=== PATIENT | male | born 1935 | race Caucasian/White ===

== ENCOUNTER 2018-01-12 05:45 | Day surgery (SDC) | payer MEDICARE ==
[~2018-01-12] VITALS: Ht 188 cm; Wt 93.9 kg
[~2018-01-12 05:45] MED LIST: AMBIEN5 MG PO; AMLODIPINE BESYL5 MG PO; ASPIR 8181 MG PO; ATENOLOL50 MG PO; ATORVASTATIN CA40 MG PO; CATAFLAM50 MG PO; CORDARONE200 MG PO; DICLOFENAC SODI50 MG PO; ELIQUIS5 MG PO; FIORINAL 50-321 EACH PO; FLEXERIL10 MG PO; FUROSEMIDE20 MG PO; GLUCOSAMINE CH1 EAC5 PO; ISOSORBIDE MONO30 MG PO; KETOCONAZOLE15 GM TOP; KETOCONAZOLE15 GM TP; KLOR-CON M2020 MEQ PO; LISINOPRIL10 MG PO; METOPROLOL SUCC25 MG PO; METOPROLOL TART50 MG PO; MISOPROSTOL200 MCG PO; MULTIPLE VITAM1 EAC2 PO; NITROGLYCERIN0.4 MG SL; OXYCODONE HCL5 MG PO; TRAMADOL HCL50 MG PO; TYLENOL EXTRA500 MG PO; ULTRAM50 MG PO
--- NOTE | 2018-01-12 09:30 | NUR ---
01/12/18 1730 Sussy Mora 0912 PT ARRIVED IN PACU SLEEPY. REPORT FROM ANESTHESIA.
--- NOTE | 2018-01-12 09:35 | NUR ---
PT ALERT, ORIENTED AND SUPPORTED BY HIS AND DAUGHTER PAUL. ALL SEEM TO BE INFORMED, FEW QUESTIONS. PT REQUESTED PRAYER, WILL FOLLOW NEEDED
[2018-01-12] MEDS ORDERED: OXYCODON-ACETA1 EAC2 PO (09:42)
[2018-01-12] MEDS ORDERED: IBUPROFEN600 MG PO (09:42)
[2018-01-12] MEDS ORDERED: MAPAP325 MG PO (09:42)
--- NOTE | 2018-01-12 11:11 | NUR ---
LE 1005: PT RETURNED FROM PACU. AWAKE TALKING TO RN'S. VITALS OBTAINED, STABLE. WATER AND JUICE GIVEN. PT REQUESTED PUDDING, GIVEN. FAMILY TAKEN BACK TO ROOM. DISCUSSED RECOVERY PROCESS AND GOALS. RX GIVEN TO DAUGHTER FOR DROP OF AT PHARMACY. NO FURTHER NEEDS AT THIS TIME, CALL LIGHT IN REACH.
--- NOTE | 2018-01-12 11:13 | NUR ---
IN TO CHECK ON PT, PT SLEEPING. AT BEDSIDE. PT DENIES PAIN AND NAUSEA. VITALS OBTAINED, STABLE. REQUEST FOR MORE PUDDING, GIVEN. NO FURTHER NEEDS AT THIS TIME, AT BEDSIDE. CALL LIGHT IN REACH.
--- NOTE | 2018-01-12 12:28 | NUR ---
LE 1150: IN TO CHECK ON PT, PT SLEEPING. AWAKENS TO NOISE. VITALS TAKEN, PT DENIES PAIN OR NAUSEA AT THIS TIME. SANDWICH ORDERED FOR PT AND DISABLED . NO FURTHER NEEDS AT THIS TIME. AT BEDSIDE. CALL LIGHT IN REACH.
--- NOTE | 2018-01-12 15:22 | NUR ---
LE 1410: IN TO CHECK ON PT, PT AWAKE. DENIES PAIN AND NAUSEA. STATES HE FEELS HE MAY HAVE TO URINATE SOON. AND DAUGHTER AT BEDSIDE. PT UP TO SIDE OF BED WITH ASSIST. PT NOTED SLIGHT DIZZINESS, SYMPTOMS RESOLVED QUICKLY. ASSISTED PT TO BATHROOM, AMBULATED WELL. PT BACK TO BED, STEADY ON FEET. DISCUSSED DISCHARGE WITH PT AND FAMILY. PT AGREES THAT HE IS READY TO GO HOME. IV DC'D. PT ASSISTED WITH DRESSING FROM DAUGHTER.
--- NOTE | 2018-01-12 15:25 | NUR ---
LE 1500: IN TO GIVE DC INSTRUCTIONS. PT DRESSED, TOLERATED WELL. PT DENIES PAIN, NAUSEA AND DIZZINESS. ALL PT AND FAMILIES QUESTIONS ANSWERED. PT WHEELED TO CAR, TOLERATED WELL.
--- NOTE | 2018-01-14 14:12 | OR ---
[facility] [address], [place] [address] Signed DATE OF OPERATION: 01/12/2018 SURGEON: Pinky Olson MD PREOPERATIVE DIAGNOSIS: Large left inguinal hernia. POSTOPERATIVE DIAGNOSIS: Large left indirect inguinal hernia. PROCEDURES: 1. Repair of large left direct inguinal hernia. 2. Implantation of Prolene mesh (underlay technique). ANESTHESIA: General LMA (Janny Thacker CRNA) and local 10 mL of 0.25% Marcaine with epinephrine. INDICATION: This 82-year-old white man formerly a patient of Dr. Yanez, now Dr. Huerta. He is known to have bilateral inguinal hernias, left greater than right. He has also had constipation problems. He was admitted at this time to undergo a left inguinal hernia repair, anticipating colonoscopy for evaluation of constipation and ultimately right inguinal hernia repair. Repair of the left inguinal hernia before colonoscopy was deemed appropriate, considered in the bulkiness of the left hernia in the high probability that contained sigmoid colon. The risks of bleeding, infection, and recurrence were reviewed with the patient and his . They understand and wished to proceed. FINDINGS: Indeed a bulky direct type hernia was noted, most likely it contained sigmoid colon in fact. The cord structures were normal. Two ilioinguinal nerves were identified and preserved. Implantation of Prolene mesh in an underlay technique allowed for good repair of the defect. DESCRIPTION OF PROCEDURE: The patient was brought to the operating room, given a general LMA-type anesthetic. Preoperative antibiotic Ancef was given. Sequential compression device stockings were used and heparin subcutaneously administered. After satisfactory anesthesia, the lower abdomen was clipped and prepared with a chlorhexidine solution and draped sterilely. A small incision was made cephalad to the left pubic tubercle. Dissection was carried Electronically Signed By: PINKY OLSON MD 01/14/18 1412 PATIENT NAME: MARTIR GUTIERREZ JR OPERATIVE REPORT DATE OF : 31 REPORT #: [id number] PHYSICIAN: PINKY OLSON MD PCP: SAMUEL HUERTA DO REPORT IS CONFIDENTIAL AND NOT TO BE RELEASED WITHOUT AUTHORIZATION [facility] [address], [place] [address] Signed through the subcutaneous tissue with electrocautery. The external oblique was incised along its fibers revealing the underlying bulky hernia as well as the spermatic cord. Two ilioinguinal nerve branches were identified and dissected free from the cremasteric muscle fibers and reflected around the external oblique medially and laterally. The cord was then dissected free from the floor more fully and encircled with a Ricardo drain. The bulky hernia sac was dissected free from the cord structures with all due care and found to be broad-based and quite large and probably containing sigmoid colon after all. The floor was completely attenuated, although the sac like structure was attended to the cord. In large part, the hernia represented a direct defect dominantly. Rather than dissecting the hernia sac, it was simply invaginated internally and an Allis clamp applied to the tendon of the transversus abdominis. The properitoneal fat was bluntly after incision of the attenuated fibers of the fascia of the transversalis. Beneath the medial midportion of the iliopubic tract in the region of Renzo's ligament, there was some oozing of venous blood. Exposure was not easily possible and therefore some Gel-Foam and some Peg hemostatic agent was applied to the area and gauze applied and some pressure applied allowing for good hemostasis. A segment of Prolene mesh was cut to an elliptical configuration and secured in an underlay technique with interrupted 2-0 Prolene. Special examination of the area of previous venous oozing showed no further bleeding. A defect was cut in the graft to accommodate the cord structures. The tails of the graft were secured laterally without encumbrance of the ilioinguinal nerve branches. By conclusion, the repair was quite optimal. A 10 mL of 0.25% Marcaine with epinephrine was injected locally. The cord structures were replaced into the canal as was the ilioinguinal nerve superiorly and inferiorly. The external oblique was reapproximated with running 2-0 Vicryl without encumbrance of those nerves either. Jose Manuel's layer was reapproximated with interrupted 2-0 Vicryl and skin closed with running subcuticular 3-0 Vicryl. Steri-Strips were applied. The patient was ultimately extubated, transferred to recovery room in good condition having suffered no complications. Sponge, needle, and instrument counts reported as correct x3. MD DOMINIK Hernández/BRANDON Electronically Signed By: PINKY OLSON MD 01/14/18 1412 PATIENT NAME: MARTIR GUTIERREZ JR OPERATIVE REPORT DATE OF : 31 REPORT #: [id number] PHYSICIAN: PINKY OLSON MD PCP: SAMUEL HUERTA DO REPORT IS CONFIDENTIAL AND NOT TO BE RELEASED WITHOUT AUTHORIZATION [address] [address] Signed /[id number] cc: MD Samuel Barrera DO Copies: LOW YANEZ MD, FRANK E DO ~ Electronically Signed By: PINKY OLSON MD 01/14/18 1412 PATIENT NAME: VIKIMarva MARTIR RAMIREZ OPERATIVE REPORT DATE OF : 31 REPORT #: [id number] PHYSICIAN: PINKY OLSON MD PCP: SAMUEL HUERTA DO REPORT IS CONFIDENTIAL AND NOT TO BE RELEASED WITHOUT AUTHORIZATION
[2018-03-31] MEDS ORDERED: GLUCOSAMINE &1 EAC1 PO (15:04)
[2018-03-31] MEDS ORDERED: MULTI VITAMIN1 EACH PO (15:05)
[2018-03-31] MEDS ORDERED: PERCOCET 7.5-31 EACH PO (15:08)
== END 2018-01-12 15:10 | disposition home or self-care (01) ==
LOC: DS 05:45
PROVIDERS: Surgery
PROC: 0YU60JZ Supplement Left Inguinal Region with Synthetic Substitute, Open Approach (ICD-10-PCS; principal; 2018-01-12 06:45)
DX: K40.20 Bilateral inguinal hernia, without obstruction or gangrene, not specified as recurrent (principal); M06.9 Rheumatoid arthritis, unspecified; G43.909 Migraine, unspecified, not intractable, without status migrainosus; E78.5 Hyperlipidemia, unspecified; I10 Essential (primary) hypertension; K59.00 Constipation, unspecified; Z79.82 Long term (current) use of aspirin; Z88.5 Allergy status to narcotic agent; Z88.8 Allergy status to other drugs, medicaments and biological substances; Z90.49 Acquired absence of other specified parts of digestive tract; Z95.1 Presence of aortocoronary bypass graft; Z98.890 Other specified postprocedural states; Z79.899 Other long term (current) drug therapy
CPT/HCPCS: 00830; C1781; J0690; J1100; J1644; J1885; J2250; J2405; J3010; J7120

== ENCOUNTER 2018-04-01 05:45 | Day surgery (SDC) | payer MEDICARE ==
[~2018-04-01] VITALS: Ht 188 cm; Wt 98.4 kg
[~2018-04-01 05:45] MED LIST changes: +GLUCOSAMINE &1 EAC1 PO; +IBUPROFEN600 MG PO; +MAPAP325 MG PO; +MULTI VITAMIN1 EACH PO; +OXYCODON-ACETA1 EAC2 PO; +PERCOCET 7.5-31 EACH PO
--- NOTE | 2018-04-01 09:19 | NUR ---
04/01/18 0919 Arianna Hammond 0907 PT ARRIVED REACTIVE, RESP EVEN AND UNLABORED. PT ENCOURAGED TO DEEP BREATH. 0913 PT REACHING UP FOR O2 MASK, O2 REMOVED. PT REMINED TO DEEP BREATH
[2018-04-01] MEDS ORDERED: OXYCODON-ACETA1 EAC2 PO (09:26)
[2018-04-01] MEDS ORDERED: IBUPROFEN600 MG PO (09:26)
[2018-04-01] MEDS ORDERED: MAPAP325 MG PO (09:26)
--- NOTE | 2018-04-01 09:51 | NUR ---
ICED WATER GIVEN. PT'S FAMILY IS @ THE BS. CALL LIGHT W/IN REACH.
--- NOTE | 2018-04-01 12:34 | NUR ---
PT SITTING UPRIGHT IN BED, EATING LUNCH. PT TOLERATES PO WELL. FAMILY AT BEDSIDE. PT CALL LIGHT AT LEFT SIDE. PT HAS NO C/O'S AT THIS TIME.
--- NOTE | 2018-04-01 13:33 | NUR ---
LE 1040 IN TO CHECK ON PT, PT SLEEPING. AT BEDSIDE. AWAKENS EASILY TO VOICE. DENIES PAIN AND NAUSEA. VITALS STABLE. NO FURTHER NEEDS AT THIS TIME. CALL LIGHT IN REACH.
--- NOTE | 2018-04-01 13:34 | NUR ---
LE 1120 IN TO CHECK ON PT, PT RESTING. AWAKENS TO VOICE. PT DOING WELL. SANDWICH REQUESTED AND ORDERED. AT BEDSIDE. PT DENIES PAIN AND NAUSEA. PT DENIES THE NEED TO URINATE THIS TIME. NO FURTHER NEEDS AT THIS TIME. CALL LIGHT IN REACH.
--- NOTE | 2018-04-01 13:37 | NUR ---
IN TO CHECK ON PT, PT RESTING. DENIES NAUSEA AFTER FOOD. DENIES PAIN. DENIES NEED TO URINATE AT THIS TIME. PT STATES FAMILY HAS GONE HOME TO REST. NO FURTHER NEEDS AT THIS TIME. CALL LIGHT IN REACH. PT WATCHING TV.
--- NOTE | 2018-04-01 14:08 | NUR ---
IN TO CHECK ON PT, PT RESTING IN BED WATCHING TV. DENIES PAIN AND NAUSEA. DENIES THE NEED TO URINATE, THOUGH HE FEELS HE WILL BE ABLE TO GO SOON. PT STATES HIS AND DAUGHTER WILL BE BACK SOON TO TAKE HIM HOME. REFILLED WATER. NO FURTHER NEEDS AT THIS TIME. CALL LIGHT IN REACH.
--- NOTE | 2018-04-01 14:52 | NUR ---
LE 1440 IN TO CHECK ON PT, PT AWAKE TALKING WITH DAUGHTER. PT ASSISTED UP TO RESTROOM, AMBULATED WELL. DENIES PAIN AND NAUSEA. DENIES DIZZINESS. PT ABLE TO VOID AND HAVE BM. PT ADVISED HE HAS MEET CRITERIA FOR DC, PT WOULD LIKE TO GO HOME. IV DC'D. PT GETTING DRESSED WITH ASSISTANCE FROM DAUGHTER.
--- NOTE | 2018-04-01 15:20 | NUR ---
LE 1500 PT DRESSED, TOLERATED WELL. DC INSTRUCTIONS GIVEN TO PT AND DAUGHTER PAUL. NO FURTHER QUESTION. PT WHEELED OUT TO WAITING CAR, PT TOLERATED WELL.
--- NOTE | 2018-04-03 12:42 | OR ---
[facility] [address] [place], [place] [address] Signed DATE OF OPERATION: 04/01/2018 SURGEON: Pinky Olson MD PREOPERATIVE DIAGNOSIS: Right inguinal hernia. POSTOPERATIVE DIAGNOSIS: Right direct inguinal hernia. PROCEDURES: 1. Repair of right direct inguinal hernia. 2. Implantation of Prolene mesh (underlay technique). ANESTHESIA: General, LMA, Kennedy Etelvina, SHANK CEMENTER HAND and local 20 mL of 0.25% Marcaine with epinephrine. INDICATIONS: This 82-year-old white man is a patient previously of Dr. Huy Yanez, now a patient of Dr. Samuel Huerta, who presented with bilateral inguinal hernia. He was noted to have a much larger left inguinal hernia, which was repaired with Prolene mesh and successfully so. He continues to have bulky right inguinal hernia, which is symptomatic. He is admitted at this time to undergo repair of the right hernia. He understands the risks of bleeding, infection, recurrence, and other unforeseen complications. His main risk factor for hernia is constipation and colonoscopy has been anticipated for evaluation of that. DESCRIPTION OF PROCEDURE: The patient was brought to the operating room and given a general LMA-type anesthetic. Preoperative antibiotic, Ancef was given. Sequential compression device stockings were used and heparin subcutaneously administered. The lower abdomen was clipped and prepared with a chlorhexidine solution and draped sterilely. The previous left groin incision was well healed. An incision on the right side was undertaken reasonably symmetric to the left side. Dissection was carried through the subcutaneous tissue with blunt and electrocautery dissection. The external oblique was incised along its fibers, revealing the underlying cord. An ilioinguinal nerve branch was dissected free from the cremasteric muscle fibers of the cord and reflected around the external oblique medially. The cord was mobilized from the floor with blunt and electrocautery dissection and encircled with a [place] drain. A bulky hernia was noted adherent to the cord. Further dissection showed it largely to be a direct hernia. The attenuated Electronically Signed By: PINKY OLSON MD 04/03/18 1242 PATIENT NAME: MARTIR GUTIERREZ JR OPERATIVE REPORT DATE OF : 31 REPORT #: [id number] PHYSICIAN: PINKY OLSON MD PCP: SAMUEL HUERTA DO REPORT IS CONFIDENTIAL AND NOT TO BE RELEASED WITHOUT AUTHORIZATION [facility] [address] [place], [place] [address] Signed fibers of the fascia of the transversalis were incised with electrocautery allowing for invagination of the wide-mouth hernia back to the properitoneal space. An Allis clamp was applied to the tendon of the transversus abdominis and blunt dissection of the properitoneal space was undertaken, revealing the iliopubic tract deeply as well. There was no evidence of femoral hernia. A small amount of bleeding in the medial inferior aspect was secured with electrocautery as well as some Peg and Gelfoam. A segment of Prolene mesh was cut to an elliptical configuration and secured in an underlay technique with interrupted 2-0 Prolene sutures. A defect was cut in the graft to accommodate the cord structures. The tails of the graft were secured laterally taking special care to avoid incorporating the ilioinguinal nerve. The aperture through which the cord passed was a bit larger than I had hoped and therefore was secured additionally with Prolene suture. The cord emanated through the mesh in a snug, but not tight configuration. 20 mL of 0.25% Marcaine with epinephrine was injected locally. The cord was placed into the canal as was the ilioinguinal nerve and the external oblique was reapproximated with running 2-0 Vicryl suture. Jose Manuel layer was reapproximated with interrupted 2-0 Vicryl and the skin was closed with running subcuticular 3-0 Vicryl. Steri-Strips were applied as was a Mepilex silver sponge dressing and an OpSite. The patient was ultimately extubated and transferred to recovery room in good condition having suffered no complications. Sponge, needle, and instrument counts were correct x2. MD DOMINIK Hernández/MODL /[id number] cc: MD Samuel Barrera DO Copies: HUY YANEZ MD Electronically Signed By: PINKY OLSON MD 04/03/18 1242 PATIENT NAME: MARTIR GUTIERREZ JR OPERATIVE REPORT DATE OF : 31 REPORT #: [id number] PHYSICIAN: PINKY OLSON MD PCP: SAMUEL HUERTA DO REPORT IS CONFIDENTIAL AND NOT TO BE RELEASED WITHOUT AUTHORIZATION [address] [address] Signed SAMUEL HUERTA DO ~ Electronically Signed By: PINKY OLSON MD 04/03/18 1242 PATIENT NAME: MARTIR GUTIERREZ JR OPERATIVE REPORT DATE OF : 31 REPORT #: [id number] PHYSICIAN: PINKY OLSON MD PCP: SAMUEL HUERTA DO REPORT IS CONFIDENTIAL AND NOT TO BE RELEASED WITHOUT AUTHORIZATION
== END 2018-04-01 15:00 | disposition home or self-care (01) ==
LOC: DS 05:45
PROVIDERS: Surgery
PROC: 0YU50JZ Supplement Right Inguinal Region with Synthetic Substitute, Open Approach (ICD-10-PCS; principal; 2018-04-01 06:45)
DX: K40.90 Unilateral inguinal hernia, without obstruction or gangrene, not specified as recurrent (principal); M06.9 Rheumatoid arthritis, unspecified; I25.10 Atherosclerotic heart disease of native coronary artery without angina pectoris; G43.909 Migraine, unspecified, not intractable, without status migrainosus; E78.5 Hyperlipidemia, unspecified; I10 Essential (primary) hypertension; K59.09 Other constipation; J18.9 Pneumonia, unspecified organism; M19.90 Unspecified osteoarthritis, unspecified site; I25.2 Old myocardial infarction; Z88.5 Allergy status to narcotic agent; Z88.6 Allergy status to analgesic agent; Z79.82 Long term (current) use of aspirin; Z79.899 Other long term (current) drug therapy; Z95.1 Presence of aortocoronary bypass graft
CPT/HCPCS: 00830; C1781; J0690; J1644; J1885; J2405; J2704; J3010; J7120

== ENCOUNTER 2018-12-24 21:54 | Emergency (ER) | payer MEDICARE ==
[~2018-12-24] VITALS: Ht 188 cm; Wt 98.4 kg
[2018-12-24] MEDS ORDERED: LISINOPRIL5 MG PO (22:06)
[2018-12-24] MEDS ORDERED: OFLOXACIN5 M1 OP (22:06)
[2018-12-24] MEDS ORDERED: PREDNISOLONE ACE5 ML OPTH (22:07)
--- NOTE | 2018-12-26 16:49 | EKG ---
[facility] [address] [facility] [place] [address] Signed Normal sinus rhythm Right bundle branch block Left anterior fascicular block Bifascicular block Abnormal ECG When compared with ECG of 08-JAN-2018 11:19, No significant change was found Confirmed by CHINYERE VELA DO ([id number]) on 12/26/2018 4:48:49 PM Electronically Signed By: CHINYERE VELA DO 12/26/18 1649 PATIENT NAME: MARTIR GUTIERREZ JR Electrocardiogram DATE OF : 31 PHYSICIAN: CHINYERE VELA DO REPORT #: [id number] REPORT IS CONFIDENTIAL AND NOT TO BE RELEASED WITHOUT AUTHORIZATION
== END 2018-12-25 01:33 | disposition home or self-care (01) ==
LOC: ED 21:54
DX: R07.9 Chest pain, unspecified (principal); I10 Essential (primary) hypertension; I25.10 Atherosclerotic heart disease of native coronary artery without angina pectoris; Z86.73 Personal history of transient ischemic attack (TIA), and cerebral infarction without residual deficits; Z90.49 Acquired absence of other specified parts of digestive tract; Z95.1 Presence of aortocoronary bypass graft; Z88.5 Allergy status to narcotic agent; Z88.8 Allergy status to other drugs, medicaments and biological substances; Z79.899 Other long term (current) drug therapy; Z79.82 Long term (current) use of aspirin
CPT/HCPCS: 71045; 80053; 84484; 85025; 93005; 93010; 96361; 96374; 99285-25; J7030

== ENCOUNTER 2019-01-30 12:40 | Inpatient (IN) | payer MEDICARE ==
[~2019-01-30] VITALS: Ht 188 cm; Wt 98.4 kg
--- NOTE | ~2019-01-30 | DS ---
[facility] [address] [place], [place] [address] Draft ADMISSION DATE: 01/31/2019 DISCHARGE DATE: 02/02/2019 REASON FOR ADMISSION: Acute calculous cholecystitis. HISTORY: This is a very pleasant 83-year-old white man who was seen in the emergency room about 2 weeks ago with complaints of epigastric pain and cardiac workup was undertaken, which was negative. He reappeared to the emergency room after a night that he ate fish wick with similar complaints as before. He was evaluated by Dr. Rodas, whose evaluation included a workup for biliary disease, where he underwent a gallbladder ultrasound showing at least one large 2.6 cm gallstone with thickened gallbladder wall. He was admitted for further evaluation and care for acute calculous cholecystitis. PERTINENT PHYSICAL EXAM: GENERAL: A tall white man who is not systemically toxic. HEENT: Mucous membranes reasonably moist. Trachea midline. CHEST: Clear. HEART: Regular without murmur. ABDOMEN: Large, but not particularly distended. He has minimal tenderness in the right subcostal area. HOSPITAL COURSE: He was admitted, given intravenous antibiotics, parenteral pain medication, and on January 31, 2019, underwent laparoscopic cholecystectomy. He was found to have a markedly inflamed gallbladder. Impressively so, far more than his clinical symptoms would have suggested. The operation was rather prolonged, complicated and difficult due to the extent of inflammation. Cholangiogram was normal. Upon opening the gallbladder, there were two large stones at least 2.6 cm in size each. Notably, his cholangiogram was normal. 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 A drain was placed. He never showed any sign of bile leak. By day of discharge, he is ambulating well, tolerating a regular diet and the drain has been removed. The patient is poorly tolerant of opiates and is discharged home with Tylenol only. He was instructed to lift no more than 20 pounds for the next 2 weeks. He should walk PATIENT NAME: MARTIR GUTIERREZ JR DISCHARGE SUMMARY DATE OF : 31 REPORT #: [id number] PHYSICIAN: PINKY OLSON MD PCP: LUÍS MONROY MD REPORT IS CONFIDENTIAL AND NOT TO BE RELEASED WITHOUT AUTHORIZATION [address] [address] Draft on a daily basis and has no restrictions to his diet as relates to the gallbladder. DISCHARGE MEDICATIONS: Will include: 1. Tylenol 650 mg p.o. q.6 hours p.r.n. pain. He will resume his usual medications, which include potassium chloride 20 mEq p.o. every other day. 2. Atorvastatin 20 mg p.o. at bedtime. 3. Aspirin 81 mg p.o. daily. 4. Glucosamine chondroitin 1 tablet p.o. daily. 5. Multivitamin. 6. Lisinopril 5 mg p.o. daily. 7. Prednisolone eye drops, left eye 4 times a day. 8. Lasix 40 mg p.o. every other day. 9. Metoprolol 50 mg p.o. daily. 10. Nitroglycerin sublingual 4.4 mg as needed for chest pain. DISCHARGE DIAGNOSES: 1. Acute calculous cholecystitis (severe), status post laparoscopic cholecystectomy with intraoperative cholangiogram and placement of drain on January 31, 2019. 2. History of dyslipidemia. 3. Hypertension. 4. History of ischemic heart disease including the coronary artery bypass grafting in 2016 with subsequent atrial fibrillation and cardioversion, currently normal sinus rhythm. 5. Bilateral cataract operation in the past 6 months. 6. History of appendectomy, hemorrhoidectomy, and knee arthroscopy. FOLLOWUP PLAN: He is return to see me in a month or so. He will call if there are problems. MD DOMINIK Hernández/MODL /[id number] cc: Luís Monroy MD PATIENT NAME: MARTIR GUTIERREZ Filippo DISCHARGE SUMMARY DATE OF : [birth year] REPORT #: [id number] PHYSICIAN: PINKY OLSON MD PCP: LUÍS MONROY MD REPORT IS CONFIDENTIAL AND NOT TO BE RELEASED WITHOUT AUTHORIZATION [facility] [address] [place], [place] [address] Draft Phillip Rodas MD Copies: PHILLIP RODAS MD ~ PATIENT NAME: MARTIR GUTIERREZ Filippo JR DISCHARGE SUMMARY DATE OF : [birth year] REPORT #: [id number] PHYSICIAN: PINKY OLSON MD PCP: LUÍS MONROY MD REPORT IS CONFIDENTIAL AND NOT TO BE RELEASED WITHOUT AUTHORIZATION
--- OUTSIDE RECORDS SUMMARY | ~2019-01-30 | XMS | Clinical Summary ---
Demographics + + + | Address | [address] | | | [place] [address] | + + + | Home Phone | | + + + | Preferred Language | Unknown | + + + | Marital Status | | + + + | Mormonism Affiliation | 1077 | + + + | Race | Unknown | + + + | Ethnic Group | Unknown | + + + Author + + + | Author | [facility] | | | and [place] | + + + | Organization | [facility] | | | and [place] | + + + | Address | Unknown | + + + | Phone | Unavailable | + + + Support + + +---------+ + | Name | Relationship | Address | Phone | + + +---------+ + | GE[place]GIANA RANDOLPH ECON | Unknown | | + + +---------+ + | TomasaGeorgiana | ECON | Unknown | | + + +---------+ + | Laury Simms | ECON | Unknown | | + + +---------+ + Care Team Providers + +------+ + | Care Supervisor Stave Cutting Name | Role | Phone | + +------+ + PP | Unavailable | + +------+ + Allergies Not on File Current Medications + + +--------+---------+------+------+-------+ | Prescription | Sig. | Disp. | Refills | Star | End | Statu | | | | | | t | Date | s | | | | | | Date | | | + + +--------+---------+------+------+-------+ | furosemide (LASIX) | TAKE TWO TABLETS BY | 30 | 4 | 11/2 | | Activ | | 20 mg tablet | MOUTH EVERY OTHER | tablet | | 8/20 | | e | | | DAY | | | 18 | | | + + +--------+---------+------+------+-------+ Active Problems Not on file Social History + +-------+ +--------+------+ | Tobacco [...] on file | | + + + Plan of Treatment + + + + + | Health Maintenance | Due Date | Last Done | Comments | + + + + + | Vaccine: | | | | | Dtap/Tdap/Td (1 - | 2 | | | | Tdap) | | | | + + + + + | Vaccine: Zoster (1 | | | | | of 2) | 3 | | | + + + + + | Vaccine: | | | | | Pneumococcal 65+ | 8 | | | | Low/Medium Risk (1 | | | | | of 2 - PCV13) | | | | + + + + + | Vaccine: Influenza | | | | | (#1) | 8 | | | + + + + + | Adult Annual | | | | | Wellness Visit | 8 | | | + + + + + Results Not on filefrom Last 3 Months"
--- OUTSIDE RECORDS SUMMARY | ~2019-01-30 | XMS | Clinical Summary ---
Demographics + + + | Address | [address] | | | [place] [address] | + + + | Home Phone | | + + + | Preferred Language | Unknown | + + + | Marital Status | | + + + | Anabaptist Affiliation | [id number] | + + + | Race | Unknown | + + + | Ethnic Group | Unknown | + + + Author + + + | Author | [facility] | + + + | Organization | [facility] | + + + | Address | [...] | | + + +---------+ + | Detail,Message | ECON | Unknown | | + + +---------+ + Care Team Providers + +------+ + | Care Yarn Mercerizer Operator Name | Role | Phone | + +------+ + | Almaz Thacker PA-C | PP | | + +------+ + Allergies + + + + + + | Active Allergy | Reactions | Severity | Noted | Comments | | | | | Date | | + + + + + + | Chlorthalidone | Other (See Comments) | Medium | 10/28/20 | Hypokalemia | | | | | 17 | | + + + + + + | Codeine | Hallucinations | Medium | 01/08/20 | | | | | | 16 | | + + + + + + | Naproxen | Diarrhea, Nausea and | Low | 10/28/20 | | | | Vomiting | | 17 | | + + + + + + Current Medications + + +--------+---------+------+------+-------+ | Prescription | Sig. | Disp. | Refills | Star | End | Statu | | | | | | t | Date | s | | | | | | Date | | | + + +--------+---------+------+------+-------+ | MULTIPLE VITAMIN | Take by mouth | | | | | Activ | | PO | daily. | | | | | e | + + +--------+---------+------+------+-------+ | | Take 1 capsule by | | | | | Activ | | glucosamine-chondroi | mouth daily. | | | | | e | | tin 500-400 MG CAPS | | | | | | | + + +--------+---------+------+------+-------+ | ketoconazole | Apply 2 % topically | | | | | Activ | | (NIZORAL) 2 % cream | daily. | | | | | e | + + +--------+---------+------+------+-------+ | potassium chloride | Take 20 mEq by mouth | | | | | Activ | | SA [facility]KE HESTER) | every other day. | | | | | e | | 20 MEQ tablet | | | | | | | + + +--------+---------+------+------+-------+ | furosemide (LASIX) | Take 40 mg by mouth | | | | | Activ | | 40 MG tablet | every other day. | | | | | e | + + +--------+---------+------+------+-------+ | metoprolol | Take 50 mg by mouth | | | | | Activ | | (LOPRESSOR) 50 MG | 2 (two) times daily. | | | | | e | | tablet | | | | | | | + + +--------+---------+------+------+-------+ | aspirin 81 MG EC | Take 81 mg by mouth | | | | | Activ | | tablet | daily with | | | | | e | | | breakfast. | | | | | | + + +--------+---------+------+------+-------+ | traMADol (ULTRAM) | Take 50 mg by mouth | | | | | Activ | | 50 MG tablet | as needed for Pain. | | | | | e | + + +--------+---------+------+------+-------+ | atorvastatin | Take 1 tablet by | 90 | 2 | 06/2 | | Activ | | (LIPITOR) 40 MG | mouth nightly. | tablet | | 0/20 | | e | | tablet | | | | 18 | | | + + +--------+---------+------+------+-------+ | ibuprofen (MOTRIN) | Take 600 mg by mouth | | | | | Activ | | 600 MG tablet | every 6 (six) hours | | | | | e | | | as needed for Pain. | | | | | | + + +--------+---------+------+------+-------+ | nitroGLYCERIN | Place 1 tablet under | 25 | 12 | 06/2 | 06/2 | Activ | | (NITROSTAT) 0.4 MG | the tongue every 5 | tablet | | 0/20 | 0/20 | e | | SL tablet | (five) minutes as | | | 18 | 19 | | | | needed for Chest | | | | | | | | pain (use every 5-10 | | | | | | | | min as needed PRN). 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 He remains in sinus | | rhythm after his cardioversion. Denies any new visual | | disturbances, dysarthria, dysphasia, lateralizing signs or | | symptoms. We'll allow him to lift up to 50 pounds now. | | Tolerating medications. Will follow clinically. Activity | | encouraged. Labs anticipated.Hx CAB01/15/2016, CABG*5 (WEST to | | LAD, SVG to D1, SVG to OM, SVG to RPDA, SVG to RPLA).Hx | | PCI/stent: noHx Pacemaker/ICD: noLast Cath, 01/09/2016: left main | | OK, 40% prox-LAD, 80% mid-LAD, 80% distal LAD, 95% D1, LCx | | non-dominanat with 30-40% mid-LCx, OM1 occluded, 90% OM3, large | | RCA with 30% prox-RCA, 50-60% mid-RCA, 80% RPDA. Last Echo, | | 01/10/2016: LVEF 60-65%, moderate LAE, moderate LAUREN, mild RVE, mild | | MR.Last Stress Test, 12/12/2015: Lexiscan, moderate size lateral | | ischemia, LVEF 60%.ECG, 08/15/2016: Sinus rhythm, 65bpm, LAD, | | RBBB. | + + + + + | Paroxysmal atrial fibrillation (HCC) | 01/30/2016 | + + + + + | Last Assessment & Plan: Persistent atrial | | fibrillation/flutter, successfully cardioverted to sinus rhythm, | | he continues to be in sinus rhythm. Unaware of any palpitations. | | Denies any new visual disturbances, dysarthria, dysphasia, | | lateralizing signs or symptoms. | + + + + + | Coronary artery disease involving [place] coronary artery | 01/10/2016 | + + + | Essential hypertension, benign | 01/08/2016 | + + + | Hyperlipemia | 01/08/2016 | + + + | HLD (hyperlipidemia) | 11/21/2015 | + + + + + | Last Assessment & Plan: Hyperlipidemia, continue current med | | at current dose (atorvastatin). | + + + + + | Primary osteoarthritis of right knee | 11/21/2015 | + + + + + | Last Assessment & Plan: DJD, primarily affecting the right | | knee, previous injury to right knee, arthroscopic procedure the | | right knee. | + + Resolved Problems + + + + | Problem | Noted | Resolved | | | Date | Date | + + + + | Chest pain at rest | 01/08/20 | | | | 16 | 7 | + + + + | Sinus bradycardia | 01/08/20 | | | | 16 | 8 | + + + + | Essential hypertension | 11/21/19 | | | | 16 | 7 | + + + + + + | Last Assessment & Plan: Hypertension, controlled, continue | | current meds current dose (metoprolol, furosemide). | + + Encounters +--------+ + + + + | Date | Type | Specialty | Care Team | Description | +--------+ + + + + | 11/24/ | Ancillary | | Alejandro Monroy | Congestive heart | | 2018 | Procedure | | MD Casandra | failure, unspecified | | | | | | HF chronicity, | | | | | | unspecified heart | | | | | | failure type ([facility]) | +--------+ + + + + | 11/24/ | Ancillary | | Alejandro Monroy | Congestive heart | | 2018 | Orders | | MD Casandra | failure, unspecified | | | | | | HF chronicity, | | | | | | unspecified heart | | | | | | failure type (HCC) | +--------+ + + + + from Last 3 Months Family History + + +------+ + | Medical History | Relation | Name | Comments | + + +------+ + | Cancer | Mother | | | + + +------+ + | Heart disease | Mother | | | + + +------+ + | High cholesterol | Mother | | | + + +------+ + | Hypertension | Mother | | | + + +------+ + + +------+ + + | Relation | Name | Status | Comments | + +------+ + + | Father | | | unknown status | | | | (Age | | | | | 85) | | + +------+ + + | Mother | | | HTN,cancer, heart disease,CHF | | | | (Age | | | | | 86) | | + +------+ + + Social History + + + +--------+ + | Tobacco Use | Types | Packs/Day | Years | Date | | | | | Used | | + + + +--------+ + | Former Smoker | Cigarettes | 0.25 | 2 | Quit: 11/09/1957 | + + + +--------+ + + +---+---+---+ | Smokeless Tobacco: | | | | | Never Used | | | | + +---+---+---+ + + +---------+ + | Alcohol Use | Drinks/We | oz/Week | Comments | | | ek | | | + + +---------+ + | Yes | 1 | 0.6 | liquor occ | | | Standard | | | | | drinks or | | | | | | | | | | equivalen | | | | | t | | | + + +---------+ + + + + | Sex Assigned at | Date Recorded | | | | + + + | Not on file | | + + + Last Filed Vital Signs + + + + | Vital Sign | Reading | Time Taken | + + + + | Blood Pressure | 118/62 | 04/28/2018 10:35 AM PDT | + + + + | Pulse | 62 | 04/28/2018 10:35 AM PDT | + + + + | Temperature | 36.3 C (97.3 F) | 02/06/2016 11:04 AM PDT | + + + + | Respiratory Rate | 16 | 09/15/2016 2:09 PM PST | + + + + | Oxygen Saturation | 96% | 04/28/2018 10:35 AM PDT | + + + + | Inhaled Oxygen | - | - | | Concentration | | | + + + + | Weight | 100.1 kg (220 lb | 04/28/2018 10:35 AM PDT | | | 11.2 oz) | | + + + + | Height | 185.4 cm (6' 1") | 04/28/2018 10:35 AM PDT | + + + + | Body Mass Index | 29.12 | 04/28/2018 10:35 AM PDT | + + + + Plan of Treatment + [...] | | + + + + + Procedures + +--------+ + + + | Procedure Name | Priori | Date/Time | Associated Diagnosis | Comments | | | ty | | | | + +--------+ + + + | ECHO OUTSIDE | Routin | 11/24/2018 | Congestive heart | Results for this | | INTERPRETATION | e | 4:48 PM | failure, unspecified | procedure are in the | | STANDARD | | PST | HF chronicity, | results section. | | | | | unspecified heart | | | | | | failure type (HCC) | | + +--------+ + + + from Last 3 Months Results ECHO outside interpretation standard (11/24/2018 4:48 PM) + + + | Impressions | Performed At | + + + | 1. The left ventricle is normal in size, wall thickness and systolic | [facility] | | function EF 55-60%. 2. The right ventricle is mildly enlarged with | [facility]OLOG[facility] | | normal systolic function. 3. No significant valvular pathology. 4. | | | There is no pericardial effusion. | | + + + + + + | Narrative | Performed At | + + + | Patient Name: FLACO RANDOLPH Date of : 1935 | [facility] | | Performing Physician: Devonte Nevarez | RADIOLOGY | | | | | INDICATIONS CHF CONCLUSIONS 1. The | | | left ventricle is normal in size, wall thickness and systolic function | | | EF 55-60%. 2. The right ventricle is mildly enlarged with normal | | | systolic function. 3. No significant valvular pathology. 4. There | | | is no pericardial effusion. FINDINGS -------- ECG rhythm: Sinus | | | rhythm. ECG rhythm: Resting bradycardia (HR<60bpm). Study: A | | | 2-dimensional transthoracic echocardiogram with m-mode, spectral and | | | color flow Doppler was perfomed. Study: This was a technically | | | adequate study. Left Ventricle: Overall left ventricular systolic | | | function is normal with, an EF between 60 - 65 %. Left Ventricle: | | | The left ventricle cavity size is normal. Left Ventricle: Left | | | ventricular wall thickness is normal. Left Ventricle: There is | | | paradoxical/dysynergic septal motion consistent with bundle branch | | | block. Left Ventricle: The diastolic filling pattern indicates | | | impaired relaxation consistent with mild dysfunction (Grade I). Right | | | Ventricle: The right ventricle is mildly enlarged. Right Ventricle: | | | The right ventricular systolic function is normal. Left Atrium: The | | | left atrium is normal in size. Right Atrium: The right atrium is | | | mildly enlarged. Aortic Valve: The aortic valve appears to be | | | trileaflet. Aortic Valve: There is mild aortic valve sclerosis | | | without stenosis. Aortic Valve: There is no evidence of aortic | | | regurgitation. Mitral Valve: The mitral valve is normal. Mitral | | | Valve: There is trace mitral regurgitation. Tricuspid Valve: The | | | tricuspid valve appears structurally normal. Tricuspid Valve: | | | Pulmonary artery systolic pressure could not be assessed due to the | | | absence of adequate TR jet. Pulmonic Valve: The pulmonic valve is | | | normal. Pulmonic Valve: Mild pulmonic regurgitation. Pulmonic | | | Valve: No significant valvular pathology. Pericardium: There is no | | | pericardial effusion. Pericardium: No pleural effusion seen. | | | IVC/Hepatic Veins: The IVC is normal size (1.5-2.5cm) and collapses | | | >50% with sniff, consistent with central venous pressures of 5-10mmHg. | | | Aorta: Aortic arch not well seen. MEASUREMENTS | | | Ao asc: 3.76 cm Ao Diam: 3.42 cm Ao sinus: 3.75 cm Ao | | | st junct: 3.34 cm IVC: 1.47 cm LA Major: 4.92 cm | | | EDV(Teich): 149.91 ml IVSd: 0.91 cm LVIDd: 5.54 cm | | | LVPWd: 0.97 cm LVOT Area: 3.54 cm2 LVOT Diam: 2.12 cm | | | %FS: 30.32 % EF(Teich): 57.09 % ESV(Teich): 64.31 ml | | | LVIDs: 3.86 cm SV(Teich): 85.59 ml RA Major: 5.23 cm RV | | | Major: 6.94 cm RV Minor: 4.19 cm RVIDd: 3.50 cm LVEF | | | MOD A2C: 65.78 % SV MOD A2C: 59.78 ml LVEF MOD A4C: | | | 63.97 % SV MOD A4C: 65.33 ml EF Biplane: 62.43 % LVEDV MOD | | | BP: 98.82 ml LVESV MOD BP: 37.12 ml LVEDV MOD A2C: 90.88 | | | ml LVLd A2C: 7.35 cm LVEDV MOD A4C: 102.12 ml LVLd | | | A4C: 7.82 cm LVESV MOD A2C: 31.09 ml LVLs A2C: 5.65 cm | | | LVESV MOD A4C: 36.78 ml LVLs A4C: 6.82 cm LAESV(A-L): | | | 60.13 ml LAESV Index (A-L): 26.84 ml/m2 LAAs A2C: 19.61 cm2 | | | LAESV A-L A2C: 63.10 ml LALs A2C: 5.17 cm LAAs A4C: | | | 18.69 cm2 LAESV A-L A4C: 55.18 ml LALs A4C: 5.37 cm | | | RAAs: 19.27 cm2 RAESV A-L: 61.26 ml RAESV MOD: 59.24 ml | | | RALs: 5.15 cm TAPSE: 1.78 cm AV maxP.07 mmHg AV | | | meanP.87 mmHg AV Vmax: 1.23 m/s AV Vmean: 0.78 m/s | | | AV VTI: 22.53 cm CARLTON Vmax: 2.68 cm2 CARLTON (VTI): 3.27 cm2 | | | AVAI Vmax: 0.00 cm2/m2 AVAI (VTI): 0.00 cm2/m2 LVOT | | | maxP.48 mmHg LVOT meanP.06 mmHg LVSI Dopp: 32.97 | | | ml/m2 LVSV Dopp: 73.87 ml LVOT Vmax: 0.93 m/s LVOT | | | Vmean: 0.67 m/s LVOT VTI: 20.83 cm MV A Joaquín: 0.68 m/s | | | MV Dec Preston: 1.32 m/s2 MV DecT: 373.67 ms MV E Joaquín: | | | 0.49 m/s MV E/A Ratio: 0.72 MV PHT: 108.36 ms MVA By | | | PHT: 2.03 cm2 Septal e': 0.03 m/s Septal E/e': 14.24 | | | Lateral e': 0.02 m/s Lateral E/e': 20.11 Aquatic Director: LILIAM | | | Authenticated by: Devonte [facility] Report Date/Time: 11-25-2018 | | | 17:40:15 | | + + + + + | Procedure Note | + + | Tony, Rad Results In - 11/25/2018 5:50 PM PST Patient Name: Karishma RANDOLPH of | | : 1935ccession: [id number] Physician: Devonte | | Alsamara INDICATIONS------ | | -----CHFCONCLUSIONS 1. The left ventricle is normal in size, wall thickness | | and systolic function EF 55-60%.2. The right ventricle is mildly enlarged with normal | | systolic function.3. No significant valvular pathology. 4. There is no pericardial | | effusion.FINDINGS--------ECG rhythm: Sinus rhythm. ECG rhythm: Resting bradycardia | | (HR<60bpm).Study: A 2-dimensional transthoracic echocardiogram with m-mode, spectral and | | color flow Doppler was perfomed. Study: This was a technically adequate study.Left | | Ventricle: Overall left ventricular systolic function is normal with, an EF between 60 - | | 65 %. Left Ventricle: The left ventricle cavity size is normal. Left Ventricle: Left | | ventricular wall thickness is normal. Left Ventricle: There is paradoxical/dysynergic | | septal motion consistent with bundle branch block. Left Ventricle: The diastolic filling | | pattern indicates impaired relaxation consistent with mild dysfunction (Grade I).Right | | Ventricle: The right ventricle is mildly enlarged. Right Ventricle: The right | | ventricular systolic function is normal.Left Atrium: The left atrium is normal in | | size.Right Atrium: The right atrium is mildly enlarged.Aortic Valve: The aortic valve | | appears to be trileaflet. Aortic Valve: There is mild aortic valve sclerosis without | | stenosis. Aortic Valve: There is no evidence of aortic regurgitation.Mitral Valve: The | | mitral valve is normal. Mitral Valve: There is trace mitral regurgitation.Tricuspid | | Valve: The tricuspid valve appears structurally normal. Tricuspid Valve: Pulmonary | | artery systolic pressure could not be assessed due to the absence of adequate TR | | jet.Pulmonic Valve: The pulmonic valve is normal. Pulmonic Valve: Mild pulmonic | | regurgitation. Pulmonic Valve: No significant valvular pathology. Pericardium: There is | | no pericardial effusion. Pericardium: No pleural effusion seen.IVC/Hepatic Veins: The | | IVC is normal size (1.5-2.5cm) and collapses >50% with sniff, consistent with central | | venous pressures of 5-10mmHg.Aorta: Aortic arch not well | | seen.MEASUREMENTS Ao asc: 3.76 cmAo Diam: 3.42 cmAo sinus: 3.75 cmAo | | st junct: 3.34 cmIVC: 1.47 cmLA Major: 4.92 cmEDV(Teich): 149.91 mlIVSd: 0.91 | | cmLVIDd: 5.54 cmLVPWd: 0.97 cmLVOT Area: 3.54 bd2QOAQ Diam: 2.12 cm%FS: 30.32 | | %EF(Teich): 57.09 %ESV(Teich): 64.31 mlLVIDs: 3.86 cmSV(Teich): 85.59 mlRA | | Major: 5.23 cmRV Major: 6.94 cmRV Minor: 4.19 cmRVIDd: 3.50 cmLVEF MOD A2C: | | 65.78 %SV MOD A2C: 59.78 mlLVEF MOD A4C: 63.97 %SV MOD A4C: 65.33 mlEF Biplane: | | 62.43 %LVEDV MOD BP: 98.82 mlLVESV MOD BP: 37.12 mlLVEDV MOD A2C: 90.88 mlLVLd | | A2C: 7.35 cmLVEDV MOD A4C: 102.12 mlLVLd A4C: 7.82 cmLVESV MOD A2C: 31.09 mlLVLs | | A2C: 5.65 cmLVESV MOD A4C: 36.78 mlLVLs A4C: 6.82 cmLAESV(A-L): 60.13 mlLAESV | | Index (A-L): 26.84 ml/m2LAAs A2C: 19.61 [id number] A-L A2C: 63.10 mlLALs A2C: 5.17 | | cmLAAs A4C: 18.69 [id number] A-L A4C: 55.18 mlLALs A4C: 5.37 cmRAAs: 19.27 | | [id number] A-L: 61.26 mlRAESV MOD: 59.24 mlRALs: 5.15 cmTAPSE: 1.78 cmAV maxPG: | | 6.07 mmHgAV meanP.87 mmHgAV Vmax: 1.23 m/Jacquelin Vmean: 0.78 m/Jacquelin VTI: 22.53 | | cmAVA Vmax: 2.68 cm2AVA (VTI): 3.27 pm6YOGL Vmax: 0.00 cm2/m2AVAI (VTI): 0.00 | | cm2/m2LVOT maxP.48 mmHgLVOT meanP.06 mmHgLVSI Dopp: 32.97 ml/m2LVSV Dopp: | | 73.87 mlLVOT Vmax: 0.93 m/sLVOT Vmean: 0.67 m/sLVOT VTI: 20.83 cmMV A Joaquín: | | 0.68 m/sMV Dec Preston: 1.32 m/s2MV DecT: 373.67 msMV E Joaquín: 0.49 m/sMV E/A Ratio: | | 0.72 MV PHT: 108.36 msMVA By PHT: 2.03 pj5Vpaxif e': 0.03 m/sSeptal E/e': 14.24 | | Lateral e': 0.02 m/sLateral E/e': 20.11 Aquatic Director: DHAuthenticated by: Devonte | | [facility] Date/Time: 11-25-2018 17:40:15IMPRESSION:1. The left ventricle is normal | | in size, wall thickness and systolic function EF 55-60%.2. The right ventricle is mildly | | enlarged with normal systolic function.3. No significant valvular pathology. 4. There | | is no pericardial effusion. | | | |Ao asc: 3.76 cm | |Ao Diam: 3.42 cm | |Ao sinus: 3.75 cm | |Ao st junct: 3.34 cm | |IVC: 1.47 cm | |LA Major: 4.92 cm | |EDV(Teich): 149.91 ml | |IVSd: 0.91 cm | |LVIDd: 5.54 cm | |LVPWd: 0.97 cm | |LVOT Area: 3.54 cm2 | |LVOT Diam: 2.12 cm | |%FS: 30.32 % | |EF(Teich): 57.09 % | |ESV(Teich): 64.31 ml | |LVIDs: 3.86 cm | |SV(Teich): 85.59 ml | |RA Major: 5.23 cm | |RV Major: 6.94 cm | |RV Minor: 4.19 cm | |RVIDd: 3.50 cm | |LVEF MOD A2C: 65.78 % | |SV MOD A2C: 59.78 ml | |LVEF MOD A4C: 63.97 % | |SV MOD A4C: 65.33 ml | |EF Biplane: 62.43 % | |LVEDV MOD BP: 98.82 ml | |LVESV MOD BP: 37.12 ml | |LVEDV MOD A2C: 90.88 ml | |LVLd A2C: 7.35 cm | |LVEDV MOD A4C: 102.12 ml | |LVLd A4C: 7.82 cm | |LVESV MOD A2C: 31.09 ml | |LVLs A2C: 5.65 cm | |LVESV MOD A4C: 36.78 ml | |LVLs A4C: 6.82 cm | |LAESV(A-L): 60.13 ml | |LAESV Index (A-L): 26.84 ml/m2 | |LAAs A2C: 19.61 cm2 | |LAESV A-L A2C: 63.10 ml | |LALs A2C: 5.17 cm | |LAAs A4C: 18.69 cm2 | |LAESV A-L A4C: 55.18 ml | |LALs A4C: 5.37 cm | |RAAs: 19.27 cm2 | |RAESV A-L: 61.26 ml | |RAESV MOD: 59.24 ml | |RALs: 5.15 cm | |TAPSE: 1.78 cm | |AV maxP.07 mmHg | |AV meanP.87 mmHg | |AV Vmax: 1.23 m/s | |AV Vmean: 0.78 m/s | |AV VTI: 22.53 cm | |CARLTON Vmax: 2.68 cm2 | |CARLTON (VTI): 3.27 cm2 | |AVAI Vmax: 0.00 cm2/m2 | |AVAI (VTI): 0.00 cm2/m2 | |LVOT maxP.48 mmHg | |LVOT meanP.06 mmHg | |LVSI Dopp: 32.97 ml/m2 | |LVSV Dopp: 73.87 ml | |LVOT Vmax: 0.93 m/s | |LVOT Vmean: 0.67 m/s | |LVOT VTI: 20.83 cm | |MV A Joaquín: 0.68 m/s | |MV Dec Preston: 1.32 m/s2 | |MV DecT: 373.67 ms | |MV E Joaquín: 0.49 m/s | |MV E/A Ratio: 0.72 | |MV PHT: 108.36 ms | |MVA By PHT: 2.03 cm2 | |Septal e': 0.03 m/s | |Septal E/e': 14.24 | |Lateral e': 0.02 m/s | |Lateral E/e': 20.11 | | | |Aquatic Director: LILIAM | |Authenticated by: Devonte [facility] | |Report Date/Time: 11-25-2018 17:40:15 | | | |IMPRESSION: | |1. The left ventricle is normal in size, wall thickness and systolic function EF 55-60%. | |2. The right ventricle is mildly enlarged with normal systolic function. | |3. No significant valvular pathology. | |4. There is no pericardial effusion. | + + + + + + + | Performing | Address | City/State/Zipcode | Phone Number | | Organization | | | | + + + + + | [facility] | [address] | [place] [address] | | + + + + + from Last 3 Months Insurance + +--------+ +------+-------+ + | Payer | Benefi | Subscriber | Type | Phone | Address | | | t Plan | ID | | | | | | / | | | | | | | Group | | | | | + +--------+ +------+-------+ + | MEDICARE | MEDICA | [id number] | | | [address] | | | RE | | | | [place] [phone] | | | IP-OP | | | | | + +--------+ +------+-------+ + | [facility] | [place] | [id number] | | | | | | | | | | | | | HEALTH | | | | | | | CARE - | | | | | | | [employer]ARP | | | | | + +--------+ +------+-------+ + + +--------+ +--------+ + + | Guarantor Name | Accoun | Relation to | Date | Phone | Billing Address | | | t Type | Patient | of | | | | | | | | | | + +--------+ +--------+ + + | FLACO RANDOLPH | Person | Self [birth year] Home: | [address] | | | al/Fam | | 1935 | [phone] [place] | | | gayathri | | | [phone] | [phone] | + +--------+ +--------+ + +
--- OUTSIDE RECORDS SUMMARY | ~2019-01-30 | XMS | Encounter Summary ---
Demographics + + + | Address | [address] | | | [place] [address] | + + + | Home Phone | | + + + | Preferred Language | Unknown | + + + | Marital Status | | + + + | Scientology Affiliation | 1077 | + + + | Race | Unknown | + + + | Ethnic Group | Unknown | + + + Author + + + | Author | [facility] | + + + | Organization | [facility] | + + + | Address [...] Team Providers + +------+ + | Care Windows Support Engineer Name | Role | Phone | + +------+ + | Almaz Thacker PA-C | PCP | | + +------+ + Encounter Details +--------+ + + + + | Date | Type | Department | Care Team | Description | +--------+ + + + + | 11/24/ | Ancillary | [facility] | Alejandro Monroy | Congestive heart | | 2019 | Procedure | ECHO | MD Casandra [address] | failure, unspecified | | | | | GABRIEL COHEN | HF chronicity, | | | | | [place] [address] | unspecified heart | | | | | [phone] | failure type (HCC) | | | | | | | +--------+ + + + + Social History + + + [...] on file | | + + + as of this encounter Plan of Treatment Not on fileas of this encounter Procedures + +--------+ + [...] | | + +--------+ + + + in this encounter Results ECHO outside interpretation standard (11/24/2018 4:48 [...] FLACO RANDOLPH Date of : 1935 | [facility] | | Performing Physician: Devonte Nevarez | [...] 0.68 m/s | | | MV Dec Sargent: 1.32 m/s2 MV DecT: 373.67 ms MV E Joaquín: | | | 0.49 m/s MV E/A Ratio: 0.72 MV PHT: 108.36 ms MVA By | | | PHT: 2.03 cm2 Septal e': 0.03 m/s Septal E/e': 14.24 | | | Lateral e': 0.02 m/s Lateral E/e': 20.11 Parts Specialist: LILIAM | | | Authenticated by: Devonte [facility] Report Date/Time: 11-25-2018 | | | 17:40:15 | | + + + + + | Procedure Note | + + | Tony, Rad Results In - 11/25/2018 5:50 PM PST Patient Name: Karishma RANDOLPH of | | : 1935ccession: [id number] Physician: Devonte | | [facility] IND[facility]S------ | | -----CHFCONCLUSIONS 1. The left [...] cmLVIDd: 5.54 cmLVPWd: 0.97 cmLVOT Area: 3.54 kx5QGCS Diam: 2.12 cm%FS: 30.32 | | %EF(Teich): [...] | Index (A-L): 26.84 ml/m2LAAs A2C: 19.61 mf7HJQTN A-L A2C: 63.10 mlLALs A2C: 5.17 | | cmLAAs A4C: 18.69 ld6JJGUI A-L A4C: 55.18 mlLALs A4C: 5.37 cmRAAs: 19.27 | | fe9LCWEK A-L: 61.26 mlRAESV MOD: 59.24 mlRALs: 5.15 cmTAPSE: 1.78 cmAV maxPG: | | 6.07 mmHgAV meanP.87 mmHgAV Vmax: 1.23 m/Jacquelin Vmean: 0.78 m/Jacquelin VTI: 22.53 | | cmAVA Vmax: 2.68 cm2AVA (VTI): 3.27 hr5VBPV Vmax: 0.00 cm2/m2AVAI (VTI): 0.00 | | cm2/m2LVOT maxP.48 mmHgLVOT meanP.06 mmHgLVSI Dopp: 32.97 ml/m2LVSV Dopp: | | 73.87 mlLVOT Vmax: 0.93 m/sLVOT Vmean: 0.67 m/sLVOT VTI: 20.83 cmMV A Joaquín: | | 0.68 m/sMV Dec Sargent: 1.32 m/s2MV DecT: 373.67 msMV E Joaquín: 0.49 m/sMV E/A Ratio: | | 0.72 MV PHT: 108.36 msMVA By PHT: 2.03 ov7Eamxhc e': 0.03 m/sSeptal E/e': 14.24 | | Lateral e': 0.02 m/sLateral E/e': 20.11 Parts Specialist: JONATHANuthenticated by: Devonte | | [facility] Date/Time: 11-25-2018 17:40:15IMPRESSION:1. The left [...] A Joaquín: 0.68 m/s | |MV Dec Sargent: 1.32 m/s2 | |MV DecT: 373.67 ms | |MV E Joaquín: 0.49 m/s | |MV E/A Ratio: 0.72 | |MV PHT: 108.36 ms | |MVA By PHT: 2.03 cm2 | |Septal e': 0.03 m/s | |Septal E/e': 14.24 | |Lateral e': 0.02 m/s | |Lateral E/e': 20.11 | | | |Parts Specialist: LILIAM | |Authenticated by: Devonte Nevarez | |Report Date/Time: 11-25-2018 17:40:15 | | [...] | + + + + + | [facility] | [address] | [place] [address] | | + + + + + in this encounter Visit Diagnoses + + | Diagnosis | + + | Congestive heart failure, unspecified HF chronicity, unspecified heart failure type | | (HCC) | + +"
--- OUTSIDE RECORDS SUMMARY | ~2019-01-30 | XMS | Encounter Summary ---
Demographics + + + | Address | [address] | | | [place] [address] | + + + | Home Phone | | + + + | Preferred Language | Unknown | + + + | Marital Status | | + + + | Rastafarian Affiliation | 1077 | + + + | Race | Unknown | + + + | Ethnic Group | Unknown | + + + Author + + + | Author | [facility] | + + + | Organization | [facility] | + + + | Address [...] Team Providers + +------+ + | Care Corporate Director Of Pharmacy Name | Role | Phone | + +------+ + | Almaz Thacker PA-C | PCP | | + +------+ + Encounter Details +--------+ + + + + | Date | Type | Department | Care Team | Description | +--------+ + + + + | 11/24/ | Ancillary | [facility] | Alejandro Monroy | Congestive heart | | 2019 | Orders | ROBERT | MD Cas[address] | failure, unspecified | | | | | GABRIEL COHEN | HF chronicity, | | | | | [place] [address] | unspecified heart | | | | | [phone] | failure type (HCC) | | | [...] Treatment Not on fileas of this encounter Results ECHO outside interpretation standard [...] FLACO RANDOLPH Date of : 1935 | [facility] | | Performing Physician: Devonte Nevarez | [...] 0.68 m/s | | | MV Dec Ross: 1.32 m/s2 MV DecT: 373.67 ms MV E Joaquín: | | | 0.49 m/s MV E/A Ratio: 0.72 MV PHT: 108.36 ms MVA By | | | PHT: 2.03 cm2 Septal e': 0.03 m/s Septal E/e': 14.24 | | | Lateral e': 0.02 m/s Lateral E/e': 20.11 Business Systems Technician: LILIAM | | | Authenticated by: Devonte [facility] Report Date/Time: 11-25-2018 | | | 17:40:15 | | + + + + + | Procedure Note | + + | Tony, Rad Results In - 11/25/2018 5:50 PM PST Patient Name: Janis RANDOLPH | | : 1935ccession: [id number] Physician: Devonte | | [facility] IND[facility]------ | | -----CHFCONCLUSIONS 1. The left [...] cmLVIDd: 5.54 cmLVPWd: 0.97 cmLVOT Area: 3.54 bl3DRUJ Diam: 2.12 cm%FS: 30.32 | | %EF(Teich): [...] | Index (A-L): 26.84 ml/m2LAAs A2C: 19.61 id9HYCED A-L A2C: 63.10 mlLALs A2C: 5.17 | | cmLAAs A4C: 18.69 tf2COHGI A-L A4C: 55.18 mlLALs A4C: 5.37 cmRAAs: 19.27 | | ar3PNYCP A-L: 61.26 mlRAESV MOD: 59.24 mlRALs: 5.15 cmTAPSE: 1.78 cmAV maxPG: | | 6.07 mmHgAV meanP.87 mmHgAV Vmax: 1.23 m/Jacquelin Vmean: 0.78 m/Jacquelin VTI: 22.53 | | cmAVA Vmax: 2.68 cm2AVA (VTI): 3.27 dz9KAFY Vmax: 0.00 cm2/m2AVAI (VTI): 0.00 | | cm2/m2LVOT maxP.48 mmHgLVOT meanP.06 mmHgLVSI Dopp: 32.97 ml/m2LVSV Dopp: | | 73.87 mlLVOT Vmax: 0.93 m/sLVOT Vmean: 0.67 m/sLVOT VTI: 20.83 cmMV A Joaquín: | | 0.68 m/sMV Dec Ross: 1.32 m/s2MV DecT: 373.67 msMV E Joaquín: 0.49 m/sMV E/A Ratio: | | 0.72 MV PHT: 108.36 msMVA By PHT: 2.03 qa1Ifejal e': 0.03 m/sSeptal E/e': 14.24 | | Lateral e': 0.02 m/sLateral E/e': 20.11 Business Systems Technician: JONATHANuthenticated by: Devonte | | [facility] Date/Time: 11-25-2018 17:40:15IMPRESSION:1. The left ventricle is [...] A Joaquín: 0.68 m/s | |MV Dec Ross: 1.32 m/s2 | |MV DecT: 373.67 ms | |MV E Joaquín: 0.49 m/s | |MV E/A Ratio: 0.72 | |MV PHT: 108.36 ms | |MVA By PHT: 2.03 cm2 | |Septal e': 0.03 m/s | |Septal E/e': 14.24 | |Lateral e': 0.02 m/s | |Lateral E/e': 20.11 | | | |Business Systems Technician: LILIAM | |Authenticated by: Devonte Januaryamelie | |Report Date/Time: 11-25-2018 17:40:15 | | [...] | + + + + + | [facility] | [address] | [place] [address] | | + + + + + in this encounter Visit Diagnoses + + | Diagnosis | + + | Congestive heart failure, unspecified HF chronicity, unspecified heart failure type | | (HCC) | + +"
--- OUTSIDE RECORDS SUMMARY | ~2019-01-30 | XMS | Encounter Summary ---
Demographics + + + | Address | [address] | | | [place] [address] | + + + | Home Phone | | + + + | Preferred Language | Unknown | + + + | Marital Status | | + + + | Hinduism Affiliation | 1077 | + + + | Race | Unknown | + + + | Ethnic Group | Unknown | + + + Author + + + | Author | [facility] | + + + | Organization | [facility] | + + + | Address [...] Team Providers + +------+ + | Care Log Check Scaler Name | Role | Phone | + [...] | | | | | [place] [address] | unspecified heart | | | | | [phone] | failure type (HCC) | | | [...] 0.68 m/s | | | MV Dec [place]: 1.32 m/s2 MV DecT: 373.67 ms MV E Joaquín: | | | 0.49 m/s MV E/A Ratio: 0.72 MV PHT: 108.36 ms MVA By | | | PHT: 2.03 cm2 Septal e': 0.03 m/s Septal E/e': 14.24 | | | Lateral e': 0.02 m/s Lateral E/e': 20.11 Reforestation Worker: LILIAM | | | Authenticated by: Devonte [facility] Report Date/Time: 11-25-2018 | | | 17:40:15 | | + + + + + | Procedure Note | + + | Tony, Rad Results In - 11/25/2018 5:50 PM PST Patient Name: Janis RANDOLPH | | : 1935ccession: [id number] Physician: Devonte | | [facility] | | -----CHFCONCLUSIONS 1. The left [...] cmLVIDd: 5.54 cmLVPWd: 0.97 cmLVOT Area: 3.54 sf7CQFW Diam: 2.12 cm%FS: 30.32 | | %EF(Teich): [...] | Index (A-L): 26.84 ml/m2LAAs A2C: 19.61 pg6DSQVB A-L A2C: 63.10 mlLALs A2C: 5.17 | | cmLAAs A4C: 18.69 od1ZLLKY A-L A4C: 55.18 mlLALs A4C: 5.37 cmRAAs: 19.27 | | dn5VZOSG A-L: 61.26 mlRAESV MOD: 59.24 mlRALs: 5.15 cmTAPSE: 1.78 cmAV maxPG: | | 6.07 mmHgAV meanP.87 mmHgAV Vmax: 1.23 m/Jacquelin Vmean: 0.78 m/Jacquelin VTI: 22.53 | | cmAVA Vmax: 2.68 cm2AVA (VTI): 3.27 my5FCRZ Vmax: 0.00 cm2/m2AVAI (VTI): 0.00 | | cm2/m2LVOT maxP.48 mmHgLVOT meanP.06 mmHgLVSI Dopp: 32.97 ml/m2LVSV Dopp: | | 73.87 mlLVOT Vmax: 0.93 m/sLVOT Vmean: 0.67 m/sLVOT VTI: 20.83 cmMV A Joaquín: | | 0.68 m/sMV Dec [place]: 1.32 m/s2MV DecT: 373.67 msMV E Joaquín: 0.49 m/sMV E/A Ratio: | | 0.72 MV PHT: 108.36 msMVA By PHT: 2.03 dw1Ijfajz e': 0.03 m/sSeptal E/e': 14.24 | | Lateral e': 0.02 m/sLateral E/e': 20.11 Reforestation Worker: JONATHANuthenticated by: Devonte | | [facility] Date/Time: 11-25-2018 17:40:15IMPRESSION:1. The left ventricle is [...] A Joaquín: 0.68 m/s | |MV Dec [place]: 1.32 m/s2 | |MV DecT: 373.67 ms | |MV E Joaquín: 0.49 m/s | |MV E/A Ratio: 0.72 | |MV PHT: 108.36 ms | |MVA By PHT: 2.03 cm2 | |Septal e': 0.03 m/s | |Septal E/e': 14.24 | |Lateral e': 0.02 m/s | |Lateral E/e': 20.11 | | | |Reforestation Worker: LILIAM | |Authenticated by: Devonte Januaryamelie | [...] | + + + + + | [facility] | [address] | [place] [address] | | + + + + + in this encounter Visit Diagnoses + + | Diagnosis | + + | Congestive heart failure, unspecified HF chronicity, unspecified heart failure type | | (HCC) | + +"
--- OUTSIDE RECORDS SUMMARY | ~2019-01-30 | XMS | Clinical Summary ---
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 [...] + + | Coronary artery disease involving [place] coronary artery | 01/10/2016 | + + [...] | | | | | failure type ([facility]) | +--------+ + + + + | [...] FLACO RANDOLPH Date of : 1935 | [facility] | | Performing Physician: Devonte Nevarez | [...] 0.68 m/s | | | MV Dec [place]: 1.32 m/s2 MV DecT: 373.67 ms MV E Joaquín: | | | 0.49 m/s MV E/A Ratio: 0.72 MV PHT: 108.36 ms MVA By | | | PHT: 2.03 cm2 Septal e': 0.03 m/s Septal E/e': 14.24 | | | Lateral e': 0.02 m/s Lateral E/e': 20.11 Rocket Scientist: LILIAM | | | Authenticated by: Devonte [facility] Report Date/Time: 11-25-2018 | | | 17:40:15 | | + + + + + | Procedure Note | + + | Tony, Rad Results In - 11/25/2018 5:50 PM PST Patient Name: Karishma RANDOLPH of | | : 1935ccession: [id number] Physician: Devonte | | [facility] INDICATIONS------ | [...] cmLVIDd: 5.54 cmLVPWd: 0.97 cmLVOT Area: 3.54 mm5VCXL Diam: 2.12 cm%FS: 30.32 | | %EF(Teich): [...] | Index (A-L): 26.84 ml/m2LAAs A2C: 19.61 wb4SHPRC A-L A2C: 63.10 mlLALs A2C: 5.17 | | cmLAAs A4C: 18.69 ff1EHMHD A-L A4C: 55.18 mlLALs A4C: 5.37 cmRAAs: 19.27 | | sp1AWXQU A-L: 61.26 mlRAESV MOD: 59.24 mlRALs: 5.15 cmTAPSE: 1.78 cmAV maxPG: | | 6.07 mmHgAV meanP.87 mmHgAV Vmax: 1.23 m/Jacquelin Vmean: 0.78 m/Jacquelin VTI: 22.53 | | cmAVA Vmax: 2.68 cm2AVA (VTI): 3.27 hh5QABO Vmax: 0.00 cm2/m2AVAI (VTI): 0.00 | | cm2/m2LVOT maxP.48 mmHgLVOT meanP.06 mmHgLVSI Dopp: 32.97 ml/m2LVSV Dopp: | | 73.87 mlLVOT Vmax: 0.93 m/sLVOT Vmean: 0.67 m/sLVOT VTI: 20.83 cmMV A Joaquín: | | 0.68 m/sMV Dec [place]: 1.32 m/s2MV DecT: 373.67 msMV E Joaquín: 0.49 m/sMV E/A Ratio: | | 0.72 MV PHT: 108.36 msMVA By PHT: 2.03 lt9Ipdkcu e': 0.03 m/sSeptal E/e': 14.24 | | Lateral e': 0.02 m/sLateral E/e': 20.11 Rocket Scientist: DHAuthenticated by: Devonte | | [facility] Date/Time: 11-25-2018 17:40:15IMPRESSION:1. The left ventricle is [...] A Joaquín: 0.68 m/s | |MV Dec [place]: 1.32 m/s2 | |MV DecT: 373.67 ms | |MV E Joaquín: 0.49 m/s | |MV E/A Ratio: 0.72 | |MV PHT: 108.36 ms | |MVA By PHT: 2.03 cm2 | |Septal e': 0.03 m/s | |Septal E/e': 14.24 | |Lateral e': 0.02 m/s | |Lateral E/e': 20.11 | | | |Rocket Scientist: LILIAM | |Authenticated by: Devonte [facility] | |Report Date/Time: 11-25-2018 17:40:15 | | [...] [facility] | [address] | [place] [address] | | + + + + + [...] +------+-------+ + | MEDICARE | MEDICA | [id number] | | | [address] | | | RE | | | | [place] [address] | | | IP-OP | | | | | + +--------+ +------+-------+ + | [facility] | [place] | [id number] | | | | | | | [...] Self | [birth year] | Home: | [address] | | | al/Fam | | 1935 | [phone] | [place] | | | [place] | | | [phone] | + +--------+ +--------+ + +
--- OUTSIDE RECORDS SUMMARY | ~2019-01-30 | XMS | Clinical Summary ---
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) | +--------+ + + + + | [...] FLACO RANDOLPH Date of : 1935 | [facility] | | Performing Physician: Devonte Nevarez | [...] 0.68 m/s | | | MV Dec [place]: 1.32 m/s2 MV DecT: 373.67 ms MV E Joaquín: | | | 0.49 m/s MV E/A Ratio: 0.72 MV PHT: 108.36 ms MVA By | | | PHT: 2.03 cm2 Septal e': 0.03 m/s Septal E/e': 14.24 | | | Lateral e': 0.02 m/s Lateral E/e': 20.11 Business Area Director: LILIAM | | | Authenticated by: Devonte [facility] Report Date/Time: 11-25-2018 | | | 17:40:15 | | + + + + + | Procedure Note | + + | Tony, Rad Results In - 11/25/2018 5:50 PM PST Patient Name: Karishma RANDOLPH of | | : 1935ccession: [id number] Physician: Devonte | | [facility] INDICATIONS------ | [...] cmLVIDd: 5.54 cmLVPWd: 0.97 cmLVOT Area: 3.54 fg1GSQH Diam: 2.12 cm%FS: 30.32 | | %EF(Teich): [...] | Index (A-L): 26.84 ml/m2LAAs A2C: 19.61 ao6OBXUR A-L A2C: 63.10 mlLALs A2C: 5.17 | | cmLAAs A4C: 18.69 ch5WSEKK A-L A4C: 55.18 mlLALs A4C: 5.37 cmRAAs: 19.27 | | jz3BAIEJ A-L: 61.26 mlRAESV MOD: 59.24 mlRALs: 5.15 cmTAPSE: 1.78 cmAV maxPG: | | 6.07 mmHgAV meanP.87 mmHgAV Vmax: 1.23 m/Jacquelin Vmean: 0.78 m/Jacquelin VTI: 22.53 | | cmAVA Vmax: 2.68 cm2AVA (VTI): 3.27 py0TJKD Vmax: 0.00 cm2/m2AVAI (VTI): 0.00 | | cm2/m2LVOT maxP.48 mmHgLVOT meanP.06 mmHgLVSI Dopp: 32.97 ml/m2LVSV Dopp: | | 73.87 mlLVOT Vmax: 0.93 m/sLVOT Vmean: 0.67 m/sLVOT VTI: 20.83 cmMV A Joaquín: | | 0.68 m/sMV Dec [place]: 1.32 m/s2MV DecT: 373.67 msMV E Joaquín: 0.49 m/sMV E/A Ratio: | | 0.72 MV PHT: 108.36 msMVA By PHT: 2.03 ou7Kixzry e': 0.03 m/sSeptal E/e': 14.24 | | Lateral e': 0.02 m/sLateral E/e': 20.11 Business Area Director: DHAuthenticated by: Devonte | | [facility] Date/Time: 11-25-2018 17:40:15IMPRESSION:1. The left ventricle is [...] A Joaquín: 0.68 m/s | |MV Dec [place]: 1.32 m/s2 | |MV DecT: 373.67 ms | |MV E Joaquín: 0.49 m/s | |MV E/A Ratio: 0.72 | |MV PHT: 108.36 ms | |MVA By PHT: 2.03 cm2 | |Septal e': 0.03 m/s | |Septal E/e': 14.24 | |Lateral e': 0.02 m/s | |Lateral E/e': 20.11 | | | |Business Area Director: LILIAM | |Authenticated by: Devonte [facility] | |Report Date/Time: 11-25-2018 17:40:15 | [...] [facility] | [address] | [place] [address] | | + + + + + [...] +------+-------+ + | MEDICARE | MEDICA | [id number] | | | [address] | | | RE | | | | [place] [phone] | | | IP-OP | | | | | + +--------+ +------+-------+ + | [facility] | [place] | [id number] | | | | | | | [...] Self | [birth year] | Home: | [address] | | | al/Fam | | 1935 | [phone] | [place] | | | gayathri | | | [phone] | + +--------+ +--------+ + +
--- OUTSIDE RECORDS SUMMARY | ~2019-01-30 | XMS | Encounter Summary ---
Demographics + + + | Address | [address] | | | [place] [address] | + + + | Home Phone | | + + + | Preferred Language | Unknown | + + + | Marital Status | | + + + | Gnosticism Affiliation | 1077 | + + + | Race | Unknown | + + + | Ethnic Group | Unknown | + + + Author + + + | Author | [facility] | + + + | Organization | [facility] | + + + | Address [...] Team Providers + +------+ + | Care Precise Winder Name | Role | Phone | + [...] | | | | | [place] [address] | unspecified heart | | | | | [phone] | failure type (HCC) | | | [...] FLACO RANDOLPH Date of : 1935 | [facility] | | Performing Physician: Devonte Nevarez | [...] 0.68 m/s | | | MV Dec [place]: 1.32 m/s2 MV DecT: 373.67 ms MV E Joaquín: | | | 0.49 m/s MV E/A Ratio: 0.72 MV PHT: 108.36 ms MVA By | | | PHT: 2.03 cm2 Septal e': 0.03 m/s Septal E/e': 14.24 | | | Lateral e': 0.02 m/s Lateral E/e': 20.11 Construction Laborer: LILIAM | | | Authenticated by: Devonte [facility] Report Date/Time: 11-25-2018 | | | 17:40:15 | | + + + + + | Procedure Note | + + | Tony, Rad Results In - 11/25/2018 5:50 PM PST Patient Name: Karishma RANDOLPH of | | : 1935ccession: [id number] Physician: Devonte | | [facility] | | -----CHFCONCLUSIONS 1. The left [...] cmLVIDd: 5.54 cmLVPWd: 0.97 cmLVOT Area: 3.54 jv7IYLL Diam: 2.12 cm%FS: 30.32 | | %EF(Teich): [...] | Index (A-L): 26.84 ml/m2LAAs A2C: 19.61 wy3YKQJR A-L A2C: 63.10 mlLALs A2C: 5.17 | | cmLAAs A4C: 18.69 cs2XIXTW A-L A4C: 55.18 mlLALs A4C: 5.37 cmRAAs: 19.27 | | kb6XISFQ A-L: 61.26 mlRAESV MOD: 59.24 mlRALs: 5.15 cmTAPSE: 1.78 cmAV maxPG: | | 6.07 mmHgAV meanP.87 mmHgAV Vmax: 1.23 m/Jacquelin Vmean: 0.78 m/Jacquelin VTI: 22.53 | | cmAVA Vmax: 2.68 cm2AVA (VTI): 3.27 iq2MEDA Vmax: 0.00 cm2/m2AVAI (VTI): 0.00 | | cm2/m2LVOT maxP.48 mmHgLVOT meanP.06 mmHgLVSI Dopp: 32.97 ml/m2LVSV Dopp: | | 73.87 mlLVOT Vmax: 0.93 m/sLVOT Vmean: 0.67 m/sLVOT VTI: 20.83 cmMV A Joaquín: | | 0.68 m/sMV Dec [place]: 1.32 m/s2MV DecT: 373.67 msMV E Joaquín: 0.49 m/sMV E/A Ratio: | | 0.72 MV PHT: 108.36 msMVA By PHT: 2.03 fg9Wfecug e': 0.03 m/sSeptal E/e': 14.24 | | Lateral e': 0.02 m/sLateral E/e': 20.11 Construction Laborer: JONATHANuthenticated by: Devonte | | [facility] Date/Time: 11-25-2018 17:40:15IMPRESSION:1. The left ventricle is [...] A Joaquín: 0.68 m/s | |MV Dec [place]: 1.32 m/s2 | |MV DecT: 373.67 ms | |MV E Joaquín: 0.49 m/s | |MV E/A Ratio: 0.72 | |MV PHT: 108.36 ms | |MVA By PHT: 2.03 cm2 | |Septal e': 0.03 m/s | |Septal E/e': 14.24 | |Lateral e': 0.02 m/s | |Lateral E/e': 20.11 | | | |Construction Laborer: LILIAM | |Authenticated by: Devonte Nevarez | [...] [facility] | [address] | [place] [address] | | + + + + + in this encounter Visit Diagnoses + + | Diagnosis | + + | Congestive heart failure, unspecified HF chronicity, unspecified heart failure type | | (HCC) | + +"
--- OUTSIDE RECORDS SUMMARY | ~2019-01-30 | XMS | Clinical Summary ---
Demographics + + + | Address | [address] | | | [place] [address] | + + + | Home Phone | | + + + | Preferred Language | Unknown | + + + | Marital Status | | + + + | Anabaptism Affiliation | 1077 | + + + | Race | Unknown | + + + | Ethnic Group | Unknown | + + + Author + + + | Author | [facility] | | | and [place] | + + + | Organization | [facility] | | | and [...] Team Providers + +------+ + | Care Travelift Operator Name | Role | Phone | [...]
--- OUTSIDE RECORDS SUMMARY | ~2019-01-30 | XMS | Clinical Summary ---
Demographics + + + | Address | [address] | | | [place] [address] | + + + | Home Phone | | + + + | Preferred Language | Unknown | + + + | Marital Status | | + + + | Christianity Affiliation | 1077 | + + + | Race | Unknown | + + + | Ethnic Group | Unknown | + + + Author + + + | Author | [facility] | | | and [place] | + + + | Organization | [facility] | | | and [place] | [...] Team Providers + +------+ + | Care Spray Crew Name | Role | Phone | + [...]
--- OUTSIDE RECORDS SUMMARY | ~2019-01-30 | XMS | Encounter Summary ---
Demographics + + + | Address | [address] | | | [place] [address] | + + + | Home Phone | | + + + | Preferred Language | Unknown | + + + | Marital Status | | + + + | Sabianist Affiliation | 1077 | + + + | Race | Unknown | + + + | Ethnic Group | Unknown | + + + Author + + + | Author | [facility] [employer] | + + + | Organization | [facility] [employer] | + + + | Address [...] Team Providers + +------+ + | Care Paster Supervisor Name | Role | Phone | [...] | | | | | [place] [address] | unspecified heart | | | | | [phone] | failure type (HCC) | | | [...] 0.68 m/s | | | MV Dec [place]: 1.32 m/s2 MV DecT: 373.67 ms MV E Joaquín: | | | 0.49 m/s MV E/A Ratio: 0.72 MV PHT: 108.36 ms MVA By | | | PHT: 2.03 cm2 Septal e': 0.03 m/s Septal E/e': 14.24 | | | Lateral e': 0.02 m/s Lateral E/e': 20.11 Division Service Manager: LILIAM | | | Authenticated by: Devonte [facility] Report Date/Time: 11-25-2018 | | | 17:40:15 | | + + + + + | Procedure Note | + + | Tony, Rad Results In - 11/25/2018 5:50 PM PST Patient Name: Janis RANDOLPH | | : 1935ccession: [id number] Physician: Devonte | | [facility]------ | | -----CHFCONCLUSIONS 1. The [...] cmLVIDd: 5.54 cmLVPWd: 0.97 cmLVOT Area: 3.54 iq7CRFM Diam: 2.12 cm%FS: 30.32 | | %EF(Teich): [...] | Index (A-L): 26.84 ml/m2LAAs A2C: 19.61 ko3NSFSI A-L A2C: 63.10 mlLALs A2C: 5.17 | | cmLAAs A4C: 18.69 pz1GNWUY A-L A4C: 55.18 mlLALs A4C: 5.37 cmRAAs: 19.27 | | zi0MGOXP A-L: 61.26 mlRAESV MOD: 59.24 mlRALs: 5.15 cmTAPSE: 1.78 cmAV maxPG: | | 6.07 mmHgAV meanP.87 mmHgAV Vmax: 1.23 m/Jacquelin Vmean: 0.78 m/Jacquelin VTI: 22.53 | | cmAVA Vmax: 2.68 cm2AVA (VTI): 3.27 xu8GZYX Vmax: 0.00 cm2/m2AVAI (VTI): 0.00 | | cm2/m2LVOT maxP.48 mmHgLVOT meanP.06 mmHgLVSI Dopp: 32.97 ml/m2LVSV Dopp: | | 73.87 mlLVOT Vmax: 0.93 m/sLVOT Vmean: 0.67 m/sLVOT VTI: 20.83 cmMV A Joaquín: | | 0.68 m/sMV Dec [place]: 1.32 m/s2MV DecT: 373.67 msMV E Joaquín: 0.49 m/sMV E/A Ratio: | | 0.72 MV PHT: 108.36 msMVA By PHT: 2.03 mk5Lttrte e': 0.03 m/sSeptal E/e': 14.24 | | Lateral e': 0.02 m/sLateral E/e': 20.11 Division Service Manager: JONATHANuthenticated by: Devonte | | [facility] Date/Time: 11-25-2018 17:40:15IMPRESSION:1. The left ventricle [...] A Joaquín: 0.68 m/s | |MV Dec [place]: 1.32 m/s2 | |MV DecT: 373.67 ms | |MV E Joaquín: 0.49 m/s | |MV E/A Ratio: 0.72 | |MV PHT: 108.36 ms | |MVA By PHT: 2.03 cm2 | |Septal e': 0.03 m/s | |Septal E/e': 14.24 | |Lateral e': 0.02 m/s | |Lateral E/e': 20.11 | | | |Division Service Manager: LILIAM | |Authenticated by: Devonte Januaryamelie | [...] | + + + + + | [facility] | [address] | [place] [address] | | + + + + + in this encounter Visit Diagnoses + + | Diagnosis | + + | Congestive heart failure, unspecified HF chronicity, unspecified heart failure type | | (HCC) | + +"
--- OUTSIDE RECORDS SUMMARY | ~2019-01-30 | XMS | Clinical Summary ---
Demographics + + + | Address | [address] | | | [place] [address] | + + + | Home Phone | | + + + | Preferred Language | Unknown | + + + | Marital Status | | + + + | Latter-Day Affiliation | 1077 | + + + | Race | Unknown | + + + | Ethnic Group | Unknown | + + + Author + + + | Author | [facility] | | | and [place] | + + + | Organization | [facility] | | | and [place] [...] Team Providers + +------+ + | Care Paper Bag Maker Name | Role | Phone | + [...]
--- OUTSIDE RECORDS SUMMARY | ~2019-01-30 | XMS | Encounter Summary ---
Demographics + + + | Address | [address] | | | [place] [address] | + + + | Home Phone | | + + + | Preferred Language | Unknown | + + + | Marital Status | | + + + | Samaritan Affiliation | 1077 | + + + | Race | Unknown | + + + | Ethnic Group | Unknown | + + + Author + + + | Author | [facility] [employer] [facility] [facility] | + + + | Organization | [facility] [employer] [facility] | + + + | Address [...] Team Providers + +------+ + | Care Pumping Station Engineer Name | Role | Phone | [...] | | | | | [place] [address] | unspecified heart | | | | | [phone] | failure type (HCC) | | | [...] FLACO RANDOLPH Date of : 1935 | [facility] | | Performing Physician: [...] 0.68 m/s | | | MV Dec [place]: 1.32 m/s2 MV DecT: 373.67 ms MV E Joaquín: | | | 0.49 m/s MV E/A Ratio: 0.72 MV PHT: 108.36 ms MVA By | | | PHT: 2.03 cm2 Septal e': 0.03 m/s Septal E/e': 14.24 | | | Lateral e': 0.02 m/s Lateral E/e': 20.11 Manager: LILIAM | | | Authenticated by: Devonte [facility] Report Date/Time: 11-25-2018 | | | 17:40:15 | | + + + + + | Procedure Note | + + | Tony, Rad Results In - 11/25/2018 5:50 PM PST Patient Name: Karishma RANDOLPH of | | : 1935ccession: [id number] Physician: Devonte | | [facility] INDICATIONS------ | | -----CHFCONCLUSIONS 1. The left [...] cmLVIDd: 5.54 cmLVPWd: 0.97 cmLVOT Area: 3.54 np7BLRN Diam: 2.12 cm%FS: 30.32 | | %EF(Teich): [...] | Index (A-L): 26.84 ml/m2LAAs A2C: 19.61 yc3GPKSL A-L A2C: 63.10 mlLALs A2C: 5.17 | | cmLAAs A4C: 18.69 gq1CZMYL A-L A4C: 55.18 mlLALs A4C: 5.37 cmRAAs: 19.27 | | ty1WNGYE A-L: 61.26 mlRAESV MOD: 59.24 mlRALs: 5.15 cmTAPSE: 1.78 cmAV maxPG: | | 6.07 mmHgAV meanP.87 mmHgAV Vmax: 1.23 m/Jacquelin Vmean: 0.78 m/Jacquelin VTI: 22.53 | | cmAVA Vmax: 2.68 cm2AVA (VTI): 3.27 fl1GYKP Vmax: 0.00 cm2/m2AVAI (VTI): 0.00 | | cm2/m2LVOT maxP.48 mmHgLVOT meanP.06 mmHgLVSI Dopp: 32.97 ml/m2LVSV Dopp: | | 73.87 mlLVOT Vmax: 0.93 m/sLVOT Vmean: 0.67 m/sLVOT VTI: 20.83 cmMV A Joaquín: | | 0.68 m/sMV Dec [place]: 1.32 m/s2MV DecT: 373.67 msMV E Joaquín: 0.49 m/sMV E/A Ratio: | | 0.72 MV PHT: 108.36 msMVA By PHT: 2.03 qf0Ywofyh e': 0.03 m/sSeptal E/e': 14.24 | | Lateral e': 0.02 m/sLateral E/e': 20.11 Manager: JONATHANuthenticated by: Devonte | | [facility] Date/Time: 11-25-2018 17:40:15IMPRESSION:1. The left [...] A Joaquín: 0.68 m/s | |MV Dec [place]: 1.32 m/s2 | |MV DecT: 373.67 ms | |MV E Joaquín: 0.49 m/s | |MV E/A Ratio: 0.72 | |MV PHT: 108.36 ms | |MVA By PHT: 2.03 cm2 | |Septal e': 0.03 m/s | |Septal E/e': 14.24 | |Lateral e': 0.02 m/s | |Lateral E/e': 20.11 | | | |Manager: LILIAM | |Authenticated by: Devonte Nevarez | [...] [facility] | [address] | [place] [address] | | + + + + + in this encounter Visit Diagnoses + + | Diagnosis | + + | Congestive heart failure, unspecified HF chronicity, unspecified heart failure type | | (HCC) | + +"
--- OUTSIDE RECORDS SUMMARY | ~2019-01-30 | XMS | Encounter Summary ---
Demographics + + + | Address | [address] | | | [place] [address] | + + + | Home Phone | | + + + | Preferred Language | Unknown | + + + | Marital Status | | + + + | Anglican Affiliation | 1077 | + + + | Race | Unknown | + + + | Ethnic Group | Unknown | + + + Author + + + | Author | [facility] [employer] | + + + | Organization | [facility] [employer] | + + + | Address [...] Team Providers + +------+ + | Care Validation Leader Name | Role | Phone | + [...] | | | | | [place] [address] | unspecified heart | | | | | [phone] | failure type (HCC) | | | [...] RANDOLPH Date of : 1935 | [facility] | | Performing Physician: Devonte [...] 0.68 m/s | | | MV Dec Bell: 1.32 m/s2 MV DecT: 373.67 ms MV E Joaquín: | | | 0.49 m/s MV E/A Ratio: 0.72 MV PHT: 108.36 ms MVA By | | | PHT: 2.03 cm2 Septal e': 0.03 m/s Septal E/e': 14.24 | | | Lateral e': 0.02 m/s Lateral E/e': 20.11 Edge Inker Heels: LILIAM | | | Authenticated by: Devonte [facility] Report Date/Time: 11-25-2018 | | | 17:40:15 | | + + + + + | Procedure Note | + + | Tony, Rad Results In - 11/25/2018 5:50 PM PST Patient Name: Karishma RANDOLPH of | | : 1935ccession: [id number] Physician: Devonte | | [facility] IND[facility]S------ | | -----CHFCONCLUSIONS 1. The [...] cmLVIDd: 5.54 cmLVPWd: 0.97 cmLVOT Area: 3.54 yt4KNGL Diam: 2.12 cm%FS: 30.32 | | %EF(Teich): [...] | Index (A-L): 26.84 ml/m2LAAs A2C: 19.61 do5PVCIT A-L A2C: 63.10 mlLALs A2C: 5.17 | | cmLAAs A4C: 18.69 re3BTMTH A-L A4C: 55.18 mlLALs A4C: 5.37 cmRAAs: 19.27 | | gl0GWJEB A-L: 61.26 mlRAESV MOD: 59.24 mlRALs: 5.15 cmTAPSE: 1.78 cmAV maxPG: | | 6.07 mmHgAV meanP.87 mmHgAV Vmax: 1.23 m/Jacquelin Vmean: 0.78 m/Jacquelin VTI: 22.53 | | cmAVA Vmax: 2.68 cm2AVA (VTI): 3.27 bk5FTWI Vmax: 0.00 cm2/m2AVAI (VTI): 0.00 | | cm2/m2LVOT maxP.48 mmHgLVOT meanP.06 mmHgLVSI Dopp: 32.97 ml/m2LVSV Dopp: | | 73.87 mlLVOT Vmax: 0.93 m/sLVOT Vmean: 0.67 m/sLVOT VTI: 20.83 cmMV A Joaquín: | | 0.68 m/sMV Dec Bell: 1.32 m/s2MV DecT: 373.67 msMV E Joaquín: 0.49 m/sMV E/A Ratio: | | 0.72 MV PHT: 108.36 msMVA By PHT: 2.03 iz7Dbbvfx e': 0.03 m/sSeptal E/e': 14.24 | | Lateral e': 0.02 m/sLateral E/e': 20.11 Edge Inker Heels: JONATHANuthenticated by: Devonte | | [facility] Date/Time: 11-25-2018 17:40:15IMPRESSION:1. The left ventricle [...] A Joaquín: 0.68 m/s | |MV Dec Bell: 1.32 m/s2 | |MV DecT: 373.67 ms | |MV E Joaquín: 0.49 m/s | |MV E/A Ratio: 0.72 | |MV PHT: 108.36 ms | |MVA By PHT: 2.03 cm2 | |Septal e': 0.03 m/s | |Septal E/e': 14.24 | |Lateral e': 0.02 m/s | |Lateral E/e': 20.11 | | | |Edge Inker Heels: LILIAM | |Authenticated by: Devonte Nevarez | [...] [facility] | [address] | [place] [address] | | + + + + + in this encounter Visit Diagnoses + + | Diagnosis | + + | Congestive heart failure, unspecified HF chronicity, unspecified heart failure type | | (HCC) | + +"
--- OUTSIDE RECORDS SUMMARY | ~2019-01-30 | XMS | Clinical Summary ---
Demographics + + + | Address | [address] | | | [place] [address] | + + + | Home Phone | | + + + | Preferred Language | Unknown | + + + | Marital Status | | + + + | Islam Affiliation | 1077 | + + + | Race | Unknown | + + + | Ethnic Group | Unknown | + + + Author + + + | Author | [facility] [employer] [facility] | + + + | Organization | [facility] [employer] | + + + | Address [...] Team Providers + +------+ + | Care Staff Development Nurse Name | Role | Phone | + [...] artery disease involving coronary bypass graft of atka | 01/30/2016 | | heart with angina [...] + + | Coronary artery disease involving atka coronary artery | 01/10/2016 | + + [...] | | | | | failure type ([facility]) | +--------+ + + + + | [...] FLACO RANDOLPH Date of : 1935 | [facility] | | Performing Physician: Devonte Nevarez [...] 0.68 m/s | | | MV Dec [place]: 1.32 m/s2 MV DecT: 373.67 ms MV E Joaquín: | | | 0.49 m/s MV E/A Ratio: 0.72 MV PHT: 108.36 ms MVA By | | | PHT: 2.03 cm2 Septal e': 0.03 m/s Septal E/e': 14.24 | | | Lateral e': 0.02 m/s Lateral E/e': 20.11 Stand Up Comedian: LILIAM | | | Authenticated by: Devonte [facility] Report Date/Time: 11-25-2018 | | | 17:40:15 | | + + + + + | Procedure Note | + + | Tony, Rad Results In - 11/25/2018 5:50 PM PST Patient Name: Karishma RANDOLPH of | | : 1935ccession: [id number] Physician: Devonte | | [facility] INDICATIONS------ | [...] cmLVIDd: 5.54 cmLVPWd: 0.97 cmLVOT Area: 3.54 vk3PATW Diam: 2.12 cm%FS: 30.32 | | %EF(Teich): [...] | Index (A-L): 26.84 ml/m2LAAs A2C: 19.61 fk5EPINE A-L A2C: 63.10 mlLALs A2C: 5.17 | | cmLAAs A4C: 18.69 bm8JWNIG A-L A4C: 55.18 mlLALs A4C: 5.37 cmRAAs: 19.27 | | ol5SJWVU A-L: 61.26 mlRAESV MOD: 59.24 mlRALs: 5.15 cmTAPSE: 1.78 cmAV maxPG: | | 6.07 mmHgAV meanP.87 mmHgAV Vmax: 1.23 m/Jacquelin Vmean: 0.78 m/Jacquelin VTI: 22.53 | | cmAVA Vmax: 2.68 cm2AVA (VTI): 3.27 xi4TDWP Vmax: 0.00 cm2/m2AVAI (VTI): 0.00 | | cm2/m2LVOT maxP.48 mmHgLVOT meanP.06 mmHgLVSI Dopp: 32.97 ml/m2LVSV Dopp: | | 73.87 mlLVOT Vmax: 0.93 m/sLVOT Vmean: 0.67 m/sLVOT VTI: 20.83 cmMV A Joaquín: | | 0.68 m/sMV Dec [place]: 1.32 m/s2MV DecT: 373.67 msMV E Joaquín: 0.49 m/sMV E/A Ratio: | | 0.72 MV PHT: 108.36 msMVA By PHT: 2.03 ju9Eqsxew e': 0.03 m/sSeptal E/e': 14.24 | | Lateral e': 0.02 m/sLateral E/e': 20.11 Stand Up Comedian: DHAuthenticated by: Devonte | | [facility] Date/Time: 11-25-2018 17:40:15IMPRESSION:1. The left ventricle [...] A Joaquín: 0.68 m/s | |MV Dec [place]: 1.32 m/s2 | |MV DecT: 373.67 ms | |MV E Joaquín: 0.49 m/s | |MV E/A Ratio: 0.72 | |MV PHT: 108.36 ms | |MVA By PHT: 2.03 cm2 | |Septal e': 0.03 m/s | |Septal E/e': 14.24 | |Lateral e': 0.02 m/s | |Lateral E/e': 20.11 | | | |Stand Up Comedian: LILIAM | |Authenticated by: Devonte [facility] | |Report Date/Time: 11-25-2018 17:40:15 | [...] [facility] | [address] | [place] [address] | | + + + + + [...] +------+-------+ + | MEDICARE | MEDICA | [id number] | | | [address] | | | RE | | | | [place] [address] | | | IP-OP | | | | | + +--------+ +------+-------+ + | [facility] | UNITED | [id number] | | | | | | | [...] [birth year] | Home: | [address] | | | al/Fam | | 1935 | [phone] | [place] | | | gayathri | | | [phone] | [phone] | + +--------+ +--------+ + +
--- OUTSIDE RECORDS SUMMARY | ~2019-01-30 | XMS | Encounter Summary ---
Demographics + + + | Address | [address] | | | [place] [address] | + + + | Home Phone | | + + + | Preferred Language | Unknown | + + + | Marital Status | | + + + | Mormonism Affiliation | 1077 | + + + | Race | Unknown | + + + | Ethnic Group | Unknown | + + + Author + + + | Author | [facility] [employer] | + + + | Organization | [facility] [employer] | + + + | Address [...] Team Providers + +------+ + | Care Wire Bound Box Machine Helper Name | Role | Phone | [...] | | | | | [place] [address] | unspecified heart | | | | | [phone] | failure type (HCC) | | | [...] 0.68 m/s | | | MV Dec [place]: 1.32 m/s2 MV DecT: 373.67 ms MV E Joaquín: | | | 0.49 m/s MV E/A Ratio: 0.72 MV PHT: 108.36 ms MVA By | | | PHT: 2.03 cm2 Septal e': 0.03 m/s Septal E/e': 14.24 | | | Lateral e': 0.02 m/s Lateral E/e': 20.11 Data Systems Analyst: LILIAM | | | Authenticated by: Devonte [facility] Report Date/Time: 11-25-2018 | | | 17:40:15 | | + + + + + | Procedure Note | + + | Tony, Rad Results In - 11/25/2018 5:50 PM PST Patient Name: Janis RANDOLPH | | : 1935ccession: [id number] Physician: Devonte | | [facility] | | -----CHFCONCLUSIONS 1. The [...] cmLVIDd: 5.54 cmLVPWd: 0.97 cmLVOT Area: 3.54 ux3TJDR Diam: 2.12 cm%FS: 30.32 | | %EF(Teich): [...] | Index (A-L): 26.84 ml/m2LAAs A2C: 19.61 pe1RNIQJ A-L A2C: 63.10 mlLALs A2C: 5.17 | | cmLAAs A4C: 18.69 zm7OHJQY A-L A4C: 55.18 mlLALs A4C: 5.37 cmRAAs: 19.27 | | mg2BURWY A-L: 61.26 mlRAESV MOD: 59.24 mlRALs: 5.15 cmTAPSE: 1.78 cmAV maxPG: | | 6.07 mmHgAV meanP.87 mmHgAV Vmax: 1.23 m/Jacquelin Vmean: 0.78 m/Jacquelin VTI: 22.53 | | cmAVA Vmax: 2.68 cm2AVA (VTI): 3.27 jq1JNJG Vmax: 0.00 cm2/m2AVAI (VTI): 0.00 | | cm2/m2LVOT maxP.48 mmHgLVOT meanP.06 mmHgLVSI Dopp: 32.97 ml/m2LVSV Dopp: | | 73.87 mlLVOT Vmax: 0.93 m/sLVOT Vmean: 0.67 m/sLVOT VTI: 20.83 cmMV A Joaquín: | | 0.68 m/sMV Dec [place]: 1.32 m/s2MV DecT: 373.67 msMV E Joaquín: 0.49 m/sMV E/A Ratio: | | 0.72 MV PHT: 108.36 msMVA By PHT: 2.03 vi8Fwzecw e': 0.03 m/sSeptal E/e': 14.24 | | Lateral e': 0.02 m/sLateral E/e': 20.11 Data Systems Analyst: JONATHANuthenticated by: Devonte | | [facility] Date/Time: 11-25-2018 17:40:15IMPRESSION:1. The left ventricle [...] A Joaquín: 0.68 m/s | |MV Dec [place]: 1.32 m/s2 | |MV DecT: 373.67 ms | |MV E Joaquín: 0.49 m/s | |MV E/A Ratio: 0.72 | |MV PHT: 108.36 ms | |MVA By PHT: 2.03 cm2 | |Septal e': 0.03 m/s | |Septal E/e': 14.24 | |Lateral e': 0.02 m/s | |Lateral E/e': 20.11 | | | |Data Systems Analyst: LILIAM | |Authenticated by: Devonte Januaryamelie | [...] + + + + + | [facility] | [address] | [place] [address] | | + + + + + in this encounter Visit Diagnoses + + | Diagnosis | + + | Congestive heart failure, unspecified HF chronicity, unspecified heart failure type | | (HCC) | + +"
[~2019-01-30 12:40] MED LIST changes: +LISINOPRIL5 MG PO; +OFLOXACIN5 M1 OP; +PREDNISOLONE ACE5 ML OS
--- NOTE | 2019-01-30 19:10 | NUR ---
RECIEVED REPORT FROM SUZETTE WEBER. PATIENT RESTING AWAKE IN BED WITH VISITORS AT BEDSIDE. WHITE BOARD UPDATED. CALL LIGHT WITHIN REACH. NO MORE NEEDS AT THIS TIME.
--- NOTE | 2019-01-30 21:11 | NUR ---
VITALS DONE AND CHARTED. 2 JELLO'S AND JUICE GIVEN PER REQUEST OF PT. BEDSIDE TABLE AND CALL LIGHT IN REACH. HEAT TURNED UP.
--- NOTE | 2019-01-30 21:30 | NUR ---
ASSESSMENT COMPLETE. SCHEDULED MEDICATIONS ADMINISTERED PER MAR ORDER. IV FLUIDS INFUSING PER MAR ORDER. PATIENT DENIES CHEST PAIN, SOB, OR DIFFICULTY BREATHING. IV ASSESSED, WNL. SCDS IN PLACE PER ORDER. ACTIVE BOWEL TONES. PATIENT DENIES PAIN AT THIS TIME. VISITOR AT BEDSIDE. CALL LIGHT WITHIN REACH. NO MORE NEEDS AT THIS TIME.
--- NOTE | 2019-01-30 21:39 | NUR ---
CONSENT SIGNED AND PLACED IN CHART. ROUNDED CHARGE. PATIENT AND DENY ANY COMMENTS QUESTIONS OR CONCERNS. KEYANNA WEBER IN ROOM.
--- NOTE | 2019-01-30 22:52 | NUR ---
HELPED PT TO THE BATHROOM WITH HIS CANE. HE WILL CALL WHEN HE IS READY TO GO BACK TO BED.
--- NOTE | 2019-01-31 00:51 | NUR ---
ROUNDED ON PATIENT RESTING IN BED WITH EYES CLOSED, RESPIRATORY RATE IS EVEN AND UNLABORED. CALL LIGHT WITHIN REACH.
--- NOTE | 2019-01-31 01:14 | NUR ---
rounded on patient resting awake in bed. patient reports "8/10" "sharp" pain in abdomen. prn pain medication provided per jan order. call light within reach. no more needs at this time.
--- NOTE | 2019-01-31 01:39 | NUR ---
VITALS DONE AND CHARTED. PT NEEDS NOTHING AT THIS TIME. BEDSIDE TABLE AND CALL LIGHT IN REACH.
--- NOTE | 2019-01-31 02:50 | NUR ---
ASSESSMENT COMPLETE. PATIENT DENIES PAIN, CHEST PAIN, SOB OR DIFFICULTY BREATHING. PATIENT SBA WITH CANE TO RESTROOM, PATIENT DENIES DIZZINESS WITH AMBULATION. PATIENT DENIED WANTING MOUTH SWABS. SCDS IN PLACE PER ORDER. IV FLUIDS INFUSING PER MAR ORDER. CALL LIGHT WITHIN REACH. NO MORE NEEDS AT THIS TIME.
--- NOTE | 2019-01-31 06:00 | NUR ---
PATIENTS MORNING MEDICATION GIVEN PER ORDER. PATIENT RATES PAIN AT A 8/10. PATIENT GIVEN PRN PAIN MEDICATION PER ORDER. PATIENT IS RESTING IN BED WATCHING TV. NO FURTHER NEEDS NOTED. CALL LIGHT IN REACH.
--- NOTE | 2019-01-31 06:42 | NUR ---
ROOM AIR. PRN PAIN MEDICATION X2. IV ABX X2. SBA WITH CANE. IV FLUIDS INFUSING PER MAR ORDER. SCDS PER ORDER. ALERT AND ORIENTED. USES CALL LIGHT APPROPRIATELY. ENCOURAGED COUGH AND DEEP BREATHING. PATIENT SLEPT ON AND OFF THROUGHOUT THE NIGHT.
--- NOTE | 2019-01-31 07:42 | NUR ---
ASSISTED PATIENT A SBA WITH CANE TO RESTROOM. PATIENT SITTING IN CHAIR WITH CALL LIGHT WITHIN REACH. NO MORE NEEDS AT THIS TIME.
--- NOTE | 2019-01-31 07:43 | NUR ---
Pt in bed at tis time, alert and oriented x. Pt is on ra, resp even and non labored. Pt reports tolerable intermittent abd pain. Pt voiding q/s urine output. Personal supplies and call light within reach. Pt has no needs at this time.
--- NOTE | 2019-01-31 08:12 | NUR ---
PT CALLED NURSES STATION REQUESTED PAIN MEDICATION. PT RATED PAIN 7/10, 3MG I.V. MORPHINE ADMINISTERED AT THIS TIME
--- NOTE | 2019-01-31 08:30 | NUR ---
PATIENT UP TO CHAIR FOR BREAKFAST, SBA, CANE. CALL LIGHT IN REACH. NO FURTHER NEEDS AT THIS TIME.
--- NOTE | 2019-01-31 09:25 | HP ---
[facility] [address], [place] [address] Signed ADMISSION DATE: 01/30/2019 REASON FOR ADMISSION: Acute calculous cholecystitis. HISTORY OF PRESENT ILLNESS: This very pleasant 83-year-old white man is accompanied by his . Two weeks ago, he presented to the emergency room with complaints of epigastric pain, which was interpreted as cardiac pain. A cardiac workup was undertaken, which showed no sign of ischemic change or other problem. He was discharged home. This morning at approximately 6 a.m. after a night of a "fish wick" he returned with the same symptoms, but more dominantly in the right subcostal area. He was evaluated by Dr. Palomino, whose evaluation was more suggestive of biliary disease and on that basis a gallbladder ultrasound was performed confirming a large 2.6 cm gallstone with thickening of the gallbladder wall. He was considered to have acute calculous cholecystitis and on that basis is admitted at this time. The patient has had parenteral pain medication which has improved his symptoms quite markedly. He has had no associated fever, chills, or other similar problem. PAST MEDICAL HISTORY: Does include coronary artery bypass grafting in 2016 with subsequent atrial fibrillation. His atrial fibrillation resolved after cardioversion. He is not chronically anticoagulated, specifically has had no recurrence of atrial fibrillation. Additionally, he is noted to have dyslipidemia. He also has hypertension. PAST SURGICAL HISTORY: Of note, the patient underwent staged bilateral cataract operation at [facility] in the past month or so. Includes appendectomy in the distant past, hemorrhoidectomy, tonsillectomy, bilateral cataract repair, right knee arthroscopy, and open heart bypass Andrew in January of 2016. MEDICATIONS: Include Tylenol 650 mg p.o. q.6 hours p.r.n. pain, aspirin 81 mg p.o. daily, atorvastatin 40 mg daily, Lasix 20 mg p.o. every other day, glucosamine chondroitin 1 tab daily, ibuprofen 600 mg q.6 hours p.r.n. pain, lisinopril 5 mg p.o. daily, metoprolol 50 mg p.o. b.i.d., and multivitamin daily. He also takes potassium chloride 20 mEq p.o. daily and prednisolone acetate suspension eyedrops q.i.d. ALLERGIES: Electronically Signed By: PINKY OLSON MD 01/31/19 0925 PATIENT NAME: MARTIR GUTIERREZ JR HISTORY AND PHYSICAL DATE OF : 31 REPORT #: [id number] PHYSICIAN: PINKY OLSON MD PCP: LUÍS JANG MD REPORT IS CONFIDENTIAL AND NOT TO BE RELEASED WITHOUT AUTHORIZATION [facility] [address], [place] [address] Signed He has allergies to codeine, chlorthalidone, and naproxen. SOCIAL HISTORY: He is . He is accompanied by his at this time. He is a [employer] War [employer] . REVIEW OF SYSTEMS: He denies any shortness of breath or chest pain. He has had no dysphagia, dysuria. Denies any hematemesis or blood per rectum. PHYSICAL EXAMINATION: GENERAL: Tall, white man who does not look systemically toxic at this time. HEENT: Mucous membranes are reasonably moist. NECK: Trachea is midline. He has no carotid bruit. CHEST: Clear. HEART: Regular without murmur. ABDOMEN: Somewhat large, but not particularly distended. He has minimal tenderness in right subcostal area at this time. EXTREMITIES: Show no clubbing, cyanosis, or edema. ASSESSMENT: The patient has acute calculous cholecystitis for which he is admitted. His episode two weeks ago was similar and almost certainly a biliary colic episode. Cardiac workup at that time was normal. I discussed with him in detail the pathophysiology of biliary disease and recommendation of treatment to include cholecystectomy preferred by laparoscopic approach. The risks of bleeding, infection, bile duct injury, common duct stones, need for open procedure and need for common duct exploration, either laparoscopic or open were reviewed in detail. He understands this and wished to proceed. PLAN: We will allow clear liquids in limited amounts for comfort, anticipating cholecystectomy hopefully tomorrow. Parenteral pain medication, IV antibiotics, and so forth will be administered as well. His usual medications will be maintained including his eyedrops as planned. An owners manual of the gallbladder will be obtained and provided as well. Pinky Olson MD Electronically Signed By: PINKY OLSON MD 01/31/19 0925 PATIENT NAME: MARTIR GUTIERREZ HISTORY AND PHYSICAL DATE OF : 31 REPORT #: [id number] PHYSICIAN: PINKY OLSON MD PCP: LUÍS JANG MD REPORT IS CONFIDENTIAL AND NOT TO BE RELEASED WITHOUT AUTHORIZATION [facility] [address] [place] [id number] Signed DOMINIK/BRANDON /[id number] cc: MD Dr. Luís Black Copies: NATALIA PALOMINO MD ~ Electronically Signed By: PINKY OLSON MD 01/31/19 0925 PATIENT NAME: MATTMARTIR HISTORY AND PHYSICAL DATE OF : 31 REPORT #: [id number] PHYSICIAN: PINKY OLSON MD PCP: LUÍS JANG MD REPORT IS CONFIDENTIAL AND NOT TO BE RELEASED WITHOUT AUTHORIZATION
--- NOTE | 2019-01-31 09:29 | NUR ---
PATIENT IN CHAIR WATCHING TV. RN GOT B/P. CALL LIGHT IN REACH. NO FURTHER NEEDS AT THIS TIME.
[2019-01-31] MEDS ORDERED: METOPROLOL SUCC50 MG PO (10:39)
[2019-01-31] MEDS ORDERED: FUROSEMIDE40 MG PO (10:39)
--- NOTE | 2019-01-31 11:02 | NUR ---
PT SITTIN UP IN BED AT THIS TIME. PT ALERT AND ORIENTED X3. PT REPORTS ABD PAIN HAS IMPROVED SINCE RECENT ADMIN OF PAIN MEDICATION. PT IS ON RA, RESP EVEN AND NON LABORED. PERSONA SUPPLES AMD CALL LIGHT WITHIN REACH. PT IN NPO, PT VERBALIZED HIS UNDERSTANDING OF THIS. NO NEEDS AT THIS TIME. CALL LIGHT WITHIN REACH.
[2019-01-31] MEDS ORDERED: NITROGLYCERIN0.4 MG SL (11:45)
--- NOTE | 2019-01-31 11:49 | NUR ---
Medications reconciled/updated using pharmacy records, PCP chart notes and patient interview. Patient now takes metoprolol succ 50mg daily, rather than metoprolol tart 50mg BID is the significant discrepancy
--- NOTE | 2019-01-31 13:53 | NUR ---
PT LAYING IN BED, AND DAUGHTER AT BS. PT IS TO HAVE A LAPCHOLE THIS AFTERNOON. PT SEEMS PREPARED, DAUGHTER HERE TO HELP WITH HER MOTHER WELL SUPPORT FOR PT. GOOD VISIT, THEIR SAMPLE DYE MIXER CAME WHILE I WAS THERE. HAD JUST FINISHED PRAYING FOR PT. WILL FOLLOW NEEDED
--- NOTE | 2019-01-31 14:30 | NUR ---
PT IN SURGERY
--- NOTE | 2019-01-31 17:04 | NUR ---
01/31/19 1704 Arleth Friedman 1646- PT ARRIVES TO PACU. PT IS AROUSABLE TO VOICE. DOES NOT FOLLOW COMMANDS AND INSTANTLY FALLS BACK TO SLEEP. RESP EVEN AND UNLABORED. PT DOES SNORE, THIS CLEARS WITH HEAD POSITION CHANGE. 170- PT EATING ICE CHIPS. TOLERATING WELL. 170- DR. OLSON AT THE BEDSIDE TO TALK WITH THE PT.
--- NOTE | 2019-01-31 17:53 | NUR ---
PT BACK FROM SURGERY. PT AWAKE, ALERT AND ORIENTED X3. PT REPORTING PAIN LEVEL OF 5/10 ABD PAIN. X4 LAP SITES WITH STERI STRIPS INTACT, INCISIONS ARE ALL CLOSED. DRAIN TO RLQ; SAROSANG DRAINAGE NOTED. BT HYPOACTIVE. PT DENIES N/V. DINNER ORDERED. ORIENTED PT TO ROOM AND CALL LIGHT. PERSONAL SUPPLIES AND CALL LIGHT WITHIN REACH.
--- NOTE | 2019-01-31 18:30 | NUR ---
PT AWAKE, ALERT AND ORIENTED X3. PT REMAINS ON RA, RESP EVEN AND NON LABORED. VS STABLE. ABD INCISIONS ARE WELL APPROX AND CLOSED, CDI, STERI STRIPS INTACT. RLQ JODY INTACT, PATENT AND SAROSANG OUTPUT NOTED. PT REPORTING ABD PAIN IS IMPROVED TO 4/10. PT TOLERATING DINNER WELL. PERSONAL SUPPLIES AND CALL LIGHT WITHIN REACH. NO NEEDS AT THIS TIME. AND DAUGHTER AT BEDSIDE.
--- NOTE | 2019-01-31 19:03 | NUR ---
RECIEVED BEDSIDE REPORT FROM CHEO WEBER. PATIENT RESTING AWAKE IN BED WITH VISITORS AT BEDSIDE. ROOM AIR. CPOX, WNL. PATIENT REPORTS "3/10" PAIN IN ABD, PATIENT DENIES PRN PAIN MEDICATION AT THIS TIME. CALL LIGHT WITHIN REACH. NO MORE NEEDS AT THIS TIME.
--- NOTE | 2019-01-31 19:27 | NUR ---
ROUNDED ON PATIENT FOR POST OP VITALS. VISTORS AT BEDSIDE. CALL LIGHT WITHIN REACH. NO MORE NEEDS AT THIS TIME.
--- NOTE | 2019-01-31 20:50 | NUR ---
ASSESSMENT COMPLETE. MEDICATIONS ADMINISTERED PER JAN ORDER. PATIENT DENIES PASSING FLATUS OR BURPING. NO NEW DRAINAGE NOTED ON LAP SITES. MODERATE AMOUNT OF SHADOWING PRESENT ON BANDAGE AROUND JODY DRAIN IN RLQ. JODY DRAIN EMPTIED. PATIENT DENIES NAUSEA, CHEST PAIN, SOB OR DIFFICULTY BREATHING. CPOX, WNL. SCDS IN PLACE. INCENTIVE SPIROMETER AT BEDSIDE. INCENTIVE SPIROMETER AT BEDSIDE. IV FLUIDS INFUSING PER JAN ORDER. CALL LIGHT WITHIN REACH. NO MORE NEEDS AT THIS TIME.
--- NOTE | 2019-01-31 21:28 | NUR ---
TOOK TO THE BATHROOM AND BACK TO BED. 1PA USING CANE. CALL LIGHT AND TABLE WITHIN REACH.
--- NOTE | 2019-01-31 22:34 | NUR ---
ROUNDED ON PATIENT LAYING AWAKE IN BED. MEDICATIONS ADMINSTERED PER MAR ORDER. PATIENT DENIES PAIN AT THIS TIME, HOWEVER PATIENT REPORTS PAIN WHEN COUGHING. PATIENT REPORTS USING PILLOW TO BRACE ABD, PATIENT STATES HE FEELS THIS HELPS A LITTLE BIT. POSSESSIONS AT BEDSIDE. CALL LIGHT WITHIN REACH. NO MORE NEEDS AT THIS TIME. CPOX, WNL.
--- NOTE | 2019-01-31 23:22 | EKG ---
[facility] [address] [facility] [place] [address] Signed Normal sinus rhythm Right bundle branch block Left anterior fascicular block Bifascicular block Abnormal ECG When compared with ECG of 24-DEC-2018 21:59, No significant change was found Confirmed by CRYSTAL SKINNER MD ([id number]) on 01/31/2019 11:21:51 PM Electronically Signed By: CRYSTAL SKINNER MD 01/31/19 2322 PATIENT NAME: MARTIR GUTIERREZ JR Electrocardiogram DATE OF : 31 PHYSICIAN: CRYSTAL SKINNER MD REPORT #: [id number] REPORT IS CONFIDENTIAL AND NOT TO BE RELEASED WITHOUT AUTHORIZATION
--- NOTE | 2019-01-31 23:39 | NUR ---
ROUNDED ON PATIENT RESTING IN BED WITH EYES CLOSED, RESPIRATORY RATE IS EVEN AND UNLABOED. CPOX, WNL. CALL LIGHT WITHIN REACH.
--- NOTE | 2019-02-01 01:15 | NUR ---
ROUNDED ON PATIENT TO ASSIST PATIENT A SBA TO RESTROOM WITH CANE. DRESSING AROUND JODY DRAIN 95% SATURATED WITH SANGUANOUS DRAINAGE, DRESSING AROUND JODY CHANGED, X3 DRAIN SPONGES APPLIED WITH SILK TAPE. PATIENT DENIES PAIN. JODY DRAIN EMPTIED. REPLACED BAG OF IV FLUIDS PER JAN ORDER. CALL LIGHT WITHIN REACH. NO MORE NEEDS AT THIS TIME.
--- NOTE | 2019-02-01 02:22 | NUR ---
rounded on patient resting awake in bed. patient reports "5/10" pain in abd. prn pain medication provided. no shadowing present on new dressing around sushil drain. call light wihtin reach. no more needs at this time.
--- NOTE | 2019-02-01 02:47 | NUR ---
ASSESSMENT COMPLETE. PATIENT REPORTS "5/10" PAIN IN ABD, AND DESCRIBES PAIN "SHARP", PRN PAIN MEDICATION PROVIDED. PATIENT DENIES HAVING FLATUS, HYPOACTIVE BT. NO NEW DRAINAGE NOTED ON LAP SITES AND DRESSING AROUND JODY DRAIN. PATIENT DENIES CHEST PAIN, SOB OR DIFFICULTY BREATHING. CPOX, WNL. SCDS IN PLACE. CALL LIGHT WITHIN REACH. NO MORE NEEDS AT THIS TIME. PATIENT REPORTS AN INCREASE IN PAIN WITH MOVEMENT. PATIENT REPORTS USING PILLOW TO BRACE ABD WHILE COUGHING.
--- NOTE | 2019-02-01 03:39 | NUR ---
ASSISTED TO THE BATHROOM AND BACK TO BED USING CANE. CALL MARTIN IN REACH.
--- NOTE | 2019-02-01 04:57 | NUR ---
ROUNDED ON PATIENT RESTING IN BED WITH EYES CLOSED, RESPIRATORY RATE IS EVEN AND UNLABORED. CALL LIGHT WITHIN REACH. CPOX, WNL.
--- NOTE | 2019-02-01 05:14 | NUR ---
PATIENT SLEPT ON AND OFF THROUGHOUT THE NIGHT. LAP SITE X4, NO NEW DRAINGE NOTED. JODY DRAIN SITE DRESSING CHANGED, GAUZE UNDERNEATH BECAME AROUND 95% SATURATED, NEW DRESSING PLACED WITH DRAIN SPONGE AND SILK TAPE, NO NEW DRAINAGE NOTED. JODY DRAIN DRAINING SEROSANGUANOUS TO SANGUANOUS DRAINAGE. PRN PAIN MEDICATION X1. IV ABX X2. IV FLUIDS INFUSING PER MAR ORDER. ROOM AIR. TOLERATING REGULAR DIET, NO NAUSEA. PATIENT DENIES FLATUS. INCENTIVE SPIROMETER. SCDS. USES CALL LIGHT APPROPRIATELY. PATIENT REPORTS USING PILLOW TO BRACE ABD.
--- NOTE | 2019-02-01 06:08 | NUR ---
ROUNDED ON PATIENT TO ANSWER PATIENT CALL LIGHT. PROVIDED EDUCATION TO PATIENT ABOUT JODY DRAIN. PATIENT STATED HE DID NOT LIKE THE PRN PAIN MEDICATION, "NORCO", STATING IT "MESSED ME UP" AND "I STARTED TO PRESPIRE", PROVIDED EDUCATION TO PATIENT ABOUT PAIN MEDICATION AND DISCUSSED OTHER FORMS OF PAIN MANAGMENT, PATIENT STATED WOULD LIKE TO USE ALTERNATIVE FORMS OF PAIN MEDICATION FOR PAIN MANAGMENT. CALL LIGHT WITHIN REACH. NO MORE NEEDS AT THIS TIME.
--- NOTE | 2019-02-01 06:46 | NUR ---
rounded on patient resting awake in bed. medication administered per jan order. call light within reach. no more needs at this time.
--- NOTE | 2019-02-01 07:55 | NUR ---
PT SITTING UP IN BED EATING BREAKFAST AT THIS TIME. PT DENIES SOB AND STATES ABD PAIN IS MINIMAL AT THIS TIME. PT IS ON RA, RESP EVEN AND NON LABORED. PERSONAL SUPPLIES AND CALL LIGHT WITHIN REACH OF PT. NO NEEDS.
--- NOTE | 2019-02-01 09:16 | NUR ---
PT WALKED IN HALLWAY WITH THIS RN, TOLERATED VERY WELL.
--- NOTE | 2019-02-01 09:51 | OR ---
[facility] [address], [place] [address] Signed DATE OF OPERATION: 01/31/2019 SURGEON: Pinky Olson MD PREOPERATIVE DIAGNOSIS: Acute calculous cholecystitis. POSTOPERATIVE DIAGNOSIS: Severe acute calculous cholecystitis with gallstones. PROCEDURES PERFORMED: 1. Laparoscopic cholecystectomy with intraoperative cholangiogram, prolonged, complicated, difficult. 2. Surgeon-directed fluoroscopy. ANESTHESIA: General endotracheal by Janny Thacker CRNA, and local 10 mL of 0.25% Marcaine with epinephrine. INDICATION: This 83-year-old white man was admitted through the emergency room yesterday with significant right subcostal pain. He had been seen two weeks earlier in the emergency room for similar symptoms, which were considered possibly cardiac and cardiac evaluation was negative. His evaluation yesterday by Dr. Palomino brought into the differential for his epigastric and right subcostal pain to include biliary disease and a gallbladder ultrasound was performed, which showed a thickened gallbladder wall, at least one large gallstone. He has been fluid resuscitated, given intravenous antibiotics, parenteral pain medication and so forth and is now admitted to undergo cholecystectomy. He understands the risks of bleeding, infection, bile duct injury, need for open procedure, and other unforeseen complications and wished to proceed. His past medical history does include history of coronary artery bypass and postoperative atrial fibrillation, which resolved on its own or with intervention, but he has not been anticoagulated. Additionally, he has hypertension and dyslipidemia. He has also undergone bilateral cataract operation in the past few months. FINDINGS: Unexpectedly, the gallbladder was far more inflamed than I would have thought. It was markedly inflamed indeed. It did require decompression, which showed white (clear) bile. Dissection was difficult as the liver was friable and small amount of bleeding in Electronically Signed By: PINKY OLSON MD 02/01/19 0951 PATIENT NAME: MARTIR GUTIERREZ JR OPERATIVE REPORT DATE OF : 31 REPORT #: [id number] PHYSICIAN: PINKY OLSON MD PCP: LUÍS JANG MD REPORT IS CONFIDENTIAL AND NOT TO BE RELEASED WITHOUT AUTHORIZATION [facility] [address], [place] [address] Signed the subcapsular area of the gallbladder was noted, but was ultimately well controlled. Cholangiogram was normal. The gallbladder had two large gallstones within it, similar in size about 2.5 cm each. The liver was somewhat fatty infiltrated and friable, but without other findings of concern. There was no sign of ascites or carcinomatosis. DESCRIPTION OF PROCEDURE: The patient was brought to the operating room, given a general endotracheal anesthetic. He had been on steady state Ancef antibiotic treatment since admission. After satisfactory general endotracheal anesthesia, the abdomen was clipped and prepared for chlorhexidine solution and draped sterilely. Sequential compression device stockings had been used. After sterile preparation, an infraumbilical incision was made. He was noted to have an umbilical hernia of fat, most dominantly in the superior aspect of the umbilicus. Using an open Fang cannula technique, pneumoperitoneum was achieved to a level of 14 mmHg of carbon dioxide gas. Intraabdominal inspection showed no sign of ascites or carcinomatosis. The liver and gallbladder were obscured from view by the omentum at that point. A 12 mm epigastric port was placed and with gentle removal of the omentum, the gallbladder could be identified and was markedly and severely inflamed. This was far more significant than I had expected clinically. Three additional trocars were placed in usual configuration in the subxiphoid, right midclavicular, and right anterior axillary line. The gallbladder was so tense and distended it could not be elevated. On that basis, a decompressing trocar device was used through the epigastric port to decompress the gallbladder. Clear bile was noted indicative of complete gallbladder obstruction. Puncture site was grasped and the gallbladder gently elevated, but a small rent in the junction between the gallbladder and the liver was noted with oozing of blood. This was ultimately controlled with electrocautery. With adequate elevation of the gallbladder, the infundibulum was noted to be obscured by redundant bowel loops and omentum. On that basis, an epigastric 5 mm port was placed and a fan retractor placed allowing for better visualization. The gallbladder was retracted laterally and using blunt and electrocautery dissection the triangle of Calot was dissected free ultimately identifying well the cystic duct. A clip was applied across the gallbladder cystic duct junction as high up as possible and a transverse choledochotomy made in the cystic duct. Egress of clear bile was noted, but this was yellow bile at this point. Using an Whitaker type cholangiocatheter system, intraoperative cholangiography was undertaken showing free flow of contrast in biliary tree with prompt emptying into the duodenum. There was no sign of biliary anomaly, filling defect, or other abnormality. Catheter was removed and the cystic duct was triply clipped and divided and the gallbladder dissected free in a retrograde fashion using electrocautery. Reentry into the appropriate plane between the gallbladder and liver bed allowed for good control of the capsular tear bleeding more proximally and medially on the liver Electronically Signed By: PINKY OLSON MD 02/01/19 0951 PATIENT NAME: MATTMARTIR OPERATIVE REPORT DATE OF : 31 REPORT #: [id number] PHYSICIAN: PINKY OLSON MD PCP: LUÍS JANG MD REPORT IS CONFIDENTIAL AND NOT TO BE RELEASED WITHOUT AUTHORIZATION [facility] [address], [place] [address] Signed edge. The gallbladder was placed in an Endobag and extracted through infraumbilical port site without problem, opened on the back table, found to have severe inflammation, no sign of neoplasm and two large gallstones, at least 2.5 cm each. Irrigation was undertaken in subhepatic space. Excess irrigation fluid was suctioned free. Peg hemostatic agent was applied to the raw surface areas of the gallbladder and hepatic bed. One of the right-sided trocar was used to pass a 7 mm flat Darrick drain into the subhepatic space. This was secured to skin with nylon suture. Irrigation was undertaken. There was no sign of additional bleeding or other problems. The trocars were removed under direct visualization. The drain was secured to the skin with nylon suture. Infraumbilical fascial incision was reapproximated with interrupted 0 Vicryl suture. All wounds were copiously irrigated with saline solution. Skin closed with interrupted 3-0 Vicryl. Steri-Strips were applied. The patient was ultimately extubated and transferred to recovery room in good condition having suffered no complication. Sponge, needle, and instrument counts reported as correct x3. Blood loss was about 100 mL in aggregate. The operation was very prolonged, complicated, and difficult on the basis of inflammatory change of the gallbladder. MD DOMINIK Hernández/PERLITAL /[id number] cc: MD Dr. Eliana Black Copies: NATALIA PALOMINO MD ~ Electronically Signed By: PINKY OLSON MD 02/01/19 0951 PATIENT NAME: MATTMARTIR OPERATIVE REPORT DATE OF : 31 REPORT #: [id number] PHYSICIAN: PINKY OLSON MD PCP: LUÍS JANG MD REPORT IS CONFIDENTIAL AND NOT TO BE RELEASED WITHOUT AUTHORIZATION
--- NOTE | 2019-02-01 11:15 | NUR ---
PT SITTING IN CHAIR, VISITING WITH HIS DAUGHTER. PT FEELS CONFIDENT THAT HE IS TO BE DC'D TODAY. SLEPT WELL, EXTENDED A BLESSING AND WILL FOLLOW NEEDED
--- NOTE | 2019-02-01 11:30 | NUR ---
DR. OLSON IN TO CONSULT WITH PT.
--- NOTE | 2019-02-01 19:02 | NUR ---
RECIEVED BEDSIDE REPORT FROM CHEO WEBER. PATIENT LAYING AWAKE IN BED, COMPLAINING OF "CRAMPING PAIN" IN ABD AND RATES PAIN A "7-8/10" AND STATES PAIN INCREASES TO A "12/10" WITH MOVEMENT. PATIENT STATES THEY WOULD LIKE SOMETHING FOR PAIN. IV FLUIDS INFUSING PER MAR ORDER. SCDS IN PLACE. CALL LIGHT WITHIN REACH. NO MORE NEEDS AT THIS TIME.
--- NOTE | 2019-02-01 19:21 | NUR ---
ADMIN MORPHINE 2MG IVP FOR REPORTS OF 10/10 ABD PAIN.
--- NOTE | 2019-02-01 20:40 | NUR ---
PT WALKED ONE LAP.
--- NOTE | 2019-02-01 21:35 | NUR ---
ASSESSMENT COMPLETE, REFER TO ASSESSMENT. PATIENT DENIES SOB, CHEST PAIN, OR DIFFICULTY BREATHING. X4 LAP SITES, NO NEW DRAINAGE NOTED. DRESSING AROUND JODY DRAIN SHOWS MODERATE AMOUNT OF SHADOWING. JODY DRAIN DRAINING, SEROSANGUANOUS DRAINAGE. PT REPORTS "5/10" PAIN IN ABD, PATIENT DENIES WANTING PRN PAIN MEDICATION AT THIS TIME. PATIENT REPORTS PASSING SOME FLATUS. IV FLUIDS INFUSING PER MAR ORDER. CALL LIGHT WITHIN REACH. NO MORE NEEDS AT THIS TIME.
--- NOTE | 2019-02-01 23:36 | NUR ---
ASSISTED TO THE BATHROOM. PATIENT IS BACK IN BED. BED ALARM ON.
--- NOTE | 2019-02-02 02:21 | NUR ---
ROUNDED ON PATIENT RESTING IN BED WITH EYES CLOSED, RESPIRATORY RATE IS EVEN AND UNLABORED. CALL LIGHT WITHIN REACH. BED ALARM ON FOR SAFETY.
--- NOTE | 2019-02-02 03:15 | NUR ---
ASSESSMENT COMPLETE, REFER TO ASSESSMENT. PATIENT REPORTS "5/10" PAIN IN ABD, DESCRIBES PAIN "HEAVY" AND "DULL", PRN PAIN MEDICATION ADMINISTERED PER JAN ORDER. PATIENT DENIES CHEST PAIN, SOB, AND DIFFICULTY BREATHING. PATIENT REPORTS PASSING FLATUS. DRESSING AROUND JODY DRAIN MODERATELY SATRUATED WITH SEROSANGUOUS DRAINAGE, DRESSING CHANGED, DRAIN SPONGE PLACED WITH FOAM TAPE BY DWAIN RN, PATIENT TOLERATED WELL. PATIENT DENIES NAUSEA. SBA PATIENT TO RESTROOM WITH CANE, PATIENT SAFELY BACK INTO BED, BED ALARM OF FOR SAFETY. JODY DRAIN EMPTIED. JODY DRAIN STRIPPED BY DWAIN WEBER. CALL LIGHT WITHIN REACH. NO MORE NEEDS AT THIS TIME.
--- NOTE | 2019-02-02 05:55 | NUR ---
PATIENT SLEPT ON AND OFF THROUGHOUT THE NIGHT. AMBULATED IN HALLWAY. PRN PAIN MEDICATION X2. IV FLUIDS INFUSING PER JAN ORDER. ROOM AIR. REGULAR DIET. SCDs. SBA WITH CANE. JODY DRAIN, DRAINING SEROSANGUANOUS DRAINAGE. DRESSING AROUND JODY DRAIN CHANGED DUE TO DRESSING BEING MODERATELY SATURATED. LAP SITES X4, NO NEW DRAINAGE, SMALL BLISTER NOTED ON X1 LAP SITE. BED ALARM FOR SAFETY.
--- NOTE | 2019-02-02 06:19 | NUR ---
rounded on patient resting in bed with eye closed, respiratory rate is even and unlabored. patient awoke to this rn in room. medication administered per jan order. call light within reach. no more needs at this time.
--- NOTE | 2019-02-02 07:58 | NUR ---
Report received from night court magistrate RN. Patient up in chair. Alert and oriented. Using IS now up to 1999.
--- NOTE | 2019-02-02 07:59 | NUR ---
IV infusing and no pain or leaking at site. But site does have some tightness to it on the skin and apparent swelling when compared to other arm, IV DC'ed, tip intact, pressure dressing applied and instructed to remove in 10 minutes.
--- NOTE | 2019-02-02 09:14 | NUR ---
PATIENT CALLED FOR HELP WHEN GETTING UP TO BATHROOM AND COMING BACK TO CHAIR. HAD A SMALL BM AND TOLERATED WELL.
[2019-02-02] MEDS ORDERED: MAPAP325 MG PO (09:45)
--- NOTE | 2019-02-02 10:47 | NUR ---
PATIENT DRESSED AND READY TO GO HOME. PHARMACIST JUST FINISHED TALKING TO PATIENT AND HIS DAUGHTER.
--- NOTE | 2019-02-02 14:12 | NUR ---
PT'S DAUGHTER WAS JUST STEPPING OUT TO LET PT REST. HE IS GOING HOME TODAY AND ACCORDING TO HIS DAUGHTER, DOING VERY WELL. THANKED ME FOR COMING BY. WILL FOLLOW NEEDED
== END 2019-02-02 11:00 | disposition home or self-care (01) | DRG 419 ==
LOC: ED 12:40 → MS 17:02 → DS 20:43 → MS 20:43 → DS 01-31 17:22 → MS 01-31 17:23
PROVIDERS: ADMIT Surgery
PROC: BF13YZZ Fluoroscopy of Gallbladder and Bile Ducts using Other Contrast (ICD-10-PCS; 2019-01-31)
PROC: 0F9730Z Drainage of Common Hepatic Duct with Drainage Device, Percutaneous Approach (ICD-10-PCS; 2019-01-31)
PROC: 0FT44ZZ Resection of Gallbladder, Percutaneous Endoscopic Approach (ICD-10-PCS; principal; 2019-01-31 13:00)
DX: K80.00 Calculus of gallbladder with acute cholecystitis without obstruction (principal); I48.91 Unspecified atrial fibrillation; I25.9 Chronic ischemic heart disease, unspecified; I10 Essential (primary) hypertension
CPT/HCPCS: 00790; 36415; 74300; 76705; 80053; 82247; 82465; 83615; 83690; 84100; 84478; 84484; 84550; 85025; 93005; 93010; 94760; 94762; 96374; 96375; 99285-25; J0330; J0360; J0690; J1100; J1170; J2270; J2405; J2704; J3010; J7120; Q9967

== ENCOUNTER 2019-10-16 10:13 | Emergency (ER) | payer MEDICARE ==
[~2019-10-16] VITALS: Ht 188 cm; Wt 98.4 kg
--- OUTSIDE RECORDS SUMMARY | ~2019-10-16 | XMS | Encounter Summary ---
Demographics + + + | Address | [address] | | | [place] [address] | + + + | Home Phone | | + + + | Preferred Language | Unknown | + + + | Marital Status | | + + + | Christian Affiliation | 1077 | + + + | Race | Unknown | + + + | Ethnic Group | Unknown | + + + Author + + + | Author | [facility] | | | and [place] | + + + | Organization | [facility] | | | and [place] | + + + | Address | Unknown | + + + | Phone | Unavailable | + + + Support + + +---------+ + | Name | Relationship | Address | Phone | + + +---------+ + | Georgiana Randolph | ECON | Unknown | | + + +---------+ + | Georgiana Randolph | ECON | Unknown | | + + +---------+ + | Laury Simms | ECON | Unknown | | + + +---------+ + Care Team Providers + +------+ + | Care Teasel Setter Name | Role | Phone | + +------+ + | Alejandro Monroy MD | PCP | | + +------+ + Reason for Visit + + + | Reason | Comments | + + + | Medication Refill | | + + + Encounter Details +--------+--------+ + + + | Date | Type | Department | Care Team | Description | +--------+--------+ + + + | 07/10/ | Refill | [facility] | Day[place], | Medication Refill | | 2019 | | [facility] | [facility], [facility] [address] | | | | | [facility] [address] | [facility] | | | | | [address] [facility], | [place] [address] | | | | | [place] [address] | [phone] | | | | | [phone] | | | +--------+--------+ + + + Social History + +-------+ +--------+------+ | Tobacco Use | Types | Packs/Day | Years | Date | | | | | Used | | + +-------+ +--------+------+ | Former Smoker | | 0.25 | | | + +-------+ +--------+------+ + + + | Sex Assigned at | Date Recorded | | | | + + + | Not on file | | + + + + + + + | Job Start Date | Occupation | Industry | + + + + | Not on file | Not on file | Not on file | + + + + + + + + | Travel History | Travel Start | Travel End | + + + + + + | No recent travel history available. | + + documented as of this encounter Plan of Treatment +--------+---------+ + + + | Date | Type | Specialty | Care Team | Description | +--------+---------+ + + + | 10/19/ | Office | Cardiology | Devonte Nevarez, | | | 2018 | Visit | | MD Cici LEONG | | | | | | [place], [place] | | | | | | [id number] | | | | | | | | +--------+---------+ + + + documented as of this encounter Visit Diagnoses Not on filedocumented in this encounter"
--- OUTSIDE RECORDS SUMMARY | ~2019-10-16 | XMS | Encounter Summary ---
Demographics + + + | Address | [address] | | | [place] [address] | + + + | Home Phone | | + + + | Preferred Language | Unknown | + + + | Marital Status | | + + + | Rastafarian Affiliation | [id number] | + + + | Race | Unknown | + + + | Ethnic Group | Unknown | + + + Author + + + | Author | [facility] | | | and [place] | + + + | Organization | [facility] | | | and [place] [...] | + + +---------+ + | Laury Ortizppard | ECON | Unknown | | + + +---------+ + Care Team Providers + +------+ + | Care Supervisor Inspection Room Name | Role | Phone | + +------+ + PCP | Unavailable | + +------+ + Encounter Details +--------+ + + + + | Date | Type | Department | Care Team | Description | +--------+ + + + + | 01/14/ | Hospital | [facility] | Dariela Bauer, | Chest pain at rest; | | 2016 - | Encounter | [facility] | MD [address] | Essential | | | | CARE FLOOR [address] | [place] [address] | hypertension, | | 01/21/ | | [address] | | benign; | | 2015 | | [place] | | Hyperlipemia; Sinus | | | | [id number] | | bradycardia; | | | | [phone] | | Coronary artery | | | | | | disease involving | | | | | | [place] coronary | | | | | | artery of [place] | | | | | | heart with unstable | | | | | | angina pectoris | | | | | | (HCC); Coronary | | | | | | artery disease | | | | | | involving [place] | | | | | | coronary artery of | | | | | | [place] heart with | | | | | | angina pectoris | | | | | | (HCC); Essential | | | | | | hypertension; HLD | | | | | | (hyperlipidemia); | | | | | | Primary | | | | | | osteoarthritis of | | | | | | right knee | +--------+ + + + + Social History + +-------+ +--------+------+ | Tobacco Use | Types | Packs/Day | Years | Date | | | | | Used | | + +-------+ +--------+------+ | Never Assessed | | | | | + +-------+ +--------+------+ + [...] + + documented as of this encounter Last Filed Vital Signs + + + + + | Vital Sign | Reading | Time Taken | Comments | + + + + + | Blood Pressure | 130/64 | 01/22/2016 12:21 PM | | | | | PDT | | + + + + + | Pulse | 82 | 01/22/2016 12:21 PM | | | | | PDT | | + + + + + | Temperature | 36.8 C (98.2 F) | 01/22/2016 12:21 PM | | | | | PDT | | + + + + + | Respiratory Rate | 16 | 01/22/2016 12:21 PM | | | | | PDT | | + + + + + | Oxygen Saturation | - | - | | + + + + + | Inhaled Oxygen | - | - | | | Concentration | | | | + + + + + | Weight | 103.5 kg (228 lb 2.9 | 01/22/2016 12:21 PM | | | | oz) | PDT | | + + + + + | Height | 185.4 cm (6' 1") | 01/22/2016 12:21 PM | | | | | PDT | | + + + + + | Body Mass Index | 30.1 | 01/22/2016 12:21 PM | | | | | PDT | | + + + + + documented in this encounter Discharge Summaries Arleth Youssef ARNP - 01/22/2016 9:51 AM PDTFormatting of this note might be dif ferent from the original. Discharge Summaries by KAYLEIGH Segundo at 01/22/16 0951 Author: KAYLEIGH Segundo Service: Cardiac, Thoracic, and Vascular Surgery [facility] Type: Advanced Registered Nurse Practitioner Filed: 01/24/16 1517 Date of Service: 01/22/16 0951 Status: Attested Rug Measurer: KAYLEIGH Segundo (Kiet Registered Nurse Practitioner) Cosigner: Dariela Bauer MD at 01/25/16 1036 Attestation signed by Dariela Bauer MD at 01/25/16 1036 I have examined Flaco Randolph, reviewed the notes, assessments, and/or procedures performed by KAYLEIGH Segundo, I concur with his documentation of Flaco Randolph. 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 * Procedures: 1. Coronary artery bypass graft surgery x5 (left internal mammary artery to left anterior d escending, saphenous vein to diagonal, saphenous vein to marginal, saphenous vein to posteri or descending artery, saphenous vein to posterolateral artery) 2. Endoscopic vein harvest (left greater saphenous vein) POSTOPERATIVE DIAGNOSIS 1. Coronary artery disease BRIEF HISTORY OF PRESENTATION: Flaco Randolph is a 80 y.o. male with significant past medical history of TIA, HTN, hype rlipidemia, RA, GERD, and BPH, who presented with exertional chest pain. Coronary angiogram showed severe triple vessel disease, not amenable to PCI. HOSPITAL COURSE: The patient was taken to the operating room and underwent a CABG x5 on 01/15/16. Operation wa s uneventful (please refer to operative note for details of the same). The patient tolerated the procedure well and was transferred to the ICU intubated and in stable condition, and wa s extubated per ICU protocol. He spent 2 nights in the ICU due to temporary need of vasoacti ve drips (MELINDA) for hypotension, and on 01/17/16 the patient was transferred to the cardiac un it, hemodynamically stable. He received electrolyte replacement per protocol and continued t o make good recovery, ambulating, tolerating cardiac diet, and passing bowel movements. Ches t tubes and pacing wires were removed without complication, and the patient remained stable without supplemental oxygen. He experienced several episodes of afib, that returned despite several rounds of treatment with IV and PO amiodarone, diltiazem, and BB. The patient was se nt home on a 3-week PO amio taper, as well as Eliquis for anticoagulation. He also received aggressive diuresis and was sent home with a 5-day course of lasix w/K+ supplementation for diuresis. The patient was fit for discharge to Home on 01/22/16. Past Medical History Diagnosis Date Hyperlipidemia HTN (hypertension) Rheumatoid arthritis (HCC) GERD (gastroesophageal reflux disease) Hx of migraine headaches Osteoporosis Sciatica Benign prostatic hypertrophy without urinary obstruction TIA (transient ischemic attack) Seborrheic dermatitis Hernia, inguinal bilateral Coronary artery disease Joint pain Stroke (HCC) Past Surgical History Procedure Laterality Date Hemorrhoid surgery x 2 Appendectomy Tonsillectomy Knee arthroscopy w/ acl reconstruction Abdominal surgery Eye surgery detached retina-bilateral Coronary artery bypass graft N/A 01/15/2016 Procedure: CABG - DONNY; Surgeon: Dariela Bauer MD; Location: [facility] MAIN OR; Service: C ardiac; Laterality: N/A; Sternotomy, Left endoscopic saphenous vein harvest, Left internal mammary artery harvest Allergies Allergen Reactions Codeine Hallucinations Prescriptions prior to admission Medication Sig Dispense Refill Last Dose atorvastatin (LIPITOR) 40 MG tablet Take 40 mg by mouth nightly. 01/14/2016 frbkwprgpl-vvpokyu-mxmwdfpk (FIORINAL) 50-325-40 MG capsule Take 1 capsule by mouth jurgen ry 4 (four) hours as needed for Pain. 01/14/2016 diclofenac (VOLTAREN) 50 MG EC tablet Take 50 mg by mouth 3 (three) times daily. 2015 glucosamine-chondroitin 500-400 MG CAPS Take 1 capsule by mouth daily. 01/14/2016 ketoconazole (NIZORAL) 2 % cream Apply 2 % topically daily. 01/14/2016 MULTIPLE VITAMIN PO Take by mouth daily. 01/14/2016 potassium chloride SA (K-DUR,KLOR-CON) 20 MEQ tablet Take 20 mEq by mouth daily. 2015 DISCHARGE EXAM Vital Signs: BP 101/62 mmHg | Pulse 102 | Temp(Src) 98 F (36.7 C) (Oral) | Resp 16 | Ht 1.854 m (6' 1") | Wt 103.5 kg (228 lb 2.8 oz) | BMI 30.11 kg/m2 | SpO2 97% 24h: Temp: [98 F (36.7 C)-99.4 F (37.4 C)] 98 F (36.7 C) (01/21 850) BP: (101-141)/(56-78) 101/62 mmHg (01/21 850) Heart Rate: [71-102] 102 (01/21 850) Resp: [16] 16 (01/21 850) SpO2: [93 %-98 %] 97 % (01/21 850) Weight: [103.5 kg (228 lb 2.8 oz)] 103.5 kg (228 lb 2.8 oz) (01/22 324) Intake/Output Summary (Last 24 hours) at 01/22/16 0936 Last data filed at 01/22/16 0556 Gross per 24 hour Intake 450 ml Output 2445 ml Net -1995 ml 01/20 0700 - 01/21 0659 In: 570 [P.O.:570] Out: 2445 [Urine:2445] Physical Exam: GENERAL: A&O x 3, in no acute distress. NEURO: PERRLA, EOMI; no facial asymmetry, speech normal and non pressured. Normal ROM. HEENT: Sclerae clear, nonicteric; Oral Mucosa moist and pink. NECK: No JVD noted, carotid upstrokes brisk without bruits. No thyromegaly. HEART: Irregular. No murmur, rub, heave, or gallop noted. LUNGS: Lungs are clear to auscultation without wheezing, crackles, or rhonchi. Dim bases ABDOMEN: Soft, nondistended, nontender. EXTREMITIES: Mild generalized and +1 BLE edema; Bilateral radial, dorsalis pedis, and poste rior tibialis pulses moderate. No clubbing or cyanosis noted. SKIN: Midsternal incision is clean, dry, and intact (drsg removed). No erythema, edema/infl ammation, discharge, or warmth noted around the incision site. No rash or mottling DATA LABS: Recent Labs Lab 01/22/16 0354 01/21/16 0314 01/20/16 0637 WBC 8.53 9.95 8.33 RBC 3.05* 3.26* 3.25* HGB 9.3* 10.0* 10.0* HCT 27.0* 29.1* 28.6* MCV 88.8 89.3 88.0 MCH 30.6 30.7 30.9 MCHC 34.5 34.4 35.1 RDW 43.3 42.9 43.8 PLT 227 231 192 MPV 8.0 8.4 7.9 DIFFTYPE AUTOMATED AUTOMATED AUTOMATED Recent Labs Lab 01/22/16 0354 01/21/16 1543 01/21/16 0946 01/21/16 0314 01/20/16 1405 01/20/16 0637 NA 133* -- -- 132* 136 135 K 3.8 3.9 3.6 3.5 3.5 3.7 CL 103 -- -- 101 101 103 CO2 25 -- -- 26 26 28 ANIONGAP 9 -- -- 9 12 8 GLUF 110* -- -- 101* 135* 105* BUN 21 -- -- 23 23 23 CREATININE 1.09 -- -- 1.14 1.2 1.1 BCR 19 -- -- 20 19 21 CA 8.2* -- -- 8.3* 7.8* 7.9* EGFR >60 -- -- >60 >60 >60 MG 1.8 -- -- 1.9 -- 2.0 PLAN 1. Patient is discharged to home. 2. Smoking cessation was discussed with patient. Pt says he smoked briefly when he was in h is 20s, and does not intend to ever smoke again. 3. Patient was instructed to follow up in clinic with in 2 weeks. 4. Patient was instructed to follow up in clinic with in 2-4 weeks. 5. Education: CABG: The patient is being discharged with instructions on cardiac diet, sternal precau tions x 12 weeks and surgical incision care are according to the Society of Thoracic Surgeon guidelines. The patient is given instructions to start cardiac rehabilitation in accordance with tire finisher recommendations. Pt advised not to drive for 6 weeks post discharge. Patient was discharged with aspirin, atorvastatin, and metoprolol. He was also discharge d with 14 days of amiodarone for paroxysmal afib and Eliquis for anticoagulation, and 5 days of diuresis with lasix with K+ supplement for postop fluid overload. Disposition: Home Condition: Stable Code Status: Full Code No discharge procedures on file. Follow up: Dariela Bauer MD [facility] [address] Schedule an appointment as soon as possible for a visit in 2 weeks Post-op follow-up, For wound re-check, For suture removal Ilia Aguirre DO [address] [place] [address] Dr [facility] [address] Schedule an appointment as soon as possible for a visit in 3 weeks Post-op follow-up Huy [facility] MD [address] [place] [address] [place] [id number] In 1 month Post-op follow-up Medication List START taking these medications amiodarone 200 MG tablet QTY: 42 tablet Refills: 0 Commonly known as: PACERONE Take 1 tablet by mouth 3 (three) times daily. 3 times daily for 7 days, then 2 times daily for 7 days, and then once daily for 7 days apixaban 5 MG tablet QTY: 60 tablet Refills: 0 Commonly known as: ELIQUIS Take 1 tablet by mouth 2 (two) times daily. furosemide 20 MG tablet QTY: 10 tablet Refills: 0 Commonly known as: LASIX Take 1 tablet by mouth Two times daily. oxyCODONE 5 MG immediate release tablet QTY: 30 tablet Refills: 0 Commonly known as: ROXICODONE Take 1 tablet by mouth every 4 (four) hours as needed for Pain (scale 4 to 5 ). CHANGE how you take these medications aspirin 325 MG EC tablet QTY: 30 tablet Refills: 0 Take 1 tablet by mouth nightly. What changed: - medication strength - how much to take - when to take this ozecoffqxn-tyfrykv-baqzybql 50-325-40 MG capsule Refills: 0 Commonly known as: FIORINAL What changed: Another medication with the same name was removed. Continue taking this medi cation, and follow the directions you see here. metoprolol 50 MG tablet QTY: 60 tablet Refills: 0 Commonly known as: LOPRESSOR Take 1 tablet by mouth 2 (two) times daily. What changed: - medication strength - how much to take CONTINUE taking these medications atorvastatin 40 MG tablet Refills: 0 Commonly known as: LIPITOR diclofenac 50 MG EC tablet Refills: 0 Commonly known as: VOLTAREN glucosamine-chondroitin 500-400 MG Caps Refills: 0 ketoconazole 2 % cream Refills: 0 Commonly known as: NIZORAL MULTIPLE VITAMIN PO Refills: 0 potassium chloride SA 20 MEQ tablet Refills: 0 Commonly known as: K-DUR,KLOR-CON STOP taking these medications amLODIPine 5 MG tablet Commonly known as: NORVASC isosorbide mononitrate 30 MG 24 hr tablet Commonly known as: IMDUR lisinopril 10 MG tablet Commonly known as: ZESTRIL misoprostol 200 MCG tablet Commonly known as: CYTOTEC nitroGLYCERIN 0.4 MG SL tablet Commonly known as: NITROSTAT traMADol 50 MG tablet Commonly known as: ULTRAM Where to Get Your Medications You need to bean picker these prescriptions. We sent some of them to a specific pharmacy. Go t o these places to get your medications. [phone] - [place], [place] - [address] - amiodarone 200 MG tablet - apixaban 5 MG tablet - furosemide 20 MG tablet - metoprolol 50 MG tablet [address] [place] [place] [address] You may get the following medications from any pharmacy - oxyCODONE 5 MG immediate release tablet Information on where to get these meds is not yet available. Ask your nurse or doctor. - aspirin 325 MG EC tablet Discharge took 30 minutes, to include final examination, discussion of admission, and prepa ration of prescriptions, instructions for on-going care, follow-up and documentation of disc harge summary. KAYLEIGH Segundo 01/22/2016 documente d in this encounter Progress Notes Conversion Transaction, Provider Unknown - 01/22/2016 2:48 PM PDTFormatting of this note m ight be different from the original. Case Management by TERRY Gooden at 01/22/16 1448 Author: TERRY Gooden Service: (none) Author Type: Central Sterile Supply Technician Filed: 01/22/16 1659 Date of Service: 01/22/161447 Status: Signed Rug Measurer: TERRY Goodne (Central Sterile Supply Technician) 01/22/16 1400 Discharge Planning Evaluation Admitting Diagnosis Chest pain Anticipated Disposition Facility Type Home [facility] met with Pt, Pt dghtr with Micaela VICTOR for discharge planning. Pt dghtr states P t will have caregiving provided by Pt family. HH Order has been faxed to [facility]. [facility] p/c to [facility] at [facility], will have RN/PT/HH aide next week, starting ThursdayJanuary 29. [facility] faxed latest clinicals. DCP: Home HUAN PERRY Bodybuilder [phone] cell onver sudhakar Transaction, Provider Unknown - 01/22/2016 12:49 PM PDT Nurse Progress Note by Luz Jaramillo RN at 01/22/161248 Author: Luz Jaramillo RN Service: (none) Author Type: Registered Nurse Filed: 01/22/169 Date of Service: 01/22/161248 Status: Signed Rug Measurer: Luz Jaramillo RN (Registered Nurse) Patient A&Ox4, HRR, denies CP/SOB. D/C to home with family care and home health. Patient st ates all belongings accounted for. Discharge teaching done on med rec, disease process, and postop CABG instructions. D/C via wheelchair. LUZ JARAMILLO RN Arleth Samuel ARNP - 01/22/2016 9:35 AM PDT Progress Notes by KAYLEIGH Segundo at 01/22/16 0935 Author: KAYLEIGH Segundo Service: Cardiac, Thoracic, and Vascular Surgery [facility] Type: Advanced Registered Nurse Practitioner Filed: 01/22/16 0938 Date of Service: 01/22/16934 Status: Attested Rug Measurer: KAYLEIGH Segundo (Advanced Registered Nurse Practitioner) Cosigner: Dariela Bauer MD at 01/25/16 1126 Attestation signed by Dariela Bauer MD at 01/25/16 1126 I have examined Flaco Randolph, reviewed the notes, assessments, and/or procedures performed by KAYLEIGH Segundo, I concur with his documentation of Flaco Randolph. 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 (HCC) Active Problems: Essential hypertension HLD (hyperlipidemia) Chest pain at rest Sinus bradycardia SUBJECTIVE: Patient Summary Overnight: - HD stable, in and out of afib overnight, on PO amio and metoprolol - On RA, no SOB - Up to chair and resting comfortably, no c/o pain, ambulating well - UOP 1625ml overnight/2445ml over last 24hrs, +BM OBJECTIVE: Current weight: Weight: 103.5 kg (228 lb 2.8 oz) Admission weight: Weight: 98.431 kg (217 lb) Vital Signs: BP 101/62 mmHg | Pulse 102 | Temp(Src) 98 F (36.7 C) (Oral) | Resp 16 | Ht 1.854 m (6' 1") | Wt 103.5 kg (228 lb 2.8 oz) | BMI 30.11 kg/m2 | SpO2 97% 24h: Temp: [98 F (36.7 C)-99.4 F (37.4 C)] 98 F (36.7 C) (01/21 0850) BP: (101-141)/(56-78) 101/62 mmHg (01/21 0850) Heart Rate: [71-102] 102 (01/21 0850) Resp: [16] 16 (01/21 0850) SpO2: [93 %-98 %] 97 % (01/21 0850) Weight: [103.5 kg (228 lb 2.8 oz)] 103.5 kg (228 lb 2.8 oz) (01/21 0324) Intake/Output Summary (Last 24 hours) at 01/22/16 0936 Last data filed at 01/22/16 0556 Gross per 24 hour Intake 450 ml Output 2445 ml Net -1995 ml 01/20 0700 - 01/21 0659 In: 570 [P.O.:570] Out: 2445 [Urine:2445] Physical Exam: GENERAL: A&O x 3, in no acute distress. NEURO: PERRLA, EOMI; no facial asymmetry, speech normal and non pressured. Normal ROM. HEENT: Sclerae clear, nonicteric; Oral Mucosa moist and pink. NECK: No JVD noted, carotid upstrokes brisk without bruits. No thyromegaly. HEART: Irregular. No murmur, rub, heave, or gallop noted. LUNGS: Lungs are clear to auscultation without wheezing, crackles, or rhonchi. Dim bases ABDOMEN: Soft, nondistended, nontender. EXTREMITIES: Mild generalized and +1 BLE edema; Bilateral radial, dorsalis pedis, and poste rior tibialis pulses moderate. No clubbing or cyanosis noted. SKIN: Midsternal incision is clean, dry, and intact (drsg removed). No erythema, edema/infl ammation, discharge, or warmth noted around the incision site. No rash or mottling DATA: Scheduled Medications amiodarone 200 mg Oral TID apixaban 5 mg Oral BID aspirin 325 mg Oral Nightly atorvastatin 40 mg Oral Nightly docusate sodium 100 mg Oral BID furosemide 20 mg Oral BID-Diuretics insulin lispro (human) 1-7 Units Subcutaneous Nightly insulin lispro (human) 2-14 Units Subcutaneous TID AC magnesium hydroxide 30 mL Oral Daily metoprolol 25 mg Oral TID potassium chloride 10 mEq Oral BID WC Continuous Infusions amiodarone infusion 0.5 mg/min (01/19/16 1716) PRN Medications acetaminophen OR acetaminophen, albuterol, aluminum-magnesium hydroxide-simethicone, bi sacodyl, dextrose, dextrose, magnesium sulfate OR magnesium sulfate OR magnesium sul fate, melatonin, metoprolol, ondansetron, oxyCODONE OR oxyCODONE, polyethylene glycol, p otassium OR potassium OR potassium OR potassium chloride OR potassium chlori de OR potassium chloride, saline lock IV - prn tolerating PO fluid AND sodium chlori de, sodium phosphate LABS: Recent Labs Lab 01/22/16 0354 01/21/16 0314 01/20/16 0637 WBC 8.53 9.95 8.33 RBC 3.05* 3.26* 3.25* HGB 9.3* 10.0* 10.0* HCT 27.0* 29.1* 28.6* MCV 88.8 89.3 88.0 MCH 30.6 30.7 30.9 MCHC 34.5 34.4 35.1 RDW 43.3 42.9 43.8 PLT 227 231 192 MPV 8.0 8.4 7.9 DIFFTYPE AUTOMATED AUTOMATED AUTOMATED Recent Labs Lab 01/22/16 0354 01/21/16 1543 01/21/16 0946 01/21/16 0314 01/20/16 1405 01/20/16 0637 NA 133* -- -- 132* 136 135 K 3.8 3.9 3.6 3.5 3.5 3.7 CL 103 -- -- 101 101 103 CO2 25 -- -- 26 26 28 ANIONGAP 9 -- -- 9 12 8 GLUF 110* -- -- 101* 135* 105* BUN 21 -- -- 23 23 23 CREATININE 1.09 -- -- 1.14 1.2 1.1 BCR 19 -- -- 20 19 21 CA 8.2* -- -- 8.3* 7.8* 7.9* EGFR >60 -- -- >60 >60 >60 MG 1.8 -- -- 1.9 -- 2.0 ASSESSMENT & PLAN: - Paroxysmal afib w/RVR, post-op: In/out afib/flutter. Cardioverted 01/18. Start eliquis 5mg BID. On PO metoprolol and amio TID. - Post op fluid overload. Continue diuresis with PO lasix 20mg BID w/K+ supplement (10 mEq BID) - CAD. ASA, Lipitor, BB - Post op hyperglycemia. A1C 5.4. Not a diabetic. Cont with SSI only. DC at discharge - Ambulate, PT/OT, IS - CM following for discharge needs, plan is for home with HH and family assist, and possibl y private-pay in-home care as well ( in wheelchair and pt provides care for her at home) ; ready for discharge to home today The patient has been seen and the plan discussed with the attending provider, . KAYLEIGH Segundo 01/22/2016 onversio n Transaction, Provider Unknown - 01/22/2016 8:26 AM PDTFormatting of this note might be di fferent from the original. Therapy Progress Note by LILIA Fraga/Filippo at 01/22/16 0826 Author: MOHIT Fraga Service: (none) Author Type: Occupational Therapist Filed: 01/22/1655 Date of Service: 01/22/16825 Status: Signed Rug Measurer: MOHIT Fraga (Occupational Therapist) 01/22/16825 OT Last Visit OT Received On 01/22/16 Reason for Treatment Cardiac Requires OT Follow Up Yes Assistance Required 1 person Technology Advisor Needed No Family/Caregiver Present No Precautions Cardiac Precautions Sternal Other Precautions fall risk Other Comments Comments pt seated in recliner upon OT arrival and requesting to address ADLs to reinforce precautions. At end of session, pt had no further questions/concerns; contact info left if f urther questions do arise. Pt. left seated in recliner, call light within reach. UE Bathing UE Bathing Comments Reviewed technique for bathing, and having assist for back. Pt. stated understanding. UE Dressing UE Dressing Level of Assistance Moderate assistance;Minimal verbal cues UE Dressing Where Assessed Other (Comment) (seated in recliner) UE Dressing Comments pt demo doffing/doffing shirt seated in recliner-moderate assist provi ded with VCs to reinforce precautions. Pt. stated no other questions/concerns with ADLs LE Dressing LE Dressing Yes LE Dressing Comments Reviewed donning/doffing pants, and use of AE to assist. Educ. pt. on use of mammography technician for lower body dress. Pt.'s daughter is planning to assist with socks. Toileting Toileting Comments Reviewed personal hygiene during toileting and use of toilet aid if unsu ccessful in reaching. Shower Transfers Shower Transfers Comments Reviewed benefits to having a shower chair-pt stated family is pu rchasing shower chair. Activity Tolerance Activity Tolerance Patient tolerated treatment well Safety Devices Safety Devices in Place Yes Type of Devices Call lite in place (seated in recliner) Plan Treatment Interventions (Per OT POC) Progress Improving as expected Requires OT Follow Up Yes Recommendation Recommendation Return to prior living conditions;Home with daytime assist;Home with nightti me assist Equipment Recommended Shower chair with back;Sock aid;Toilet aid;Sponge long handled OT Ready for Discharge Yes Education Completed: Education Topic: review sternal precautions, AE recommendations, ADLs Completed with: Patient Completed by: Verbal Education, Demonstration Response to Education: Stated Understanding, Returned Demonstration Occupational Therapy Plan: Continue OT treatment per POC The following recommendations are made for d/c planning at this time: Return to home w/ family support Barriers to d/c at this time include: Equipment needs shower chair, sockaid, shower brush, toilet aid Physical deficits impacting functional independence Self-care deficits impacting functional independence Shell Ho PT - 01/22/2016 8:05 AM PDTFormatting of this note might be different from th gissel original. Therapy Progress Note by Shell Zarate PT at 01/22/16 0805 Author: Shell Zarate PT Service: (none) Author Type: Physical Therapist Filed: 01/22/1649 Date of Service: 01/22/16804 Status: Signed Rug Measurer: Shell Zarate PT (Physical Therapist) 01/22/16804 PT Last Visit PT Received On 01/22/16 Reason for Treatment Cardiac Requires PT Follow Up Yes Follow up PT Only? No Assistance Required 1 person;Independent Technology Advisor Needed No Precautions Cardiac Precautions Sternal Other Precautions fall risk Other Comments Comments Patient agreed to PT- stated he was going home today- and wanted to try the step a gain, but when he stood up he became light headed; sit to/from stand -still needing instruct ions to not use hands to push up- about 25% of the time; had him sit on walker 1x- with this light headedness- instructions for pacing- drinking enough fluids- be careful at home with this; gait-50ftx4- 200ft with 4WW- mod exertions 8/10- patient was given instructions for ex ertion scale, but he still went higher then we discussed- stay btw 5-6/10 so do not go above 7/10 Cognition Overall Cognitive Status WFL Orientation Level Oriented Transfers Sit to/from Stand Minimal assist (steadying/contact guard);Verbal instruction;Standby marilee t;x 1 person;Patient appears safe Mobility Weight Bearing Status WBAT LLE;WBAT RLE Supine Supine-Exercise Type Ankle pumps;Quad sets;Glut sets Supine-Exercise Comments ever commercial Seated Seated-Exercise Type Ankle pumps;Seated marching;Long arc quads;ABduction;ADduction;Toe hernandez ses Seated-Exercise Comments move often Modalities Modalities Other therapy Other Therapy ongoing instructions for cardiac precautions- modfied elly scale for exertion , HEP, hydartion, and moving often Activity Tolerance Activity Tolerance Patient limited by fatigue;Patient limited by shortness of breath (SOB) Nurse Made Aware RN aware Restraints Initially in Place No (call chiu and phone in reach) Plan Treatment/Interventions Continue per Primary PT POC Progress Slow progress, decreased activity tolerance PT Frequency 5-7x/wk;Once per day;Twice a day Recommendation Recommendations HH PT;HH OT Equipment Recommended Other (Comment) (patient stated he has a 4WW -so does not need any DME) Barriers to Discharge Self-care Deficits Impacting Functional Gates PT Ready for Discharge Yes Recommendation Comments Patient staed he is supposed to go home today-had questions about s elf care issues- called OT to see him before leaving hosp onversion Transa ction, Provider Unknown - 01/22/2016 5:58 AM PDT Nurse Progress Note by Huan Molina RN at 01/22/16 0558 Author: Huan Molina RN Service: (none) Author Type: Registered Nurse Filed: 01/22/16 06 Date of Service: 01/22/16557 Status: Signed Rug Measurer: Huan Molina RN (Registered Nurse) Pt went back into Afib during his morning walk at 0345. HR was in the 130-150's while walki ng. Pt now in the 90-110's while resting in the chair. At 0600, pt is flipping between Afib/ Aflutter and NSR with a HR in the 70-100's. Pt noted feeling heart palpitations this morning that woke the pt up. Pt received oral amio darone, 20 mEQ of potassium and metoprolol this morning. Will continue to monitor. onver sudhakar Transaction, Provider Unknown - 01/21/2016 4:30 PM PDT Nurse Progress Note by Luz Jaramillo RN at 01/21/16 7911 Author: Luz Jaramillo RN Service: (none) Author Type: Registered Nurse Filed: 01/21/16 1633 Date of Service: 01/21/16 1630 Status: Signed Rug Measurer: Luz Jaramillo, RN (Registered Nurse) Arleth VICTOR notified of patient poor venous access, with infiltrated L AC and swelling t o L hand PIV with leaking and pain with flushing. L hand D/C'd. R arm unable to start new PI V with two attempts. Ordered R hand PIV to stay in, although due for change r/t poor venous access. Will readdress in the AM if patient does not D/C to home as planned. [place] wooten ARNP - 01/21/2016 11:25 AM PDT Progress Notes by KAYLEIGH Segundo at 01/21/16 1125 Author: KAYLEIGH Segundo Service: Cardiac, Thoracic, and Vascular Surgery [facility] Type: Advanced Registered Nurse Practitioner Filed: 01/21/16 1626 Date of Service: 01/21/16 1125 Status: Attested Rug Measurer: KAYLEIGH Segundo (Advanced Registered Nurse Practitioner) Cosigner: Dariela Bauer MD at 01/25/161126 Attestation signed by Dariela Bauer MD at 01/25/16 112 I have examined Flaco Randolph, reviewed the notes, assessments, and/or procedures performed by KAYLEIGH Segundo, I concur with his documentation of Flaco Randolph. 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9 kg (231 lb 4.2 oz) | BMI 30.52 kg/m2 | SpO2 97% 24h: Temp: [98.7 F (37.1 C)-99.7 F (37.6 C)] 98.7 F (37.1 C) (01/20 1103) BP: (116-141)/(57-87) 133/57 mmHg (01/20 1103) Heart Rate: [75-92] 75 (01/20 1103) Resp: [16-18] 16 (01/20 1103) SpO2: [96 %-98 %] 97 % (01/20 1103) Weight: [104.9 kg (231 lb 4.2 oz)] 104.9 kg (231 lb 4.2 oz) (01/20 0535) Intake/Output Summary (Last 24 hours) at 01/21/16 1126 Last data filed at 01/21/16 0855 Gross per 24 hour Intake 1770 ml Output 2550 ml Net -780 ml I/O this shift: In: 120 [P.O.:120] Out: - 01/19 0700 - 01/20 0659 In: 2210 [P.O.:2210] Out: 2550 [Urine:2550] Physical Exam: GENERAL: A&O x 3, in no acute distress. NEURO: PERRLA, EOMI; no facial asymmetry, speech normal and non pressured. Normal ROM. HEENT: Sclerae clear, nonicteric; Oral Mucosa moist and pink. NECK: No JVD noted, carotid upstrokes brisk without bruits. No thyromegaly. HEART: S1S2 RRR. No murmur, rub, heave, or gallop noted. LUNGS: Lungs are clear to auscultation without wheezing, crackles, or rhonchi. Dim bases ABDOMEN: Soft, nondistended, nontender. EXTREMITIES: Mild generalized and +1 BLE edema; Bilateral radial, dorsalis pedis, and poste rior tibialis pulses moderate. No clubbing or cyanosis noted. SKIN: Midsternal incision is clean, dry, and intact (drsg removed). No erythema, edema/infl ammation, discharge, or warmth noted around the incision site. No rash or mottling DATA: Scheduled Medications amiodarone 200 mg Oral TID aspirin 325 mg Oral Nightly atorvastatin 40 mg Oral Nightly docusate sodium 100 mg Oral BID furosemide 20 mg Oral BID-Diuretics insulin lispro (human) 1-7 Units Subcutaneous Nightly insulin lispro (human) 2-14 Units Subcutaneous TID AC magnesium hydroxide 30 mL Oral Daily metoprolol 25 mg Oral TID potassium chloride 10 mEq Oral BID WC Continuous Infusions amiodarone infusion 0.5 mg/min (01/19/16 1716) PRN Medications acetaminophen OR acetaminophen, albuterol, aluminum-magnesium hydroxide-simethicone, bi sacodyl, dextrose, dextrose, heparin (porcine) 5000 unit/0.5mL, heparin (porcine) 5000 unit/ 0.5mL, magnesium sulfate OR magnesium sulfate OR magnesium sulfate, melatonin, metop rolol, ondansetron, oxyCODONE OR oxyCODONE, polyethylene glycol, potassium OR potass ium OR potassium OR potassium chloride OR potassium chloride OR potassium ch loride, saline lock IV - prn tolerating PO fluid AND sodium chloride, sodium phosphate LABS: Recent Labs Lab 01/21/16 0314 01/20/16 0637 01/19/16 0322 WBC 9.95 8.33 9.69 RBC 3.26* 3.25* 3.25* HGB 10.0* 10.0* 10.1* HCT 29.1* 28.6* 29.4* MCV 89.3 88.0 90.5 MCH 30.7 30.9 31.0 MCHC 34.4 35.1 34.3 RDW 42.9 43.8 44.2 PLT 231 192 168 MPV 8.4 7.9 9.0 DIFFTYPE AUTOMATED AUTOMATED AUTOMATED Recent Labs Lab 01/21/16 0946 01/21/16 0314 01/20/16 1405 01/20/16 0637 01/19/16 0322 NA -- 132* 136 135 -- 131* K 3.6 3.5 3.5 3.7 < > 3.6 CL -- 101 101 103 -- 103 CO2 -- 26 26 28 -- 22* ANIONGAP -- 9 12 8 -- 10 GLUF -- 101* 135* 105* -- 117* BUN -- 23 23 23 -- 26* CREATININE -- 1.14 1.2 1.1 -- 1.03 BCR -- 20 19 21 -- 25 CA -- 8.3* 7.8* 7.9* -- 8.3* EGFR -- >60 >60 >60 -- >60 MG -- 1.9 -- 2.0 -- 1.9 < > = values in this interval not displayed. ASSESSMENT & PLAN: - Paroxysmal afib w/RVR, post-op: Cardioverted 01/18. 2 episodes today, now in NSR after am io bolus. On PO metoprolol and amio TID. - Post op fluid overload. Continue diuresis with PO lasix 20mg BID w/K+ supplement (10 mEq BID) - CAD. ASA, Lipitor, BB - Post op hyperglycemia. A1C 5.4. Not a diabetic. Cont with SSI only. DC at discharge - Ambulate, PT/OT, IS - CM following for discharge needs, plan is for home with HH and family assist, and possibl y private-pay in-home care as well ( in wheelchair and pt provides care for her at home) ; ready for discharge once HR/rhythm stable and NSR >24h, likely tomorrow The patient has been seen and the plan discussed with the attending provider, . KAYLEIGH Segundo 01/21/2016 onversio n Transaction, Provider Unknown - 01/21/2016 10:24 AM PDTFormatting of this note might be di fferent from the original. Therapy Progress Note by Kory Hameed, PT at 01/21/16 1024 Author: Kory Hameed, PT Service: (none) Author Type: Physical Therapist Filed: 01/21/16 1442 Date of Service: 01/21/16 1024 Status: Signed Rug Measurer: Kory Hameed PT (Physical Therapist) 01/21/16 1024 PT Last Visit PT Received On 01/21/16 Reason for Treatment Cardiac Requires PT Follow Up Yes Follow up PT Only? No Assistance Required 1 person Technology Advisor Needed No Precautions Cardiac Precautions Sternal Other Precautions fall risk Other Comments Comments Pt supine in bed and agreeable to PT upon observation. Pt's son-in-law present. Vi tals before activity in supine: BP 126/65, HR 78. Pt reporting L UE pain, SPT noticing eryth tristan and edema around brachial fossa likely due to infiltration. Pt transferred supine --> si t with standby assist, HOB elevated. Pt ambulated with 4WW 170 ft, min A. Performed step ups onto 6 inch step, as a pre-stair training activity, requiring min A and cueing pt to exager ate steps due to decreased toe clearance intially. Pt performed sit --> sidelying with mod A for B LEs, HOB flat. Practiced incentive spirometry x 4, pt reaching 2250 mL and instructin g pt to hold inspiration for 1 sec upon reaching maximum inhalation. Pt supine at end of ses sudhakar, warm blanket re-applied to R UE, no new report of symptoms. Cognition Overall Cognitive Status WFL Orientation Level Oriented Bed Mobility Supine to Sit Standby assist Sit to Sidelying Mod assist (BLEs into bed or trunk to lower) Transfers Sit to/from Stand Minimal assist (steadying/contact guard) Mobility Ambulation Assistance Minimal assist Maximal Ambulation Distance (feet) 170 Total Ambulation Distance (feet) 170 Distance limited by? Therapist/staff discretion Pattern Alternating;Decreased olivia;Forward flexed Assistive Device Walker 4 wheeled Standing Standing-Exercise Type Step-ups Standing-Exercise Comments 2 x 15 Modalities Modalities Other therapy Other Therapy Reviewed log roll technique with HOB flat. Discussed physical activity partic ipation following discharge regarding frequency and intensity and role of cardiac rehabilita tion. Pt demonstrated verbal understanding and in agreeance with these impressions. Activity Tolerance Activity Tolerance Patient tolerated treatment without report of fatigue Nurse Made Aware yes Safety Devices Safety Devices in Place Yes (call light within reach) Restraints Initially in Place No Plan Treatment/Interventions Continue per Primary PT POC Progress Progressing toward goals Recommendation Recommendations Home Assist;HH PT Equipment Recommended Walker 4 wheeled PT Ready for Discharge Yes Recommendation Comments Pt should do well discharging home with assist, if family is able t o provide 24/7 care and/or if home health services will be provided. Pt needing standby assi st to min assist for transfers and ambulation. Note was created by student physical therapist and co-signed by licensed physical therapist . Student therapist also educationally participated in therapy session under the supervision of the licensed therapist. The patient approved of the student's role in care. onver sudhakar Transaction, Provider Unknown - 01/21/2016 9:11 AM PDT Nurse Progress Note by Marj Martinez RN at 01/21/16910 Author: Marj Martinez RN Service: (none) Author Type: Registered Nurse Filed: 01/21/16910 Date of Service: 01/21/16910 Status: Signed Rug Measurer: Marj Martinez RN (Registered Nurse) Pt flipped into aib with RVR spoke to Micaela VICTOR and she advised to give pt 150 ml bolus of a miodarone. Marj Martinez RN onver sudhakar Transaction, Provider Unknown - 01/21/2016 6:15 AM PDT Progress Notes by Cristina Saini RN at 01/21/16614 Author: Cristina Saini RN Service: (none) Author Type: Registered Nurse Filed: 01/21/16634 Date of Service: 01/21/16614 Status: Signed Rug Measurer: Cristina Saini RN (Registered Nurse) Patient flipped into afib around 0545 this am, rate 130s. Micaela DRIVER called and made aware, lashawn koch address issue when rounding on floor this am. Liz Stormy Raygoza PT - 01/20/2016 7:45 AM PDT Therapy Progress Note by Stormy Thurston PT at 01/20/16 0745 Author: Stormy Thurston PT Service: (none) Author Type: Physical Therapist Filed: 01/20/16 0849 Date of Service: 01/20/1645 Status: Signed Rug Measurer: Stormy Thurston PT (Physical Therapist) 01/20/16 0745 PT Last Visit PT Received On 01/20/16 Reason for Treatment Cardiac Requires PT Follow Up Yes Focus for Next Treatment Stair Training Assistance Required 1 person Technology Advisor Needed No Precautions Cardiac Precautions Sternal Other Precautions fall risk Other Comments Comments Pt significantly improved from yesterday. Pt able to increase ambulation distance , participated well in ther ex and states working on exercises last night. Cognition Overall Cognitive Status WFL Orientation Level Oriented Transfers Sit to/from Stand Moderate assist (to arise OR lower) (from chiar, from toilet) Mobility Ambulation Assistance Minimal assist Maximal Ambulation Distance (feet) 300 ft Total Ambulation Distance (feet) 300 ft Distance limited by? Patient's ability Pattern Alternating;Forward flexed Assistive Device Walker 4 wheeled Seated Seated-Exercise Type Ankle pumps;Seated marching;Long arc quads;Knee flex;ABduction;ADducti on (glute sets; all 10-15 reps) Activity Tolerance Activity Tolerance Patient tolerated treatment without report of fatigue Nurse Made Aware RN Sussy Safety Devices Safety Devices in Place (call light in reach) Plan Treatment/Interventions Continue per Primary PT POC Progress Progressing toward goals Recommendation Recommendations Home Assist;HH PT;HH OT Equipment Recommended Walker 4 wheeled Recommendation Comments Pt improving significantly since cardioversion yesterday. Pre/peak/post Position BP Pulse rate O2 sats L/min pre sitting 121/76 83 96% ra post sitting 136/74 91 98% ra Lashaun Cabral ARNP - 01/20/2016 6:55 AM PDT . Progress Notes by KAYLEIGH Woodward at 01/20/16 0698 Author: KAYLEIGH Woodward Service: Cardiac, Thoracic, and Vascular Surgery Author Melissa langston: Advanced Registered Nurse Practitioner Filed: 01/20/16 1058 Date of Service: 01/20/1655 Status: Attested Rug Measurer: KAYLEIGH Woodward (Nurse Practitioner) Cosigner: Dariela Bauer MD at 1951 Attestation signed by Dariela Bauer MD at 01/22/161951 I have examined Flaco Randolph, reviewed the notes, assessments, and/or procedures performed by Lashaun VICTOR, I concur with his documentation of Flaco Randolph [facility] Cardiothoracic Surgery Progress Note Date/Time:01/20/2016 6:55 AM Provider: KAYLEIGH Woodward Hospital Day: LOS: 5 days Surgery/Procedure: Procedure(s) (LRB): CABG - DONNY (N/A) Post-Op Day: 5 Days Post-Op Room: [address] [place] [address] PROBLEM LIST Principal Problem: 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 OBJECTIVE: Current weight: Weight: 107 kg (235 lb 14.3 oz) Admission weight: Weight: 98.431 kg (217 lb) Vital Signs: BP 142/74 mmHg | Pulse 78 | Temp(Src) 98.9 F (37.2 C) (Oral) | Resp 17 | Ht 1.854 m (6' 1") | Wt 107 kg (235 lb 14.3 oz) | BMI 31.13 kg/m2 | SpO2 98% 24h: Temp: [97.8 F (36.6 C)-100.6 F (38.1 C)] 98.9 F (37.2 C) (01/19 030) BP: (110-156)/(59-80) 142/74 mmHg (01/19 030) Heart Rate: [74-120] 78 (01/19 305) Resp: [10-20] 17 (01/19 305) SpO2: [92 %-99 %] 98 % (01/19 305) Weight: [107 kg (235 lb 14.3 oz)] 107 kg (235 lb 14.3 oz) (01/19 643) Intake/Output Summary (Last 24 hours) at 01/20/16 0655 Last data filed at 01/20/16 0600 Gross per 24 hour Intake 3591 ml Output 1300 ml Net 2291 ml I/O this shift: In: 990 [P.O.:500; I.V.:490] Out: 700 [Urine:700] 01/18 0700 - 01/19 0659 In: 3591 [P.O.:1600; I.V.:1991] Out: 1300 [Urine:1300] Physical Exam: GENERAL: A&O x 3, in no acute distress. NEURO: PERRLA, EOMI; no facial asymmetry, speech normal and non pressured. Normal ROM. HEENT: Sclerae clear, nonicteric; Oral Mucosa moist and pink. NECK: No JVD noted, carotid upstrokes brisk without bruits. No thyromegaly. HEART: S1S2 RRR. No murmur, rub, heave, or gallop noted. LUNGS: Lungs are clear to auscultation without wheezing, crackles, or rhonchi. Dim bases ABDOMEN: Soft, nondistended, nontender. EXTREMITIES: Mild generalized and +1 BLE edema; Bilateral radial, dorsalis pedis, and poste rior tibialis pulses moderate. No clubbing or cyanosis noted. SKIN: Midsternal incision is clean, dry, and intact (drsg removed). No erythema, edema/infl ammation, discharge, or warmth noted around the incision site. No rash or mottling DATA: Scheduled Medications amiodarone 200 mg Oral BID aspirin 325 mg Oral Nightly atorvastatin 40 mg Oral Nightly docusate sodium 100 mg Oral BID insulin lispro (human) 1-7 Units Subcutaneous Nightly insulin lispro (human) 2-14 Units Subcutaneous TID AC magnesium hydroxide 30 mL Oral Daily metoprolol 25 mg Oral BID Continuous Infusions amiodarone infusion 0.5 mg/min (01/19/16 1716) heparin 50 units/mL 12 Units/kg/hr (01/19/16 1813) PRN Medications acetaminophen OR acetaminophen, albuterol, aluminum-magnesium hydroxide-simethicone, bi sacodyl, dextrose, dextrose, heparin (porcine) 5000 unit/0.5mL, heparin (porcine) 5000 unit/ 0.5mL, magnesium sulfate OR magnesium sulfate OR magnesium sulfate, melatonin, metop rolol, ondansetron, oxyCODONE OR oxyCODONE, polyethylene glycol, potassium OR potass ium OR potassium OR potassium chloride OR potassium chloride OR potassium ch loride, saline lock IV - prn tolerating PO fluid AND sodium chloride, sodium phosphate LABS: Recent Labs Lab 01/20/16 0637 01/19/16 0322 01/18/16 1533 01/18/16 0338 WBC 8.33 9.69 12.47* 11.40* RBC 3.25* 3.25* 3.35* 3.42* HGB 10.0* 10.1* 10.1* 10.3* HCT 28.6* 29.4* 30.1* 30.8* MCV 88.0 90.5 89.8 90.2 MCH 30.9 31.0 30.2 30.2 MCHC 35.1 34.3 33.7 33.5 RDW 43.8 44.2 43.8 43.3 PLT 192 168 171 144* MPV 7.9 9.0 9.0 9.3 DIFFTYPE AUTOMATED AUTOMATED -- AUTOMATED Recent Labs Lab 01/19/16 0939 01/19/16 0322 01/18/16 0338 01/17/16 0540 NA -- 131* 132* 139 K 3.8 3.6 3.8 4.1 CL -- 103 105 108 CO2 -- 22* 23 25 ANIONGAP -- 10 8 10 GLUF -- 117* 120* 111* BUN -- 26* 23 19 CREATININE -- 1.03 1.00 0.95 BCR -- 25 23 20 CA -- 8.3* 8.4* 7.5* EGFR -- >60 >60 >60 MG -- 1.9 2.0 2.3 Imaging: X-ray Chest 2 View Frontal And Lateral 01/18/2016 1. Left basilar mild atelectasis. Small left pleural effusion. Midline sternal wires are intact. Echo Adult Intraop Donny Monitoring 01/15/2016 1. Mild LV dysfunction with EF 50 - 60%. 2. , with no significant mitral regurgi tation. ASSESSMENT & PLAN: - Paroxysmal afib w/RVR, post-op: Now in NSR. Amio infusion to complete at 1100, increase d PO metoprolol. Cardioverted 01/18. Stop IV heparin. Monitor for additional day - Post op fluid overload. Diurese with 40mg lasix. Re check lytes this afternoon and repl ete if needed. - CAD. ASA, Lipitor, BB - Post op hyperglycemia. A1C 5.4. Not a diabetic. Cont with SSI only. DC at discharge ( last 105, 138) - Ambulate, PT/OT, IS - CM following for discharge needs, plan is for home with HH and family marilee, and possibly private-pay in-home care as well ( in wheelchair and pt provides care for her at home); ready for discharge once HR/rhythm stable and NSR >24h The patient has been seen and the plan discussed with the attending provider, . KAYLEIGH Woodward 01/20/2016 onversion Transac tion, Provider Unknown - 01/20/2016 12:54 AM PSTFormatting of this note might be different f rom the original. Progress Notes by Cristina Saini RN at 01/20/1653 Author: Cristina Saini RN Service: (none) Author Type: Registered Nurse Filed: 01/20/1654 Date of Service: 01/20/1653 Status: Signed Rug Measurer: Cristina Saini RN (Registered Nurse) No change in heparin drip rate, aptt 55 therapeuticcx1 at this time. Next check placed for 0615. Will continue to monitor, liz Stormy Raygoza, PT - 01/19/2016 4:00 PM PST Therapy Progress Note by Stormy Thurston PT at 01/19/16 1600 Author: Stormy Thurston PT Service: (none) Author Type: Physical Therapist Filed: 01/19/16 1600 Date of Service: 01/19/16 1600 Status: Signed Rug Measurer: Stormy Thurston PT (Physical Therapist) 01/19/16 1600 PT Last Visit PT Received On 01/19/16 Reason for Treatment Cardiac Requires PT Follow Up Unavailable (Pt sleeping soundly this pm after cardioversion....) Other Comments Comments ...will allow pt therapeutic rest at this time, and will follow up in am onversion Transact ion, Provider Unknown - 01/19/2016 10:25 AM PSTFormatting of this note might be different fr om the original. Nurse Progress Note by Elisha Araujo RN at 01/19/16 1025 Author: Elisha Araujo RN Service: (none) Author Type: Registered Nurse Filed: 01/19/16 1025 Date of Service: 01/19/16 1025 Status: Signed Rug Measurer: Elisha Araujo RN (Registered Nurse) Pt converted to NSR onver sudhakar Transaction, Provider Unknown - 01/19/2016 10:24 AM PST Nurse Progress Note by Elisha Araujo RN at 01/19/16 1024 Author: Elisha Araujo RN Service: (none) Author Type: Registered Nurse Filed: 01/19/16 1025 Date of Service: 01/19/16 1024 Status: Signed Rug Measurer: Elisha Araujo RN (Registered Nurse) Charged to 120 joules, shock delivered onver sudhakar Transaction, Provider Unknown - 01/19/2016 10:23 AM PST Nurse Progress Note by Elisha Araujo RN at 01/19/16 1023 Author: Elisha Araujo RN Service: (none) Author Type: Registered Nurse Filed: 01/19/16 1023 Date of Service: 01/19/16 1023 Status: Signed Rug Measurer: Elisha Araujo RN (Registered Nurse) Pt still in afib. 25mg fentanyl given. 1 mg versed given onver sudhakar Transaction, Provider Unknown - 01/19/2016 10:21 AM PST Nurse Progress Note by Elisha Araujo RN at 01/19/16 1021 Author: Elisha Araujo RN Service: (none) Author Type: Registered Nurse Filed: 01/19/16 1022 Date of Service: 01/19/16 1021 Status: Signed Rug Measurer: Elisha Araujo RN (Registered Nurse) Pt still in afib. Charged to 100 joules. Shock delivered onver sudhakar Transaction, Provider Unknown - 01/19/2016 10:18 AM PST Nurse Progress Note by Elisha Araujo RN at 01/19/16 1018 Author: Elisha Araujo RN Service: (none) Author Type: Registered Nurse Filed: 01/19/16 1021 Date of Service: 01/19/16 1018 Status: Signed Rug Measurer: Elisha Araujo RN (Registered Nurse) Pt asleep. Charging to 75 joules, Shock delivered onver sudhakar Transaction, Provider Unknown - 01/19/2016 10:17 AM PST Nurse Progress Note by Elisha Araujo RN at 01/19/16 1017 Author: Elisha Araujo RN Service: (none) Author Type: Registered Nurse Filed: 01/19/16 1017 Date of Service: 01/19/16 1017 Status: Signed Rug Measurer: Elisha Araujo RN (Registered Nurse) 25mg Fentanyl given onver sudhakar Transaction, Provider Unknown - 01/19/2016 10:16 AM PST Nurse Progress Note by Elisha Araujo RN at 01/19/16 1016 Author: Elisha Araujo RN Service: (none) Author Type: Registered Nurse Filed: 01/19/16 1017 Date of Service: 01/19/16 1016 Status: Signed Rug Measurer: Elisha Araujo RN (Registered Nurse) Versed 1mg given onver sudhakar Transaction, Provider Unknown - 01/19/2016 9:55 AM PST Therapy Progress Note by MOHIT Johnson at 01/19/16 0955 Author: MOHIT Johnson Service: (none) Author Type: Occupational Therapist Filed: 01/19/16 0955 Date of Service: 01/19/16 0955 Status: Signed Rug Measurer: MOHIT Johnson (Occupational Therapist) 01/19/16 0953 OT Last Visit OT Received On 01/19/16 Reason for Treatment Cardiac Requires OT Follow Up Unavailable Other Comments Comments RN preparing Pt for precedure. Request OT to return later this day. will follow up as case load allows. Plan Requires OT Follow Up Unavailable Electronically signed by [facility], Provider at 06/30/2019 8:02 AM Stormy Raygoza, PT - 01/19/2016 8:18 AM PST Therapy Progress Note by Stormy Thurston PT at 01/19/16 0818 Author: Stormy Thurston PT Service: (none) Author Type: Physical Therapist Filed: 01/19/16 0902 Date of Service: 01/19/16 0818 Status: Signed Rug Measurer: Stormy Thurston PT (Physical Therapist) 01/19/16 0818 PT Last Visit PT Received On 01/19/16 Reason for Treatment Cardiac Requires PT Follow Up Yes Follow up PT Only? No Assistance Required 1 person Technology Advisor Needed No Precautions Cardiac Precautions Sternal Other Precautions fall risk, pt reports that he feels like his knee will buckle on him Other Comments Comments Worked on seated ex, reviewed precautions, and performed gait training. Pt's HR e levated but not as much as yesterday, up to 130s consistently at the end. Pt does not repor t symptoms but had increased respiratory effort, so stopped gait training. Cognition Overall Cognitive Status WFL Orientation Level Oriented Transfers Sit to/from Stand Moderate assist (to arise OR lower) (Pt needed 3 attempts to stand due to posterior thrust) Mobility Ambulation Assistance Minimal assist Maximal Ambulation Distance (feet) 120 ft Total Ambulation Distance (feet) 120 ft Distance limited by? Patient's ability (HR and respiratory increases ) Pattern Alternating;Forward flexed;Antalgic Assistive Device Walker 4 wheeled Supine Supine-Exercise Type Ankle pumps;Quad sets;Glut sets;Short arc quads;ABD/ADD (glute sets; 10-15 reps each) Activity Tolerance Activity Tolerance Treatment limited secondary to medical complications Nurse Made Aware TIA Hi aware Safety Devices Safety Devices in Place (call light and phone in reach) Plan Treatment/Interventions Continue per Primary PT POC Progress Slow progress, medical status limitations Recommendation Recommendations IRF (Pt is very motivated, still needs heavy assist for transfers) Equipment Recommended Walker 4 wheeled Barriers to Discharge Physical Deficits Impacting Functional Gates;Self-care Deficit s Impacting Functional Gates;Pain Pre/peak/post Position BP Pulse rate O2 sats L/min pre sitting 126/60 afib 100-119 97% ra peak amb Afib, 140 at highest; mostly 120s to 130s during gait ra post sitting 131/63 afib 101-118 96% ra Lashaun Oliveira ARNP - 01/19/2016 5:52 AM PST . Progress Notes by KAYLEIGH Woodward at 01/19/16 0552 Author: KAYLEIGH Woodward Service: Cardiac, Thoracic, and Vascular Surgery Author Melissa langston: Advanced Registered Nurse Practitioner Filed: 01/19/16 1433 Date of Service: 01/19/16 0552 Status: Attested Rug Measurer: KAYLEIGH Woodward (Nurse Practitioner) Cosigner: Dariela Bauer MD at 1122 Attestation signed by Dariela Bauer MD at 01/25/16 1122 I have examined Flaco Randolph, reviewed the notes, assessments, and/or procedures performed by Lashaun VICTOR, I concur with his documentation of Flaco Randolph [facility] Cardiothoracic Surgery Progress Note Date/Time:01/19/2016 5:52 AM Provider: KAYLEIGH Woodward Hospital Day: LOS: 4 days Surgery/Procedure: Procedure(s) (LRB): CABG - DONNY (N/A) Post-Op Day: 4 Days Post-Op Room: [address] [place] [address] PROBLEM LIST Principal Problem: 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 OBJECTIVE: Current weight: Weight: 105.1 kg (231 lb 11.3 oz) Admission weight: Weight: 98.431 kg (217 lb) Vital Signs: BP 128/77 mmHg | Pulse 108 | Temp(Src) 100.4 F (38 C) (Oral) | Resp 18 | Ht 1.854 m (6' 1") | Wt 105.1 kg (231 lb 11.3 oz) | BMI 30.58 kg/m2 | SpO2 92% 24h: Temp: [98.4 F (36.9 C)-100.6 F (38.1 C)] 100.4 F (38 C) (01/19 324) BP: (117-141)/(61-94) 128/77 mmHg (01/19 324) Heart Rate: [88-124] 108 (01/19 324) Resp: [18-20] 18 (01/19 324) SpO2: [92 %-97 %] 92 % (01/19 324) Weight: [105.1 kg (231 lb 11.3 oz)] 105.1 kg (231 lb 11.3 oz) (01/18 612) Intake/Output Summary (Last 24 hours) at 01/19/16 7071 Last data filed at 01/18/162126 Gross per 24 hour Intake 1383.5 ml Output 900 ml Net 483.5 ml I/O this shift: In: - Out: 200 [Urine:200] 01/17 0700 - 01/18 0659 In: 1383.5 [P.O.:500; I.V.:883.5] Out: 900 [Urine:900] Physical Exam: GENERAL: A&O x 3, in no acute distress. NEURO: PERRLA, EOMI; no facial asymmetry, speech normal and non pressured. Normal ROM. HEENT: Sclerae clear, nonicteric; Oral Mucosa moist and pink. NECK: No JVD noted, carotid upstrokes brisk without bruits. No thyromegaly. HEART: Irregular. No murmur, rub, heave, or gallop noted. LUNGS: Lungs are clear to auscultation without wheezing, crackles, or rhonchi. Dim bases ABDOMEN: Soft, nondistended, nontender. EXTREMITIES: Mild generalized and +1 BLE edema; Bilateral radial, dorsalis pedis, and poste rior tibialis pulses moderate. No clubbing or cyanosis noted. SKIN: Midsternal incision is clean, dry, and intact. No erythema, edema/inflammation, disch arge, or warmth noted around the incision site. No rash or mottling DATA: Scheduled Medications amiodarone 200 mg Oral BID aspirin 325 mg Oral Nightly atorvastatin 40 mg Oral Nightly docusate sodium 100 mg Oral BID famotidine 20 mg Oral BID Or famotidine 20 mg Intravenous BID insulin detemir 15 Units Subcutaneous Nightly insulin lispro (human) 1-7 Units Subcutaneous Nightly insulin lispro (human) 2-14 Units Subcutaneous TID AC insulin lispro (human) 4 Units Subcutaneous TID AC magnesium hydroxide 30 mL Oral Daily metoprolol 25 mg Oral BID Continuous Infusions diltiazem in D5W 1 mg/mL 5 mg/hr (01/19/16 0008) heparin 50 units/mL 12 Units/kg/hr (01/18/16 1526) PRN Medications acetaminophen OR acetaminophen, albuterol, aluminum-magnesium hydroxide-simethicone, bi sacodyl, dextrose, dextrose, heparin (porcine) 5000 unit/0.5mL, heparin (porcine) 5000 unit/ 0.5mL, magnesium sulfate OR magnesium sulfate OR magnesium sulfate, melatonin, metop rolol, ondansetron, oxyCODONE OR oxyCODONE, polyethylene glycol, potassium OR potass ium OR potassium OR potassium chloride OR potassium chloride OR potassium ch loride, saline lock IV - prn tolerating PO fluid AND sodium chloride, sodium phosphate LABS: Recent Labs Lab 01/19/16 0322 01/18/16 1533 01/18/16 0338 01/17/16 0540 WBC 9.69 12.47* 11.40* 10.94 RBC 3.25* 3.35* 3.42* 3.31* HGB 10.1* 10.1* 10.3* 10.2* HCT 29.4* 30.1* 30.8* 30.0* MCV 90.5 89.8 90.2 90.5 MCH 31.0 30.2 30.2 30.9 MCHC 34.3 33.7 33.5 34.1 RDW 44.2 43.8 43.3 44.6 PLT 168 171 144* 120* MPV 9.0 9.0 9.3 9.0 DIFFTYPE AUTOMATED -- AUTOMATED AUTOMATED Recent Labs Lab 01/19/1632101/18/16 0338 01/17/16 0540 NA 131* 132* 139 K 3.6 3.8 4.1 CL 103 105 108 CO2 22* 23 25 ANIONGAP 10 8 10 GLUF 117* 120* 111* BUN 26* 23 19 CREATININE 1.03 1.00 0.95 BCR 25 23 20 CA 8.3* 8.4* 7.5* EGFR >60 >60 >60 MG 1.9 2.0 2.3 Imaging: X-ray Chest 2 View Frontal And Lateral 01/18/2016 1. Left basilar mild atelectasis. Small left pleural effusion. Midline sternal wires are intact. X-ray Chest 1 View 01/15/2016 1. Recurrent mild cardiac enlargement similar to 01/08/16, not seen on 01/10/16 . 2. Pulmonary venous congestion with subtle central interstitial edema. 3. Subtle left ef fusion. 4. ET tube could be advanced approximately 2 cm. 5. Gordon-Jeannette catheter could be ad vanced approximately 5 cm. 6. Above findings were called to the ICU at 12:15 PM date of zoraida dy, and discussed with the patient's nurse Elisha. SSMENT & PLAN: - Paroxysmal afib w/RVR, post-op: Restarted amio protocol w/bolus (round 2), increased PO m etoprolol, on cardizem gtt. Plan for cardioversion this am (has been on IV heparin since pm). Fentanyl/versed x1 for sedation - CAD. ASA, Lipitor, BB - Post op hyperglycemia. A1C 5.4. Not a diabetic. Cont with SSI only. DC at discharge - Ambulate, PT/OT, IS - CM following for discharge needs, plan is for home with HH and family marilee, and possibly private-pay in-home care as well ( in wheelchair and pt provides care for her at home); ready for discharge once HR/rhythm stable and NSR >24h The patient has been seen and the plan discussed with the attending provider, . KAYLEIGH Woodward 01/19/2016 Shell Ho PT - 01/18/2016 1:45 PM PST Therapy Progress Note by Shell Zarate PT at 01/18/16 3177 Author: Shell Zarate PT Service: (none) Author Type: Physical Therapist Filed: 01/18/16 1108 Date of Service: 01/18/16 1345 Status: Signed Rug Measurer: Shell Zarate PT (Physical Therapist) 01/18/16 1346 PT Last Visit PT Received On 01/18/16 Reason for Treatment Cardiac Requires PT Follow Up Yes Follow up PT Only? No Assistance Required 1 person Technology Advisor Needed No Precautions Cardiac Precautions Sternal Other Precautions fall risk Other Comments Comments patient agreed to PT at this time- vitals were good [id number]- but once [place]- his HR scott too much; up to mod assist- Cognition Overall Cognitive Status WFL Orientation Level Oriented Bed Mobility Supine to Sit Verbal instruction;Standby assist;x 1 person Transfers Sit to/from Stand Moderate assist (to arise OR lower);Verbal instruction;x 1 person Mobility Ambulation Assistance Minimal assist;Verbal instruction;Supervision;X1 Maximal Ambulation Distance (feet) 15ftx2 (stopped b/c HR increased to btw [phone] withRN) Total Ambulation Distance (feet) 30ft Distance limited by? Patient's ability (HR increased) Pattern Alternating;Forward flexed;Antalgic (R-pain) Assistive Device Walker 4 wheeled Supine Supine-Exercise Type Ankle pumps;Glut sets;Quad sets Supine-Exercise Comments every commercial-move Modalities Modalities Other therapy Other Therapy instructions for cardiac progression-movement- safety and HEP Activity Tolerance Activity Tolerance Treatment limited secondary to medical complications (HR too high) Nurse Made Aware spoke with RN Restraints Initially in Place No ( in room, call chiu next to him- left on BSC) Plan Treatment/Interventions Continue with skilled PT services Progress Slow progress, medical status limitations;Slow progress, decreased activity tolera nce Recommendation Recommendations IRF Equipment Recommended Walker 4 wheeled Barriers to Discharge Physical Deficits Impacting Functional Gates;Self-care Deficit s Impacting Functional Gates Supine Sit Stand Walking B/P 141/68 146/72 142/70 HR 94 95 100 144-177 onversion Transa ction, Provider Unknown - 01/18/2016 11:32 AM PST Case Management by TERRY Forrester at 01/18/16 1132 Author: TERRY Forrester Service: (none) Author Type: Bodybuilder Filed: 01/18/16 6065 Date of Service: 01/18/161131 Status: Addendum Rug Measurer: TERRY Forrester (Bodybuilder) Related Notes: Original Note by TERRY Forrester (Bodybuilder) filed at 01/18/16 9547 COMFORT spoke with [facility] who reports only private pay caregiving agency in [facility] is [employer]. COMFORT spoke with [employer] who reports they come in a do an assessment, cost per hour de pending on assessment and meeting patient's needs. CM discussed private pay caregiving through [employer], [facility], Occupational t herapy equipment list, [facility] service connection (only 20% gave Mandy Somers number along w/ [facility] contact numbers). CM gave contact information for above. Patient reports he believes h is daughter will be able to stay for 2 weeks following discharge but he is unsure. CM reiterates patient can lift no more than 5lb for 6 week, cannot drive for 6 weeks, need 24/7 supervision for 2 weeks. CM faxed f2f and facesheet to [facility] TERRY Forrester Arleth Samuel ARNP - 01/18/2016 9:21 AM PST Progress Notes by KAYLEIGH Segundo at 01/18/16920 Author: KAYLEIGH Segundo Service: Cardiac, Thoracic, and Vascular Surgery [facility] Type: Advanced Registered Nurse Practitioner Filed: 01/18/16 0956 Date of Service: 01/18/16920 Status: Attested Rug Measurer: KAYLEIGH Segundo (Advanced Registered Nurse Practitioner) Cosigner: Dariela Bauer MD at 01/18/16 1413 Attestation signed by Dariela Bauer MD at 01/18/16 141 I have examined Flaco Randolph, reviewed the notes, assessments, and/or procedures performed by KAYLEIGH Segundo, I concur with his documentation of Flaco Randolph. 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) Active Problems: Essential hypertension HLD (hyperlipidemia) Chest pain at rest Sinus bradycardia SUBJECTIVE: Patient Summary Overnight: - HD stable, Afib since yesterday, now on round 2 of amio protocol, on PO metoprolol - On RA, no SOB - Up to chair and resting comfortably, no c/o pain, ambulating well - UOP 3 unmeasured voids overnight, 750ml + 4 voids for 24h OBJECTIVE: Current weight: Weight: 105.1 kg (231 lb 11.3 oz) Admission weight: Weight: 98.431 kg (217 lb) Vital Signs: BP 123/73 mmHg | Pulse 124 | Temp(Src) 98.4 F (36.9 C) (Oral) | Resp 18 | Ht 1.854 m (6 ' 1") | Wt 105.1 kg (231 lb 11.3 oz) | BMI 30.58 kg/m2 | SpO2 97% 24h: Temp: [98.1 F (36.7 C)-99.8 F (37.7 C)] 98.4 F (36.9 C) (01/17 742) BP: (97-176)/(56-84) 123/73 mmHg (01/17 742) Heart Rate: [87-160] 124 (01/17 742) Resp: [18-24] 18 (01/17 742) SpO2: [94 %-97 %] 97 % (01/17 742) Weight: [105.1 kg (231 lb 11.3 oz)] 105.1 kg (231 lb 11.3 oz) (01/18 612) Intake/Output Summary (Last 24 hours) at 01/18/16 0921 Last data filed at 01/18/16 0809 Gross per 24 hour Intake 1049 ml Output 1050 ml Net -1 ml I/O this shift: In: 100 [P.O.:100] Out: 400 [Urine:400] 01/16 0700 - 01/17 0659 In: 1099 [P.O.:900; I.V.:199] Out: 750 [Urine:250] Physical Exam: GENERAL: A&O x 3, in no acute distress. NEURO: PERRLA, EOMI; no facial asymmetry, speech normal and non pressured. Normal ROM. HEENT: Sclerae clear, nonicteric; Oral Mucosa moist and pink. NECK: No JVD noted, carotid upstrokes brisk without bruits. No thyromegaly. HEART: Irregular. No murmur, rub, heave, or gallop noted. LUNGS: Lungs are clear to auscultation without wheezing, crackles, or rhonchi. Dim bases ABDOMEN: Soft, nondistended, nontender. EXTREMITIES: Mild generalized and +1 BLE edema; Bilateral radial, dorsalis pedis, and poste rior tibialis pulses moderate. No clubbing or cyanosis noted. SKIN: Midsternal incision is clean, dry, and intact. No erythema, edema/inflammation, disch arge, or warmth noted around the incision site. No rash or mottling DATA: Scheduled Medications amiodarone 200 mg Oral BID aspirin 325 mg Oral Nightly atorvastatin 40 mg Oral Nightly docusate sodium 100 mg Oral BID famotidine 20 mg Oral BID Or famotidine 20 mg Intravenous BID insulin detemir 15 Units Subcutaneous Nightly insulin lispro (human) 1-7 Units Subcutaneous Nightly insulin lispro (human) 2-14 Units Subcutaneous TID AC insulin lispro (human) 4 Units Subcutaneous TID AC magnesium hydroxide 30 mL Oral Daily metoprolol 5 mg Intravenous Once metoprolol 12.5 mg Oral BID Continuous Infusions amiodarone infusion 1 mg/min (01/18/16 0753) PRN Medications acetaminophen OR acetaminophen, albuterol, aluminum-magnesium hydroxide-simethicone, am iodarone IV bolus, amiodarone infusion, bisacodyl, dextrose, dextrose, magnesium sulfate O R magnesium sulfate OR magnesium sulfate, metoprolol, ondansetron, oxyCODONE OR ox yCODONE, polyethylene glycol, potassium OR potassium OR potassium OR potassium c hloride OR potassium chloride OR potassium chloride, saline lock IV - prn tolerating PO fluid AND sodium chloride, sodium phosphate LABS: Recent Labs Lab 01/18/16 0338 01/17/16 0540 01/16/16 0430 WBC 11.40* 10.94 11.73* RBC 3.42* 3.31* 3.34* HGB 10.3* 10.2* 10.2* HCT 30.8* 30.0* 30.1* MCV 90.2 90.5 90.3 MCH 30.2 30.9 30.6 MCHC 33.5 34.1 33.9 RDW 43.3 44.6 44.6 PLT 144* 120* 128* MPV 9.3 9.0 8.6 DIFFTYPE AUTOMATED AUTOMATED AUTOMATED Recent Labs Lab 01/18/16 0338 01/17/16 0540 01/16/16 2257 01/16/16 0430 NA 132* 139 -- 141 K 3.8 4.1 3.9 4.7 CL 105 108 -- 112* CO2 23 25 -- 21* ANIONGAP 8 10 -- 12 GLUF 120* 111* -- 109* BUN 23 19 -- 18 CREATININE 1.00 0.95 -- 0.93 BCR 23 20 -- 19 CA 8.4* 7.5* -- 7.7* EGFR >60 >60 -- >60 MG 2.0 2.3 1.8 2.2 Imaging: X-ray Chest 2 View Frontal And Lateral 01/18/2016 6:48 AM INDICATION: Tube and line position. COMPARISON: January 17, 2016 TECHNIQUE: Two view chest, PA and lateral views FINDINGS: Midline sternal wires are intact. Unchanged cardiomegaly. Upper mediastinal cont ours are normal. Mild left basilar atelectasis. Lungs are otherwise clear. No pneumothorax. Small left pleural effusion. No acute osseous abnormality. Degeneration of the right acrom ioclavicular joint. IMPRESSION: 1. Left basilar mild atelectasis. 2. Small left pleural effusion. 3. Midline sternal wires are intact. SSMENT & PLAN: - Paroxysmal afib w/RVR, post-op: Restarted amio protocol w/bolus (round 2), no conversion to NSR yet; on PO metoprolol, added PO amio and 5mg IV metoprolol x1 - Ambulate, PT/OT, IS - CM following for discharge needs, plan is for home with HH and family marilee, and possibly private-pay in-home care as well ( in wheelchair and pt provides care for her at home); ready for discharge once HR/rhythm stable and NSR >24h The patient has been seen and the plan discussed with the attending provider, . KAYLEIGH Segundo 01/18/2016 onversio n Transaction, Provider Unknown - 01/18/2016 8:45 AM PSTFormatting of this note might be di fferent from the original. Therapy Progress Note by LILIA Fraga/Filippo at 01/18/16 0880 Author: MOHIT Fraga Service: (none) Author Type: Occupational Therapist Filed: 01/18/16 1016 Date of Service: 01/18/16 0847 Status: Signed Rug Measurer: MOHIT Fraga (Occupational Therapist) 01/18/16 0564 Precautions Cardiac Precautions Sternal Home Environment Home Exterior Layout 1-3 steps;Ramp (2 steps) Bathroom Equipment Grab bars in shower/bath Home Equipment Walker 4 wheeled;Edge Cutter Additional Comments Refer to PT note for PLOF Prior Function Level of Gates Independent with functional mobility;Independent with ADLs;Independe nt with IADLs;Driving in community Lives With Spouse ADL Assistance Independent Home ADL's Independent Employment Retired for age Comments pt was taking care of his spouse; daughter is planning to assist now. ADL Additional Comments RN requesting for pt to remain in his chair due to his high heart rate . Pt. willing to participate in OT this AM. Provided pt. with sternal precaution handout-edu c. pt. in donning/doffing clothes, personal hygiene, bathing, grooming tasks. Pt. provided w ith AE handout and recommendations to promote independence and reinforce precautions. Pt. wo uld benefit from further skilled OT services to address ADLs as they arise. Requested pt to have family bring in clothes. Pt. left seated in recliner, call light within reach. Vision-Basic Assessment Current Vision Wears glasses Cognition Overall Cognitive Status WFL Orientation Level Oriented Sensation Light Touch (neuropathy bilat LEs) RUE Assessment RUE Assessment (sternal precautions) LUE Assessment LUE Assessment (sternal precautions) Hand Function Gross Grasp Functional Functional Gross Grasp Able to grasp objects without difficulty Coordination Functional (R hand dominant) Assessment Assessment Decreased ADL status;Decreased endurance;Decreased self-care trans;Decreased fin e motor control;Decreased high-level ADLs Prognosis Good Goal Formulation Patient;Family ADL Goals Pt Will Perform UE Dressing At edge of bed;In chair;With mod assist;Maintaining sternal pre cautions Pt Will Perform LE Dressing At edge of bed;In chair;With mod assist;With adaptive equipment ;Maintaining sternal precautions LE Dressing Adaptive Equipment Edge Cutter;Shoehorn long-handled;Sock aid Arm Goals Pt Will Perform AROM B UE;1 set;10 reps;With good activity tolerance;Attending to sternal p recautions Plan Treatment Interventions ADL retraining;IADL retraining;Functional dynamic activities;Functi onal transfer training;AROM;Therapeutic exercises;Endurance training;Patient/Family training ;Equipment eval/education;Compensatory technique education OT Frequency QD;BID;5x/wk Requires OT Follow Up Yes Recommendation Recommendation Return to prior living conditions;Home with daytime assist;Home with nightti me assist (with help from family) Equipment Recommended Shower chair with back;Sock aid;Toilet aid;Sponge long handled Education Completed: Education Topic: OT role, education in sternal precautions and AE recommendations Completed with: Patient Completed by: Verbal Education, Written Material, Demonstration Response to Education: Stated Understanding, Reinforcement Necessary for Education Unde rstanding Occupational Therapy Plan: Initiate OT POC Continue OT treatment per POC-Q/BID/5x/wk The following recommendations are made for d/c planning at this time: Return to home w/ family support Barriers to d/c at this time include: Equipment needs shower chair, sockaid, toilet aid, shower brush Pt is caregiver to his spouse-daughter to assist Physical deficits impacting functional independence Self-care deficits impacting functional independence Chetan Zaragoza Unknown - 01/17/2016 8:13 PM PST Nurse Progress Note by Brandon Guaman RN at 01/17/162012 Author: Brandon Guaman RN Service: (none) Author Type: Registered Nurse Filed: 01/17/162012 Date of Service: 01/17/162012 Status: Signed Rug Measurer: Brandon Guaman RN (Registered Nurse) Chart reviewed, all vitals appear stable. No further intervention required at this time. Brandon Guaman RN onver sudhakar Transaction, Provider Unknown - 01/17/2016 3:15 PM PST Case Management by TERRY Forrester at 01/17/16 3090 Author: TERRY Forrester Service: (none) Author Type: Bodybuilder Filed: 01/17/16 0934 Date of Service: 01/17/161514 Status: Addendum Rug Measurer: TERRY Forrester (Bodybuilder) Related Notes: Original Note by TERRY Forrester (Bodybuilder) filed at 01/17/16 8568 CM received consult from RN that family requesting case finisher to discuss discharge planni ng. Previous CM discussed Home Health. CM discussed private pay caregiving, as patient's i ncome is above the poverty line and will not qualify for medicaid benefits. CM met with patient and his family who are concerned regarding patient's return home. Greer ana's daughter Laury plans on staying for a short length of time to help out with patient 's , however, she does plan on leaving. Laury cannot state exactly when she plans on leaving. CM reiterates that PT and OT will continue to assess patient for DME needs. CM explains th at patient will be able perform most activities at home, as long as he follows sternal preca utions. Patient is Georgiana's primary caregiver, Georgiana can transfer on her own but he hel ps patient w/ dressing and IADLs. CM explains that lift-chair is usually not covered and if it is, only lift portion is covered. CM explained [id number] and other less expensive w ays to get lift-chair. Patient already owns a walker. CM also discussed potential OT equi pment and will follow for PT/OT recommendations. Patient's income appears to be too high for state benefits. Patient is a [place]. CM spok e w/ Lexii OGDEN [place] who reports patient is only 20% service connected and could use Home Healt h benefit. Patient can receive HH benefit through Medicare. Lexii also reports that in te ja of DME, patient would need to get established w/ a [facility] PCP who can write script fo r [facility]. Family indicates their main concern are for patient's spouse and how long it might be befor e he can resume total caregiving. CM is unsure of this and will speak w/ Micaela LOADING INSPECTOR regarding discharge planning. TERRY Forrester onver sudhakar Transaction, Provider Unknown - 01/17/2016 2:23 PM PST Progress Notes by Allie Mcdonough RPH at 01/17/16 1423 Author: Allie Mcdonough RPH Service: (none) Author Type: Pharmacist Filed: 01/17/161422 Date of Service: 01/17/161422 Status: Signed Rug Measurer: Allie Mcdonough RPH (Pharmacist) Clinical Pharmacy Note: Renal Monitoring Flaco Randolph 80 y.o. male Ht Readings from Last 1 Encounters: 01/15/16 1.854 m (6' 1") Wt Readings from Last 1 Encounters: 01/17/16 100.4 kg (221 lb 5.5 oz) CREATININE Date Value Ref Range Status 01/17/2016 0.95 0.70 - 1.30 mg/dL Final Comment: [place] [facility] [place] [place] [address];[place] [address] CREATININE: 0.95 (01/17/16 0540) Estimated creatinine clearance - 74.7 mL/min Pharmacy dosing for renal function per KAYLEIGH Diaz. Currently, there are no medications needing to be adjusted. Pharmacy will continue to monit or for changes in medication orders and in renal function and adjust accordingly. Allie CaceresPh 01/17/2016 2:19 PM onver sudhakar Transaction, Provider Unknown - 01/17/2016 1:30 PM PST Therapy Progress Note by Gama Urbano PT at 01/17/16 9670 Author: Gama Urbano PT Service: (none) Author Type: Physical Therapist Filed: 01/17/16 1908 Date of Service: 01/17/160 Status: Signed Rug Measurer: Gama Urbano PT (Physical Therapist) 01/17/16 1330 PT Last Visit PT Received On 01/17/16 (Pt. just ambulated approx. 150 ft. w/ NSG is being) Requires PT Follow Up Unavailable (transported to [facility] now via w/c) onver sudhakar Transaction, Provider Unknown - 01/17/2016 1:19 PM PST Progress Notes by Sagrario Quach RN at 01/17/16 1319 Author: Sagrario Quach RN Service: (none) Author Type: Registered Nurse Filed: 01/17/16 1321 Date of Service: 01/17/16 1319 Status: Signed Rug Measurer: Sagrario Quach RN (Registered Nurse) Report called to TIA Nolen, patient stable at time of transfer, taken via wheelchair by tanesha ZULETA notified onver sudhakar Transaction, Provider Unknown - 01/17/2016 12:40 PM PST Case Management by TERRY Julian at 01/17/16 1240 Author: TERRY Julian Service: (none) Author Type: Central Sterile Supply Technician Filed: 01/17/16 1242 Date of Service: 01/17/16 1240 Status: Signed Rug Measurer: TERRY Julian (Central Sterile Supply Technician) CM spoke with patient about referral/request for Home Health services. Patient reports he lives in [place], [place]. Services for HH will most likely come from: [place], [place] Phone: [phone] Fax: [phone] onver sudhakar Transaction, Provider Unknown - 01/17/2016 10:40 AM PST Therapy Progress Note by Gama Urbano PT at 01/17/16 1040 Author: Gama Urbano PT Service: (none) Author Type: Physical Therapist Filed: 01/17/16 2841 Date of Service: 01/17/16 1040 Status: Signed Rug Measurer: Gama Lehrschall, PT (Physical Therapist) 01/17/16 1040 PT Last Visit PT Received On 01/17/16 Reason for Treatment Cardiac Requires PT Follow Up Yes Follow up PT Only? No Assistance Required 1 person;2 person Precautions Cardiac Precautions Sternal Other Precautions (fall risk) Other Comments Comments Pt. is doing well. He denies pain at this time. He ambulated earlier this a.m. w / NSG. He was able to transfer OOB w/ modAx1. min/modAx1 required for sit to stand. Pt. a mbulated approx. 180 ft. w/ CGA using light ACOUSTICAL TILE PATTERNMAKER on w/c. Gait posture is slightly forward fl exed. He was left in chair. Call light in reach. VS stable stable. SpO2 93% on ra Cognition Overall Cognitive Status WFL Orientation Level Oriented Bed Mobility Supine to Sit Mod assist (BLEs OOB or trunk to upright) Scooting Minimal assist Transfers Sit to/from Stand Minimal assist (steadying/contact guard);Moderate assist (to arise OR low er);x 1 person Mobility Ambulation Assistance Minimal assist;Standby assist Maximal Ambulation Distance (feet) 180 Total Ambulation Distance (feet) 180 Distance limited by? Patient's ability Pattern Alternating;Forward flexed;Decreased olivia Assistive Device (w/c ACOUSTICAL TILE PATTERNMAKER) Modalities Other Therapy ongoing ed on transfer technique, sternal precautions Activity Tolerance Activity Tolerance Patient tolerated treatment without report of fatigue Nurse Made Aware yes Plan Treatment/Interventions Continue per Primary PT POC Progress Progressing toward goals Recommendation Recommendations Other (comment) Recommendation Comments No family present...still anticipate that pt. will be able to d/c h ome w/ spouse/family assist. Lashaun Pagan ARNP - 01/17/2016 6:35 AM PST Progress Notes by KAYLEIGH Woodward at 01/17/16 0604 Author: KAYLEIGH Woodward Service: Field Map Technician Author Type: Advanced Registered Nu rse Practitioner Filed: 01/17/16 0850 Date of Service: 01/17/1667 Status: Attested Rug Measurer: KAYLEIGH Woodward (Nurse Practitioner) Cosigner: Dariela Bauer MD at 09/24 1412 Attestation signed by Dariela Bauer MD at 01/18/16 1412 I have examined Flaco Randolph, reviewed the notes, assessments, and/or procedures performed by Lashaun VICTOR, I concur with his documentation of Flaco Randolph [facility] Service: Field Map Technician Cardiothoracic Surgery Consult and Follow Up Date/Time:01/17/2016 6:35 AM Provider: KAYLEIGH Woodward Hospital Day: LOS: 2 days Surgery/Procedure: Procedure(s) (LRB): CABG - DONNY (N/A) Post-Op Day: 2 Days Post-Op PROBLEM LIST Principal Problem: 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 * SUBJECTIVE: Patient Summary: Mr Randolph is an 80 y rold man with HTN, HPL, RA, history of TIA, who was transferred from [facility] due to epigastric pain due to an NSTEMI (ST depression on lateral leads). He wa s started on heparin gtt, and was scheduled to undergo CABG today, 01/15/16. ICU Timeline: 01/15/16: CABG x 5 WEST to LAD, SVG to diagonal, SVG to marginal, SVG to PAD, SVG to poste rolateral 01/16/16: Extubated per protocol. Remains on melinda despite fluid challenge 01/17/16: Off pressors. OOB to chair. Eating/drinking well. Events Overnight: - HD stable, NSR, off gtts - 2LNC - CT 60ml overnight/170ml over last 24hrs - UO adequate, and clear. 765ml overnight/1285 over last 24hrs. OBJECTIVE: Vital Signs: BP 112/55 mmHg | Pulse 83 | Temp(Src) 99.9 F (37.7 C) (Oral) | Resp 18 | Ht 1.854 m (6' 1") | Wt 100.4 kg (221 lb 5.5 oz) | BMI 29.21 kg/m2 | SpO2 95% EXAM GEN: awake, alert, NAD NEURO: PERRLA, EOMI, no facial asymmetry, moves all extremities well HEENT: sclerae clear, nonicteric, oral mmm, pink, no exudates NECK: supple, trachea midline CV: sternotomy surgical wound dressed, pacer wires in place, pleural and mediastinal chest tube in place, RRR, S1/S2, no murmur, rub or gallop, peripheral pulses palpable, cap refill brisk LUNGS: equal in expansion, decreased breath sounds on bases, no wheezing, no crackles ABD: soft, nondistended, nontender to palpation, no masses, no hepatosplenomegaly EXTR: no edema, clubbing or cyanosis SKIN: warm, dry, no rash or mottling; no e/o skin breakdown over the occiput, scapulae, elb ows, sacrum or heels LINES/TUBES: PIVs, gutierrez catheter (01/14), CTs (01/14) DATA Recent Labs Lab 01/17/16 0540 01/16/16 0430 01/15/16 1142 WBC 10.94 11.73* 19.63* RBC 3.31* 3.34* 3.43* HGB 10.2* 10.2* 10.8* HCT 30.0* 30.1* 30.5* MCV 90.5 90.3 88.8 MCH 30.9 30.6 31.5 MCHC 34.1 33.9 35.4 RDW 44.6 44.6 42.9 PLT 120* 128* 135* MPV 9.0 8.6 8.2 NEUTROABS 8.88* 9.81* 16.54* LYMPHSABS 1.06 0.95* 1.70 MONOSABS 0.93* 0.91* 1.01* BASOSABS 0.02 0.04 0.04 EOSABS 0.05 0.02 0.34 Recent Labs Lab 01/17/16 0540 01/16/16 2257 01/16/16 0430 01/15/16 1142 NA 139 -- 141 -- 141 K 4.1 3.9 4.7 < > 4.3 CL 108 -- 112* -- 109 CO2 25 -- 21* -- 23 ANIONGAP 10 -- 12 -- 13 GLUF 111* -- 109* -- 156* BUN 19 -- 18 -- 19 CREATININE 0.95 -- 0.93 -- 1.1 BCR 20 -- 19 -- 17 CA 7.5* -- 7.7* -- 7.4* EGFR >60 -- >60 -- >60 MG 2.3 1.8 2.2 < > 2.5* < > = values in this interval not displayed. IMAGING X-ray Chest 1 View 01/15/2016 1. Recurrent mild cardiac enlargement similar to 01/08/16, not seen on 01/10/16 . 2. Pulmonary venous congestion with subtle central interstitial edema. 3. Subtle left ef fusion. 4. ET tube could be advanced approximately 2 cm. 5. Gordon-Jeannette catheter could be ad vanced approximately 5 cm. 6. Above findings were called to the ICU at 12:15 PM date of zoraida dy, and discussed with the patient's nurse Elisha. Ultrasound Carotid Bilateral 01/10/2016 Mild atherosclerotic disease bilaterally without hemodynamically significant isaias noses seen in either carotid arterial system. Validated velocity measurements with angiogra phic measurements and velocity criteria are extrapolated from diameter data as defined by th e Society of Radiologists in Ultrasound Consensus Conference Radiology 2003; 229;340-346. R KAVITA Electronically signed by Gama Enamorado MD on Jan 10 2016 8:30PM Referring Provide r Line: [id number] ID: [id number] Echo Cardiac Adult Complete 01/10/2016 1. Overall left ventricular systolic function is normal with, an EF between 60 - 65 %. 2. The right ventricle is mildly enlarged measuring between 3.4 - 3.7 cm. 3. The left atrium is moderately dilated. 4. The right atrium is moderately enlarged. 5. Mild mitral re gurgitation is present. 6. There is no evidence of pulmonary hypertension. Echo Adult Intraop Donny Monitoring 01/15/2016 1. Mild LV dysfunction with EF 50 - 60%. 2. , with no significant mitral regurgi tation. ASSESSMENT & PLAN: - Post op hypotension. RESOLVED. Off gtts - Post op fever, 101.8 this am. Normal WBC. BC x2 sent. HD stable. - CAD: Medically optimized on ASA, lipitor, metoprolol - Hx of arthritis, NOT chronically immunocompromised. Hold NSAIDs for now. No acute joint pain this am. - Post operative management per CTS (chest tubes, pacer wires, gtt management, anticoagulat ion, transfusion) - Ambulate, PT/OT, IS Disposition: Transfer to cardiac floor today. Code Status: Full Code *Please bill 20 minutes of critical care time spent evaluating the patient, reviewing the d giuliana and formulating a plan exclusive of all other procedures. KAYLEIGH Woodward 01/17/2016 6:35 AM onversion Transac tion, Provider Unknown - 01/16/2016 1:40 PM PSTFormatting of this note might be different f rom the original. Therapy Progress Note by Kory Hameed PT at 01/16/16 1340 Author: Kory Hameed PT Service: (none) Author Type: Physical Therapist Filed: 01/16/16 3608 Date of Service: 01/16/16 1340 Status: Signed Rug Measurer: Kory Hameed PT (Physical Therapist) 01/16/16 1340 PT Last Visit PT Received On 01/16/16 Reason for Treatment Cardiac Requires PT Follow Up Yes Follow up PT Only? No Assistance Required 1 person Technology Advisor Needed No Precautions Cardiac Precautions Sternal Other Precautions Fall risk Other Comments Comments Pt seated in recliner and agreeable to PT upon observation. Pt's and daughter present. Obtained further history information and discussed discharge planning with family and pt. Pt transferring sidelying --> sit max A and sit --> stand with mod A and slight retr opulsion. Pt ambulated 35 ft with ACOUSTICAL TILE PATTERNMAKER on w/c min A, pt reporting when fatigued and returning to room. Pt seated in recliner at end of session, needs met. Cognition Overall Cognitive Status WFL Orientation Level Oriented Bed Mobility Sidelying to Sit Max assist (BLEs OOB & trunk to upright) Transfers Sit to/from Stand Moderate assist (to arise OR lower) Mobility Ambulation Assistance Minimal assist Maximal Ambulation Distance (feet) 35 Total Ambulation Distance (feet) 35 Distance limited by? Patient's ability Pattern Alternating;Swing through;Right swing foot doesn't pass stance foot;Left swing foot doesn't pass stance foot;Wide base;Forward flexed Assistive Device Other (Comment) (ACOUSTICAL TILE PATTERNMAKER on w/c) Modalities Modalities Other therapy Other Therapy Ongoing education on sternal precautions. Family present and engaged in pt's care; asking questions pertaining to caring for pt after discharge. Family training on fraser al precautions as they pertain to transfers and bed mobility. Reviewed exercise participatio n and frequency after discharge. Pt and family demonstrated verbal understanding with these impressions. Activity Tolerance Activity Tolerance Patient limited by fatigue;Patient limited by pain Nurse Made Aware yes Safety Devices Safety Devices in Place Yes (call light within reach) Restraints Initially in Place No Plan Treatment/Interventions Continue per Primary PT POC Recommendation Recommendations Other (comment) (Possible discharge home with assist, ongoing assessment) Recommendation Comments Pt's and daughter present, daughter reporting that she will be able to assume caregiving duties for pt and pt's . 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 Family stating preference for home discharge and expressing interest in home health services. Disc ussed with pt and pt's family that we will continue to assess appropriateness of this plan. Note was created by student physical therapist and co-signed by licensed physical therapist . Student therapist also educationally participated in therapy session under the supervision of the licensed therapist. The patient approved of the student's role in care. onver sudhakar Beaulieu, Provider Unknown - 01/16/2016 11:38 AM PST Progress Notes by Josselin Brown RD, CD at 01/16/16 1138 Author: Josselin Brown RD, CD Service: (none) Author Type: Registered Dietitian Filed: 01/16/16 1138 Date of Service: 01/16/161137 Status: Signed Rug Measurer: Josselin Brown RD, CD (Registered Dietitian) 01/16/16 1108 Subjective Timepoint Admit (geriatric surgery) Pt c/o POD #1 s/p CABG x 5. Pt was sleeping when seen but awoke to voice. Currently on room air. Reports that he has a good appetite. Diet Experience Self-selected diet(s) followed Pt reports that he had been eating well up until admit. Eats 3 meals/day on a regular basis. Pt states that dinner tends to be his largest meal. Lives a t home with his and reports that they belong to a club which prepares meals for each ot her. Neighbors generally provide them with home-cooked meals for lunch and dinner. Daughter, who pt describes as a "health nut," also prepares healthy meals for pt and his on a co nsistent basis. Breakfast usually consists of high fiber cereal such as oatmeal or shredded wheat. Pt has been eating more hamburgers recently out of convenience as he has been busy ta linda his to doctor's appointments. However, pt states that he plans to eat less fast fo od in the future. Fluid / Beverage Intake Oral Fluids Amount Drinking liquids ad alice. Liquid Meal Replacement or Supplement Receiving Boost supplements TID. Drank a carton this AM. Food Intake Amount of Food Pt ate 100% of breakfast -eggs, toast, fruit, etc. Type of Food / Meals Cardiac diet. Parenteral Nutrition Intake Rate/Solution Has an order for D5 1/2NS at 62 mL/hr per the [employer] procotol. NS is runnin g at 30 mL/hr. Food and Nutrition Knowledge Area(s) and Level of Knowledge Emphasized the importance of adequate kcal/protein intake fo r postop healing and recovery. Also briefly reviewed cardiac diet principles including limit ing fat and sodium intake and optimizing fiber intake. Encouraged limiting intake of fast fo od and fried foods. Pt expressed understanding. Nutrition-Focused Physical Findings Overall Appearance Appears well-nourished. Skin Intact. Anthropometrics Weight change BMI 28.62 is appropriate based on age. Pt reports that his wt has been stable prior to admit. Biochemical data, medical tests, and procedures reviewed Biochemical data, medical tests, and procedures reviewed BG has been controlled in the 90s- 100s, on insulin drip. BUN, Cr, and electrolytes are WNL. Estimated Energy Needs Total Energy Estimated Needs 7933-9635 kcal/day Method for Estimating Needs 30-35 kcal/kg admit wt (98.4 kg) Estimated Protein Needs Total Protein Estimated Needs 148-197 g protein/day Method for Estimating Needs 1.5-2 g protein/kg admit wt (98.4 kg) Recommendations Recommended energy needs Continue cardiac diet. Encourage PO intake and consistent meals. C ontinue Boost supplements TID (various flavors per pt request). Will continue to monitor cli nical course and f/u with further nutrition recs as indicated. Nutritional Risk Nutritional risk Low / moderate Follow up date 01/22/16 Josselin Brown, RD, CD, CNS 01/16/2016 onver sudhakar Beaulieu, Provider Unknown - 01/16/2016 9:02 AM PST Therapy Progress Note by Kory Hameed PT at 01/16/16901 Author: Kory Hameed PT Service: (none) Author Type: Physical Therapist Filed: 01/16/16 1217 Date of Service: 01/16/16901 Status: Signed Rug Measurer: Kory Hameed PT (Physical Therapist) 01/16/16901 PT Last Visit PT Received On 01/16/16 Reason for Treatment Cardiac Requires PT Follow Up Awaiting tx order Follow up PT Only? 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) ADL Assistance Independent Home ADL's Independent Employment Retired for age RLE Assessment RLE Assessment X (Strength grossly 4-/5) LLE Assessment LLE Assessment X (Strength grossly 4-/5) Cognition Overall Cognitive Status WFL Orientation Level Oriented Assessment of Patient Status Assessment of Patient Status Decreased LE strength;Decreased LE ROM;Decreased functional m obility;Decreased ADL status;Decreased endurance;Precautions;Pain Safety Devices Safety Devices in Place Yes (call light within reach) Restraints Initially in Place No Precautions Cardiac Precautions Sternal Other Precautions Fall risk Plan Treatment/Interventions Cardiac protocol PT Frequency 5-7x/wk;Once per day;Twice a day Care Duration (# of days) 7 # of days Recommendation Recommendations Defer (ongoing assessment of mobility status and social factors) 01/16/16901 PT Last Visit PT Received On 01/16/16 Reason for Treatment Cardiac Requires PT Follow Up Awaiting tx order Follow up PT Only? Yes (ongoing assessment) PT Eval/Reassessment Date 01/16/16 Assistance Required 1 person;2 person (line management) Technology Advisor Needed No Precautions Cardiac Precautions Sternal Other Precautions Fall risk Other Comments Comments Pt is an 80 yo male s/p CABG -DONNY. Pt's medical history is significant for HTN, HL D, and sinus bradycardia. Pt sitting in recliner and agreeable to PT upon observation. Pt re porting dizziness to nursing and requesting to return to bed. Pt reporting 6/10 pain at rest . Pt transferred sit --> stand mod A, followed by weight shifting and marching in place. Pt reporting some pre-syncopal symptoms. Pt transferred sit --> supine max A x 2. Pt reporti ng 4/10 pain after activity. Pt with productive cough, and instructed to brace with pillow. Vitals before activity in sitting: BP 107/75, HR 79. Vitals after activity in supine: BP 108 /59, HR 80, SpO2 91% RA. Pt supine at end of session, no new report of symptoms. Cognition Overall Cognitive Status WFL Orientation Level Oriented Bed Mobility Sit to Supine Max assist (BLEs into bed & trunk to lower);x 2 person Scooting Standby assist (at edge of bed and in supine) Transfers Sit to/from Stand Moderate assist (to arise OR lower) Bed to/from Chair Moderate assist (to arise OR lower) Mobility Ambulation Assistance Minimal assist Maximal Ambulation Distance (feet) 3 Total Ambulation Distance (feet) 3 Distance limited by? Patient's ability Pattern Alternating;Decreased olivia;Forward flexed;Wide base;Right swing foot doesn't pas s stance foot;Left swing foot doesn't pass stance foot Assistive Device Other (Comment) (ACOUSTICAL TILE PATTERNMAKER on w/c) Modalities Modalities Other therapy Other Therapy Pt educated on sternal precautions as they pertain to transfers, reaching for objects, and bed mobility. Pt demonstrated verbal understanding and in agreeance with these impressions. Activity Tolerance Activity Tolerance Patient limited by fatigue Nurse Made Aware yes Safety Devices Safety Devices in Place Yes (call light within reach) Restraints Initially in Place No Plan Treatment/Interventions Cardiac protocol PT Frequency 5-7x/wk;Once per day;Twice a day Care Duration (# of days) 7 # of days Recommendation Recommendations Defer (ongoing assessment of mobility status and social factors) Note was created by student physical therapist and co-signed by licensed physical therapist . Student therapist also educationally participated in therapy session under the supervision of the licensed therapist. The patient approved of the student's role in care. Lashaun Pagan ARNP - 01/16/2016 6:44 AM PST Progress Notes by KALYEIGH Woodward at 01/16/16 0644 Author: KAYLEIGH Woodward Service: Field Map Technician Author Type: Advanced Registered Nu rse Practitioner Filed: 01/16/16 1101 Date of Service: 01/16/16 0644 Status: Attested Rug Measurer: KAYLEIGH Woodward (Nurse Practitioner) Cosigner: Dariela Bauer MD at 09/24 1413 Attestation signed by Dariela Bauer MD at 01/18/16 1413 I have examined Flaco Randolph, reviewed the notes, assessments, and/or procedures performed by Lashaun VICTOR, I concur with his documentation of Flaco Randolph [facility] Service: Field Map Technician Cardiothoracic Surgery Consult and Follow Up Date/Time:01/16/2016 6:44 AM Provider: KAYLEIGH Woodward Hospital Day: LOS: 1 day Surgery/Procedure: Procedure(s) (LRB): CABG - DONNY (N/A) Post-Op Day: 1 Day Post-Op PROBLEM LIST Principal Problem: 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 * SUBJECTIVE: Patient Summary: Mr Randolph is an 80 y rold man with HTN, HPL, RA, history of TIA, who was transferred from [facility] due to epigastric pain due to an NSTEMI (ST depression on lateral leads). He wa s started on heparin gtt, and was scheduled to undergo CABG today, 01/15/16. ICU Timeline: 01/15/16: CABG x 5 WEST to LAD, SVG to diagonal, SVG to marginal, SVG to PAD, SVG to poste rolateral 01/16/16: Extubated per protocol. Remains on melinda despite fluid challenge Events Overnight: - HD stable, NSR, on Neosynephrine at 40mcg - 2LNC - CT 250ml overnight/500ml over last 24hrs - UO adequate, and clear. 762ml overnight/2469 over last 24hrs. OBJECTIVE: Vital Signs: BP 102/51 mmHg | Pulse 73 | Temp(Src) 100.6 F (38.1 C) (Blood) | Resp 0 | Ht 1.854 m (6 ' 1") | Wt 99 kg (218 lb 4.1 oz) | BMI 28.80 kg/m2 | SpO2 93% EXAM GEN: awake, alert, NAD NEURO: PERRLA, EOMI, no facial asymmetry, moves all extremities well HEENT: sclerae clear, nonicteric, oral mmm, pink, no exudates NECK: supple, trachea midline CV: sternotomy surgical wound dressed, pacer wires in place, pleural and mediastinal chest tube in place, RRR, S1/S2, no murmur, rub or gallop, peripheral pulses palpable, cap refill brisk LUNGS: equal in expansion, decreased breath sounds on bases, no wheezing, no crackles ABD: soft, nondistended, nontender to palpation, no masses, no hepatosplenomegaly EXTR: no edema, clubbing or cyanosis SKIN: warm, dry, no rash or mottling; no e/o skin breakdown over the occiput, scapulae, elb ows, sacrum or heels LINES/TUBES: Cordis R IJ (38), gutierrez catheter (3/8), CTs (3) DATA Recent Labs Lab 01/16/16 0430 01/15/16 1142 01/15/16 1102 WBC 11.73* 19.63* -- RBC 3.34* 3.43* -- HGB 10.2* 10.8* 7.8* HCT 30.1* 30.5* 23* MCV 90.3 88.8 -- MCH 30.6 31.5 -- MCHC 33.9 35.4 -- RDW 44.6 42.9 -- PLT 128* 135* -- MPV 8.6 8.2 -- NEUTROABS 9.81* 16.54* -- LYMPHSABS 0.95* 1.70 -- MONOSABS 0.91* 1.01* -- BASOSABS 0.04 0.04 -- EOSABS 0.02 0.34 -- Recent Labs Lab 01/16/16 0430 01/16/16 0048 01/15/161 01/15/16 1142 NA 141 -- -- -- 141 K 4.7 4.4 4.7 < > 4.3 CL 112* -- -- -- 109 CO2 21* -- -- -- 23 ANIONGAP 12 -- -- -- 13 GLUF 109* -- -- -- 156* BUN 18 -- -- -- 19 CREATININE 0.93 -- -- -- 1.1 BCR 19 -- -- -- 17 CA 7.7* -- -- -- 7.4* EGFR >60 -- -- -- >60 MG 2.2 -- 2.2 -- 2.5* < > = values in this interval not displayed. IMAGING X-ray Chest 1 View 01/15/2016 1. Recurrent mild cardiac enlargement similar to 01/08/16, not seen on 01/10/16 . 2. Pulmonary venous congestion with subtle central interstitial edema. 3. Subtle left ef fusion. 4. ET tube could be advanced approximately 2 cm. 5. Gordon-Jeannette catheter could be ad vanced approximately 5 cm. 6. Above findings were called to the ICU at 12:15 PM date of zoraida dy, and discussed with the patient's nurse Elisha. Ultrasound Carotid Bilateral 01/10/2016 Mild atherosclerotic disease bilaterally without hemodynamically significant isaias noses seen in either carotid arterial system. Validated velocity measurements with angiogra phic measurements and velocity criteria are extrapolated from diameter data as defined by th e Society of Radiologists in Ultrasound Consensus Conference Radiology 2003; 229;340-346. R KAVITA Electronically signed by Gama Enamorado MD on Jan 10 2016 8:30PM Referring Provide r Line: [phone] ID: [id number] Echo Cardiac Adult Complete 01/10/2016 1. Overall left ventricular systolic function is normal with, an EF between 60 - 65 %. 2. The right ventricle is mildly enlarged measuring between 3.4 - 3.7 cm. 3. The left atrium is moderately dilated. 4. The right atrium is moderately enlarged. 5. Mild mitral re gurgitation is present. 6. There is no evidence of pulmonary hypertension. Echo Adult Intraop Donny Monitoring 01/15/2016 1. Mild LV dysfunction with EF 50 - 60%. 2. , with no significant mitral regurgi tation. ASSESSMENT & PLAN: - Post op hypotension. Remains on Melinda despite fluid challenge this am. Re try later to we an off gtt - CAD: Medically optimized on ASA, lipitor, metoprolol (on hold for hypotension) - Post operative management per CTS (chest tubes, pacer wires, gtt management, anticoagulat ion, transfusion) - Ambulate, PT/OT, IS Disposition: Per cardiothoracic surgery Code Status: Full Code *Please bill 20 minutes of critical care time spent evaluating the patient, reviewing the d giuliana and formulating a plan exclusive of all other procedures. KAYLEIGH Woodward 01/16/2016 6:44 AM Luis Armando Barron AR CORPORATE STAFF ACCOUNTANT - 01/15/2016 11:00 PM PST Progress Notes by Luis Armando Mar RN at 01/15/16 5305 Author: Luis Armando Mar RN Service: (none) Author Type: Registered Nurse Filed: 01/16/16 3924 Date of Service: 01/15/16 230 Status: Addendum Rug Measurer: Luis Armando Mar RN (Registered Nurse) Related Notes: Original Note by Luis Armando Mar RN (Registered Nurse) filed at 01/16/16 8893 Patient complains of excruciating pain to left lower leg, removed RAMESH wrap noted swelling t o mid glaser pain improved however some burning sensation remained, Field Map Technician at bedside yamila luating leg. Will continue to evaluate. Luis Armando Mar RN Luis Armando Fuller ARN P - 01/15/2016 9:01 PM PST Nurse Progress Note by Luis Armando Mar RN at 01/15/16 0129 Author: Luis Armando Mar RN Service: (none) Author Type: Registered Nurse Filed: 01/15/162102 Date of Service: 01/15/162100 Status: Signed Rug Measurer: Luis Armando Mar RN (Registered Nurse) Run of Vtach (22 beats) patient awake denies and discomfort or fluttery sensations. Luis Armando Mar RN 9:03 PM onversion Transact ion, Provider Unknown - 01/15/2016 4:05 PM PSTFormatting of this note might be different fr om the original. Progress Notes by Bandar Cali RRT at 01/15/16 160 Author: Bandar Cali RRT Service: (none) Author Type: Registered Respiratory Therapis t Filed: 01/15/16 170 Date of Service: 01/15/16 160 Status: Signed Rug Measurer: Bandar Cali RRT (Registered Respiratory Therapist) Pt's blood gas improved, able to follow commands, and lift head. Pt ready to extubate. I de flated the cuff until the commercial airplane pilot balloon was flat but was unable to budge the tube. I returne d cuff pressure and called Dr. Carl. She came to bedside to evaluate the patient orally suctioned, viewed the mouth. She then called the Dr that intubated to confirm that it was no t a difficult airway. He confirmed it was not. Dr. Carl then extubated the patient I aga in emptied the commercial airplane pilot balloon until it was flat. Dariusz Escoto Chaplain - 01/15/2016 11:21 AM PST Progress Notes by Dariusz Petersen at 01/15/16 112 Author: Dariusz Petersen Service: (none) Author Type: Filed: 01/15/16 112 Date of Service: 01/15/161120 Status: Signed Rug Measurer: Dariusz Petersen () Gave family the off pump report they were relieved and looking forward to seeing Pt after s urgery. ariusz Petersen Chaplain - 01/15/2016 10:22 AM PSTFormatting of this note might be different from the origi nal. Progress Notes by Dariusz Petersen at 01/15/16 1022 Author: Dariusz Petersen Service: (none) Author Type: Filed: 01/15/16 1022 Date of Service: 01/15/16 1022 Status: Signed Rug Measurer: Dariusz Petersen () Gave the family the on pump report at 9:10am onversion Smith saction, Provider Unknown - 01/15/2016 6:18 AM PSTFormatting of this note might be differen t from the original. Progress Notes by Colton Banegas RPH at 01/15/16617 Author: Colton Bnaegas RPH Service: (none) Author Type: Pharmacist Filed: 01/15/16617 Date of Service: 01/15/16617 Status: Signed Rug Measurer: Colton Banegas RPH (Pharmacist) Clinical Pharmacy Note: Renal Monitoring Flaco Randolph 80 y.o. male Ht Readings from Last 1 Encounters: 01/08/16 1.854 m (6' 1") Wt Readings from Last 1 Encounters: 01/15/16 98.431 kg (217 lb) CREATININE Date Value Ref Range Status 01/09/2016 0.96 0.70 - 1.30 mg/dL Final Comment: Testing performed at [facility], [address] [place] [address] Creatinine clearance cannot be calculated (Patient's most recent sCr result is older than t he maximum 3 days allowed.) Pharmacy dosing for renal function per Dr. Osorio. Currently, there are no medications needing to be adjusted. Pharmacy will continue to monit or for changes in medication orders and in renal function and adjust accordingly. Colton Banegas RPh 01/15/2016 6:18 AM docume nted in this encounter Plan of Treatment +--------+---------+ + + + | Date | Type | Specialty | Care Team | Description | +--------+---------+ + + + | 10/19/ | Office | Cardiology | Devonte Nevarez, | | | 2019 | Visit | | MD Cici LEONG | | | | | | [place] | | | | | | [id number] | | | | | | | | +--------+---------+ + + + documented as of this encounter Procedures + +--------+ + + + | Procedure Name | Priori | Date/Time | Associated Diagnosis | Comments | | | ty | | | | + +--------+ + + + | POC GLUCOSE | Routin | 01/22/2016 | | Results for this | | | e | 5:34 AM | | procedure are in the | | | | PDT | | results section. | + +--------+ + + + | EXTERNAL LAB: CBC | Routin | 01/22/2016 | | Results for this | | | e | 3:54 AM | | procedure are in the | | | | PDT | | results section. | + +--------+ + + + | MAGNESIUM | Routin | 01/22/2016 | | Results for this | | | e | 3:54 AM | | procedure are in the | | | | PDT | | results section. | + +--------+ + + + | BASIC METABOLIC | Routin | 01/22/2016 | | Results for this | | PANEL | e | 3:54 AM | | procedure are in the | | | | PDT | | results section. | + +--------+ + + + | POC GLUCOSE | Routin | 01/21/2016 | | Results for this | | | e | 9:30 PM | | procedure are in the | | | | PDT | | results section. | + +--------+ + + + | POC GLUCOSE | Routin | 01/21/2016 | | Results for this | | | e | 4:09 PM | | procedure are in the | | | | PDT | | results section. | + +--------+ + + + | POTASSIUM | Routin | 01/21/2016 | | Results for this | | | e | 3:43 PM | | procedure are in the | | | | PDT | | results section. | + +--------+ + + + | POC GLUCOSE | Routin | 01/21/2016 | | Results for this | | | e | 11:08 AM | | procedure are in the | | | | PDT | | results section. | + +--------+ + + + | POTASSIUM | Routin | 01/21/2016 | | Results for this | | | e | 9:46 AM | | procedure are in the | | | | PDT | | results section. | + +--------+ + + + | POC GLUCOSE | Routin | 01/21/2016 | | Results for this | | | e | 5:34 AM | | procedure are in the | | | | PDT | | results section. | + +--------+ + + + | EXTERNAL LAB: CBC | Routin | 01/21/2016 | | Results for this | | | e | 3:14 AM | | procedure are in the | | | | PDT | | results section. | + +--------+ + + + | MAGNESIUM | Routin | 01/21/2016 | | Results for this | | | e | 3:14 AM | | procedure are in the | | | | PDT | | results section. | + +--------+ + + + | BASIC METABOLIC | Routin | 01/21/2016 | | Results for this | | PANEL | e | 3:14 AM | | procedure are in the | | | | PDT | | results section. | + +--------+ + + + | POC GLUCOSE | Routin | 01/20/2016 | | Results for this | | | e | 9:38 PM | | procedure are in the | | | | PDT | | results section. | + +--------+ + + + | POC GLUCOSE | Routin | 01/20/2016 | | Results for this | | | e | 9:37 PM | | procedure are in the | | | | PDT | | results section. | + +--------+ + + + | POC GLUCOSE | Routin | 01/20/2016 | | Results for this | | | e | 4:34 PM | | procedure are in the | | | | PDT | | results section. | + +--------+ + + + | PTT | Routin | 01/20/2016 | | Results for this | | | e | 3:45 PM | | procedure are in the | | | | PDT | | results section. | + +--------+ + + + | BASIC METABOLIC | Routin | 01/20/2016 | | Results for this | | PANEL | e | 2:05 PM | | procedure are in the | | | | PDT | | results section. | + +--------+ + + + | HISTORICAL | Timed | 01/20/2016 | | Results for this | | MICROBIOLOGY RESULT | | 12:27 PM | | procedure are in the | | | | PDT | | results section. | + +--------+ + + + | POC GLUCOSE | Routin | 01/20/2016 | | Results for this | | | e | 11:22 AM | | procedure are in the | | | | PDT | | results section. | + +--------+ + + + | PTT | Routin | 01/20/2016 | | Results for this | | | e | 8:35 AM | | procedure are in the | | | | PDT | | results section. | + +--------+ + + + | EXTERNAL LAB: CBC | Routin | 01/20/2016 | | Results for this | | | e | 6:37 AM | | procedure are in the | | | | PDT | | results section. | + +--------+ + + + | MAGNESIUM | Routin | 01/20/2016 | | Results for this | | | e | 6:37 AM | | procedure are in the | | | | PDT | | results section. | + +--------+ + + + | BASIC METABOLIC | Routin | 01/20/2016 | | Results for this | | PANEL | e | 6:37 AM | | procedure are in the | | | | PDT | | results section. | + +--------+ + + + | POC GLUCOSE | Routin | 01/20/2016 | | Results for this | | | e | 4:49 AM | | procedure are in the | | | | PDT | | results section. | + +--------+ + + + | PTT | Routin | 01/20/2016 | | Results for this | | | e | 12:23 AM | | procedure are in the | | | | PST | | results section. | + +--------+ + + + | POC GLUCOSE | Routin | 01/19/2016 | | Results for this | | | e | 9:23 PM | | procedure are in the | | | | PST | | results section. | + +--------+ + + + | PTT | Routin | 01/19/2016 | | Results for this | | | e | 5:30 PM | | procedure are in the | | | | PST | | results section. | + +--------+ + + + | POC GLUCOSE | Routin | 01/19/2016 | | Results for this | | | e | 4:29 PM | | procedure are in the | | | | PST | | results section. | + +--------+ + + + | POC GLUCOSE | Routin | 01/19/2016 | | Results for this | | | e | 11:26 AM | | procedure are in the | | | | PST | | results section. | + +--------+ + + + | POTASSIUM | Routin | 01/19/2016 | | Results for this | | | e | 9:39 AM | | procedure are in the | | | | PST | | results section. | + +--------+ + + + | PTT | Routin | 01/19/2016 | | Results for this | | | e | 9:37 AM | | procedure are in the | | | | PST | | results section. | + +--------+ + + + | POC GLUCOSE | Routin | 01/19/2016 | | Results for this | | | e | 5:56 AM | | procedure are in the | | | | PST | | results section. | + +--------+ + + + | EXTERNAL LAB: CBC | Routin | 01/19/2016 | | Results for this | | | e | 3:22 AM | | procedure are in the | | | | PST | | results section. | + +--------+ + + + | PTT | Routin | 01/19/2016 | | Results for this | | | e | 3:22 AM | | procedure are in the | | | | PST | | results section. | + +--------+ + + + | MAGNESIUM | Routin | 01/19/2016 | | Results for this | | | e | 3:22 AM | | procedure are in the | | | | PST | | results section. | + +--------+ + + + | BASIC METABOLIC | Routin | 01/19/2016 | | Results for this | | PANEL | e | 3:22 AM | | procedure are in the | | | | PST | | results section. | + +--------+ + + + | POC GLUCOSE | Routin | 01/18/2016 | | Results for this | | | e | 9:24 PM | | procedure are in the | | | | PST | | results section. | + +--------+ + + + | PTT | Routin | 01/18/2016 | | Results for this | | | e | 8:49 PM | | procedure are in the | | | | PST | | results section. | + +--------+ + + + | POC GLUCOSE | Routin | 01/18/2016 | | Results for this | | | e | 5:49 PM | | procedure are in the | | | | PST | | results section. | + +--------+ + + + | PTT | Routin | 01/18/2016 | | Results for this | | | e | 3:33 PM | | procedure are in the | | | | PST | | results section. | + +--------+ + + + | PROTIME INR | Routin | 01/18/2016 | | Results for this | | | e | 3:33 PM | | procedure are in the | | | | PST | | results section. | + +--------+ + + + | CBC NO DIFFERENTIAL | Routin | 01/18/2016 | | Results for this | | | e | 3:33 PM | | procedure are in the | | | | PST | | results section. | + +--------+ + + + | POC GLUCOSE | Routin | 01/18/2016 | | Results for this | | | e | 11:00 AM | | procedure are in the | | | | PST | | results section. | + +--------+ + + + | XR CHEST 2 VIEWS | Routin | 01/18/2016 | | Results for this | | | e | 6:48 AM | | procedure are in the | | | | PST | | results section. | + +--------+ + + + | POC GLUCOSE | Routin | 01/18/2016 | | Results for this | | | e | 6:10 AM | | procedure are in the | | | | PST | | results section. | + +--------+ + + + | EXTERNAL LAB: CBC | Routin | 01/18/2016 | | Results for this | | | e | 3:38 AM | | procedure are in the | | | | PST | | results section. | + +--------+ + + + | MAGNESIUM | Routin | 01/18/2016 | | Results for this | | | e | 3:38 AM | | procedure are in the | | | | PST | | results section. | + +--------+ + + + | BASIC METABOLIC | Routin | 01/18/2016 | | Results for this | | PANEL | e | 3:38 AM | | procedure are in the | | | | PST | | results section. | + +--------+ + + + | POC GLUCOSE | Routin | 01/18/2016 | | Results for this | | | e | 12:29 AM | | procedure are in the | | | | PST | | results section. | + +--------+ + + + | POC GLUCOSE | Routin | 01/17/2016 | | Results for this | | | e | 9:23 PM | | procedure are in the | | | | PST | | results section. | + +--------+ + + + | POC GLUCOSE | Routin | 01/17/2016 | | Results for this | | | e | 4:37 PM | | procedure are in the | | | | PST | | results section. | + +--------+ + + + | POC GLUCOSE | Routin | 01/17/2016 | | Results for this | | | e | 11:24 AM | | procedure are in the | | | | PST | | results section. | + +--------+ + + + | POC GLUCOSE | Routin | 01/17/2016 | | Results for this | | | e | 6:49 AM | | procedure are in the | | | | PST | | results section. | + +--------+ + + + | CULTURE, BLOOD, 2ND | Timed | 01/17/2016 | | Results for this | | SPECIMEN (NON-ORD) | | 6:29 AM | | procedure are in the | | | | PST | | results section. | + +--------+ + + + | XR CHEST 1 VIEW | Routin | 01/17/2016 | | Results for this | | | e | 6:10 AM | | procedure are in the | | | | PST | | results section. | + +--------+ + + + | EXTERNAL LAB: CBC | Routin | 01/17/2016 | | Results for this | | | e | 5:40 AM | | procedure are in the | | | | PST | | results section. | + +--------+ + + + | MAGNESIUM | Routin | 01/17/2016 | | Results for this | | | e | 5:40 AM | | procedure are in the | | | | PST | | results section. | + +--------+ + + + | BASIC METABOLIC | Routin | 01/17/2016 | | Results for this | | PANEL | e | 5:40 AM | | procedure are in the | | | | PST | | results section. | + +--------+ + + + | CULTURE, BLOOD | Timed | 01/17/2016 | | Results for this | | | | 4:45 AM | | procedure are in the | | | | PST | | results section. | + +--------+ + + + | POTASSIUM | Routin | 01/16/2016 | | Results for this | | | e | 10:57 PM | | procedure are in the | | | | PST | | results section. | + +--------+ + + + | MAGNESIUM | Routin | 01/16/2016 | | Results for this | | | e | 10:57 PM | | procedure are in the | | | | PST | | results section. | + +--------+ + + + | POC GLUCOSE | Routin | 01/16/2016 | | Results for this | | | e | 9:35 PM | | procedure are in the | | | | PST | | results section. | + +--------+ + + + | POC GLUCOSE | Routin | 01/16/2016 | | Results for this | | | e | 7:23 PM | | procedure are in the | | | | PST | | results section. | + +--------+ + + + | POC GLUCOSE | Routin | 01/16/2016 | | Results for this | | | e | 6:10 PM | | procedure are in the | | | | PST | | results section. | + +--------+ + + + | POC GLUCOSE | Routin | 01/16/2016 | | Results for this | | | e | 4:59 PM | | procedure are in the | | | | PST | | results section. | + +--------+ + + + | POC GLUCOSE | Routin | 01/16/2016 | | Results for this | | | e | 3:57 PM | | procedure are in the | | | | PST | | results section. | + +--------+ + + + | POC GLUCOSE | Routin | 01/16/2016 | | Results for this | | | e | 2:53 PM | | procedure are in the | | | | PST | | results section. | + +--------+ + + + | POC GLUCOSE | Routin | 01/16/2016 | | Results for this | | | e | 1:49 PM | | procedure are in the | | | | PST | | results section. | + +--------+ + + + | POC GLUCOSE | Routin | 01/16/2016 | | Results for this | | | e | 12:45 PM | | procedure are in the | | | | PST | | results section. | + +--------+ + + + | POC GLUCOSE | Routin | 01/16/2016 | | Results for this | | | e | 11:41 AM | | procedure are in the | | | | PST | | results section. | + +--------+ + + + | POC GLUCOSE | Routin | 01/16/2016 | | Results for this | | | e | 10:35 AM | | procedure are in the | | | | PST | | results section. | + +--------+ + + + | POC GLUCOSE | Routin | 01/16/2016 | | Results for this | | | e | 9:29 AM | | procedure are in the | | | | PST | | results section. | + +--------+ + + + | POC GLUCOSE | Routin | 01/16/2016 | | Results for this | | | e | 7:54 AM | | procedure are in the | | | | PST | | results section. | + +--------+ + + + | POC GLUCOSE | Routin | 01/16/2016 | | Results for this | | | e | 6:59 AM | | procedure are in the | | | | PST | | results section. | + +--------+ + + + | XR CHEST 1 VIEW | Routin | 01/16/2016 | | Results for this | | | e | 5:35 AM | | procedure are in the | | | | PST | | results section. | + +--------+ + + + | POC GLUCOSE | Routin | 01/16/2016 | | Results for this | | | e | 4:31 AM | | procedure are in the | | | | PST | | results section. | + +--------+ + + + | EXTERNAL LAB: CBC | Routin | 01/16/2016 | | Results for this | | | e | 4:30 AM | | procedure are in the | | | | PST | | results section. | + +--------+ + + + | MAGNESIUM | Routin | 01/16/2016 | | Results for this | | | e | 4:30 AM | | procedure are in the | | | | PST | | results section. | + +--------+ + + + | BASIC METABOLIC | Routin | 01/16/2016 | | Results for this | | PANEL | e | 4:30 AM | | procedure are in the | | | | PST | | results section. | + +--------+ + + + | POC GLUCOSE | Routin | 01/16/2016 | | Results for this | | | e | 2:56 AM | | procedure are in the | | | | PST | | results section. | + +--------+ + + + | POTASSIUM | Routin | 01/16/2016 | | Results for this | | | e | 12:48 AM | | procedure are in the | | | | PST | | results section. | + +--------+ + + + | POC GLUCOSE | Routin | 01/16/2016 | | Results for this | | | e | 12:46 AM | | procedure are in the | | | | PST | | results section. | + +--------+ + + + | POC GLUCOSE | Routin | 01/15/2016 | | Results for this | | | e | 11:41 PM | | procedure are in the | | | | PST | | results section. | + +--------+ + + + | POC GLUCOSE | Routin | 01/15/2016 | | Results for this | | | e | 9:41 PM | | procedure are in the | | | | PST | | results section. | + +--------+ + + + | POC GLUCOSE | Routin | 01/15/2016 | | Results for this | | | e | 8:32 PM | | procedure are in the | | | | PST | | results section. | + +--------+ + + + | POTASSIUM | Routin | 01/15/2016 | | Results for this | | | e | 8:31 PM | | procedure are in the | | | | PST | | results section. | + +--------+ + + + | MAGNESIUM | Routin | 01/15/2016 | | Results for this | | | e | 8:31 PM | | procedure are in the | | | | PST | | results section. | + +--------+ + + + | POC GLUCOSE | Routin | 01/15/2016 | | Results for this | | | e | 6:54 PM | | procedure are in the | | | | PST | | results section. | + +--------+ + + + | POC GLUCOSE | Routin | 01/15/2016 | | Results for this | | | e | 5:52 PM | | procedure are in the | | | | PST | | results section. | + +--------+ + + + | POC GLUCOSE | Routin | 01/15/2016 | | Results for this | | | e | 4:49 PM | | procedure are in the | | | | PST | | results section. | + +--------+ + + + | POTASSIUM | Routin | 01/15/2016 | | Results for this | | | e | 4:38 PM | | procedure are in the | | | | PST | | results section. | + +--------+ + + + | POC GLUCOSE | Routin | 01/15/2016 | | Results for this | | | e | 3:44 PM | | procedure are in the | | | | PST | | results section. | + +--------+ + + + | POC GLUCOSE | Routin | 01/15/2016 | | Results for this | | | e | 2:46 PM | | procedure are in the | | | | PST | | results section. | + +--------+ + + + | POC GLUCOSE | Routin | 01/15/2016 | | Results for this | | | e | 1:42 PM | | procedure are in the | | | | PST | | results section. | + +--------+ + + + | POC GLUCOSE | Routin | 01/15/2016 | | Results for this | | | e | 12:46 PM | | procedure are in the | | | | PST | | results section. | + +--------+ + + + | XR CHEST 1 VIEW | Routin | 01/15/2016 | | Results for this | | | e | 11:52 AM | | procedure are in the | | | | PST | | results section. | + +--------+ + + + | EXTERNAL LAB: CBC | Routin | 01/15/2016 | | Results for this | | | e | 11:42 AM | | procedure are in the | | | | PST | | results section. | + +--------+ + + + | PTT | Routin | 01/15/2016 | | Results for this | | | e | 11:42 AM | | procedure are in the | | | | PST | | results section. | + +--------+ + + + | PROTIME INR | Routin | 01/15/2016 | | Results for this | | | e | 11:42 AM | | procedure are in the | | | | PST | | results section. | + +--------+ + + + | FIBRINOGEN | Routin | 01/15/2016 | | Results for this | | | e | 11:42 AM | | procedure are in the | | | | PST | | results section. | + +--------+ + + + | MAGNESIUM | Routin | 01/15/2016 | | Results for this | | | e | 11:42 AM | | procedure are in the | | | | PST | | results section. | + +--------+ + + + | CALCIUM, IONIZED | Routin | 01/15/2016 | | Results for this | | | e | 11:42 AM | | procedure are in the | | | | PST | | results section. | + +--------+ + + + | BASIC METABOLIC | Routin | 01/15/2016 | | Results for this | | PANEL | e | 11:42 AM | | procedure are in the | | | | PST | | results section. | + +--------+ + + + | POC GLUCOSE | Routin | 01/15/2016 | | Results for this | | | e | 11:39 AM | | procedure are in the | | | | PST | | results section. | + +--------+ + + + | POC CG 4, ISTAT | Routin | 01/15/2016 | | Results for this | | ARTERIAL | e | 11:06 AM | | procedure are in the | | | | PST | | results section. | + +--------+ + + + | POC ISTAT, CG8, | Routin | 01/15/2016 | | Results for this | | ARTERIAL | e | 11:02 AM | | procedure are in the | | | | PST | | results section. | + +--------+ + + + | ECHO | Routin | 01/15/2016 | | Results for this | | TRANSESOPHAGEAL(DONNY) | e | 11:00 AM | | procedure are in the | | - PERIOPERATIVE | | PST | | results section. | + +--------+ + + + | SKIP FLORES, | Routin | 01/15/2016 | | Results for this | | ARTERIAL | e | 10:32 AM | | procedure are in the | | | | PST | | results section. | + +--------+ + + + | SKIP FLORES, | Routin | 01/15/2016 | | Results for this | | ARTERIAL | e | 10:00 AM | | procedure are in the | | | | PST | | results section. | + +--------+ + + + | SKIP FLORES, | Routin | 01/15/2016 | | Results for this | | ARTERIAL | e | 9:30 AM | | procedure are in the | | | | PST | | results section. | + +--------+ + + + | GINETTE BILLIESKIP TORREZ, | Routin | 01/15/2016 | | Results for this | | ARTERIAL | e | 9:07 AM | | procedure are in the | | | | PST | | results section. | + +--------+ + + + | SKIP FLORES, | Routin | 01/15/2016 | | Results for this | | ARTERIAL | e | 9:02 AM | | procedure are in the | | | | PST | | results section. | + +--------+ + + + | SKIP FLORES, | Routin | 01/15/2016 | | Results for this | | ARTERIAL | e | 8:30 AM | | procedure are in the | | | | PST | | results section. | + +--------+ + + + | POC KIMBERLEY LAU | Routin | 01/15/2016 | | Results for this | | ARTERIAL | e | 7:44 AM | | procedure are in the | | | | PST | | results section. | + +--------+ + + + | POC BILLIELORE, CG8, | Routin | 01/15/2016 | | Results for this | | ARTERIAL | e | 7:39 AM | | procedure are in the | | | | PST | | results section. | + +--------+ + + + documented in this encounter Results POC Glucose (01/22/2016 5:34 AM PDT) + + + + + + | Component | Value | Ref Range | Performed | Pathologist | | | | | At | Signature | + + + + + + | Glucose, | 112 (H)Comment: Testing | 65 - 99 mg/dL | EXTERNAL | | | Fingerstick | performed at [facility] [place] | [place] | | | | [address];[place] | | | | | | [address] | | | | + + + + + + + + | Specimen | + + | | + + + +---------+ + + | Performing | Address | City/State/Zipcode | Phone Number | | Organization | | | | + +---------+ + + | EXTERNAL LAB | | | | + +---------+ + + External Lab: CBC (01/22/2016 3:54 AM PDT) + + + + + + | Component | Value | Ref Range | Performed | Pathologist | | | | | At | Signature | + + + + + + | WBC | 8.53Comment: Testing | 3.80 - 11.00 | EXTERNAL | | | | performed at [facility], [address] | K/[address] | LAB | | | | [address], | | | | | | [place] [address] | | | | + + + + + + | RED CELL | 3.05 (L)Comment: Testing | 4.20 - 5.70 | EXTERNAL | | | COUNT | performed at [facility], [address] | [address] | LAB | | | | [address], | | | | | | [place] [address] | | | | + + + + + + | Hgb | 9.3 (L)Comment: Testing | 13.2 - 17.0 | EXTERNAL | | | | performed at [facility], [address] | g/dL | LAB | | | | [address], | | | | | | [place] [address] | | | | + + + + + + | Hematocrit, | 27.0 (L)Comment: Testing | 39.0 - 50.0 % | EXTERNAL | | | POC | performed at [facility], [address] | | LAB | | | | [address], | | | | | | [place] [address] | | | | + + + + + + | MCV | 88.8Comment: Testing | 80.0 - 100.0 fl | EXTERNAL | | | | performed at [facility], [address] | | LAB | | | | [address], | | | | | | [place] [address] | | | | + + + + + + | MCH | 30.6Comment: Testing | 27.0 - 34.0 pg | EXTERNAL | | | | performed at [facility], [address] | | LAB | | | | [address], | | | | | | [place] [address] | | | | + + + + + + | MCHC | 34.5Comment: Testing | 32.0 - 35.5 | EXTERNAL | | | | performed at [facility], [address] | g/dL | LAB | | | | [address], | | | | | | [place] [address] | | | | + + + + + + | RDW-CV | 43.3Comment: Testing | 37 - 53 fl | EXTERNAL | | | | performed at [facility], [address] | | LAB | | | | [address], | | | | | | [place] [address] | | | | + + + + + + | Platelet | 227Comment: Testing | 150 - 400 K/uL | EXTERNAL | | | Count | performed at [facility], [address] | | LAB | | | Plasma | [address], | | | | | | [place] [address] | | | | + + + + + + | MPV | 8.0Comment: Testing | fl | EXTERNAL | | | | performed at [facility], [address] | | LAB | | | | [address], | | | | | | [place] [address] | | | | + + + + + + | Differentia | AUTOMATEDComment: | | EXTERNAL | | | l Type | Testing performed at | | LAB | | | | [facility], [address] | | | | | | [place] | | | | | | [address] | | | | + + + + + + | % Segmented | 75.65Comment: Testing | % | EXTERNAL | | | | performed at [facility], [address] | | LAB | | | Neutrophils | [address], | | | | | | [place] [address] | | | | + + + + + + | % | 10.30Comment: Testing | % | EXTERNAL | | | Lymphocytes | performed at [facility], [address] | | LAB | | | | [address], | | | | | | [place] [address] | | | | + + + + + + | % Monocytes | 9.87Comment: Testing | % | EXTERNAL | | | | performed at [facility], [address] | | LAB | | | | [address], | | | | | | [place] [address] | | | | + + + + + + | % | 3.83Comment: Testing | % | EXTERNAL | | | Eosinophils | performed at [facility], [address] | | LAB | | | | [address], | | | | | | [place] [address] | | | | + + + + + + | % Basophils | 0.35Comment: Testing | % | EXTERNAL | | | | performed at [facility], [address] | | LAB | | | | [address], | | | | | | [place] [address] | | | | + + + + + + | Absolute | 6.46Comment: Testing | 1.90 - 7.40 | EXTERNAL | | | Segmented | performed at [facility], [address] | K/uL | LAB | | | Neutrophils | [address], | | | | | | [place] [address] | | | | + + + + + + | Absolute | 0.88 (L)Comment: Testing | 1.00 - 3.90 | EXTERNAL | | | Lymphocytes | performed at [facility], [address] | [address] | LAB | | | | [address], | | | | | | [place] [address] | | | | + + + + + + | Absolute | 0.84 (H)Comment: Testing | 0.00 - 0.80 | EXTERNAL | | | Monocytes | performed at [facility], [address] | [address] | LAB | | | | [address], | | | | | | [place] [address] | | | | + + + + + + | Absolute | 0.33Comment: Testing | 0.00 - 0.50 | EXTERNAL | | | Eosinophils | performed at [facility], [address] | K/uL | LAB | | | | [address], | | | | | | [place] [address] | | | | + + + + + + | Absolute | 0.03Comment: Testing | 0.00 - 0.10 | EXTERNAL | | | Basophils | performed at [facility], [address] | K/u[address] | LAB | | | | [address], | | | | | | [place] [address] | | | | + + + + + + + + | Specimen | + + | Blood specimen | | (specimen) | + + + +---------+ + + | Performing | Address | City/State/Zipcode | Phone Number | | Organization | | | | + +---------+ + + | EXTERNAL LAB | | | | + +---------+ + + Magnesium (01/22/2016 3:54 AM PDT) + + + + + + | Component | Value | Ref Range | Performed | Pathologist | | | | | At | Signature | + + + + + + | Magnesium | 1.8Comment: Testing | 1.7 - 2.4 mg/dL | EXTERNAL | | | | performed at [facility], [address] | | LAB | | | | [address], | | | | | | [place] [address] | | | | + + + + + + + + | Specimen | + + | Blood specimen | | (specimen) | + + + +---------+ + + | Performing | Address | City/State/Zipcode | Phone Number | | Organization | | | | + +---------+ + + | EXTERNAL LAB | | | | + +---------+ + + Basic Metabolic Panel (01/22/2016 3:54 AM PDT) + + + + + + | Component | Value | Ref Range | Performed | Pathologist | | | | | At | Signature | + + + + + + | Na | 133 (L)Comment: Testing | 135 - 143 | EXTERNAL | | | | performed at [facility], [address] | mmol/L | LAB | | | | [address], | | | | | | [place] [address] | | | | + + + + + + | K | 3.8Comment: Testing | 3.5 - 4.9 | EXTERNAL | | | | performed at [facility], [address] | mmol/L | LAB | | | | [address], | | | | | | [place] [address] | | | | + + + + + + | Cl | 103Comment: Testing | 99 - 109 mmol/L | EXTERNAL | | | | performed at [facility], [address] | | LAB | | | | [address], | | | | | | [place] [address] | | | | + + + + + + | CO2 | 25Comment: Testing | 23 - 32 mmol/L | EXTERNAL | | | | performed at [facility], [address] | | LAB | | | | [address], | | | | | | [place] [address] | | | | + + + + + + | Anion Gap | 9Comment: Testing | 5 - 20 mmol/L | EXTERNAL | | | | performed at [facility], [address] | | LAB | | | | [address], | | | | | | [place] [address] | | | | + + + + + + | Glucose, | 110 (H)Comment: Testing | 65 - 99 mg/dL | EXTERNAL | | | Fasting | performed at [facility], [address] | | LAB | | | | [address], | | | | | | [place] [address] | | | | + + + + + + | BUN | 21Comment: Testing | 8 - 25 mg/dL | EXTERNAL | | | | performed at [facility], [address] | | LAB | | | | [address], | | | | | | [place] [address] | | | | + + + + + + | Creatinine | 1.09Comment: Testing | 0.70 - 1.30 | EXTERNAL | | | | performed at [facility], [address] | mg/dL | LAB | | | | [address], | | | | | | [place] [address] | | | | + + + + + + | BUN/Creatin | 19Comment: Testing | | EXTERNAL | | | ine Ratio | performed at [facility], [address] | | LAB | | | | [address], | | | | | | [place] [address] | | | | + + + + + + | Calcium | 8.2 (L)Comment: Testing | 8.5 - 10.5 | EXTERNAL | | | | performed at [facility], [address] | mg/dL | LAB | | | | [address], | | | | | | [place] [address] | | | | + + + + + + | Estimated | >60Comment: GFR <60: | mL/min/1.73m2 | EXTERNAL | | | GFR | CHRONIC KIDNEY DISEASE, | | LAB | | | | IF FOUND OVER A 3 MONTH | | | | | | PERIOD.GFR <15: KIDNEY | | | | | | FAILURE.FOR | | | | | | AMERICANS, MULTIPLY THE | | | | | | CALCULATED GFR BY | | | | | | 1.210.Testing performed | | | | | | at [facility], [address] | | | | | | [address], | | | | | | [place] [address] | | | | + + + + + + + + | Specimen | + + | Blood specimen | | (specimen) | + + + +---------+ + + | Performing | Address | City/State/Zipcode | Phone Number | | Organization | | | | + +---------+ + + | EXTERNAL LAB | | | | + +---------+ + + POC Glucose (01/21/2016 9:30 PM PDT) + + + + + + | Component | Value | Ref Range | Performed | Pathologist | | | | | At | Signature | + + + + + + | Glucose, | 149 (H)Comment: Testing | 65 - 99 mg/dL | EXTERNAL | | | Fingerstick | performed at [facility] [place] | | LAB | | | | [address];[place], [place] | | | | | | [address] | | | | + + + + + + + + | Specimen | + + | | + + + +---------+ + + | Performing | Address | City/State/Zipcode | Phone Number | | Organization | | | | + +---------+ + + | EXTERNAL LAB | | | | + +---------+ + + POC Glucose (01/21/2016 4:09 PM PDT) + + + + + + | Component | Value | Ref Range | Performed | Pathologist | | | | | At | Signature | + + + + + + | Glucose, | 155 (H)Comment: Testing | 65 - 99 mg/dL | EXTERNAL | | | Fingerstick | performed at [facility] | | LAB | | | | [address];[place] | | | | | | [address] | | | | + + + + + + + + | Specimen | + + | | + + + +---------+ + + | Performing | Address | City/State/Zipcode | Phone Number | | Organization | | | | + +---------+ + + | EXTERNAL LAB | | | | + +---------+ + + Potassium (01/21/2016 3:43 PM PDT) + + + + + + | Component | Value | Ref Range | Performed | Pathologist | | | | | At | Signature | + + + + + + | K | 3.9Comment: Testing | 3.5 - 4.9 | EXTERNAL | | | | performed at [facility];[address] | mmol/L | LAB | | | | [address];[place], [place] | | | | | | [address] | | | | + + + + + + + + | Specimen | + + | Blood specimen | | (specimen) | + + + +---------+ + + | Performing | Address | City/State/Zipcode | Phone Number | | Organization | | | | + +---------+ + + | EXTERNAL LAB | | | | + +---------+ + + POC Glucose (01/21/2016 11:08 AM PDT) + + + + + + | Component | Value | Ref Range | Performed | Pathologist | | | | | At | Signature | + + + + + + | Glucose, | 134 (H)Comment: Testing | 65 - 99 mg/dL | EXTERNAL | | | Fingerstick | performed at [facility] | | LAB | | | | [address];[place], [place] | | | | | | [address] | | | | + + + + + + + + | Specimen | + + | | + + + +---------+ + + | Performing | Address | City/State/Zipcode | Phone Number | | Organization | | | | + +---------+ + + | EXTERNAL LAB | | | | + +---------+ + + Potassium (01/21/2016 9:46 AM PDT) + + + + + + | Component | Value | Ref Range | Performed | Pathologist | | | | | At | Signature | + + + + + + | K | 3.6Comment: Testing | 3.5 - 4.9 | EXTERNAL | | | | performed at [facility] | mmol/L | LAB | | | | [address];[place], [place] | | | | | | [address] | | | | + + + + + + + + | Specimen | + + | Blood specimen | | (specimen) | + + + +---------+ + + | Performing | Address | City/State/Zipcode | Phone Number | | Organization | | | | + +---------+ + + | EXTERNAL LAB | | | | + +---------+ + + POC Glucose (01/21/2016 5:34 AM PDT) + + + + + + | Component | Value | Ref Range | Performed | Pathologist | | | | | At | Signature | + + + + + + | Glucose, | 129 (H)Comment: Testing | 65 - 99 mg/dL | EXTERNAL | | | Fingerstick | performed at [facility] | | LAB | | | | [address];[place], [place] | | | | | | [address] | | | | + + + + + + + + | Specimen | + + | | + + + +---------+ + + | Performing | Address | City/State/Zipcode | Phone Number | | Organization | | | | + +---------+ + + | EXTERNAL LAB | | | | + +---------+ + + External Lab: CBC (01/21/2016 3:14 AM PDT) + + + + + + | Component | Value | Ref Range | Performed | Pathologist | | | | | At | Signature | + + + + + + | WBC | 9.95Comment: Testing | 3.80 - 11.00 | EXTERNAL | | | | performed at [facility], [address] | K/uL | LAB | | | | [address], | | | | | | [place] [address] | | | | + + + + + + | RED CELL | 3.26 (L)Comment: Testing | 4.20 - 5.70 | EXTERNAL | | | COUNT | performed at [facility], [address] | [address] | LAB | | | | [address], | | | | | | [place] [address] | | | | + + + + + + | Hgb | 10.0 (L)Comment: Testing | 13.2 - 17.0 | EXTERNAL | | | | performed at [facility], [address] | g/dL | LAB | | | | [address], | | | | | | [place] [address] | | | | + + + + + + | Hematocrit, | 29.1 (L)Comment: Testing | 39.0 - 50.0 % | EXTERNAL | | | POC | performed at [facility], [address] | | LAB | | | | [address], | | | | | | [place] [address] | | | | + + + + + + | MCV | 89.3Comment: Testing | 80.0 - 100.0 fl | EXTERNAL | | | | performed at [facility], [address] | | LAB | | | | [address], | | | | | | [place] [address] | | | | + + + + + + | MCH | 30.7Comment: Testing | 27.0 - 34.0 pg | EXTERNAL | | | | performed at [facility], [address] | | LAB | | | | [address], | | | | | | [place] [address] | | | | + + + + + + | MCHC | 34.4Comment: Testing | 32.0 - 35.5 | EXTERNAL | | | | performed at [facility], [address] | g/dL | LAB | | | | [address], | | | | | | [place] [address] | | | | + + + + + + | RDW-CV | 42.9Comment: Testing | 37 - 53 fl | EXTERNAL | | | | performed at [facility], [address] | | LAB | | | | [address], | | | | | | [place] [address] | | | | + + + + + + | Platelet | 231Comment: Testing | 150 - 400 K/uL | EXTERNAL | | | Count | performed at [facility], [address] | | LAB | | | Plasma | [address], | | | | | | [place] [address] | | | | + + + + + + | MPV | 8.4Comment: Testing | fl | EXTERNAL | | | | performed at [facility], [address] | | LAB | | | | [address], | | | | | | [place] [address] | | | | + + + + + + | Differentia | AUTOMATEDComment: | | EXTERNAL | | | l Type | Testing performed at | | LAB | | | | [facility], [address] | | | | | | [place] | | | | | | [address] | | | | + + + + + + | % Segmented | 76.97Comment: Testing | % | EXTERNAL | | | | performed at [facility], [address] | | LAB | | | Neutrophils | [address], | | | | | | [place] [address] | | | | + + + + + + | % | 8.91Comment: Testing | % | EXTERNAL | | | Lymphocytes | performed at [facility], [address] | | LAB | | | | [address], | | | | | | [place] [address] | | | | + + + + + + | % Monocytes | 10.61Comment: Testing | % | EXTERNAL | | | | performed at [facility], [address] | | LAB | | | | [address], | | | | | | [place] [address] | | | | + + + + + + | % | 3.28Comment: Testing | % | EXTERNAL | | | Eosinophils | performed at [facility], [address] | | LAB | | | | [address], | | | | | | [place] [address] | | | | + + + + + + | % Basophils | 0.23Comment: Testing | % | EXTERNAL | | | | performed at [facility], [address] | | LAB | | | [address], | | | | | | [place] [address] | | | | + + + + + + | Absolute | 7.66 (H)Comment: Testing | 1.90 - 7.40 | EXTERNAL | | | Segmented | performed at [facility], [address] | [address] | LAB | | | Neutrophils | [address], | | | | | | [place] [address] | | | | + + + + + + | Absolute | 0.89 (L)Comment: Testing | 1.00 - 3.90 | EXTERNAL | | | Lymphocytes | performed at [facility], [address] | K[address] | LAB | | | | [address], | | | | | | [place] [address] | | | | + + + + + + | Absolute | 1.06 (H)Comment: Testing | 0.00 - 0.80 | EXTERNAL | | | Monocytes | performed at [facility], [address] | [address] | LAB | | | | [address], | | | | | | [place] [address] | | | | + + + + + + | Absolute | 0.33Comment: Testing | 0.00 - 0.50 | EXTERNAL | | | Eosinophils | performed at [facility], [address] | K/[address]L | LAB | | | | [address], | | | | | | [place] [address] | | | | + + + + + + | Absolute | 0.02Comment: Testing | 0.00 - 0.10 | EXTERNAL | | | Basophils | performed at [facility], [address] | K/uL | LAB | | | | [address], | | | | | | [place] [address] | | | | + + + + + + + + | Specimen | + + | Blood specimen | | (specimen) | + + + +---------+ + + | Performing | Address | City/State/Zipcode | Phone Number | | Organization | | | | + +---------+ + + | EXTERNAL LAB | | | | + +---------+ + + Magnesium (01/21/2016 3:14 AM PDT) + + + + + + | Component | Value | Ref Range | Performed | Pathologist | | | | | At | Signature | + + + + + + | Magnesium | 1.9Comment: Testing | 1.7 - 2.4 mg/dL | EXTERNAL | | | | performed at [facility], [address] | | LAB | | | | [address], | | | | | | [place] [address] | | | | + + + + + + + + | Specimen | + + | Blood specimen | | (specimen) | + + + +---------+ + + | Performing | Address | City/State/Zipcode | Phone Number | | Organization | | | | + +---------+ + + | EXTERNAL LAB | | | | + +---------+ + + Basic Metabolic Panel (01/21/2016 3:14 AM PDT) + + + + + + | Component | Value | Ref Range | Performed | Pathologist | | | | | At | Signature | + + + + + + | Na | 132 (L)Comment: Testing | 135 - 143 | EXTERNAL | | | | performed at [facility], [address] | mmol/L | LAB | | | | [address], | | | | | | [place] [address] | | | | + + + + + + | K | 3.5Comment: Testing | 3.5 - 4.9 | EXTERNAL | | | | performed at [facility], [address] | mmol/L | LAB | | | | [address], | | | | | | [place] [address] | | | | + + + + + + | Cl | 101Comment: Testing | 99 - 109 mmol/L | EXTERNAL | | | | performed at [facility], [address] | | LAB | | | | [address], | | | | | | [place] [address] | | | | + + + + + + | CO2 | 26Comment: Testing | 23 - 32 mmol/L | EXTERNAL | | | | performed at [facility], [address] | | LAB | | | | [address], | | | | | | [place] [address] | | | | + + + + + + | Anion Gap | 9Comment: Testing | 5 - 20 mmol/L | EXTERNAL | | | | performed at [facility], [address] | | LAB | | | | [address], | | | | | | [place] [address] | | | | + + + + + + | Glucose, | 101 (H)Comment: Testing | 65 - 99 mg/dL | EXTERNAL | | | Fasting | performed at [facility], [address] | | LAB | | | | [address], | | | | | | [place] [address] | | | | + + + + + + | BUN | 23Comment: Testing | 8 - 25 mg/dL | EXTERNAL | | | | performed at [facility], [address] | | LAB | | | | [address], | | | | | | [place] [address] | | | | + + + + + + | Creatinine | 1.14Comment: Testing | 0.70 - 1.30 | EXTERNAL | | | | performed at [facility], [address] | mg/dL | LAB | | | | [address], | | | | | | [place], [place] [address] | | | | + + + + + + | BUN/Creatin | 20Comment: Testing | | EXTERNAL | | | ine Ratio | performed at [facility], [address] | | LAB | | | | [address], | | | | | | [place] [address] | | | | + + + + + + | Calcium | 8.3 (L)Comment: Testing | 8.5 - 10.5 | EXTERNAL | | | | performed at [facility], [address] | mg/dL | LAB | | | | [address], | | | | | | [place] [address] | | | | + + + + + + | Estimated | >60Comment: GFR <60: | mL/min/1.73m2 | EXTERNAL | | | GFR | CHRONIC KIDNEY DISEASE, | | LAB | | | | IF FOUND OVER A 3 MONTH | | | | | | PERIOD.GFR <15: KIDNEY | | | | | | FAILURE.FOR | | | | | | AMERICANS, MULTIPLY THE | | | | | | CALCULATED GFR BY | | | | | | 1.210.Testing performed | | | | | | at [facility], [address] | | | | | | [address], | | | | | | [place] [address] | | | | + + + + + + + + | Specimen | + + | Blood specimen | | (specimen) | + + + +---------+ + + | Performing | Address | City/State/Zipcode | Phone Number | | Organization | | | | + +---------+ + + | EXTERNAL LAB | | | | + +---------+ + + POC Glucose (01/20/2016 9:38 PM PDT) + + + + + + | Component | Value | Ref Range | Performed | Pathologist | | | | | At | Signature | + + + + + + | Glucose, | 296 (H)Comment: Testing | 65 - 99 mg/dL | EXTERNAL | | | Fingerstick | performed at [facility] | | LAB | | | | [address];[place], [place] | | | | | | [address] | | | | + + + + + + + + | Specimen | + + | | + + + +---------+ + + | Performing | Address | City/State/Zipcode | Phone Number | | Organization | | | | + +---------+ + + | EXTERNAL LAB | | | | + +---------+ + + POC Glucose (01/20/2016 9:37 PM PDT) + + + + + + | Component | Value | Ref Range | Performed | Pathologist | | | | | At | Signature | + + + + + + | Glucose, | 319 (H)Comment: Testing | 65 - 99 mg/dL | EXTERNAL | | | Fingerstick | performed at [facility] [place] | | LAB | | | | [address];[place] | | | | | | [address] | | | | + + + + + + + + | Specimen | + + | | + + + +---------+ + + | Performing | Address | City/State/Zipcode | Phone Number | | Organization | | | | + +---------+ + + | EXTERNAL LAB | | | | + +---------+ + + POC Glucose (01/20/2016 4:34 PM PDT) + + + + + + | Component | Value | Ref Range | Performed | Pathologist | | | | | At | Signature | + + + + + + | Glucose, | 188 (H)Comment: Testing | 65 - 99 mg/dL | EXTERNAL | | | Fingerstick | performed at [facility] [place] | | LAB | | | | [address];[place] | | | | | | [address] | | | | + + + + + + + + | Specimen | + + | | + + + +---------+ + + | Performing | Address | City/State/Zipcode | Phone Number | | Organization | | | | + +---------+ + + | EXTERNAL LAB | | | | + +---------+ + + PTT (01/20/2016 3:45 PM PDT) + + + + + + | Component | Value | Ref Range | Performed | Pathologist | | | | | At | Signature | + + + + + + | aPTT, | 32Comment: Testing | 23 - 32 seconds | EXTERNAL | | | Patient | performed at [facility] [place] | | LAB | | | | [address];[place] | | | | | | [address] | | | | + + + + + + + + | Specimen | + + | Blood specimen | | (specimen) | + + + +---------+ + + | Performing | Address | City/State/Zipcode | Phone Number | | Organization | | | | + +---------+ + + | EXTERNAL LAB | | | | + +---------+ + + Basic Metabolic Panel (01/20/2016 2:05 PM PDT) + + + + + + | Component | Value | Ref Range | Performed | Pathologist | | | | | At | Signature | + + + + + + | Na | 136Comment: Testing | 135 - 143 | EXTERNAL | | | | performed at [facility] [place] | mmol/L | LAB | | | | [address];[place] | | | | | | [id number] | | | | + + + + + + | K | 3.5Comment: Testing | 3.5 - 4.9 | EXTERNAL | | | | performed at [facility] [place] | mmol/L | LAB | | | | [address];[place] | | | | | | [address] | | | | + + + + + + | Cl | 101Comment: Testing | 99 - 109 mmol/L | EXTERNAL | | | | performed at [facility] | | LAB | | | | [address];[place] | | | | | | [address] | | | | + + + + + + | CO2 | 26Comment: Testing | 23 - 32 mmol/L | EXTERNAL | | | | performed at [facility] | | LAB | | | | [address];[place] | | | | | | [address] | | | | + + + + + + | Anion Gap | 12Comment: Testing | 5 - 20 mmol/L | EXTERNAL | | | | performed at [facility];[address] | | LAB | | | | [address];[place] | | | | | | [address] | | | | + + + + + + | Glucose, | 135 (H)Comment: Testing | 65 - 99 mg/dL | EXTERNAL | | | Fasting | performed at [facility];[address] | | LAB | | | | [address];[place] | | | | | | [address] | | | | + + + + + + | BUN | 23Comment: Testing | 8 - 25 mg/dL | EXTERNAL | | | | performed at [facility];[address] | | LAB | | | | [address];[place] | | | | | | [address] | | | | + + + + + + | Creatinine | 1.2Comment: Testing | 0.70 - 1.30 | EXTERNAL | | | | performed at [facility];[address] | mg/dL | LAB | | | | [address];[place] | | | | | | [address] | | | | + + + + + + | BUN/Creatin | 19Comment: Testing | | EXTERNAL | | | ine Ratio | performed at [facility];[address] | | LAB | | | | [address];[place] | | | | | | [address] | | | | + + + + + + | Calcium | 7.8 (L)Comment: Testing | 8.5 - 10.5 | EXTERNAL | | | | performed at [facility];[address] | mg/dL | LAB | | | | [address];[place] | | | | | | [address] | | | | + + + + + + | Estimated | >60Comment: GFR <60: | mL/min/1.73m2 | EXTERNAL | | | GFR | CHRONIC KIDNEY DISEASE, | | LAB | | | | IF FOUND OVER A 3 MONTH | | | | | | PERIOD.GFR <15: KIDNEY | | | | | | FAILURE.FOR | | | | | | AMERICANS, MULTIPLY THE | | | | | | CALCULATED GFR BY | | | | | | 1.210.Testing performed | | | | | | at [facility];[address] [place] [address] | | | | | | [facility];[place] [address] | | | | + + + + + + + + | Specimen | + + | Blood specimen | | (specimen) | + + + +---------+ + + | Performing | Address | City/State/Zipcode | Phone Number | | Organization | | | | + +---------+ + + | EXTERNAL LAB | | | | + +---------+ + + HISTORICAL MICROBIOLOGY RESULT (01/20/2016 12:27 PM PDT) + + | Specimen | + + | Stool specimen | | (specimen) | + + + + + | Narrative | Performed At | + + + | Toxigenic C Difficile NEGATIVE Testing | EXTERNAL LAB | | performed at [facility];[address] [place] [id number] NAP1 BI | | | 027 NAP1 BI PRESUMPTIVE NEGATIVE | | | Detection of 027 NAP1 BI strains of C. difficile is presumptive and | | | for epidemiological purposes and not intended to guide or monitor | | | treatment for C. difficile infections. Testing performed at [facility] | | | [facility];[place] [address] | | + + + + +---------+ + + | Performing | Address | City/State/Zipcode | Phone Number | | Organization | | | | + +---------+ + + | EXTERNAL LAB | | | | + +---------+ + + POC Glucose (01/20/2016 11:22 AM PDT) + + + + + + | Component | Value | Ref Range | Performed | Pathologist | | | | | At | Signature | + + + + + + | Glucose, | 161 (H)Comment: Testing | 65 - 99 mg/dL | EXTERNAL | | | Fingerstick | performed at [facility];[address] | | LAB | | | | [address];[place] | | | | | | [address] | | | | + + + + + + + + | Specimen | + + | | + + + +---------+ + + | Performing | Address | City/State/Zipcode | Phone Number | | Organization | | | | + +---------+ + + | EXTERNAL LAB | | | | + +---------+ + + PTT (01/20/2016 8:35 AM PDT) + + + + + + | Component | Value | Ref Range | Performed | Pathologist | | | | | At | Signature | + + + + + + | aPTT, | 33 (H)Comment: Testing | 23 - 32 seconds | EXTERNAL | | | Patient | performed at [facility];[address] | | LAB | | | | [address];[place], [place] | | | | | | [address] | | | | + + + + + + + + | Specimen | + + | Blood specimen | | (specimen) | + + + +---------+ + + | Performing | Address | City/State/Zipcode | Phone Number | | Organization | | | | + +---------+ + + | EXTERNAL LAB | | | | + +---------+ + + External Lab: CBC (01/20/2016 6:37 AM PDT) + + + + + + | Component | Value | Ref Range | Performed | Pathologist | | | | | At | Signature | + + + + + + | WBC | 8.33Comment: Testing | 3.80 - 11.00 | EXTERNAL | | | | performed at [facility];[address] | K/uL | LAB | | | | [address];[place] | | | | | | [address] | | | | + + + + + + | RED CELL | 3.25 (L)Comment: Testing | 4.20 - 5.70 | EXTERNAL | | | COUNT | performed at [facility];[address] | M/uL | LAB | | | | [address];[place] | | | | | | [address] | | | | + + + + + + | Hgb | 10.0 (L)Comment: Testing | 13.2 - 17.0 | EXTERNAL | | | | performed at [facility];[address] | g/dL | LAB | | | | [address];[place] | | | | | | [address] | | | | + + + + + + | Hematocrit, | 28.6 (L)Comment: Testing | 39.0 - 50.0 % | EXTERNAL | | | POC | performed at [facility];[address] | | LAB | | | | [address];[place] | | | | | | [address] | | | | + + + + + + | MCV | 88.0Comment: Testing | 80.0 - 100.0 fl | EXTERNAL | | | | performed at [facility];[address] | | LAB | | | | [address];[place] | | | | | | [address] | | | | + + + + + + | MCH | 30.9Comment: Testing | 27.0 - 34.0 pg | EXTERNAL | | | | performed at [facility];[address] | | LAB | | | | [address];[place] | | | | | | [address] | | | | + + + + + + | MCHC | 35.1Comment: Testing | 32.0 - 35.5 | EXTERNAL | | | | performed at [facility];[address] | g/dL | LAB | | | | [address];[place] | | | | | | [address] | | | | + + + + + + | RDW-CV | 43.8Comment: Testing | 37 - 53 fl | EXTERNAL | | | | performed at [facility];[address] | | LAB | | | | [address];[place] | | | | | | [address] | | | | + + + + + + | Platelet | 192Comment: Testing | 150 - 400 K/uL | EXTERNAL | | | Count | performed at [facility];[address] | | LAB | | | Plasma | [address];[place] | | | | | | [address] | | | | + + + + + + | MPV | 7.9Comment: Testing | fl | EXTERNAL | | | | performed at [facility];[address] | | LAB | | | | [address];[place] | | | | | | [address] | | | | + + + + + + | Differentia | AUTOMATEDComment: | | EXTERNAL | | | l Type | Testing performed at | | LAB | | | | [facility];[address];[place] [address] | | | | + + + + + + | % Segmented | 67.85Comment: Testing | % | EXTERNAL | | | | performed at [facility];[address] | | LAB | | | Neutrophils | [address];[place] | | | | | | [address] | | | | + + + + + + | % | 13.89Comment: Testing | % | EXTERNAL | | | Lymphocytes | performed at [facility];[address] | | LAB | | | | [address];[place] | | | | | | [address] | | | | + + + + + + | % Monocytes | 12.22Comment: Testing | % | EXTERNAL | | | | performed at [facility];[address] | | LAB | | | | [address];[place] | | | | | | [address] | | | | + + + + + + | % | 5.63Comment: Testing | % | EXTERNAL | | | Eosinophils | performed at [facility];[address] | | LAB | | | | [address];[place] | | | | | | [address] | | | | + + + + + + | % Basophils | 0.41Comment: Testing | % | EXTERNAL | | | | performed at [facility];[address] | | LAB | | | | [address];[place] | | | | | | [address] | | | | + + + + + + | Absolute | 5.65Comment: Testing | 1.90 - 7.40 | EXTERNAL | | | Segmented | performed at [facility];[address] | K/uL | LAB | | | Neutrophils | [address];[place] | | | | | | [address] | | | | + + + + + + | Absolute | 1.16Comment: Testing | 1.00 - 3.90 | EXTERNAL | | | Lymphocytes | performed at [facility];[address] | K/uL | LAB | | | | [address];[place] | | | | | | [address] | | | | + + + + + + | Absolute | 1.02 (H)Comment: Testing | 0.00 - 0.80 | EXTERNAL | | | Monocytes | performed at [facility];[address] | K/uL | LAB | | | | [address];[place] | | | | | | [address] | | | | + + + + + + | Absolute | 0.47Comment: Testing | 0.00 - 0.50 | EXTERNAL | | | Eosinophils | performed at [facility];[address] | K/uL | LAB | | | | [address];[place] | | | | | | [address] | | | | + + + + + + | Absolute | 0.03Comment: Testing | 0.00 - 0.10 | EXTERNAL | | | Basophils | performed at [facility];[address] | K/uL | LAB | | | | [address];[place] | | | | | | [address] | | | | + + + + + + + + | Specimen | + + | Blood specimen | | (specimen) | + + + +---------+ + + | Performing | Address | City/State/Zipcode | Phone Number | | Organization | | | | + +---------+ + + | EXTERNAL LAB | | | | + +---------+ + + Magnesium (01/20/2016 6:37 AM PDT) + + + + + + | Component | Value | Ref Range | Performed | Pathologist | | | | | At | Signature | + + + + + + | Magnesium | 2.0Comment: Testing | 1.7 - 2.4 mg/dL | EXTERNAL | | | | performed at [facility];8 | | LAB | | | | [address] [facility];[place], [place] | | | | | | [address] | | | | + + + + + + + + | Specimen | + + | Blood specimen | | (specimen) | + + + +---------+ + + | Performing | Address | City/State/Zipcode | Phone Number | | Organization | | | | + +---------+ + + | EXTERNAL LAB | | | | + +---------+ + + Basic Metabolic Panel (01/20/2016 6:37 AM PDT) + + + + + + | Component | Value | Ref Range | Performed | Pathologist | | | | | At | Signature | + + + + + + | Na | 135Comment: Testing | 135 - 143 | EXTERNAL | | | | performed at [facility];[address] | mmol/L | LAB | | | | [address];[place] | | | | | | [address] | | | | + + + + + + | K | 3.7Comment: Testing | 3.5 - 4.9 | EXTERNAL | | | | performed at [facility];[address] | mmol/L | LAB | | | | [address];[place] | | | | | | [address] | | | | + + + + + + | Cl | 103Comment: Testing | 99 - 109 mmol/L | EXTERNAL | | | | performed at [facility];[address] | | LAB | | | | [address];[place] | | | | | | [address] | | | | + + + + + + | CO2 | 28Comment: Testing | 23 - 32 mmol/L | EXTERNAL | | | | performed at [facility];[address] | | LAB | | | | [address];[place] | | | | | | [address] | | | | + + + + + + | Anion Gap | 8Comment: Testing | 5 - 20 mmol/L | EXTERNAL | | | | performed at [facility];[address] | | LAB | | | | [address];[place] | | | | | | [address] | | | | + + + + + + | Glucose, | 105 (H)Comment: Testing | 65 - 99 mg/dL | EXTERNAL | | | Fasting | performed at [facility];[address] | | LAB | | | | [address];[place] | | | | | | [address] | | | | + + + + + + | BUN | 23Comment: Testing | 8 - 25 mg/dL | EXTERNAL | | | | performed at [facility];[address] | | LAB | | | | [address];[place] | | | | | | [address] | | | | + + + + + + | Creatinine | 1.1Comment: Testing | 0.70 - 1.30 | EXTERNAL | | | | performed at [facility];[address] | mg/dL | LAB | | | | [address];[place] | | | | | | [address] | | | | + + + + + + | BUN/Creatin | 21Comment: Testing | | EXTERNAL | | | ine Ratio | performed at [facility];[address] | | LAB | | | | [address];[place] | | | | | | [address] | | | | + + + + + + | Calcium | 7.9 (L)Comment: Testing | 8.5 - 10.5 | EXTERNAL | | | | performed at [facility];[address] | mg/dL | LAB | | | | [address];[place] | | | | | | [address] | | | | + + + + + + | Estimated | >60Comment: GFR <60: | mL/min/1.73m2 | EXTERNAL | | | GFR | CHRONIC KIDNEY DISEASE, | | LAB | | | | IF FOUND OVER A 3 MONTH | | | | | | PERIOD.GFR <15: KIDNEY | | | | | | FAILURE.FOR | | | | | | AMERICANS, MULTIPLY THE | | | | | | CALCULATED GFR BY | | | | | | 1.210.Testing performed | | | | | | at [facility];[address];[place] [address] | | | | + + + + + + + + | Specimen | + + | Blood specimen | | (specimen) | + + + +---------+ + + | Performing | Address | City/State/Zipcode | Phone Number | | Organization | | | | + +---------+ + + | EXTERNAL LAB | | | | + +---------+ + + POC Glucose (01/20/2016 4:49 AM PDT) + + + + + + | Component | Value | Ref Range | Performed | Pathologist | | | | | At | Signature | + + + + + + | Glucose, | 119 (H)Comment: Testing | 65 - 99 mg/dL | EXTERNAL | | | Fingerstick | performed at [facility];[address] | | LAB | | | | [address];[place] | | | | | | [address] | | | | + + + + + + + + | Specimen | + + | | + + + +---------+ + + | Performing | Address | City/State/Zipcode | Phone Number | | Organization | | | | + +---------+ + + | EXTERNAL LAB | | | | + +---------+ + + PTT (01/20/2016 12:23 AM PST) + + + + + + | Component | Value | Ref Range | Performed | Pathologist | | | | | At | Signature | + + + + + + | aPTT, | 55 (H)Comment: Testing | 23 - 32 seconds | EXTERNAL | | | Patient | performed at [facility];[address] | | LAB | | | | [address];[place] | | | | | | [address] | | | | + + + + + + + + | Specimen | + + | Blood specimen | | (specimen) | + + + +---------+ + + | Performing | Address | City/State/Zipcode | Phone Number | | Organization | | | | + +---------+ + + | EXTERNAL LAB | | | | + +---------+ + + POC Glucose (01/19/2016 9:23 PM PST) + + + + + + | Component | Value | Ref Range | Performed | Pathologist | | | | | At | Signature | + + + + + + | Glucose, | 138 (H)Comment: Testing | 65 - 99 mg/dL | EXTERNAL | | | Fingerstick | performed at [facility];[address] | | LAB | | | | [address];[place] | | | | | | [address] | | | | + + + + + + + + | Specimen | + + | | + + + +---------+ + + | Performing | Address | City/State/Zipcode | Phone Number | | Organization | | | | + +---------+ + + | EXTERNAL LAB | | | | + +---------+ + + PTT (01/19/2016 5:30 PM PST) + + + + + + | Component | Value | Ref Range | Performed | Pathologist | | | | | At | Signature | + + + + + + | aPTT, | 63 (H)Comment: Testing | 23 - 32 seconds | EXTERNAL | | | Patient | performed at [facility];[address] | | LAB | | | | [address];[place], [place] | | | | | | [address] | | | | + + + + + + + + | Specimen | + + | Blood specimen | | (specimen) | + + + +---------+ + + | Performing | Address | City/State/Zipcode | Phone Number | | Organization | | | | + +---------+ + + | EXTERNAL LAB | | | | + +---------+ + + POC Glucose (01/19/2016 4:29 PM PST) + + + + + + | Component | Value | Ref Range | Performed | Pathologist | | | | | At | Signature | + + + + + + | Glucose, | 165 (H)Comment: Testing | 65 - 99 mg/dL | EXTERNAL | | | Fingerstick | performed at [facility];[address] | | LAB | | | | [address];[place] | | | | | | [address] | | | | + + + + + + + + | Specimen | + + | | + + + +---------+ + + | Performing | Address | City/State/Zipcode | Phone Number | | Organization | | | | + +---------+ + + | EXTERNAL LAB | | | | + +---------+ + + POC Glucose (01/19/2016 11:26 AM PST) + + + + + + | Component | Value | Ref Range | Performed | Pathologist | | | | | At | Signature | + + + + + + | Glucose, | 161 (H)Comment: Testing | 65 - 99 mg/dL | EXTERNAL | | | Fingerstick | performed at [facility];[address] | | LAB | | | | [address];[place] | | | | | | [address] | | | | + + + + + + + + | Specimen | + + | | + + + +---------+ + + | Performing | Address | City/State/Zipcode | Phone Number | | Organization | | | | + +---------+ + + | EXTERNAL LAB | | | | + +---------+ + + Potassium (01/19/2016 9:39 AM PST) + + + + + + | Component | Value | Ref Range | Performed | Pathologist | | | | | At | Signature | + + + + + + | K | 3.8Comment: Testing | 3.5 - 4.9 | EXTERNAL | | | | performed at [facility], [address] | mmol/L | LAB | | | | [address], | | | | | | [place] [address] | | | | + + + + + + + + | Specimen | + + | Blood specimen | | (specimen) | + + + +---------+ + + | Performing | Address | City/State/Zipcode | Phone Number | | Organization | | | | + +---------+ + + | EXTERNAL LAB | | | | + +---------+ + + PTT (01/19/2016 9:37 AM PST) + + + + + + | Component | Value | Ref Range | Performed | Pathologist | | | | | At | Signature | + + + + + + | aPTT, | 37 (H)Comment: Testing | 23 - 32 seconds | EXTERNAL | | | Patient | performed at [facility];[address] | | LAB | | | | [address];[place], [place] | | | | | | [address] | | | | + + + + + + + + | Specimen | + + | Blood specimen | | (specimen) | + + + +---------+ + + | Performing | Address | City/State/Zipcode | Phone Number | | Organization | | | | + +---------+ + + | EXTERNAL LAB | | | | + +---------+ + + POC Glucose (01/19/2016 5:56 AM PST) + + + + + + | Component | Value | Ref Range | Performed | Pathologist | | | | | At | Signature | + + + + + + | Glucose, | 132 (H)Comment: Testing | 65 - 99 mg/dL | EXTERNAL | | | Fingerstick | performed at [facility];[address] | | LAB | | | | [address];[place] | | | | | | [address] | | | | + + + + + + + + | Specimen | + + | | + + + +---------+ + + | Performing | Address | City/State/Zipcode | Phone Number | | Organization | | | | + +---------+ + + | EXTERNAL LAB | | | | + +---------+ + + PTT (01/19/2016 3:22 AM PST) + + + + + + | Component | Value | Ref Range | Performed | Pathologist | | | | | At | Signature | + + + + + + | aPTT, | 49 (H)Comment: Testing | 23 - 32 seconds | EXTERNAL | | | Patient | performed at [facility];[address] | | LAB | | | | [address];[place] | | | | | | [address] | | | | + + + + + + + + | Specimen | + + | Blood specimen | | (specimen) | + + + +---------+ + + | Performing | Address | City/State/Zipcode | Phone Number | | Organization | | | | + +---------+ + + | EXTERNAL LAB | | | | + +---------+ + + External Lab: CBC (01/19/2016 3:22 AM PST) + + + + + + | Component | Value | Ref Range | Performed | Pathologist | | | | | At | Signature | + + + + + + | WBC | 9.69Comment: Testing | 3.80 - 11.00 | EXTERNAL | | | | performed at [facility], [address] | K/uL | LAB | | | | [address], | | | | | | [place] [address] | | | | + + + + + + | RED CELL | 3.25 (L)Comment: Testing | 4.20 - 5.70 | EXTERNAL | | | COUNT | performed at [facility], [address] | M/uL | LAB | | | | [address], | | | | | | [place] [address] | | | | + + + + + + | Hgb | 10.1 (L)Comment: Testing | 13.2 - 17.0 | EXTERNAL | | | | performed at [facility], [address] | g/dL | LAB | | | | [address], | | | | | | [place] [address] | | | | + + + + + + | Hematocrit, | 29.4 (L)Comment: Testing | 39.0 - 50.0 % | EXTERNAL | | | POC | performed at [facility], [address] | | LAB | | | | [address], | | | | | | [place] [address] | | | | + + + + + + | MCV | 90.5Comment: Testing | 80.0 - 100.0 fl | EXTERNAL | | | | performed at [facility], [address] | | LAB | | | | [address], | | | | | | [place] [address] | | | | + + + + + + | MCH | 31.0Comment: Testing | 27.0 - 34.0 pg | EXTERNAL | | | | performed at [facility], [address] | | LAB | | | | [address], | | | | | | [place] [address] | | | | + + + + + + | MCHC | 34.3Comment: Testing | 32.0 - 35.5 | EXTERNAL | | | | performed at [facility], [address] | g/dL | LAB | | | | [address], | | | | | | [place] [address] | | | | + + + + + + | RDW-CV | 44.2Comment: Testing | 37 - 53 fl | EXTERNAL | | | | performed at [facility], [address] | | LAB | | | | [address], | | | | | | [place] [address] | | | | + + + + + + | Platelet | 168Comment: Testing | 150 - 400 K/uL | EXTERNAL | | | Count | performed at [facility], [address] | | LAB | | | Plasma | [address], | | | | | | [place] [address] | | | | + + + + + + | MPV | 9.0Comment: Testing | fl | EXTERNAL | | | | performed at [facility], [address] | | LAB | | | | [address], | | | | | | [place] [address] | | | | + + + + + + | Differentia | AUTOMATEDComment: | | EXTERNAL | | | l Type | Testing performed at | | LAB | | | | [facility], [address] | | | | | | [place] | | | | | | [address] | | | | + + + + + + | % Segmented | 76.92Comment: Testing | % | EXTERNAL | | | | performed at [facility], [address] | | LAB | | | Neutrophils | [address], | | | | | | [place] [address] | | | | + + + + + + | % | 7.48Comment: Testing | % | EXTERNAL | | | Lymphocytes | performed at [facility], [address] | | LAB | | | | [address], | | | | | | [place] [address] | | | | + + + + + + | % Monocytes | 14.01Comment: Testing | % | EXTERNAL | | | | performed at [facility], [address] | | LAB | | | | [address], | | | | | | [place] [address] | | | | + + + + + + | % | 1.31Comment: Testing | % | EXTERNAL | | | Eosinophils | performed at [facility], [address] | | LAB | | | [address], | | | | | | [place] [address] | | | | + + + + + + | % Basophils | 0.28Comment: Testing | % | EXTERNAL | | | | performed at [facility], [address] | | LAB | | | | [address], | | | | | | [place] [address] | | | | + + + + + + | Absolute | 7.45 (H)Comment: Testing | 1.90 - 7.40 | EXTERNAL | | | Segmented | performed at [facility], [address] | K/uL | LAB | | | Neutrophils | [address], | | | | | | [place] [address] | | | | + + + + + + | Absolute | 0.73 (L)Comment: Testing | 1.00 - 3.90 | EXTERNAL | | | Lymphocytes | performed at [facility], [address] | [address] | LAB | | | | [address], | | | | | | [place] [address] | | | | + + + + + + | Absolute | 1.36 (H)Comment: Testing | 0.00 - 0.80 | EXTERNAL | | | Monocytes | performed at [facility], [address] | [address] | LAB | | | | [address], | | | | | | [place] [address] | | | | + + + + + + | Absolute | 0.13Comment: Testing | 0.00 - 0.50 | EXTERNAL | | | Eosinophils | performed at [facility], [address] | [address] | LAB | | | [address], | | | | | | [place] [address] | | | | + + + + + + | Absolute | 0.03Comment: Testing | 0.00 - 0.10 | EXTERNAL | | | Basophils | performed at [facility], [address] | [address] | LAB | | | | [address], | | | | | | [place] [address] | | | | + + + + + + + + | Specimen | + + | Blood specimen | | (specimen) | + + + +---------+ + + | Performing | Address | City/State/Zipcode | Phone Number | | Organization | | | | + +---------+ + + | EXTERNAL LAB | | | | + +---------+ + + Magnesium (01/19/2016 3:22 AM PST) + + + + + + | Component | Value | Ref Range | Performed | Pathologist | | | | | At | Signature | + + + + + + | Magnesium | 1.9Comment: Testing | 1.7 - 2.4 mg/dL | EXTERNAL | | | | performed at [facility], [address] | | LAB | | | | [address], | | | | | | [place] [address] | | | | + + + + + + + + | Specimen | + + | Blood specimen | | (specimen) | + + + +---------+ + + | Performing | Address | City/State/Zipcode | Phone Number | | Organization | | | | + +---------+ + + | EXTERNAL LAB | | | | + +---------+ + + Basic Metabolic Panel (01/19/2016 3:22 AM PST) + + + + + + | Component | Value | Ref Range | Performed | Pathologist | | | | | At | Signature | + + + + + + | Na | 131 (L)Comment: Testing | 135 - 143 | EXTERNAL | | | | performed at [facility], [address] | mmol/L | LAB | | | | [address], | | | | | | [place] [address] | | | | + + + + + + | K | 3.6Comment: Testing | 3.5 - 4.9 | EXTERNAL | | | | performed at [facility], [address] | mmol/L | LAB | | | | [address], | | | | | | [place] [address] | | | | + + + + + + | Cl | 103Comment: Testing | 99 - 109 mmol/L | EXTERNAL | | | | performed at [facility], [address] | | LAB | | | | [address], | | | | | | [place] [address] | | | | + + + + + + | CO2 | 22 (L)Comment: Testing | 23 - 32 mmol/L | EXTERNAL | | | | performed at [facility], [address] | LAB | | | | [address], | | | | | | [place] [address] | | | | + + + + + + | Anion Gap | 10Comment: Testing | 5 - 20 mmol/L | EXTERNAL | | | | performed at [facility], [address] | | LAB | | | | [address], | | | | | | [place] [address] | | | | + + + + + + | Glucose, | 117 (H)Comment: Testing | 65 - 99 mg/dL | EXTERNAL | | | Fasting | performed at [facility], [address] | | LAB | | | | [address], | | | | | | [place] [address] | | | | + + + + + + | BUN | 26 (H)Comment: Testing | 8 - 25 mg/dL | EXTERNAL | | | | performed at [facility], [address] | | LAB | | | | [address], | | | | | | [place] [address] | | | | + + + + + + | Creatinine | 1.03Comment: Testing | 0.70 - 1.30 | EXTERNAL | | | | performed at [facility], [address] | mg/dL | LAB | | | | [address], | | | | | | [place] [address] | | | | + + + + + + | BUN/Creatin | 25Comment: Testing | | EXTERNAL | | | ine Ratio | performed at [facility], [address] | | LAB | | | | [address], | | | | | | [place] [address] | | | | + + + + + + | Calcium | 8.3 (L)Comment: Testing | 8.5 - 10.5 | EXTERNAL | | | | performed at [facility], [address] | mg/dL | LAB | | | | [address], | | | | | | [place] [address] | | | | + + + + + + | Estimated | >60Comment: GFR <60: | mL/min/1.73m2 | EXTERNAL | | | GFR | CHRONIC KIDNEY DISEASE, | | LAB | | | | IF FOUND OVER A 3 MONTH | | | | | | PERIOD.GFR <15: KIDNEY | | | | | | FAILURE.FOR | | | | | | AMERICANS, MULTIPLY THE | | | | | | CALCULATED GFR BY | | | | | | 1.210.Testing performed | | | | | | at [facility], [address] | | | | | | [facility] [address] | | | | | | [place] [address] | | | | + + + + + + + + | Specimen | + + | Blood specimen | | (specimen) | + + + +---------+ + + | Performing | Address | City/State/Zipcode | Phone Number | | Organization | | | | + +---------+ + + | EXTERNAL LAB | | | | + +---------+ + + POC Glucose (01/18/2016 9:24 PM PST) + + + + + + | Component | Value | Ref Range | Performed | Pathologist | | | | | At | Signature | + + + + + + | Glucose, | 166 (H)Comment: Testing | 65 - 99 mg/dL | EXTERNAL | | | Fingerstick | performed at [facility] | | LAB | | | | [address];[place] | | | | | | [address] | | | | + + + + + + + + | Specimen | + + | | + + + +---------+ + + | Performing | Address | City/State/Zipcode | Phone Number | | Organization | | | | + +---------+ + + | EXTERNAL LAB | | | | + +---------+ + + PTT (01/18/2016 8:49 PM PST) + + + + + + | Component | Value | Ref Range | Performed | Pathologist | | | | | At | Signature | + + + + + + | aPTT, | 36 (H)Comment: Testing | 23 - 32 seconds | EXTERNAL | | | Patient | performed at [facility];[address] | | LAB | | | | [address];[place] | | | | | | [address] | | | | + + + + + + + + | Specimen | + + | Blood specimen | | (specimen) | + + + +---------+ + + | Performing | Address | City/State/Zipcode | Phone Number | | Organization | | | | + +---------+ + + | EXTERNAL LAB | | | | + +---------+ + + POC Glucose (01/18/2016 5:49 PM PST) + + + + + + | Component | Value | Ref Range | Performed | Pathologist | | | | | At | Signature | + + + + + + | Glucose, | 137 (H)Comment: Testing | 65 - 99 mg/dL | EXTERNAL | | | Fingerstick | performed at [facility];[address] | | LAB | | | | [address];[place], [place] | | | | | | [address] | | | | + + + + + + + + | Specimen | + + | | + + + +---------+ + + | Performing | Address | City/State/Zipcode | Phone Number | | Organization | | | | + +---------+ + + | EXTERNAL LAB | | | | + +---------+ + + CBC no Differential (01/18/2016 3:33 PM PST) + + + + + + | Component | Value | Ref Range | Performed | Pathologist | | | | | At | Signature | + + + + + + | WBC | 12.47 (H)Comment: | 3.80 - 11.00 | EXTERNAL | | | | Testing performed at | K/uL | LAB | | | | [facility];[address] | | | | | | [address];[place] [address] | | | | + + + + + + | RED CELL | 3.35 (L)Comment: Testing | 4.20 - 5.70 | EXTERNAL | | | COUNT | performed at [facility];[address] | M/uL | LAB | | | | [address];[place] | | | | | | [address] | | | | + + + + + + | Hgb | 10.1 (L)Comment: Testing | 13.2 - 17.0 | EXTERNAL | | | | performed at [facility];[address] | g/dL | LAB | | | | [address];[place] | | | | | | [address] | | | | + + + + + + | Hematocrit, | 30.1 (L)Comment: Testing | 39.0 - 50.0 % | EXTERNAL | | | POC | performed at [facility];[address] | | LAB | | | | [address];[place] | | | | | | [address] | | | | + + + + + + | MCV | 89.8Comment: Testing | 80.0 - 100.0 fl | EXTERNAL | | | | performed at [facility];[address] | | LAB | | | | [address];[place] | | | | | | [address] | | | | + + + + + + | MCH | 30.2Comment: Testing | 27.0 - 34.0 pg | EXTERNAL | | | | performed at [facility];[address] | | LAB | | | | [address];[place] | | | | | | [address] | | | | + + + + + + | MCHC | 33.7Comment: Testing | 32.0 - 35.5 | EXTERNAL | | | | performed at [facility];[address] | g/dL | LAB | | | | [address];[place] | | | | | | [address] | | | | + + + + + + | RDW-CV | 43.8Comment: Testing | 37 - 53 fl | EXTERNAL | | | | performed at [facility];[address] | | LAB | | | | [address];[place] | | | | | | [address] | | | | + + + + + + | Platelet | 171Comment: Testing | 150 - 400 K/uL | EXTERNAL | | | Count | performed at [facility];[address] | | LAB | | | Plasma | [address];[place] | | | | | | [address] | | | | + + + + + + | MPV | 9.0Comment: Testing | fl | EXTERNAL | | | | performed at [facility];[address] | | LAB | | | | [address];[place] | | | | | | [address] | | | | + + + + + + + + | Specimen | + + | | + + + +---------+ + + | Performing | Address | City/State/Zipcode | Phone Number | | Organization | | | | + +---------+ + + | EXTERNAL LAB | | | | + +---------+ + + PTT (01/18/2016 3:33 PM PST) + + + + + + | Component | Value | Ref Range | Performed | Pathologist | | | | | At | Signature | + + + + + + | aPTT, | 31Comment: Testing | 23 - 32 seconds | EXTERNAL | | | Patient | performed at [facility];[address] | | LAB | | | | [address];[place], [place] | | | | | | [address] | | | | + + + + + + + + | Specimen | + + | Blood specimen | | (specimen) | + + + +---------+ + + | Performing | Address | City/State/Zipcode | Phone Number | | Organization | | | | + +---------+ + + | EXTERNAL LAB | | | | + +---------+ + + Protime INR (01/18/2016 3:33 PM PST) + + + + + + | Component | Value | Ref Range | Performed | Pathologist | | | | | At | Signature | + + + + + + | INR | 1.2Comment: REFERENCE | | EXTERNAL | | | | RANGE:0.9 - 1.2 | | LAB | | | | NON-ANTICOAGULATED2.0 | | | | | | - 3.0 ALL OTHER | | | | | | THERAPEUTIC | | | | | | INDICATIONS2.5 - 3.5 | | | | | | MECHANICAL HEART VALVES, | | | | | | RECURRENT OR SYSTEMIC | | | | | | EMBOLISMTesting | | | | | | performed at [facility];[address] | | | | | | [address] [facility];[place], [place] | | | | | | [address] | | | | + + + + + + + + | Specimen | + + | Blood specimen | | (specimen) | + + + +---------+ + + | Performing | Address | City/State/Zipcode | Phone Number | | Organization | | | | + +---------+ + + | EXTERNAL LAB | | | | + +---------+ + + POC Glucose (01/18/2016 11:00 AM PST) + + + + + + | Component | Value | Ref Range | Performed | Pathologist | | | | | At | Signature | + + + + + + | Glucose, | 150 (H)Comment: Testing | 65 - 99 mg/dL | EXTERNAL | | | Fingerstick | performed at [facility] | | LAB | | | | [address];[place], [place] | | | | | | [address] | | | | + + + + + + + + | Specimen | + + | | + + + +---------+ + + | Performing | Address | City/State/Zipcode | Phone Number | | Organization | | | | + +---------+ + + | EXTERNAL LAB | | | | + +---------+ + + XR Chest 2 Vws (01/18/2016 6:48 AM PST) + + | Specimen | + + | | + + + + + | Impressions | Performed At | + + + | 1. Left basilar mild atelectasis. Small left pleural effusion. | | | Midline sternal wires are intact. | | + + + + + + | Narrative | Performed At | + + + | FLACO RANDOLPH 1935 80 years Male XR CHEST 2 VIEW FRONTAL AND | | | LATERAL 01/18/2016 6:48 AM INDICATION: Tube and line position. | | | COMPARISON: January 17, 2016 TECHNIQUE: Two view chest, PA and | | | lateral views FINDINGS: Midline sternal wires are intact. | | | Unchanged cardiomegaly. Upper mediastinal contours are normal. | | | Mild left basilar atelectasis. Lungs are otherwise clear. No | | | pneumothorax. Small left pleural effusion. No acute osseous | | | abnormality. Degeneration of the right acromioclavicular joint. | | + + + + + | Procedure Note | + + | Tony, Rad Conversion - 06/23/2019 4:26 PM PDT FLACO [id number] years MaleXR | | CHEST 2 VIEW FRONTAL AND LATERAL01/18/2016 6:48 AM INDICATION: Tube and line position. | | COMPARISON: January 17, 2016 TECHNIQUE: Two view chest, PA and lateral views FINDINGS: | | Midline sternal wires are intact. Unchanged cardiomegaly. Upper mediastinal contours are | | normal. Mild left basilar atelectasis. Lungs are otherwise clear. No pneumothorax. | | Small left pleural effusion. No acute osseous abnormality. Degeneration of the right | | acromioclavicular joint. IMPRESSION: 1. Left basilar mild atelectasis. Small left | | pleural effusion. Midline sternal wires are intact. | | | |TECHNIQUE: Two view chest, PA and lateral views | | | |FINDINGS: | | | |Midline sternal wires are intact. Unchanged cardiomegaly. Upper mediastinal contours are no rmal. | | | |Mild left basilar atelectasis. Lungs are otherwise clear. No pneumothorax. Small left pleur al effusion. | | | |No acute osseous abnormality. Degeneration of the right acromioclavicular joint. | | | |IMPRESSION: | | | |1. Left basilar mild atelectasis. Small left pleural effusion. Midline sternal wires are in tact. | | | | | + + POC Glucose (01/18/2016 6:10 AM PST) + + + + + + | Component | Value | Ref Range | Performed | Pathologist | | | | | At | Signature | + + + + + + | Glucose, | 132 (H)Comment: Testing | 65 - 99 mg/dL | EXTERNAL | | | Fingerstick | performed at [facility];[address] | | LAB | | | | [address];[place] | | | | | | [address] | | | | + + + + + + + + | Specimen | + + | | + + + +---------+ + + | Performing | Address | City/State/Zipcode | Phone Number | | Organization | | | | + +---------+ + + | EXTERNAL LAB | | | | + +---------+ + + External Lab: CBC (01/18/2016 3:38 AM PST) + + + + + + | Component | Value | Ref Range | Performed | Pathologist | | | | | At | Signature | + + + + + + | WBC | 11.40 (H)Comment: | 3.80 - 11.00 | EXTERNAL | | | | Testing performed at | K/uL | LAB | | | | [facility], [address] | | | | | | [place] | | | | | | [address] | | | | + + + + + + | RED CELL | 3.42 (L)Comment: Testing | 4.20 - 5.70 | EXTERNAL | | | COUNT | performed at [facility], [address] | [address] | LAB | | | | [address], | | | | | | [place] [address] | | | | + + + + + + | Hgb | 10.3 (L)Comment: Testing | 13.2 - 17.0 | EXTERNAL | | | | performed at [facility], [address] | g/dL | LAB | | | | [address], | | | | | | [place] [address] | | | | + + + + + + | Hematocrit, | 30.8 (L)Comment: Testing | 39.0 - 50.0 % | EXTERNAL | | | POC | performed at [facility], [address] | | LAB | | | | [address], | | | | | | [place] [address] | | | | + + + + + + | MCV | 90.2Comment: Testing | 80.0 - 100.0 fl | EXTERNAL | | | | performed at [facility], [address] | | LAB | | | | [address], | | | | | | [place] [address] | | | | + + + + + + | MCH | 30.2Comment: Testing | 27.0 - 34.0 pg | EXTERNAL | | | | performed at [facility], [address] | | LAB | | | | [address], | | | | | | [place] [address] | | | | + + + + + + | MCHC | 33.5Comment: Testing | 32.0 - 35.5 | EXTERNAL | | | | performed at [facility], [address] | g/dL | LAB | | | | [address], | | | | | | [place] [address] | | | | + + + + + + | RDW-CV | 43.3Comment: Testing | 37 - 53 fl | EXTERNAL | | | | performed at [facility], [address] | | LAB | | | | [address], | | | | | | [place] [address] | | | | + + + + + + | Platelet | 144 (L)Comment: Testing | 150 - 400 K/uL | EXTERNAL | | | Count | performed at [facility], [address] | | LAB | | | Plasma | [address], | | | | | | [place] [address] | | | | + + + + + + | MPV | 9.3Comment: Testing | fl | EXTERNAL | | | | performed at [facility], [address] | | LAB | | | | [address], | | | | | | [place] [address] | | | | + + + + + + | Differentia | AUTOMATEDComment: | | EXTERNAL | | | l Type | Testing performed at | | LAB | | | | [facility], [address] | | | | | | [place] | | | | | | [address] | | | | + + + + + + | % Segmented | 83.84Comment: Testing | % | EXTERNAL | | | | performed at [facility], [address] | | LAB | | | Neutrophils | [address], | | | | | | [place] [address] | | | | + + + + + + | % | 7.34Comment: Testing | % | EXTERNAL | | | Lymphocytes | performed at [facility], [address] | | LAB | | | | [address], | | | | | | [place] [address] | | | | + + + + + + | % Monocytes | 7.72Comment: Testing | % | EXTERNAL | | | | performed at [facility], [address] | | LAB | | | | [address], | | | | | | [place] [address] | | | | + + + + + + | % | 0.79Comment: Testing | % | EXTERNAL | | | Eosinophils | performed at [facility], [address] | | LAB | | | | [address], | | | | | | [place] [address] | | | | + + + + + + | % Basophils | 0.31Comment: Testing | % | EXTERNAL | | | | performed at [facility], [address] | | LAB | | | | [address], | | | | | | [place] [address] | | | | + + + + + + | Absolute | 9.56 (H)Comment: Testing | 1.90 - 7.40 | EXTERNAL | | | Segmented | performed at [facility], [address] | K/uL | LAB | | | Neutrophils | [address], | | | | | | [place] [address] | | | | + + + + + + | Absolute | 0.84 (L)Comment: Testing | 1.00 - 3.90 | EXTERNAL | | | Lymphocytes | performed at [facility], [address] | K[address]L | LAB | | | | [address], | | | | | | [place] [address] | | | | + + + + + + | Absolute | 0.88 (H)Comment: Testing | 0.00 - 0.80 | EXTERNAL | | | Monocytes | performed at [facility], [address] | K[address]L | LAB | | | | [address], | | | | | | [place] [address] | | | | + + + + + + | Absolute | 0.09Comment: Testing | 0.00 - 0.50 | EXTERNAL | | | Eosinophils | performed at [facility], [address] | K[address]L | LAB | | | [address], | | | | | | [place] [address] | | | | + + + + + + | Absolute | 0.04Comment: Testing | 0.00 - 0.10 | EXTERNAL | | | Basophils | performed at [facility], [address] | K/[address]L | LAB | | | | [address], | | | | | | [place] [address] | | | | + + + + + + + + | Specimen | + + | Blood specimen | | (specimen) | + + + +---------+ + + | Performing | Address | City/State/Zipcode | Phone Number | | Organization | | | | + +---------+ + + | EXTERNAL LAB | | | | + +---------+ + + Magnesium (01/18/2016 3:38 AM PST) + + + + + + | Component | Value | Ref Range | Performed | Pathologist | | | | | At | Signature | + + + + + + | Magnesium | 2.0Comment: Testing | 1.7 - 2.4 mg/dL | EXTERNAL | | | | performed at [facility], [address] | | LAB | | | | [address], | | | | | | [place] [address] | | | | + + + + + + + + | Specimen | + + | Blood specimen | | (specimen) | + + + +---------+ + + | Performing | Address | City/State/Zipcode | Phone Number | | Organization | | | | + +---------+ + + | EXTERNAL LAB | | | | + +---------+ + + Basic Metabolic Panel (01/18/2016 3:38 AM PST) + + + + + + | Component | Value | Ref Range | Performed | Pathologist | | | | | At | Signature | + + + + + + | Na | 132 (L)Comment: Testing | 135 - 143 | EXTERNAL | | | | performed at [facility], [address] | mmol/L | LAB | | | | [address], | | | | | | [place] [address] | | | | + + + + + + | K | 3.8Comment: Testing | 3.5 - 4.9 | EXTERNAL | | | | performed at [facility], [address] | mmol/L | LAB | | | | [address], | | | | | | [place] [address] | | | | + + + + + + | Cl | 105Comment: Testing | 99 - 109 mmol/L | EXTERNAL | | | | performed at [facility], [address] | | LAB | | | | [address], | | | | | | [place] [address] | | | | + + + + + + | CO2 | 23Comment: Testing | 23 - 32 mmol/L | EXTERNAL | | | | performed at [facility], [address] | | LAB | | | | [address], | | | | | | [place] [address] | | | | + + + + + + | Anion Gap | 8Comment: Testing | 5 - 20 mmol/L | EXTERNAL | | | | performed at [facility], [address] | | LAB | | | | [address], | | | | | | [place] [address] | | | | + + + + + + | Glucose, | 120 (H)Comment: Testing | 65 - 99 mg/dL | EXTERNAL | | | Fasting | performed at [facility], [address] | | LAB | | | | [address], | | | | | | [place] [address] | | | | + + + + + + | BUN | 23Comment: Testing | 8 - 25 mg/dL | EXTERNAL | | | | performed at [facility], [address] | | LAB | | | | [address], | | | | | | [place] [address] | | | | + + + + + + | Creatinine | 1.00Comment: Testing | 0.70 - 1.30 | EXTERNAL | | | | performed at [facility], [address] | mg/dL | LAB | | | | [address], | | | | | | [place] [address] | | | | + + + + + + | BUN/Creatin | 23Comment: Testing | | EXTERNAL | | | ine Ratio | performed at [facility], [address] | | LAB | | | | [address], | | | | | | [place] [address] | | | | + + + + + + | Calcium | 8.4 (L)Comment: Testing | 8.5 - 10.5 | EXTERNAL | | | | performed at [facility], [address] | mg/dL | LAB | | | | [address], | | | | | | [place] [address] | | | | + + + + + + | Estimated | >60Comment: GFR <60: | mL/min/1.73m2 | EXTERNAL | | | GFR | CHRONIC KIDNEY DISEASE, | | LAB | | | | IF FOUND OVER A 3 MONTH | | | | | | PERIOD.GFR <15: KIDNEY | | | | | | FAILURE.FOR | | | | | | AMERICANS, MULTIPLY THE | | | | | | CALCULATED GFR BY | | | | | | 1.210.Testing performed | | | | | | at [facility], [address] | | | | | | [address], | | | | | | [place] [address] | | | | + + + + + + + + | Specimen | + + | Blood specimen | | (specimen) | + + + +---------+ + + | Performing | Address | City/State/Zipcode | Phone Number | | Organization | | | | + +---------+ + + | EXTERNAL LAB | | | | + +---------+ + + POC Glucose (01/18/2016 12:29 AM PST) + + + + + + | Component | Value | Ref Range | Performed | Pathologist | | | | | At | Signature | + + + + + + | Glucose, | 128 (H)Comment: Testing | 65 - 99 mg/dL | EXTERNAL | | | Fingerstick | performed at [facility];[address] | | LAB | | | | [address];[place] | | | | | | [address] | | | | + + + + + + + + | Specimen | + + | | + + + +---------+ + + | Performing | Address | City/State/Zipcode | Phone Number | | Organization | | | | + +---------+ + + | EXTERNAL LAB | | | | + +---------+ + + POC Glucose (01/17/2016 9:23 PM PST) + + + + + + | Component | Value | Ref Range | Performed | Pathologist | | | | | At | Signature | + + + + + + | Glucose, | 168 (H)Comment: Testing | 65 - 99 mg/dL | EXTERNAL | | | Fingerstick | performed at [facility];[address] | | LAB | | | | [address];[place] | | | | | | [address] | | | | + + + + + + + + | Specimen | + + | | + + + +---------+ + + | Performing | Address | City/State/Zipcode | Phone Number | | Organization | | | | + +---------+ + + | EXTERNAL LAB | | | | + +---------+ + + POC Glucose (01/17/2016 4:37 PM PST) + + + + + + | Component | Value | Ref Range | Performed | Pathologist | | | | | At | Signature | + + + + + + | Glucose, | 138 (H)Comment: Testing | 65 - 99 mg/dL | EXTERNAL | | | Fingerstick | performed at [facility];[address] | | LAB | | | | [address];[place], [place] | | | | | | [address] | | | | + + + + + + + + | Specimen | + + | | + + + +---------+ + + | Performing | Address | City/State/Zipcode | Phone Number | | Organization | | | | + +---------+ + + | EXTERNAL LAB | | | | + +---------+ + + POC Glucose (01/17/2016 11:24 AM PST) + + + + + + | Component | Value | Ref Range | Performed | Pathologist | | | | | At | Signature | + + + + + + | Glucose, | 165 (H)Comment: Testing | 65 - 99 mg/dL | EXTERNAL | | | Fingerstick | performed at [facility];[address] | | LAB | | | | [address];[place] | | | | | | [address] | | | | + + + + + + + + | Specimen | + + | | + + + +---------+ + + | Performing | Address | City/State/Zipcode | Phone Number | | Organization | | | | + +---------+ + + | EXTERNAL LAB | | | | + +---------+ + + POC Glucose (01/17/2016 6:49 AM PST) + + + + + + | Component | Value | Ref Range | Performed | Pathologist | | | | | At | Signature | + + + + + + | Glucose, | 118 (H)Comment: Testing | 65 - 99 mg/dL | EXTERNAL | | | Fingerstick | performed at [facility];[address] | | LAB | | | | [address];[place], [place] | | | | | | [address] | | | | + + + + + + + + | Specimen | + + | | + + + +---------+ + + | Performing | Address | City/State/Zipcode | Phone Number | | Organization | | | | + +---------+ + + | EXTERNAL LAB | | | | + +---------+ + + Culture, Blood, 2nd Specimen (01/17/2016 6:29 AM PST) + + | Specimen | + + | Blood specimen | | (specimen) | + + + + + | Narrative | Performed At | + + + | Specimen Description BLOOD, PERIPHERAL DRAW | EXTERNAL LAB | | SPECIAL REQUESTS RAC | | | Testing performed at [facility];[address] | | | [facility];[place] [address] CULTURE | | | NO GROWTH 6 DAYS | | | Testing performed at [facility], [address] [facility], | | | [place] [address] | | + + + + +---------+ + + | Performing | Address | City/State/Zipcode | Phone Number | | Organization | | | | + +---------+ + + | EXTERNAL LAB | | | | + +---------+ + + XR Chest 1 Vw (01/17/2016 6:10 AM PST) + + | Specimen | + + | | + + + + + | Impressions | Performed At | + + + | 1. Tubes and lines in expected position. 2. Bibasilar | | | atelectasis. Low lung volumes. Bilateral pulmonary vascular | | | congestion. | | | 6:35 AM | | + + + + + + | Narrative | Performed At | + + + | FLACO RANDOLPH 1935 80 years XR CHEST 1 VIEW 01/17/2016 6:10 | | | AM INDICATION: Tube and line position. COMPARISON: January 15, | | | 2015 TECHNIQUE: Chest 1 view, AP view of the chest FINDINGS: | | | Interval removal of right internal jugular introducer sheath. Left | | | chest tube in unchanged position. Midline sternal wires are intact. | | | Midline mediastinal drain in expected position. Left lower lobe | | | atelectasis/collapse. Right mild basilar atelectasis. Small left | | | pleural effusion. Low lung volumes. No acute osseous abnormality. | | | Unchanged cardiomegaly. Upper mediastinal contours are unchanged. | | | Persistent pulmonary vascular congestion. | | + + + + + | Procedure Note | + + | Tony, Rad Conversion - 06/23/2019 4:26 PM PDT [id number] yearsXR CHEST | | 1 VIEW01/17/2016 6:10 AM INDICATION: Tube and line position. COMPARISON: January 16, 2016 | | TECHNIQUE: Chest 1 view, AP view of the chest FINDINGS:Interval removal of right | | internal jugular introducer sheath. Left chest tube in unchanged position. Midline | | sternal wires are intact. Midline mediastinal drain in expected position. Left lower | | lobe atelectasis/collapse. Right mild basilar atelectasis. Small left pleural effusion. | | Low lung volumes. No acute osseous abnormality. Unchanged cardiomegaly. Upper | | mediastinal contours are unchanged. Persistent pulmonary vascular congestion. | | IMPRESSION: 1. Tubes and lines in expected position.2. Bibasilar atelectasis. Low lung | | volumes. Bilateral pulmonary vascular congestion. | | | |FINDINGS: | |Interval removal of right internal jugular introducer sheath. Left chest tube in unchanged position. Midline sternal wires are intact. Midline mediastinal drain in expected position. | | | |Left lower lobe atelectasis/collapse. Right mild basilar atelectasis. Small left pleural ef fusion. Low lung volumes. | | | |No acute osseous abnormality. Unchanged cardiomegaly. Upper mediastinal contours are unchan ged. | | | |Persistent pulmonary vascular congestion. | | | |IMPRESSION: | | | |1. Tubes and lines in expected position. | |2. Bibasilar atelectasis. Low lung volumes. Bilateral pulmonary vascular congestion. | | | | | + + External Lab: [facility] (01/17/2016 5:40 AM PST) + + + + + + | Component | Value | Ref Range | Performed | Pathologist | | | | | At | Signature | + + + + + + | WBC | 10.94Comment: Testing | 3.80 - 11.00 | EXTERNAL | | | | performed at [facility] | K/uL | LAB | | | | [address];[place] | | | | | | [address] | | | | + + + + + + | RED CELL | 3.31 (L)Comment: Testing | 4.20 - 5.70 | EXTERNAL | | | COUNT | performed at [facility] | M/uL | LAB | | | | [address];[place] | | | | | | [address] | | | | + + + + + + | Hgb | 10.2 (L)Comment: Testing | 13.2 - 17.0 | EXTERNAL | | | | performed at [facility];[address] | g/dL | LAB | | | | [address];[place] | | | | | | [address] | | | | + + + + + + | Hematocrit, | 30.0 (L)Comment: Testing | 39.0 - 50.0 % | EXTERNAL | | | POC | performed at [facility];[address] | | LAB | | | | [address];[place] | | | | | | [address] | | | | + + + + + + | MCV | 90.5Comment: Testing | 80.0 - 100.0 fl | EXTERNAL | | | | performed at [facility];[address] | | LAB | | | | [address];[place] | | | | | | [address] | | | | + + + + + + | MCH | 30.9Comment: Testing | 27.0 - 34.0 pg | EXTERNAL | | | | performed at [facility];[address] | | LAB | | | | [address];[place] | | | | | | [address] | | | | + + + + + + | MCHC | 34.1Comment: Testing | 32.0 - 35.5 | EXTERNAL | | | | performed at [facility];[address] | g/dL | LAB | | | | [address];[place] | | | | | | [address] | | | | + + + + + + | RDW-CV | 44.6Comment: Testing | 37 - 53 fl | EXTERNAL | | | | performed at [facility] | | LAB | | | | [address];[place] | | | | | | [address] | | | | + + + + + + | Platelet | 120 (L)Comment: Testing | 150 - 400 K/uL | EXTERNAL | | | Count | performed at [facility];[address] | | LAB | | | Plasma | [address];[place] | | | | | | [address] | | | | + + + + + + | MPV | 9.0Comment: Testing | fl | EXTERNAL | | | | performed at [facility];[address] | | LAB | | | | [address];[place] | | | | | | [address] | | | | + + + + + + | Differentia | AUTOMATEDComment: | | EXTERNAL | | | l Type | Testing performed at | | LAB | | | | [facility];[address];[place] [address] | | | | + + + + + + | % Segmented | 81.18Comment: Testing | % | EXTERNAL | | | | performed at [facility];[address] | | LAB | | | Neutrophils | [address];[place] | | | | | | [address] | | | | + + + + + + | % | 9.66Comment: Testing | % | EXTERNAL | | | Lymphocytes | performed at [facility];[address] | | LAB | | | | [address];[place] | | | | | | [address] | | | | + + + + + + | % Monocytes | 8.53Comment: Testing | % | EXTERNAL | | | | performed at [facility];[address] | | LAB | | | | [address];[place] | | | | | | [address] | | | | + + + + + + | % | 0.44Comment: Testing | % | EXTERNAL | | | Eosinophils | performed at [facility];[address] | | LAB | | | | [address];[place] | | | | | | [address] | | | | + + + + + + | % Basophils | 0.19Comment: Testing | % | EXTERNAL | | | | performed at [facility];[address] | | LAB | | | | [address];[place] | | | | | | [address] | | | | + + + + + + | Absolute | 8.88 (H)Comment: Testing | 1.90 - 7.40 | EXTERNAL | | | Segmented | performed at [facility];[address] | K/uL | LAB | | | Neutrophils | [address];[place] | | | | | | [address] | | | | + + + + + + | Absolute | 1.06Comment: Testing | 1.00 - 3.90 | EXTERNAL | | | Lymphocytes | performed at [facility];[address] | K/uL | LAB | | | | [address];[place] | | | | | | [address] | | | | + + + + + + | Absolute | 0.93 (H)Comment: Testing | 0.00 - 0.80 | EXTERNAL | | | Monocytes | performed at [facility];[address] | K/uL | LAB | | | | [address];[place] | | | | | | [address] | | | | + + + + + + | Absolute | 0.05Comment: Testing | 0.00 - 0.50 | EXTERNAL | | | Eosinophils | performed at [facility];[address] | K/uL | LAB | | | | [address];[place] | | | | | | [address] | | | | + + + + + + | Absolute | 0.02Comment: Testing | 0.00 - 0.10 | EXTERNAL | | | Basophils | performed at [facility];[address] | K/uL | LAB | | | | [address];[place], [place] | | | | | | [address] | | | | + + + + + + + + | Specimen | + + | Blood specimen | | (specimen) | + + + +---------+ + + | Performing | Address | City/State/Zipcode | Phone Number | | Organization | | | | + +---------+ + + | EXTERNAL LAB | | | | + +---------+ + + Magnesium (01/17/2016 5:40 AM PST) + + + + + + | Component | Value | Ref Range | Performed | Pathologist | | | | | At | Signature | + + + + + + | Magnesium | 2.3Comment: Testing | 1.7 - 2.4 mg/dL | EXTERNAL | | | | performed at [facility] | | LAB | | | | [address];[place], [place] | | | | | | [address] | | | | + + + + + + + + | Specimen | + + | Blood specimen | | (specimen) | + + + +---------+ + + | Performing | Address | City/State/Zipcode | Phone Number | | Organization | | | | + +---------+ + + | EXTERNAL LAB | | | | + +---------+ + + Basic Metabolic Panel (01/17/2016 5:40 AM PST) + + + + + + | Component | Value | Ref Range | Performed | Pathologist | | | | | At | Signature | + + + + + + | Na | 139Comment: Testing | 135 - 143 | EXTERNAL | | | | performed at [facility];[address] | mmol/L | LAB | | | | [address];[place] | | | | | | [address] | | | | + + + + + + | K | 4.1Comment: Testing | 3.5 - 4.9 | EXTERNAL | | | | performed at [facility];[address] | mmol/L | LAB | | | | [address];[place] | | | | | | [address] | | | | + + + + + + | Cl | 108Comment: Testing | 99 - 109 mmol/L | EXTERNAL | | | | performed at [facility];[address] | | LAB | | | | [address];[place] | | | | | | [address] | | | | + + + + + + | CO2 | 25Comment: Testing | 23 - 32 mmol/L | EXTERNAL | | | | performed at [facility];[address] | | LAB | | | | [address];[place] | | | | | | [address] | | | | + + + + + + | Anion Gap | 10Comment: Testing | 5 - 20 mmol/L | EXTERNAL | | | | performed at [facility];[address] | | LAB | | | | [address];[place] | | | | | | [address] | | | | + + + + + + | Glucose, | 111 (H)Comment: Testing | 65 - 99 mg/dL | EXTERNAL | | | Fasting | performed at [facility];[address] | | LAB | | | | [address];[place] | | | | | | [address] | | | | + + + + + + | BUN | 19Comment: Testing | 8 - 25 mg/dL | EXTERNAL | | | | performed at [facility];[address] | | LAB | | | | [address];[place] | | | | | | [address] | | | | + + + + + + | Creatinine | 0.95Comment: Testing | 0.70 - 1.30 | EXTERNAL | | | | performed at [facility];[address] | mg/dL | LAB | | | | [address];[place] | | | | | | [address] | | | | + + + + + + | BUN/Creatin | 20Comment: Testing | | EXTERNAL | | | ine Ratio | performed at [facility];[address] | | LAB | | | | [address];[place] | | | | | | [address] | | | | + + + + + + | Calcium | 7.5 (L)Comment: Testing | 8.5 - 10.5 | EXTERNAL | | | | performed at [facility];[address] | mg/dL | LAB | | | | [address];[place] | | | | | | [address] | | | | + + + + + + | Estimated | >60Comment: GFR <60: | mL/min/1.73m2 | EXTERNAL | | | GFR | CHRONIC KIDNEY DISEASE, | | LAB | | | | IF FOUND OVER A 3 MONTH | | | | | | PERIOD.GFR <15: KIDNEY | | | | | | FAILURE.FOR | | | | | | AMERICANS, MULTIPLY THE | | | | | | CALCULATED GFR BY | | | | | | 1.210.Testing performed | | | | | | at [facility];[address] | | | | [address];[place] [address] | | | | + + + + + + + + | Specimen | + + | Blood specimen | | (specimen) | + + + +---------+ + + | Performing | Address | City/State/Zipcode | Phone Number | | Organization | | | | + +---------+ + + | EXTERNAL LAB | | | | + +---------+ + + Culture, Blood (01/17/2016 4:45 AM PST) + + | Specimen | + + | Blood specimen | | (specimen) | + + + + + | Narrative | Performed At | + + + | Specimen Description BLOOD, LINE DRAW SPECIAL | EXTERNAL LAB | | REQUESTS R IJ | | | Testing performed at [facility];[address];[place] [address] CULTURE | | | NO GROWTH 6 DAYS | | | Testing performed at [facility], [address], [place], [place] | | | [address] | | + + + + +---------+ + + | Performing | Address | City/State/Zipcode | Phone Number | | Organization | | | | + +---------+ + + | EXTERNAL LAB | | | | + +---------+ + + Potassium (01/16/2016 10:57 PM PST) + + + + + + | Component | Value | Ref Range | Performed | Pathologist | | | | | At | Signature | + + + + + + | K | 3.9Comment: Testing | 3.5 - 4.9 | EXTERNAL | | | | performed at [facility];[address] | mmol/L | LAB | | | | [address];[place] | | | | | | [address] | | | | + + + + + + + + | Specimen | + + | Blood specimen | | (specimen) | + + + +---------+ + + | Performing | Address | City/State/Zipcode | Phone Number | | Organization | | | | + +---------+ + + | EXTERNAL LAB | | | | + +---------+ + + Magnesium (01/16/2016 10:57 PM PST) + + + + + + | Component | Value | Ref Range | Performed | Pathologist | | | | | At | Signature | + + + + + + | Magnesium | 1.8Comment: Testing | 1.7 - 2.4 mg/dL | EXTERNAL | | | | performed at [facility];[address] | | LAB | | | | [facility], [place] | | | | | | [address] | | | | + + + + + + + + | Specimen | + + | Blood specimen | | (specimen) | + + + +---------+ + + | Performing | Address | City/State/Zipcode | Phone Number | | Organization | | | | + +---------+ + + | EXTERNAL LAB | | | | + +---------+ + + POC Glucose (01/16/2016 9:35 PM PST) + + + + + + | Component | Value | Ref Range | Performed | Pathologist | | | | | At | Signature | + + + + + + | Glucose, | 230 (H)Comment: Testing | 65 - 99 mg/dL | EXTERNAL | | | Fingerstick | performed at [facility];[address] | | LAB | | | | [address];[place] | | | | | | [address] | | | | + + + + + + + + | Specimen | + + | | + + + +---------+ + + | Performing | Address | City/State/Zipcode | Phone Number | | Organization | | | | + +---------+ + + | EXTERNAL LAB | | | | + +---------+ + + POC Glucose (01/16/2016 7:23 PM PST) + + + + + + | Component | Value | Ref Range | Performed | Pathologist | | | | | At | Signature | + + + + + + | Glucose, | 157 (H)Comment: Testing | 65 - 99 mg/dL | EXTERNAL | | | Fingerstick | performed at [facility];[address] | | LAB | | | | [address];[place], [place] | | | | | | [address] | | | | + + + + + + + + | Specimen | + + | | + + + +---------+ + + | Performing | Address | City/State/Zipcode | Phone Number | | Organization | | | | + +---------+ + + | EXTERNAL LAB | | | | + +---------+ + + POC Glucose (01/16/2016 6:10 PM PST) + + + + + + | Component | Value | Ref Range | Performed | Pathologist | | | | | At | Signature | + + + + + + | Glucose, | 205 (H)Comment: Testing | 65 - 99 mg/dL | EXTERNAL | | | Fingerstick | performed at [facility];[address] | | LAB | | | | [address];[place], [place] | | | | | | [address] | | | | + + + + + + + + | Specimen | + + | | + + + +---------+ + + | Performing | Address | City/State/Zipcode | Phone Number | | Organization | | | | + +---------+ + + | EXTERNAL LAB | | | | + +---------+ + + POC Glucose (01/16/2016 4:59 PM PST) + + + + + + | Component | Value | Ref Range | Performed | Pathologist | | | | | At | Signature | + + + + + + | Glucose, | 157 (H)Comment: Testing | 65 - 99 mg/dL | EXTERNAL | | | Fingerstick | performed at [facility];[address] | | LAB | | | | [address];[place], [place] | | | | | | [address] | | | | + + + + + + + + | Specimen | + + | | + + + +---------+ + + | Performing | Address | City/State/Zipcode | Phone Number | | Organization | | | | + +---------+ + + | EXTERNAL LAB | | | | + +---------+ + + POC Glucose (01/16/2016 3:57 PM PST) + + + + + + | Component | Value | Ref Range | Performed | Pathologist | | | | | At | Signature | + + + + + + | Glucose, | 193 (H)Comment: Testing | 65 - 99 mg/dL | EXTERNAL | | | Fingerstick | performed at [facility];[address] | | LAB | | | | [address];[place] | | | | | | [address] | | | | + + + + + + + + | Specimen | + + | | + + + +---------+ + + | Performing | Address | City/State/Zipcode | Phone Number | | Organization | | | | + +---------+ + + | EXTERNAL LAB | | | | + +---------+ + + POC Glucose (01/16/2016 2:53 PM PST) + + + + + + | Component | Value | Ref Range | Performed | Pathologist | | | | | At | Signature | + + + + + + | Glucose, | 173 (H)Comment: Testing | 65 - 99 mg/dL | EXTERNAL | | | Fingerstick | performed at [facility];[address] | | LAB | | | | [address];[place], [place] | | | | | | [address] | | | | + + + + + + + + | Specimen | + + | | + + + +---------+ + + | Performing | Address | City/State/Zipcode | Phone Number | | Organization | | | | + +---------+ + + | EXTERNAL LAB | | | | + +---------+ + + POC Glucose (01/16/2016 1:49 PM PST) + + + + + + | Component | Value | Ref Range | Performed | Pathologist | | | | | At | Signature | + + + + + + | Glucose, | 136 (H)Comment: Testing | 65 - 99 mg/dL | EXTERNAL | | | Fingerstick | performed at [facility];[address] | | LAB | | | | [address];[place] | | | | | | [address] | | | | + + + + + + + + | Specimen | + + | | + + + +---------+ + + | Performing | Address | City/State/Zipcode | Phone Number | | Organization | | | | + +---------+ + + | EXTERNAL LAB | | | | + +---------+ + + POC Glucose (01/16/2016 12:45 PM PST) + + + + + + | Component | Value | Ref Range | Performed | Pathologist | | | | | At | Signature | + + + + + + | Glucose, | 158 (H)Comment: Testing | 65 - 99 mg/dL | EXTERNAL | | | Fingerstick | performed at [facility];[address] | | LAB | | | | [address];[place] | | | | | | [address] | | | | + + + + + + + + | Specimen | + + | | + + + +---------+ + + | Performing | Address | City/State/Zipcode | Phone Number | | Organization | | | | + +---------+ + + | EXTERNAL LAB | | | | + +---------+ + + POC Glucose (01/16/2016 11:41 AM PST) + + + + + + | Component | Value | Ref Range | Performed | Pathologist | | | | | At | Signature | + + + + + + | Glucose, | 144 (H)Comment: Testing | 65 - 99 mg/dL | EXTERNAL | | | Fingerstick | performed at [facility];[address] | | LAB | | | | [address];[place] | | | | | | [address] | | | | + + + + + + + + | Specimen | + + | | + + + +---------+ + + | Performing | Address | City/State/Zipcode | Phone Number | | Organization | | | | + +---------+ + + | EXTERNAL LAB | | | | + +---------+ + + POC Glucose (01/16/2016 10:35 AM PST) + + + + + + | Component | Value | Ref Range | Performed | Pathologist | | | | | At | Signature | + + + + + + | Glucose, | 199 (H)Comment: Testing | 65 - 99 mg/dL | EXTERNAL | | | Fingerstick | performed at [facility];[address] | | LAB | | | | [address];[place], [place] | | | | | | [address] | | | | + + + + + + + + | Specimen | + + | | + + + +---------+ + + | Performing | Address | City/State/Zipcode | Phone Number | | Organization | | | | + +---------+ + + | EXTERNAL LAB | | | | + +---------+ + + POC Glucose (01/16/2016 9:29 AM PST) + + + + + + | Component | Value | Ref Range | Performed | Pathologist | | | | | At | Signature | + + + + + + | Glucose, | 195 (H)Comment: Testing | 65 - 99 mg/dL | EXTERNAL | | | Fingerstick | performed at [facility];[address] | | LAB | | | | [address];[place], [place] | | | | | | [address] | | | | + + + + + + + + | Specimen | + + | | + + + +---------+ + + | Performing | Address | City/State/Zipcode | Phone Number | | Organization | | | | + +---------+ + + | EXTERNAL LAB | | | | + +---------+ + + POC Glucose (01/16/2016 7:54 AM PST) + + + + + + | Component | Value | Ref Range | Performed | Pathologist | | | | | At | Signature | + + + + + + | Glucose, | 134 (H)Comment: Testing | 65 - 99 mg/dL | EXTERNAL | | | Fingerstick | performed at [facility] | | LAB | | | | [address];[place], [place] | | | | | | [address] | | | | + + + + + + + + | Specimen | + + | | + + + +---------+ + + | Performing | Address | City/State/Zipcode | Phone Number | | Organization | | | | + +---------+ + + | EXTERNAL LAB | | | | + +---------+ + + POC Glucose (01/16/2016 6:59 AM PST) + + + + + + | Component | Value | Ref Range | Performed | Pathologist | | | | | At | Signature | + + + + + + | Glucose, | 97Comment: Testing | 65 - 99 mg/dL | EXTERNAL | | | Fingerstick | performed at [facility];[address] | | LAB | | | | [address];[place] | | | | | | [address] | | | | + + + + + + + + | Specimen | + + | | + + + +---------+ + + | Performing | Address | City/State/Zipcode | Phone Number | | Organization | | | | + +---------+ + + | EXTERNAL LAB | | | | + +---------+ + + XR Chest 1 Vw (01/16/2016 5:35 AM PST) + + | Specimen | + + | | + + + + + | Impressions | Performed At | + + + | 1. Tubes and lines in expected position. 2. Bibasilar | | | atelectasis. Persistent pulmonary vascular congestion. | | | | | + + + + + + | Narrative | Performed At | + + + | [facility] 1935 80 years XR CHEST 1 VIEW 01/16/2016 5:35 | | | AM INDICATION: Tube and line position. COMPARISON: January 14 | | | 2015 TECHNIQUE: Chest 1 view, AP view of the chest FINDINGS: | | | Right internal jugular introducer sheath in expected position. Left | | | chest tube in expected position. Midline sternal wires are intact. | | | No pneumothorax. Low lung volumes. Bibasilar atelectasis. | | | Pulmonary vascular congestion and subtle basilar interstitial edema. | | | No acute osseous abnormality. | | + + + + + | Procedure Note | + + | Tony, Rad Conversion - 06/23/2019 4:26 PM PDT [id number] yearsXR CHEST | | 1 VIEW01/16/2016 5:35 AM INDICATION: Tube and line position. COMPARISON: January 15, 2016 | | TECHNIQUE: Chest 1 view, AP view of the chest FINDINGS:Right internal jugular introducer | | sheath in expected position. Left chest tube in expected position. Midline sternal | | wires are intact. No pneumothorax. Low lung volumes. Bibasilar atelectasis. Pulmonary | | vascular congestion and subtle basilar interstitial edema. No acute osseous abnormality. | | IMPRESSION: 1. Tubes and lines in expected position.2. Bibasilar atelectasis. | | Persistent pulmonary vascular congestion. Electronically signed by Omar Dodd MD on | | 01/16/2016 7:05 AM | | | |TECHNIQUE: Chest 1 view, AP view of the chest | | | |FINDINGS: | |Right internal jugular introducer sheath in expected position. Left chest tube in expected position. Midline sternal wires are intact. | | | |No pneumothorax. Low lung volumes. Bibasilar atelectasis. | | | |Pulmonary vascular congestion and subtle basilar interstitial edema. | | | |No acute osseous abnormality. | | | |IMPRESSION: | | | |1. Tubes and lines in expected position. | |2. Bibasilar atelectasis. Persistent pulmonary vascular congestion. | | | | | + + POC Glucose (01/16/2016 4:31 AM PST) + + + + + + | Component | Value | Ref Range | Performed | Pathologist | | | | | At | Signature | + + + + + + | Glucose, | 101 (H)Comment: Testing | 65 - 99 mg/dL | EXTERNAL | | | Fingerstick | performed at [facility];[address] | | LAB | | | | [address] [facility];[place], [place] | | | | | | [address] | | | | + + + + + + + + | Specimen | + + | | + + + +---------+ + + | Performing | Address | City/State/Zipcode | Phone Number | | Organization | | | | + +---------+ + + | EXTERNAL LAB | | | | + +---------+ + + External Lab: CBC (01/16/2016 4:30 AM PST) + + + + + + | Component | Value | Ref Range | Performed | Pathologist | | | | | At | Signature | + + + + + + | WBC | 11.73 (H)Comment: | 3.80 - 11.00 | EXTERNAL | | | | Testing performed at | K/uL | LAB | | | | [facility];[address];[place] [address] | | | | + + + + + + | RED CELL | 3.34 (L)Comment: Testing | 4.20 - 5.70 | EXTERNAL | | | COUNT | performed at [facility];[address] | M/uL | LAB | | | | [address];[place] | | | | | | [address] | | | | + + + + + + | Hgb | 10.2 (L)Comment: Testing | 13.2 - 17.0 | EXTERNAL | | | | performed at [facility];[address] | g/dL | LAB | | | | [address];[place] | | | | | | [address] | | | | + + + + + + | Hematocrit, | 30.1 (L)Comment: Testing | 39.0 - 50.0 % | EXTERNAL | | | POC | performed at [facility];[address] | | LAB | | | | [address];[place] | | | | | | [address] | | | | + + + + + + | MCV | 90.3Comment: Testing | 80.0 - 100.0 fl | EXTERNAL | | | | performed at [facility];[address] | | LAB | | | | [address];[place] | | | | | | [address] | | | | + + + + + + | MCH | 30.6Comment: Testing | 27.0 - 34.0 pg | EXTERNAL | | | | performed at [facility];[address] | | LAB | | | | [address];[place] | | | | | | [address] | | | | + + + + + + | MCHC | 33.9Comment: Testing | 32.0 - 35.5 | EXTERNAL | | | | performed at [facility];[address] | g/dL | LAB | | | | [address];[place] | | | | | | [address] | | | | + + + + + + | RDW-CV | 44.6Comment: Testing | 37 - 53 fl | EXTERNAL | | | | performed at [facility];[address] | | LAB | | | | [address];[place] | | | | | | [address] | | | | + + + + + + | Platelet | 128 (L)Comment: Testing | 150 - 400 K/uL | EXTERNAL | | | Count | performed at [facility];[address] | | LAB | | | Plasma | [address];[place] | | | | | | [address] | | | | + + + + + + | MPV | 8.6Comment: Testing | fl | EXTERNAL | | | | performed at [facility];[address] | | LAB | | | | [address];[place] | | | | | | [address] | | | | + + + + + + | Differentia | AUTOMATEDComment: | | EXTERNAL | | | l Type | Testing performed at | | LAB | | | | [facility];[address];[place] [address] | | | | + + + + + + | % Segmented | 83.66Comment: Testing | % | EXTERNAL | | | | performed at [facility];[address] | | LAB | | | Neutrophils | [address];[place] | | | | | | [id number] | | | | + + + + + + | % | 8.09Comment: Testing | % | EXTERNAL | | | Lymphocytes | performed at [facility] | | LAB | | | | [address];[place] | | | | | | [address] | | | | + + + + + + | % Monocytes | 7.78Comment: Testing | % | EXTERNAL | | | | performed at [facility] | | LAB | | | | [address];[place] | | | | | | [address] | | | | + + + + + + | % | 0.13Comment: Testing | % | EXTERNAL | | | Eosinophils | performed at [facility];[address] | | LAB | | | | [address];[place] | | | | | | [address] | | | | + + + + + + | % Basophils | 0.34Comment: Testing | % | EXTERNAL | | | | performed at [facility] | | LAB | | | | [address];[place] | | | | | | [address] | | | | + + + + + + | Absolute | 9.81 (H)Comment: Testing | 1.90 - 7.40 | EXTERNAL | | | Segmented | performed at [facility];[address] | K/uL | LAB | | | Neutrophils | [address];[place] | | | | | | [address] | | | | + + + + + + | Absolute | 0.95 (L)Comment: Testing | 1.00 - 3.90 | EXTERNAL | | | Lymphocytes | performed at [facility];[address] | K[address] | LAB | | | | [address];[place] | | | | | | [address] | | | | + + + + + + | Absolute | 0.91 (H)Comment: Testing | 0.00 - 0.80 | EXTERNAL | | | Monocytes | performed at [facility];[address] | K/uL | LAB | | | | [address];[place] | | | | | | [address] | | | | + + + + + + | Absolute | 0.02Comment: Testing | 0.00 - 0.50 | EXTERNAL | | | Eosinophils | performed at [facility] | K/uL | LAB | | | | [address];[place] | | | | | | [address] | | | | + + + + + + | Absolute | 0.04Comment: Testing | 0.00 - 0.10 | EXTERNAL | | | Basophils | performed at [facility];[address] | K[address]uL | LAB | | | | [address];[place], [place] | | | | | | [address] | | | | + + + + + + + + | Specimen | + + | Blood specimen | | (specimen) | + + + +---------+ + + | Performing | Address | City/State/Zipcode | Phone Number | | Organization | | | | + +---------+ + + | EXTERNAL LAB | | | | + +---------+ + + Magnesium (01/16/2016 4:30 AM PST) + + + + + + | Component | Value | Ref Range | Performed | Pathologist | | | | | At | Signature | + + + + + + | Magnesium | 2.2Comment: Testing | 1.7 - 2.4 mg/dL | EXTERNAL | | | | performed at [facility] | | LAB | | | | [address];[place] | | | | | | [address] | | | | + + + + + + + + | Specimen | + + | Blood specimen | | (specimen) | + + + +---------+ + + | Performing | Address | City/State/Zipcode | Phone Number | | Organization | | | | + +---------+ + + | EXTERNAL LAB | | | | + +---------+ + + Basic Metabolic Panel (01/16/2016 4:30 AM PST) + + + + + + | Component | Value | Ref Range | Performed | Pathologist | | | | | At | Signature | + + + + + + | Na | 141Comment: Testing | 135 - 143 | EXTERNAL | | | | performed at [facility];[address] | mmol/L | LAB | | | | [address];[place] | | | | | | [address] | | | | + + + + + + | K | 4.7Comment: Testing | 3.5 - 4.9 | EXTERNAL | | | | performed at [facility];[address] | mmol/L | LAB | | | | [address];[place] | | | | | | [address] | | | | + + + + + + | Cl | 112 (H)Comment: Testing | 99 - 109 mmol/L | EXTERNAL | | | | performed at [facility];[address] | | LAB | | | | [address];[place] | | | | | | [address] | | | | + + + + + + | CO2 | 21 (L)Comment: Testing | 23 - 32 mmol/L | EXTERNAL | | | | performed at [facility];[address] | | LAB | | | | [address];[place] | | | | | | [address] | | | | + + + + + + | Anion Gap | 12Comment: Testing | 5 - 20 mmol/L | EXTERNAL | | | | performed at [facility];[address] | | LAB | | | | [address];[place] | | | | | | [address] | | | | + + + + + + | Glucose, | 109 (H)Comment: Testing | 65 - 99 mg/dL | EXTERNAL | | | Fasting | performed at [facility];[address] | | LAB | | | | [address];[place] | | | | | | [address] | | | | + + + + + + | BUN | 18Comment: Testing | 8 - 25 mg/dL | EXTERNAL | | | | performed at [facility];[address] | | LAB | | | | [address];[place] | | | | | | [address] | | | | + + + + + + | Creatinine | 0.93Comment: Testing | 0.70 - 1.30 | EXTERNAL | | | | performed at [facility];[address] | mg/dL | LAB | | | | [address];[place] | | | | | | [address] | | | | + + + + + + | BUN/Creatin | 19Comment: Testing | | EXTERNAL | | | ine Ratio | performed at [facility];[address] | | LAB | | | | [address];[place] | | | | | | [address] | | | | + + + + + + | Calcium | 7.7 (L)Comment: Testing | 8.5 - 10.5 | EXTERNAL | | | | performed at [facility];[address] | mg/dL | LAB | | | | [address];[place] | | | | | | [address] | | | | + + + + + + | Estimated | >60Comment: GFR <60: | mL/min/1.73m2 | EXTERNAL | | | GFR | CHRONIC KIDNEY DISEASE, | | LAB | | | | IF FOUND OVER A 3 MONTH | | | | | | PERIOD.GFR <15: KIDNEY | | | | | | FAILURE.FOR | | | | | | AMERICANS, MULTIPLY THE | | | | | | CALCULATED GFR BY | | | | | | 1.210.Testing performed | | | | | | at [facility];[address] | | | | | [address];[place] [address] | | | | + + + + + + + + | Specimen | + + | Blood specimen | | (specimen) | + + + +---------+ + + | Performing | Address | City/State/Zipcode | Phone Number | | Organization | | | | + +---------+ + + | EXTERNAL LAB | | | | + +---------+ + + POC Glucose (01/16/2016 2:56 AM PST) + + + + + + | Component | Value | Ref Range | Performed | Pathologist | | | | | At | Signature | + + + + + + | Glucose, | 120 (H)Comment: Testing | 65 - 99 mg/dL | EXTERNAL | | | Fingerstick | performed at [facility];[address] | | LAB | | | | [address];[place], [place] | | | | | | [address] | | | | + + + + + + + + | Specimen | + + | | + + + +---------+ + + | Performing | Address | City/State/Zipcode | Phone Number | | Organization | | | | + +---------+ + + | EXTERNAL LAB | | | | + +---------+ + + Potassium (01/16/2016 12:48 AM PST) + + + + + + | Component | Value | Ref Range | Performed | Pathologist | | | | | At | Signature | + + + + + + | K | 4.4Comment: Testing | 3.5 - 4.9 | EXTERNAL | | | | performed at [facility];[address] | mmol/L | LAB | | | | [address];[place] | | | | | | [address] | | | | + + + + + + + + | Specimen | + + | Blood specimen | | (specimen) | + + + +---------+ + + | Performing | Address | City/State/Zipcode | Phone Number | | Organization | | | | + +---------+ + + | EXTERNAL LAB | | | | + +---------+ + + POC Glucose (01/16/2016 12:46 AM PST) + + + + + + | Component | Value | Ref Range | Performed | Pathologist | | | | | At | Signature | + + + + + + | Glucose, | 120 (H)Comment: Testing | 65 - 99 mg/dL | EXTERNAL | | | Fingerstick | performed at [facility];[address] | | LAB | | | | [address];[place], [place] | | | | | | [address] | | | | + + + + + + + + | Specimen | + + | | + + + +---------+ + + | Performing | Address | City/State/Zipcode | Phone Number | | Organization | | | | + +---------+ + + | EXTERNAL LAB | | | | + +---------+ + + POC Glucose (01/15/2016 11:41 PM PST) + + + + + + | Component | Value | Ref Range | Performed | Pathologist | | | | | At | Signature | + + + + + + | Glucose, | 112 (H)Comment: Testing | 65 - 99 mg/dL | EXTERNAL | | | Fingerstick | performed at [facility];[address] | | LAB | | | | [address];[place] | | | | | | [address] | | | | + + + + + + + + | Specimen | + + | | + + + +---------+ + + | Performing | Address | City/State/Zipcode | Phone Number | | Organization | | | | + +---------+ + + | EXTERNAL LAB | | | | + +---------+ + + POC Glucose (01/15/2016 9:41 PM PST) + + + + + + | Component | Value | Ref Range | Performed | Pathologist | | | | | At | Signature | + + + + + + | Glucose, | 129 (H)Comment: Testing | 65 - 99 mg/dL | EXTERNAL | | | Fingerstick | performed at [facility];[address] | | LAB | | | | [address];[place], [place] | | | | | | [address] | | | | + + + + + + + + | Specimen | + + | | + + + +---------+ + + | Performing | Address | City/State/Zipcode | Phone Number | | Organization | | | | + +---------+ + + | EXTERNAL LAB | | | | + +---------+ + + POC Glucose (01/15/2016 8:32 PM PST) + + + + + + | Component | Value | Ref Range | Performed | Pathologist | | | | | At | Signature | + + + + + + | Glucose, | 144 (H)Comment: Testing | 65 - 99 mg/dL | EXTERNAL | | | Fingerstick | performed at [facility];[address] | | LAB | | | | [address];[place] | | | | | | [address] | | | | + + + + + + + + | Specimen | + + | | + + + +---------+ + + | Performing | Address | City/State/Zipcode | Phone Number | | Organization | | | | + +---------+ + + | EXTERNAL LAB | | | | + +---------+ + + Potassium (01/15/2016 8:31 PM PST) + + + + + + | Component | Value | Ref Range | Performed | Pathologist | | | | | At | Signature | + + + + + + | K | 4.7Comment: Testing | 3.5 - 4.9 | EXTERNAL | | | | performed at [facility];[address] | mmol/L | LAB | | | | [address] [facility];[place], [place] | | | | | | [address] | | | | + + + + + + + + | Specimen | + + | Blood specimen | | (specimen) | + + + +---------+ + + | Performing | Address | City/State/Zipcode | Phone Number | | Organization | | | | + +---------+ + + | EXTERNAL LAB | | | | + +---------+ + + Magnesium (01/15/2016 8:31 PM PST) + + + + + + | Component | Value | Ref Range | Performed | Pathologist | | | | | At | Signature | + + + + + + | Magnesium | 2.2Comment: Testing | 1.7 - 2.4 mg/dL | EXTERNAL | | | | performed at [facility];[address] | | LAB | | | | [address];[place] | | | | | | [address] | | | | + + + + + + + + | Specimen | + + | Blood specimen | | (specimen) | + + + +---------+ + + | Performing | Address | City/State/Zipcode | Phone Number | | Organization | | | | + +---------+ + + | EXTERNAL LAB | | | | + +---------+ + + POC Glucose (01/15/2016 6:54 PM PST) + + + + + + | Component | Value | Ref Range | Performed | Pathologist | | | | | At | Signature | + + + + + + | Glucose, | 144 (H)Comment: Testing | 65 - 99 mg/dL | EXTERNAL | | | Fingerstick | performed at [facility];[address] | | LAB | | | | [address];[place], [place] | | | | | | [address] | | | | + + + + + + + + | Specimen | + + | | + + + +---------+ + + | Performing | Address | City/State/Zipcode | Phone Number | | Organization | | | | + +---------+ + + | EXTERNAL LAB | | | | + +---------+ + + POC Glucose (01/15/2016 5:52 PM PST) + + + + + + | Component | Value | Ref Range | Performed | Pathologist | | | | | At | Signature | + + + + + + | Glucose, | 144 (H)Comment: Testing | 65 - 99 mg/dL | EXTERNAL | | | Fingerstick | performed at [facility];[address] | | LAB | | | | [address];[place] | | | | | | [address] | | | | + + + + + + + + | Specimen | + + | | + + + +---------+ + + | Performing | Address | City/State/Zipcode | Phone Number | | Organization | | | | + +---------+ + + | EXTERNAL LAB | | | | + +---------+ + + POC Glucose (01/15/2016 4:49 PM PST) + + + + + + | Component | Value | Ref Range | Performed | Pathologist | | | | | At | Signature | + + + + + + | Glucose, | 123 (H)Comment: Testing | 65 - 99 mg/dL | EXTERNAL | | | Fingerstick | performed at [facility];[address] | | LAB | | | | [address];[place] | | | | | | [address] | | | | + + + + + + + + | Specimen | + + | | + + + +---------+ + + | Performing | Address | City/State/Zipcode | Phone Number | | Organization | | | | + +---------+ + + | EXTERNAL LAB | | | | + +---------+ + + Potassium (01/15/2016 4:38 PM PST) + + + + + + | Component | Value | Ref Range | Performed | Pathologist | | | | | At | Signature | + + + + + + | K | 4.8Comment: Testing | 3.5 - 4.9 | EXTERNAL | | | | performed at [facility];[address] | mmol/L | LAB | | | | [address] [facility];[place], [place] | | | | | | [address] | | | | + + + + + + + + | Specimen | + + | Blood specimen | | (specimen) | + + + +---------+ + + | Performing | Address | City/State/Zipcode | Phone Number | | Organization | | | | + +---------+ + + | EXTERNAL LAB | | | | + +---------+ + + POC Glucose (01/15/2016 3:44 PM PST) + + + + + + | Component | Value | Ref Range | Performed | Pathologist | | | | | At | Signature | + + + + + + | Glucose, | 121 (H)Comment: Testing | 65 - 99 mg/dL | EXTERNAL | | | Fingerstick | performed at [facility];[address] | | LAB | | | | [address];[place], [place] | | | | | | [address] | | | | + + + + + + + + | Specimen | + + | | + + + +---------+ + + | Performing | Address | City/State/Zipcode | Phone Number | | Organization | | | | + +---------+ + + | EXTERNAL LAB | | | | + +---------+ + + POC Glucose (01/15/2016 2:46 PM PST) + + + + + + | Component | Value | Ref Range | Performed | Pathologist | | | | | At | Signature | + + + + + + | Glucose, | 152 (H)Comment: Testing | 65 - 99 mg/dL | EXTERNAL | | | Fingerstick | performed at [facility];[address] | | LAB | | | | [address];[place] | | | | | | [address] | | | | + + + + + + + + | Specimen | + + | | + + + +---------+ + + | Performing | Address | City/State/Zipcode | Phone Number | | Organization | | | | + +---------+ + + | EXTERNAL LAB | | | | + +---------+ + + POC Glucose (01/15/2016 1:42 PM PST) + + + + + + | Component | Value | Ref Range | Performed | Pathologist | | | | | At | Signature | + + + + + + | Glucose, | 137 (H)Comment: Testing | 65 - 99 mg/dL | EXTERNAL | | | Fingerstick | performed at [facility];[address] | | LAB | | | | [address];[place], [place] | | | | | | [address] | | | | + + + + + + + + | Specimen | + + | | + + + +---------+ + + | Performing | Address | City/State/Zipcode | Phone Number | | Organization | | | | + +---------+ + + | EXTERNAL LAB | | | | + +---------+ + + POC Glucose (01/15/2016 12:46 PM PST) + + + + + + | Component | Value | Ref Range | Performed | Pathologist | | | | | At | Signature | + + + + + + | Glucose, | 145 (H)Comment: Testing | 65 - 99 mg/dL | EXTERNAL | | | Fingerstick | performed at [facility];[address] | | LAB | | | | [address];[place] | | | | | | [address] | | | | + + + + + + + + | Specimen | + + | | + + + +---------+ + + | Performing | Address | City/State/Zipcode | Phone Number | | Organization | | | | + +---------+ + + | EXTERNAL LAB | | | | + +---------+ + + XR Chest 1 Vw (01/15/2016 11:52 AM PST) + + | Specimen | + + | | + + + + + | Impressions | Performed At | + + + | 1. Recurrent mild cardiac enlargement similar to 01/08/16, not | | | seen on 01/10/16. 2. Pulmonary venous congestion with subtle | | | central interstitial edema. 3. Subtle left effusion. 4. ET tube | | | could be advanced approximately 2 cm. 5. Gordon-Jeannette catheter could | | | be advanced approximately 5 cm. 6. Above findings were called to | | | the ICU at 12:15 PM date of study, and discussed with the patient's | | | nurse Elisha. Electronically signed by Tawanda Matson MD on | | | 01/15/2016 12:19 PM | | + + + + + + | Narrative | Performed At | + + + | HISTORY: Evaluate tubes and lines. COMPARISON: 01/10/16. | | | TECHNIQUE: AP portable film of the chest at 1135 hours FINDINGS: | | | Heart size is now mildly enlarged. Pulmonary venous congestion. | | | Median sternotomy. Low lung volumes. Midline mediastinal drain and | | | left lateral lower chest tube. ET tube tip 8.1 cm above the boy. | | | This could be advanced approximately 2 cm proximal positioning. | | | Right IJ sheath. Gordon-Jeannette catheter with tip in the main pulmonary | | | artery. No pneumothorax. | | + + + + + | Procedure Note | + + | Tony, Rad Conversion - 06/23/2019 4:26 PM PDT HISTORY:Evaluate tubes and lines. | | COMPARISON:01/10/16. TECHNIQUE:AP portable film of the chest at 1135 hours | | FINDINGS:Heart size is now mildly enlarged. Pulmonary venous congestion. Median | | sternotomy. Low lung volumes. Midline mediastinal drain and left lateral lower chest | | tube. ET tube tip 8.1 cm above the boy. This could be advanced approximately 2 cm | | proximal positioning. Right IJ sheath. Gordon-Jeannette catheter with tip in the main pulmonary | | artery. No pneumothorax. IMPRESSION: 1. Recurrent mild cardiac enlargement similar to | | 01/08/16, not seen on 03/03/16.2. Pulmonary venous congestion with subtle central | | interstitial edema.3. Subtle left effusion.4. ET tube could be advanced approximately | | 2 cm.5. Gordon-Jeannette catheter could be advanced approximately 5 cm.6. Above findings were | | called to the ICU at 12:15 PM date of study, and discussed with the patient's nurse | | Elisha. | | | |IMPRESSION: | |1. Recurrent mild cardiac enlargement similar to 01/08/16, not seen on 01/10/16. | |2. Pulmonary venous congestion with subtle central interstitial edema. | |3. Subtle left effusion. | |4. ET tube could be advanced approximately 2 cm. | |5. Gordon-Jeannette catheter could be advanced approximately 5 cm. | |6. Above findings were called to the ICU at 12:15 PM date of study, and discussed with the patient's nurse Elisha. | | | | | + + PTT (01/15/2016 11:42 AM PST) + + + + + + | Component | Value | Ref Range | Performed | Pathologist | | | | | At | Signature | + + + + + + | aPTT, | 34 (H)Comment: Testing | 23 - 32 seconds | EXTERNAL | | | Patient | performed at [facility];[address] | | LAB | | | | [address];[place], [place] | | | | | | [address] | | | | + + + + + + + + | Specimen | + + | Blood specimen | | (specimen) | + + + +---------+ + + | Performing | Address | City/State/Zipcode | Phone Number | | Organization | | | | + +---------+ + + | EXTERNAL LAB | | | | + +---------+ + + Protime INR (01/15/2016 11:42 AM PST) + + + + + + | Component | Value | Ref Range | Performed | Pathologist | | | | | At | Signature | + + + + + + | INR | 1.3Comment: REFERENCE | | EXTERNAL | | | | RANGE:0.9 - 1.2 | | LAB | | | | NON-ANTICOAGULATED2.0 | | | | | | - 3.0 ALL OTHER | | | | | | THERAPEUTIC | | | | | | INDICATIONS2.5 - 3.5 | | | | | | MECHANICAL HEART VALVES, | | | | | | RECURRENT OR SYSTEMIC | | | | | | EMBOLISMTesting | | | | | | performed at [facility] | | | | | | [address];[place], [place] | | | | | | [address] | | | | + + + + + + + + | Specimen | + + | Blood specimen | | (specimen) | + + + +---------+ + + | Performing | Address | City/State/Zipcode | Phone Number | | Organization | | | | + +---------+ + + | EXTERNAL LAB | | | | + +---------+ + + Fibrinogen (01/15/2016 11:42 AM PST) + + + + + + | Component | Value | Ref Range | Performed | Pathologist | | | | | At | Signature | + + + + + + | Fibrinogen | 169 (L)Comment: Testing | 200 - 450 mg/dL | EXTERNAL | | | | performed at [facility];[address] | | LAB | | | | [address];[place], [place] | | | | | | [address] | | | | + + + + + + + + | Specimen | + + | Blood specimen | | (specimen) | + + + +---------+ + + | Performing | Address | City/State/Zipcode | Phone Number | | Organization | | | | + +---------+ + + | EXTERNAL LAB | | | | + +---------+ + + External Lab: CBC (01/15/2016 11:42 AM PST) + + + + + + | Component | Value | Ref Range | Performed | Pathologist | | | | | At | Signature | + + + + + + | WBC | 19.63 (H)Comment: | 3.80 - 11.00 | EXTERNAL | | | | Testing performed at | K/uL | LAB | | | | [facility];[address];[place] [address] | | | | + + + + + + | RED CELL | 3.43 (L)Comment: Testing | 4.20 - 5.70 | EXTERNAL | | | COUNT | performed at [facility];[address] | M/uL | LAB | | | | [address];[place] | | | | | | [address] | | | | + + + + + + | Hgb | 10.8 (L)Comment: Testing | 13.2 - 17.0 | EXTERNAL | | | | performed at [facility];[address] | g/dL | LAB | | | | [address];[place] | | | | | | [address] | | | | + + + + + + | Hematocrit, | 30.5 (L)Comment: Testing | 39.0 - 50.0 % | EXTERNAL | | | POC | performed at [facility];[address] | | LAB | | | | [address];[place] | | | | | | [address] | | | | + + + + + + | MCV | 88.8Comment: Testing | 80.0 - 100.0 fl | EXTERNAL | | | | performed at [facility];[address] | | LAB | | | | [address];[place] | | | | | | [address] | | | | + + + + + + | MCH | 31.5Comment: Testing | 27.0 - 34.0 pg | EXTERNAL | | | | performed at [facility];[address] | | LAB | | | | [address];[place] | | | | | | [address] | | | | + + + + + + | MCHC | 35.4Comment: Testing | 32.0 - 35.5 | EXTERNAL | | | | performed at [facility];[address] | g/dL | LAB | | | | [address];[place] | | | | | | [address] | | | | + + + + + + | RDW-CV | 42.9Comment: Testing | 37 - 53 fl | EXTERNAL | | | | performed at [facility];[address] | | LAB | | | | [address];[place] | | | | | | [address] | | | | + + + + + + | Platelet | 135 (L)Comment: Testing | 150 - 400 K/uL | EXTERNAL | | | Count | performed at [facility];[address] | | LAB | | | Plasma | [address];[place] | | | | | | [address] | | | | + + + + + + | MPV | 8.2Comment: Testing | fl | EXTERNAL | | | | performed at [facility];[address] | | LAB | | | | [address];[place] | | | | | | [address] | | | | + + + + + + | Differentia | AUTOMATEDComment: | | EXTERNAL | | | l Type | Testing performed at | | LAB | | | | [facility];[address];[place] [address] | | | | + + + + + + | % Segmented | 84.25Comment: Testing | % | EXTERNAL | | | | performed at [facility];[address] | | LAB | | | Neutrophils | [address];[place] | | | | | | [address] | | | | + + + + + + | % | 8.67Comment: Testing | % | EXTERNAL | | | Lymphocytes | performed at [facility];[address] | | LAB | | | | [address];[place] | | | | | | [address] | | | | + + + + + + | % Monocytes | 5.16Comment: Testing | % | EXTERNAL | | | | performed at [facility];[address] | | LAB | | | | [address];[place] | | | | | | [address] | | | | + + + + + + | % | 1.73Comment: Testing | % | EXTERNAL | | | Eosinophils | performed at [facility];[address] | | LAB | | | | [address];[place] | | | | | | [address] | | | | + + + + + + | % Basophils | 0.19Comment: Testing | % | EXTERNAL | | | | performed at [facility];[address] | | LAB | | | | [address];[place] | | | | | | [address] | | | | + + + + + + | Absolute | 16.54 (H)Comment: | 1.90 - 7.40 | EXTERNAL | | | Segmented | Testing performed at | K/uL | LAB | | | Neutrophils | [facility];[address];[place] [address] | | | | + + + + + + | Absolute | 1.70Comment: Testing | 1.00 - 3.90 | EXTERNAL | | | Lymphocytes | performed at [facility];[address] | K/uL | LAB | | | | [address];[place] | | | | | | [address] | | | | + + + + + + | Absolute | 1.01 (H)Comment: Testing | 0.00 - 0.80 | EXTERNAL | | | Monocytes | performed at [facility];[address] | K/uL | LAB | | | | [address];[place] | | | | | | [address] | | | | + + + + + + | Absolute | 0.34Comment: Testing | 0.00 - 0.50 | EXTERNAL | | | Eosinophils | performed at [facility];[address] | K/uL | LAB | | | | [address];[place] | | | | | | [address] | | | | + + + + + + | Absolute | 0.04Comment: Testing | 0.00 - 0.10 | EXTERNAL | | | Basophils | performed at [facility];[address] | K/uL | LAB | | | | [address];[place], [place] | | | | | | [address] | | | | + + + + + + + + | Specimen | + + | Blood specimen | | (specimen) | + + + +---------+ + + | Performing | Address | City/State/Zipcode | Phone Number | | Organization | | | | + +---------+ + + | EXTERNAL LAB | | | | + +---------+ + + Magnesium (01/15/2016 11:42 AM PST) + + + + + + | Component | Value | Ref Range | Performed | Pathologist | | | | | At | Signature | + + + + + + | Magnesium | 2.5 (H)Comment: SLT | 1.7 - 2.4 mg/dL | EXTERNAL | | | | HEMOLYSISTesting | | LAB | | | | [place] [facility] [place] | | | | | | [address];[place], [place] | | | | | | [id number] | | | | + + + + + + + + | Specimen | + + | Blood specimen | | (specimen) | + + + +---------+ + + | Performing | Address | City/State/Zipcode | Phone Number | | Organization | | | | + +---------+ + + | EXTERNAL LAB | | | | + +---------+ + + Calcium, Ionized (01/15/2016 11:42 AM PST) + + + + + + | Component | Value | Ref Range | Performed | Pathologist | | | | | At | Signature | + + + + + + | Calcium | 1.15Comment: Testing | 1.08 - 1.25 | EXTERNAL | | | (Calc) | performed at [facility] [place] | mmol/L | LAB | | | | [address];[place], [place] | | | | | | [address] | | | | + + + + + + | pH, Bld | 7.343Comment: Testing | 7.300 - 7.450 | EXTERNAL | | | | performed at [facility] [place] | | LAB | | | | [address];[place], [place] | | | | | | [address] | | | | + + + + + + + + | Specimen | + + | Blood specimen | | (specimen) | + + + +---------+ + + | Performing | Address | City/State/Zipcode | Phone Number | | Organization | | | | + +---------+ + + | EXTERNAL LAB | | | | + +---------+ + + Basic Metabolic Panel (01/15/2016 11:42 AM PST) + + + + + + | Component | Value | Ref Range | Performed | Pathologist | | | | | At | Signature | + + + + + + | Na | 141Comment: Testing | 135 - 143 | EXTERNAL | | | | performed at [facility] | mmol/L | LAB | | | | [address];[place] | | | | | | [address] | | | | + + + + + + | K | 4.3Comment: SLT | 3.5 - 4.9 | EXTERNAL | | | | HEMOLYSISTesting | mmol/L | LAB | | | | performed at [facility];[address] | | | | | | [address];[place] | | | | | | [address] | | | | + + + + + + | Cl | 109Comment: Testing | 99 - 109 mmol/L | EXTERNAL | | | | performed at [facility];[address] | | LAB | | | | [address];[place] | | | | | | [address] | | | | + + + + + + | CO2 | 23Comment: Testing | 23 - 32 mmol/L | EXTERNAL | | | | performed at [facility];[address] | | LAB | | | | [address];[place] | | | | | | [address] | | | | + + + + + + | Anion Gap | 13Comment: Testing | 5 - 20 mmol/L | EXTERNAL | | | | performed at [facility];[address] | | LAB | | | | [address];[place] | | | | | | [address] | | | | + + + + + + | Glucose, | 156 (H)Comment: Testing | 65 - 99 mg/dL | EXTERNAL | | | Fasting | performed at [facility];[address] | | LAB | | | | [address];[place] | | | | | | [address] | | | | + + + + + + | BUN | 19Comment: Testing | 8 - 25 mg/dL | EXTERNAL | | | | performed at [facility];[address] | | LAB | | | | [address];[place] | | | | | | [address] | | | | + + + + + + | Creatinine | 1.1Comment: Testing | 0.70 - 1.30 | EXTERNAL | | | | performed at [facility];[address] | mg/dL | LAB | | | | [address];[place] | | | | | | [address] | | | | + + + + + + | BUN/Creatin | 17Comment: Testing | | EXTERNAL | | | ine Ratio | performed at [facility];[address] | | LAB | | | | [address];[place] | | | | | | [address] | | | | + + + + + + | Calcium | 7.4 (L)Comment: Testing | 8.5 - 10.5 | EXTERNAL | | | | performed at [facility];[address] | mg/dL | LAB | | | | [address];[place] | | | | | | [address] | | | | + + + + + + | Estimated | >60Comment: GFR <60: | mL/min/1.73m2 | EXTERNAL | | | GFR | CHRONIC KIDNEY DISEASE, | | LAB | | | | IF FOUND OVER A 3 MONTH | | | | | | PERIOD.GFR <15: KIDNEY | | | | | | FAILURE.FOR | | | | | | AMERICANS, MULTIPLY THE | | | | | | CALCULATED GFR BY | | | | | | 1.210.Testing performed | | | | | | at [facility];[address] [facility] | | | | | | [address];[place] [address] | | | | + + + + + + + + | Specimen | + + | Blood specimen | | (specimen) | + + + +---------+ + + | Performing | Address | City/State/Zipcode | Phone Number | | Organization | | | | + +---------+ + + | EXTERNAL LAB | | | | + +---------+ + + POC Glucose (01/15/2016 11:39 AM PST) + + + + + + | Component | Value | Ref Range | Performed | Pathologist | | | | | At | Signature | + + + + + + | Glucose, | 171 (H)Comment: Testing | 65 - 99 mg/dL | EXTERNAL | | | Fingerstick | performed at [facility];[address] | | LAB | | | | [address];[place] | | | | | | [address] | | | | + + + + + + + + | Specimen | + + | | + + + +---------+ + + | Performing | Address | City/State/Zipcode | Phone Number | | Organization | | | | + +---------+ + + | EXTERNAL LAB | | | | + +---------+ + + POC CG 4, ISTAT Arterial (01/15/2016 11:06 AM PST) + + + + + + | Component | Value | Ref Range | Performed | Pathologist | | | | | At | Signature | + + + + + + | PH ART | 7.342 (L)Comment: | 7.350 - 7.450 | EXTERNAL | | | | Testing performed at | | LAB | | | | [facility];[address] [place] [address] | | | | | | Blvd;[place] [address] | | | | + + + + + + | PCO2 ART | 37Comment: Testing | 35 - 45 mmHg | EXTERNAL | | | | performed at [facility];[address] | | LAB | | | | [address];[place] | | | | | | [address] | | | | + + + + + + | PO2 ART | 167 (H)Comment: Testing | 80 - 105 mmHg | EXTERNAL | | | | performed at [facility];[address] | | LAB | | | | [address];[place] | | | | | | [address] | | | | + + + + + + | Lactate, | 3.5 (H)Comment: Testing | 0.36 - 1.25 | EXTERNAL | | | Arterial | performed at [facility];[address] | mmol/L | LAB | | | | [address];[place] | | | | | | [address] | | | | + + + + + + | HCO3 ART | 20 (L)Comment: Testing | 22 - 26 mmol/L | EXTERNAL | | | | performed at [facility];[address] | | LAB | | | | [address];[place] | | | | | | [address] | | | | + + + + + + | POC | 21 (L)Comment: Testing | 23 - 27 mEq/L | EXTERNAL | | | APPEARANCE | performed at [facility];[address] | | LAB | | | UA | [address];[place] | | | | | | [address] | | | | + + + + + + | Base | 6 (H)Comment: Testing | 0.0 - 2.0 | EXTERNAL | | | deficit | performed at [facility];[address] | mmol/L | LAB | | | | [address];[place] | | | | | | [address] | | | | + + + + + + | O2 SAT ART | 99 (H)Comment: Testing | 95 - 98 % | EXTERNAL | | | | performed at [facility];[address] | | LAB | | | | [address];[place], [place] | | | | | | [address] | | | | + + + + + + + + | Specimen | + + | | + + + +---------+ + + | Performing | Address | City/State/Zipcode | Phone Number | | Organization | | | | + +---------+ + + | EXTERNAL LAB | | | | + +---------+ + + GINETTE CHU CG8, Arterial (01/15/2016 11:02 AM PST) + + + + + + | Component | Value | Ref Range | Performed | Pathologist | | | | | At | Signature | + + + + + + | PH ART | 7.333 (L)Comment: | 7.350 - 7.450 | EXTERNAL | | | | Testing performed at | | LAB | | | | [facility];[address] | | | | [address];[place] [address] | | | | + + + + + + | PCO2 ART | 41Comment: Testing | 35 - 45 mmHg | EXTERNAL | | | | performed at [facility];[address] | | LAB | | | | [address];[place] | | | | | | [address] | | | | + + + + + + | PO2 ART | 171 (H)Comment: Testing | 80 - 105 mmHg | EXTERNAL | | | | performed at [facility];[address] | | LAB | | | | [address];[place] | | | | | | [address] | | | | + + + + + + | HCO3 ART | 22Comment: Testing | 22 - 26 mmol/L | EXTERNAL | | | | performed at [facility];[address] | | LAB | | | | [address];[place] | | | | | | [address] | | | | + + + + + + | POC | 23Comment: Testing | 23 - 27 mEq/L | EXTERNAL | | | APPEARANCE | performed at [facility];[address] | | LAB | | | UA | [address];[place] | | | | | | [address] | | | | + + + + + + | Base | 4 (H)Comment: Testing | 0.0 - 2.0 | EXTERNAL | | | deficit | performed at [facility];[address] | mmol/L | LAB | | | | [address];[place] | | | | | | [address] | | | | + + + + + + | O2 SAT ART | 99 (H)Comment: Testing | 95 - 98 % | EXTERNAL | | | | performed at [facility];[address] | | LAB | | | | [address];[place] | | | | | | [address] | | | | + + + + + + | Sodium, POC | 136Comment: Testing | 135 - 145 mEq/L | EXTERNAL | | | | performed at [facility];[address] | | LAB | | | | [address];[place] | | | | | | [address] | | | | + + + + + + | Potassium, | 4.5Comment: Testing | 3.5 - 5.0 mEq/L | EXTERNAL | | | POC | performed at [facility];[address] | | LAB | | | | [address];[place] | | | | | | [address] | | | | + + + + + + | Ionized | 1.34 (H)Comment: Testing | 1.12 - 1.32 | EXTERNAL | | | Calcium, | performed at [facility];[address] | mmol/L | LAB | | | POC | [address];[place] | | | | | | [address] | | | | + + + + + + | Glucose, | 205 (H)Comment: Testing | 65 - 99 mg/dL | EXTERNAL | | | POC | performed at [facility];[address] | | LAB | | | | [address];[place] | | | | | | [address] | | | | + + + + + + | Hematocrit, | 23 (LL)Comment: Testing | 40.0 - 50.0 % | EXTERNAL | | | POC | performed at [facility];[address] | | LAB | | | | [address];[place] | | | | | | [address] | | | | + + + + + + | Hemoglobin, | 7.8 (LL)Comment: Testing | 13.7 - 16.7 | EXTERNAL | | | POC | performed at [facility];[address] | g/dL | LAB | | | | [address];[place] | | | | | | [address] | | | | + + + + + + + + | Specimen | + + | | + + + +---------+ + + | Performing | Address | City/State/Zipcode | Phone Number | | Organization | | | | + +---------+ + + | EXTERNAL LAB | | | | + +---------+ + + ECHO Transesophageal (DONNY) - Periop (01/15/2016 11:00 AM PST) + + | Specimen | + + | | + + + + + | Impressions | Performed At | + + + | 1. Mild LV dysfunction with EF 50 - 60%. 2. , with no significant | | | mitral regurgitation. | | + + + + + + | Narrative | Performed At | + + + | Patient Name: FLACO RANDOLPH Date of : 1935 | | | Performing Physician: Ziyad Osorio | | | | | | INDICATIONS cabg CONCLUSIONS 1. Mild | | | LV dysfunction with EF 50 - 60%. 2. , with no significant mitral | | | regurgitation. FINDINGS -------- [no group]: Mild LV dysfunction | | | with EF 50 - 60%. [no group]: , with no significant mitral | | | regurgitation. [no group]: Technically limited study. Unable to | | | visualize LV adequately. Left Ventricle: POst bypass LV function | | | unchanged Right Ventricle: The right ventricle is normal in size and | | | function. Left Atrium: The left atrium is normal in size. Right | | | Atrium: The right atrium is normal in size. Aortic Valve: The aortic | | | valve is trileaflet and appears structurally normal. Mitral Valve: | | | Mild mitral regurgitation is present. Tricuspid Valve: Trace | | | tricuspid regurgitation present. Pulmonic Valve: The pulmonic valve | | | is normal. Pulmonic Valve: The pulmonic valve was not well | | | visualized. Aorta: Non complex (< 4mm), atherosclerotic plaque(s) | | | located in the descending aorta. MEASUREMENTS | | | Radio Communication Coordinator: Authenticated by: Ziyad Neal Date/Time: | | | 01-15-2016 14:29:10 | | + + + + + | Procedure Note | + + | Roshan Jimenez Conversion - 06/23/2019 4:26 PM PDT | | Patient Name: FLACO RANDOLPH | | Date of : 1935 | | | | | | | | Performing Physician: Ziyad Osorio | | | | INDICATIONS | | | | cabg | | | | CONCLUSIONS | | | | 1. Mild LV dysfunction with EF 50 - 60%. | | 2. , with no significant mitral regurgitation. | | | | FINDINGS | | -------- | | [no group]: Mild LV dysfunction with EF 50 - 60%. | | [no group]: , with no significant mitral regurgitation. | | [no group]: Technically limited study. Unable to visualize LV adequately. | | Left Ventricle: POst bypass LV function unchanged | | Right Ventricle: The right ventricle is normal in size and function. | | Left Atrium: The left atrium is normal in size. | | Right Atrium: The right atrium is normal in size. | | Aortic Valve: The aortic valve is trileaflet and appears structurally normal. | | Mitral Valve: Mild mitral regurgitation is present. | | Tricuspid Valve: Trace tricuspid regurgitation present. | | Pulmonic Valve: The pulmonic valve is normal. | | Pulmonic Valve: The pulmonic valve was not well visualized. | | Aorta: Non complex (< 4mm), atherosclerotic plaque(s) located in the descending aorta. | | | | MEASUREMENTS | | | | | | Radio Communication Coordinator: | | Authenticated by: Ziyad Osorio | | Report Date/Time: 01-15-2016 14:29:10 | | | | IMPRESSION: | | 1. Mild LV dysfunction with EF 50 - 60%. | | 2. , with no significant mitral regurgitation. | + + POC KIMBERLEY, CG8, Arterial (01/15/2016 10:32 AM PST) + + + + + + | Component | Value | Ref Range | Performed | Pathologist | | | | | At | Signature | + + + + + + | PH ART | 7.428Comment: Testing | 7.350 - 7.450 | EXTERNAL | | | | performed at [facility];[address] | | LAB | | | | [facility];[place], [place] | | | | | | [address] | | | | + + + + + + | PCO2 ART | 35Comment: Testing | 35 - 45 mmHg | EXTERNAL | | | | performed at [facility];[address] | | LAB | | | | [address];[place] | | | | | | [address] | | | | + + + + + + | PO2 ART | 103Comment: Testing | 80 - 105 mmHg | EXTERNAL | | | | performed at [facility];[address] | | LAB | | | | [address];[place] | | | | | | [address] | | | | + + + + + + | HCO3 ART | 23Comment: Testing | 22 - 26 mmol/L | EXTERNAL | | | | performed at [facility];[address] | | LAB | | | | [address];[place] | | | | | | [address] | | | | + + + + + + | POC | 24Comment: Testing | 23 - 27 mEq/L | EXTERNAL | | | APPEARANCE | performed at [facility];[address] | | LAB | | | UA | [address];[place] | | | | | | [address] | | | | + + + + + + | Base | 1Comment: Testing | 0.0 - 2.0 | EXTERNAL | | | deficit | performed at [facility];[address] | mmol/L | LAB | | | | [address];[place] | | | | | | [address] | | | | + + + + + + | O2 SAT ART | 98Comment: Testing | 95 - 98 % | EXTERNAL | | | | performed at [facility];[address] | | LAB | | | | [address];[place] | | | | | | [address] | | | | + + + + + + | Sodium, POC | 135Comment: Testing | 135 - 145 mEq/L | EXTERNAL | | | | performed at [facility];[address] | | LAB | | | | [address];[place] | | | | | | [address] | | | | + + + + + + | Potassium, | 6.2 (H)Comment: Testing | 3.5 - 5.0 mEq/L | EXTERNAL | | | POC | performed at [facility];[address] | | LAB | | | | [address];[place] | | | | | | [address] | | | | + + + + + + | Ionized | 1.13Comment: Testing | 1.12 - 1.32 | EXTERNAL | | | Calcium, | performed at [facility];[address] | mmol/L | LAB | | | POC | [address];[place] | | | | | | [address] | | | | + + + + + + | Glucose, | 198 (H)Comment: Testing | 65 - 99 mg/dL | EXTERNAL | | | POC | performed at [facility];[address] | | LAB | | | | [address];[place] | | | | | | [address] | | | | + + + + + + | Hematocrit, | 26 (L)Comment: Testing | 40.0 - 50.0 % | EXTERNAL | | | POC | performed at [facility];[address] | | LAB | | | | [address];[place] | | | | | | [address] | | | | + + + + + + | Hemoglobin, | 8.8 (L)Comment: Testing | 13.7 - 16.7 | EXTERNAL | | | POC | performed at [facility];[address] | g/dL | LAB | | | | [address];[place] | | | | | | [address] | | | | + + + + + + + + | Specimen | + + | | + + + +---------+ + + | Performing | Address | City/State/Zipcode | Phone Number | | Organization | | | | + +---------+ + + | EXTERNAL LAB | | | | + +---------+ + + POC ISTAT, CG8, Arterial (01/15/2016 10:00 AM PST) + + + + + + | Component | Value | Ref Range | Performed | Pathologist | | | | | At | Signature | + + + + + + | PH ART | 7.425Comment: Testing | 7.350 - 7.450 | EXTERNAL | | | | performed at [facility];[address] | | LAB | | | | [address];[place] | | | | | | [address] | | | | + + + + + + | PCO2 ART | 38Comment: Testing | 35 - 45 mmHg | EXTERNAL | | | | performed at [facility];[address] | | LAB | | | | [address];[place] | | | | | | [address] | | | | + + + + + + | PO2 ART | 215 (H)Comment: Testing | 80 - 105 mmHg | EXTERNAL | | | | performed at [facility];[address] | | LAB | | | | [address];[place] | | | | | | [address] | | | | + + + + + + | HCO3 ART | 25Comment: Testing | 22 - 26 mmol/L | EXTERNAL | | | | performed at [facility];[address] | | LAB | | | | [address];[place] | | | | | | [address] | | | | + + + + + + | POC | 26Comment: Testing | 23 - 27 mEq/L | EXTERNAL | | | APPEARANCE | performed at [facility];[address] | | LAB | | | UA | [address];[place] | | | | | | [address] | | | | + + + + + + | Base | 0Comment: Testing | 0 - 3 mEq/L | EXTERNAL | | | Excess, | performed at [facility];[address] | | LAB | | | Arterial | [address];[place] | | | | | | [address] | | | | + + + + + + | O2 SAT ART | 100 (H)Comment: Testing | 95 - 98 % | EXTERNAL | | | | performed at [facility];[address] | | LAB | | | | [address];[place] | | | | | | [address] | | | | + + + + + + | Sodium, POC | 135Comment: Testing | 135 - 145 mEq/L | EXTERNAL | | | | performed at [facility];[address] | | LAB | | | | [address];[place] | | | | | | [address] | | | | + + + + + + | Potassium, | 6.2 (H)Comment: Testing | 3.5 - 5.0 mEq/L | EXTERNAL | | | POC | performed at [facility];[address] | | LAB | | | | [address];[place] | | | | | | [address] | | | | + + + + + + | Ionized | 1.13Comment: Testing | 1.12 - 1.32 | EXTERNAL | | | Calcium, | performed at [facility];888 | mmol/L | LAB | | | POC | [address];[place] | | | | | | [address] | | | | + + + + + + | Glucose, | 176 (H)Comment: Testing | 65 - 99 mg/dL | EXTERNAL | | | POC | performed at [facility];[address] | | LAB | | | | [address];[place] | | | | | | [address] | | | | + + + + + + | Hematocrit, | 27 (L)Comment: Testing | 40.0 - 50.0 % | EXTERNAL | | | POC | performed at [facility];[address] | | LAB | | | | [address];[place] | | | | | | [address] | | | | + + + + + + | Hemoglobin, | 9.2 (L)Comment: Testing | 13.7 - 16.7 | EXTERNAL | | | POC | performed at [facility];[address] | g/dL | LAB | | | | [address];[place], [place] | | | | | | [address] | | | | + + + + + + + + | Specimen | + + | | + + + +---------+ + + | Performing | Address | City/State/Zipcode | Phone Number | | Organization | | | | + +---------+ + + | EXTERNAL LAB | | | | + +---------+ + + POC KIMBERLEY CG8, Arterial (01/15/2016 9:30 AM PST) + + + + + + | Component | Value | Ref Range | Performed | Pathologist | | | | | At | Signature | + + + + + + | PH ART | 7.415Comment: Testing | 7.350 - 7.450 | EXTERNAL | | | | performed at [facility];[address] | | LAB | | | | [address];[place] | | | | | | [address] | | | | + + + + + + | PCO2 ART | 41Comment: Testing | 35 - 45 mmHg | EXTERNAL | | | | performed at [facility];[address] | | LAB | | | | [address];[place] | | | | | | [address] | | | | + + + + + + | PO2 ART | 278 (H)Comment: Testing | 80 - 105 mmHg | EXTERNAL | | | | performed at [facility];[address] | | LAB | | | | [address];[place] | | | | | | [address] | | | | + + + + + + | HCO3 ART | 26Comment: Testing | 22 - 26 mmol/L | EXTERNAL | | | | performed at [facility];[address] | | LAB | | | | [address];[place] | | | | | | [address] | | | | + + + + + + | POC | 27Comment: Testing | 23 - 27 mEq/L | EXTERNAL | | | APPEARANCE | performed at [facility];[address] | | LAB | | | UA | [address];[place] | | | | | | [address] | | | | + + + + + + | Base | 2Comment: Testing | 0 - 3 mEq/L | EXTERNAL | | | Excess, | performed at [facility];[address] | | LAB | | | Arterial | [address];[place] | | | | | | [address] | | | | + + + + + + | O2 SAT ART | 100 (H)Comment: Testing | 95 - 98 % | EXTERNAL | | | | performed at [facility];[address] | | LAB | | | | [address];[place] | | | | | | [address] | | | | + + + + + + | Sodium, POC | 135Comment: Testing | 135 - 145 mEq/L | EXTERNAL | | | | performed at [facility];[address] | | LAB | | | | [address];[place] | | | | | | [address] | | | | + + + + + + | Potassium, | 5.9 (H)Comment: Testing | 3.5 - 5.0 mEq/L | EXTERNAL | | | POC | performed at [facility];[address] | | LAB | | | | [address];[place] | | | | | | [address] | | | | + + + + + + | Ionized | 1.13Comment: Testing | 1.12 - 1.32 | EXTERNAL | | | Calcium, | performed at [facility];[address] | mmol/L | LAB | | | POC | [address];[place] | | | | | | [address] | | | | + + + + + + | Glucose, | 143 (H)Comment: Testing | 65 - 99 mg/dL | EXTERNAL | | | POC | performed at [facility];[address] | | LAB | | | | [address];[place] | | | | | | [address] | | | | + + + + + + | Hematocrit, | 26 (L)Comment: Testing | 40.0 - 50.0 % | EXTERNAL | | | POC | performed at [facility];[address] | | LAB | | | | [address];[place] | | | | | | [address] | | | | + + + + + + | Hemoglobin, | 8.8 (L)Comment: Testing | 13.7 - 16.7 | EXTERNAL | | | POC | performed at [facility];888 | g/dL | LAB | | | | [address];[place] | | | | | | [address] | | | | + + + + + + + + | Specimen | + + | | + + + +---------+ + + | Performing | Address | City/State/Zipcode | Phone Number | | Organization | | | | + +---------+ + + | EXTERNAL LAB | | | | + +---------+ + + GINETTE CHU [id number] (01/15/2016 9:07 AM PST) + + + + + + | Component | Value | Ref Range | Performed | Pathologist | | | | | At | Signature | + + + + + + | PH ART | 7.360Comment: Testing | 7.350 - 7.450 | EXTERNAL | | | | performed at [facility];[address] | | LAB | | | | [address];[place] | | | | | | [address] | | | | + + + + + + | PCO2 ART | 48 (H)Comment: Testing | 35 - 45 mmHg | EXTERNAL | | | | performed at [facility];[address] | | LAB | | | | [address];[place] | | | | | | [address] | | | | + + + + + + | PO2 ART | 52 (L)Comment: Testing | 80 - 105 mmHg | EXTERNAL | | | | performed at [facility];[address] | | LAB | | | | [address];[place] | | | | | | [address] | | | | + + + + + + | HCO3 ART | 27 (H)Comment: Testing | 22 - 26 mmol/L | EXTERNAL | | | | performed at [facility] [place] | | LAB | | | | [address];[place] | | | | | | [address] | | | | + + + + + + | POC | 28 (H)Comment: Testing | 23 - 27 mEq/L | EXTERNAL | | | APPEARANCE | performed at [facility] [place] | | LAB | | | UA | [address];[place] | | | | | | [address] | | | | + + + + + + | Base | 2Comment: Testing | 0 - 3 mEq/L | EXTERNAL | | | Excess, | performed at [facility] [place] | | LAB | | | Arterial | [address];[place] | | | | | | [address] | | | | + + + + + + | O2 SAT ART | 84 (L)Comment: Testing | 95 - 98 % | EXTERNAL | | | | performed at [facility] [place] | | LAB | | | | [address];[place] | | | | | | [address] | | | | + + + + + + | Sodium, POC | 135Comment: Testing | 135 - 145 mEq/L | EXTERNAL | | | | performed at [facility] [place] | | LAB | | | | [address];[place] | | | | | | [address] | | | | + + + + + + | Potassium, | 5.6 (H)Comment: Testing | 3.5 - 5.0 mEq/L | EXTERNAL | | | POC | performed at [facility] [place] | | LAB | | | | [address];[place] | | | | | | [address] | | | | + + + + + + | Ionized | 1.09 (L)Comment: Testing | 1.12 - 1.32 | EXTERNAL | | | Calcium, | performed at [facility] [place] | mmol/L | LAB | | | POC | [address];[place] | | | | | | [address] | | | | + + + + + + | Glucose, | 124 (H)Comment: Testing | 65 - 99 mg/dL | EXTERNAL | | | POC | performed at [facility] [place] | | LAB | | | | [address];[place] | | | | | | [address] | | | | + + + + + + | Hematocrit, | 26 (L)Comment: Testing | 40.0 - 50.0 % | EXTERNAL | | | POC | performed at [facility] [place] | | LAB | | | | [address];[place] | | | | | | [address] | | | | + + + + + + | Hemoglobin, | 8.8 (L)Comment: Testing | 13.7 - 16.7 | EXTERNAL | | | POC | performed at [facility] [place] | g/dL | LAB | | | | [address];[place] | | | | | | [address] | | | | + + + + + + + + | Specimen | + + | | + + + +---------+ + + | Performing | Address | City/State/Zipcode | Phone Number | | Organization | | | | + +---------+ + + | EXTERNAL LAB | | | | + +---------+ + + GINET[facility] CG8 Arterial (01/15/2016 9:02 AM PST) + + + + + + | Component | Value | Ref Range | Performed | Pathologist | | | | | At | Signature | + + + + + + | PH ART | 7.376Comment: Testing | 7.350 - 7.450 | EXTERNAL | | | | performed at [facility] | | LAB | | | | [address];[place] | | | | | | [address] | | | | + + + + + + | PCO2 ART | 49 (H)Comment: Testing | 35 - 45 mmHg | EXTERNAL | | | | performed at [facility] | | LAB | | | | [address];[place] | | | | | | [address] | | | | + + + + + + | PO2 ART | 267 (H)Comment: Testing | 80 - 105 mmHg | EXTERNAL | | | | performed at [facility] | | LAB | | | | [address];[place] | | | | | | [address] | | | | + + + + + + | HCO3 ART | 29 (H)Comment: Testing | 22 - 26 mmol/L | EXTERNAL | | | | performed at [facility] | | LAB | | | | [address];[place] | | | | | | [address] | | | | + + + + + + | POC | 30 (H)Comment: Testing | 23 - 27 mEq/L | EXTERNAL | | | APPEARANCE | performed at [facility];[address] | | LAB | | | UA | [address];[place] | | | | | | [address] | | | | + + + + + + | Base | 3Comment: Testing | 0 - 3 mEq/L | EXTERNAL | | | Excess, | performed at [facility];[address] | | LAB | | | Arterial | [address];[place] | | | | | | [address] | | | | + + + + + + | O2 SAT ART | 100 (H)Comment: Testing | 95 - 98 % | EXTERNAL | | | | performed at [facility] | | LAB | | | | [address];[place] | | | | | | [address] | | | | + + + + + + | Sodium, POC | 136Comment: Testing | 135 - 145 mEq/L | EXTERNAL | | | | performed at [facility];[address] | | LAB | | | | [address];[place] | | | | | | [address] | | | | + + + + + + | Potassium, | 4.6Comment: Testing | 3.5 - 5.0 mEq/L | EXTERNAL | | | POC | performed at [facility];[address] | | LAB | | | | [address];[place] | | | | | | [address] | | | | + + + + + + | Ionized | 1.01 (L)Comment: Testing | 1.12 - 1.32 | EXTERNAL | | | Calcium, | performed at [facility] | mmol/L | LAB | | | POC | [address];[place] | | | | | | [address] | | | | + + + + + + | Glucose, | 119 (H)Comment: Testing | 65 - 99 mg/dL | EXTERNAL | | | POC | performed at [facility];[address] | | LAB | | | | [address];[place] | | | | | | [address] | | | | + + + + + + | Hematocrit, | 25 (L)Comment: Testing | 40.0 - 50.0 % | EXTERNAL | | | POC | performed at [facility];[address] | | LAB | | | | [address];[place] | | | | | | [address] | | | | + + + + + + | Hemoglobin, | 8.5 (L)Comment: Testing | 13.7 - 16.7 | EXTERNAL | | | POC | performed at [facility];888 | g/dL | LAB | | | | [address];[place] | | | | | | [address] | | | | + + + + + + + + | Specimen | + + | | + + + +---------+ + + | Performing | Address | City/State/Zipcode | Phone Number | | Organization | | | | + +---------+ + + | EXTERNAL LAB | | | | + +---------+ + + POC KIMBERLEY, CG8, Arterial (01/15/2016 8:30 AM PST) + + + + + + | Component | Value | Ref Range | Performed | Pathologist | | | | | At | Signature | + + + + + + | PH ART | 7.294 (L)Comment: | 7.350 - 7.450 | EXTERNAL | | | | Testing performed at | | LAB | | | | [facility];[address] [place] [address] | | | | | | Blvd;[place] [address] | | | | + + + + + + | PCO2 ART | 50 (H)Comment: Testing | 35 - 45 mmHg | EXTERNAL | | | | performed at [facility];[address] | | LAB | | | | [address];[place] | | | | | | [address] | | | | + + + + + + | PO2 ART | 333 (H)Comment: Testing | 80 - 105 mmHg | EXTERNAL | | | | performed at [facility];[address] | | LAB | | | | [address];[place] | | | | | | [address] | | | | + + + + + + | HCO3 ART | 24Comment: Testing | 22 - 26 mmol/L | EXTERNAL | | | | performed at [facility];[address] | | LAB | | | | [address];[place] | | | | | | [address] | | | | + + + + + + | POC | 26Comment: Testing | 23 - 27 mEq/L | EXTERNAL | | | APPEARANCE | performed at [facility];[address] | | LAB | | | UA | [address];[place] | | | | | | [address] | | | | + + + + + + | Base | 2Comment: Testing | 0.0 - 2.0 | EXTERNAL | | | deficit | performed at [facility];[address] | mmol/L | LAB | | | | [address];[place] | | | | | | [address] | | | | + + + + + + | O2 SAT ART | 100 (H)Comment: Testing | 95 - 98 % | EXTERNAL | | | | performed at [facility];[address] | | LAB | | | | [address];[place] | | | | | | [address] | | | | + + + + + + | Sodium, POC | 135Comment: Testing | 135 - 145 mEq/L | EXTERNAL | | | | performed at [facility];[address] | | LAB | | | | [address];[place] | | | | | | [address] | | | | + + + + + + | Potassium, | 4.4Comment: Testing | 3.5 - 5.0 mEq/L | EXTERNAL | | | POC | performed at [facility];[address] | | LAB | | | | [address];[place] | | | | | | [address] | | | | + + + + + + | Ionized | 1.18Comment: Testing | 1.12 - 1.32 | EXTERNAL | | | Calcium, | performed at [facility];888 | mmol/L | LAB | | | POC | [address];[place] | | | | | | [address] | | | | + + + + + + | Glucose, | 133 (H)Comment: Testing | 65 - 99 mg/dL | EXTERNAL | | | POC | performed at [facility];[address] | | LAB | | | | [address];[place] | | | | | | [address] | | | | + + + + + + | Hematocrit, | 33 (L)Comment: Testing | 40.0 - 50.0 % | EXTERNAL | | | POC | performed at [facility];[address] | | LAB | | | | [address];[place] | | | | | | [address] | | | | + + + + + + | Hemoglobin, | 11.2 (L)Comment: Testing | 13.7 - 16.7 | EXTERNAL | | | POC | performed at [facility];888 | g/dL | LAB | | | | [address];[place] | | | | | | [address] | | | | + + + + + + + + | Specimen | + + | | + + + +---------+ + + | Performing | Address | City/State/Zipcode | Phone Number | | Organization | | | | + +---------+ + + | EXTERNAL LAB | | | | + +---------+ + + POC CG 4, ISTAT Arterial (01/15/2016 7:44 AM PST) + + + + + + | Component | Value | Ref Range | Performed | Pathologist | | | | | At | Signature | + + + + + + | PH ART | 7.347 (L)Comment: | 7.350 - 7.450 | EXTERNAL | | | | Testing performed at | | LAB | | | | [facility];[address] | | | | | | [address];[place] [address] | | | | + + + + + + | PCO2 ART | 41Comment: Testing | 35 - 45 mmHg | EXTERNAL | | | | performed at [facility];[address] | | LAB | | | | [address];[place] | | | | | | [address] | | | | + + + + + + | PO2 ART | 149 (H)Comment: Testing | 80 - 105 mmHg | EXTERNAL | | | | performed at [facility];[address] | | LAB | | | | [address];[place] | | | | | | [address] | | | | + + + + + + | Lactate, | 1.8 (H)Comment: Testing | 0.36 - 1.25 | EXTERNAL | | | Arterial | performed at [facility];[address] | mmol/L | LAB | | | | [address];[place] | | | | | | [address] | | | | + + + + + + | HCO3 ART | 23Comment: Testing | 22 - 26 mmol/L | EXTERNAL | | | | performed at [facility];[address] | | LAB | | | | [address];[place] | | | | | | [address] | | | | + + + + + + | POC | 24Comment: Testing | 23 - 27 mEq/L | EXTERNAL | | | APPEARANCE | performed at [facility];[address] | | LAB | | | UA | [address];[place] | | | | | | [address] | | | | + + + + + + | Base | 3 (H)Comment: Testing | 0.0 - 2.0 | EXTERNAL | | | deficit | performed at [facility];[address] | mmol/L | LAB | | | | [address];[place] | | | | | | [address] | | | | + + + + + + | O2 SAT ART | 99 (H)Comment: Testing | 95 - 98 % | EXTERNAL | | | | performed at [facility];[address] | | LAB | | | | [address];[place] | | | | | | [address] | | | | + + + + + + + + | Specimen | + + | | + + + +---------+ + + | Performing | Address | City/State/Zipcode | Phone Number | | Organization | | | | + +---------+ + + | EXTERNAL LAB | | | | + +---------+ + + GINETTE CHU CG8, Arterial (01/15/2016 7:39 AM PST) + + + + + + | Component | Value | Ref Range | Performed | Pathologist | | | | | At | Signature | + + + + + + | PH ART | 7.352Comment: Testing | 7.350 - 7.450 | EXTERNAL | | | | performed at [facility];[address] | | LAB | | | | [address];[place] | | | | | | [address] | | | | + + + + + + | PCO2 ART | 43Comment: Testing | 35 - 45 mmHg | EXTERNAL | | | | performed at [facility];[address] | | LAB | | | | [address];[place] | | | | | | [address] | | | | + + + + + + | PO2 ART | 153 (H)Comment: Testing | 80 - 105 mmHg | EXTERNAL | | | | performed at [facility];[address] | | LAB | | | | [address];[place] | | | | | | [address] | | | | + + + + + + | HCO3 ART | 24Comment: Testing | 22 - 26 mmol/L | EXTERNAL | | | | performed at [facility];[address] | | LAB | | | | [address];[place] | | | | | | [address] | | | | + + + + + + | POC | 25Comment: Testing | 23 - 27 mEq/L | EXTERNAL | | | APPEARANCE | performed at [facility];[address] | | LAB | | | UA | [address];[place] | | | | | | [address] | | | | + + + + + + | Base | 2Comment: Testing | 0.0 - 2.0 | EXTERNAL | | | deficit | performed at [facility];[address] | mmol/L | LAB | | | | [address];[place] | | | | | | [address] | | | | + + + + + + | O2 SAT ART | 99 (H)Comment: Testing | 95 - 98 % | EXTERNAL | | | | performed at [facility];[address] | | LAB | | | | [address];[place] | | | | | | [address] | | | | + + + + + + | Sodium, POC | 138Comment: Testing | 135 - 145 mEq/L | EXTERNAL | | | | performed at [facility];[address] | | LAB | | | | [address];[place] | | | | | | [address] | | | | + + + + + + | Potassium, | 4.2Comment: Testing | 3.5 - 5.0 mEq/L | EXTERNAL | | | POC | performed at [facility];[address] | | LAB | | | | [address];[place] | | | | | | [address] | | | | + + + + + + | Ionized | 1.23Comment: Testing | 1.12 - 1.32 | EXTERNAL | | | Calcium, | performed at [facility];[address] | mmol/L | LAB | | | POC | [address];[place] | | | | | | [address] | | | | + + + + + + | Glucose, | 132 (H)Comment: Testing | 65 - 99 mg/dL | EXTERNAL | | | POC | performed at [facility];[address] | | LAB | | | | [address];[place] | | | | | | [address] | | | | + + + + + + | Hematocrit, | 33 (L)Comment: Testing | 40.0 - 50.0 % | EXTERNAL | | | POC | performed at [facility];[address] | | LAB | | | | [address];[place] | | | | | | [address] | | | | + + + + + + | Hemoglobin, | 11.2 (L)Comment: Testing | 13.7 - 16.7 | EXTERNAL | | | POC | performed at [facility];[address] | g/dL | LAB | | | | [address];[place] | | | | | | [address] | | | | + + + + + + + + | Specimen | + + | | + + + +---------+ + + | Performing | Address | City/State/Zipcode | Phone Number | | Organization | | | | + +---------+ + + | EXTERNAL LAB | | | | + +---------+ + + documented in this encounter Visit Diagnoses + + | Diagnosis | + + | Chest pain at rest Chest pain, unspecified | + + | Essential hypertension, benign | + + | Hyperlipemia Other and unspecified hyperlipidemia | + + | Sinus bradycardia Other specified cardiac dysrhythmias | + + | 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
--- OUTSIDE RECORDS SUMMARY | ~2019-10-16 | XMS | Encounter Summary ---
Demographics + + + | Address | [address] | | | [place] [address] | + + + | Home Phone | | + + + | Preferred Language | Unknown | + + + | Marital Status | | + + + | Spiritism Affiliation | 1077 | + + + | Race | Unknown | + + + | Ethnic Group | Unknown | + + + Author + + + | Author | [facility] | | | and [place] | + + + | Organization | [facility] | | | and [place] [...] Team Providers + +------+ + | Care Truck Driver Instructor Name | Role | Phone | + +------+ + PCP | Unavailable | + +------+ + Reason for Visit + + + | Reason | Comments | + + + | Medication Refill | | + + + Encounter Details +--------+--------+ + + + | Date | Type | Department | Care Team | Description | +--------+--------+ + + + | 10/05/ | Refill | [facility] | Ruy Kebede | Medication Refill | | 2017 | | [facility] | E, DO [address] | | | | | MEDICAL CLIN[facility] [address] | [place] | | | | [address] [facility], | [address] | | | | | [place] [address] | [phone] | | | | | [phone] | | | +--------+--------+ + + + [...] [place] | | | | | | [place] | | | | | | [address] | | | | | | | | +--------+---------+ + + + documented as of this encounter Visit Diagnoses Not on filedocumented in this encounter"
--- OUTSIDE RECORDS SUMMARY | ~2019-10-16 | XMS | Encounter Summary ---
Demographics + + + | Address | [address] | | | [place] [address] | + + + | Home Phone | | + + + | Preferred Language | Unknown | + + + | Marital Status | | + + + | Spiritism Affiliation | 1077 | + + + | Race | Unknown | + + + | Ethnic Group | Unknown | + + + Author + + + | Author | [facility] | | | and [place] | + + + | Organization | [facility] | | | and [place] [...] Team Providers + +------+ + | Care Motors And Controls Tester Name | Role | Phone | + [...] Description | +--------+--------+ + + + | 07/20/ | Refill | [facility] | Day[place], | Medication Refill | | 2019 | | [facility] | [facility] [address] | | | | | MEDICAL CLIN[facility] [address] | [facility] | | | | | [address] [facility], | [place] [address] | | | | | [place] [address] | [phone] | | | | | [phone] | | | +--------+--------+ + + + [...] | | | | | [place], [place] | | | | | | [id number] | | | | | | | | +--------+---------+ + + + documented as of this encounter Visit Diagnoses Not on filedocumented in this encounter"
--- OUTSIDE RECORDS SUMMARY | ~2019-10-16 | XMS | Encounter Summary ---
Demographics + + + | Address | [address] | | | [place] [address] | + + + | Home Phone | | + + + | Preferred Language | Unknown | + + + | Marital Status | | + + + | Judaism Affiliation | 1077 | + + + | Race | Unknown | + + + | Ethnic Group | Unknown | + + + Author + + + | Author | [facility] | | | and [place] | + + + | Organization | [facility] | | | and [place] | [...] Team Providers + +------+ + | Care Scenic Designer Name | Role | Phone | + +------+ + | Alejandro Monroy MD | PCP | | + +------+ + Encounter Details +--------+ + + + + | Date | Type | Department | Care Team | Description | +--------+ + + + + | 02/03/ | Orders Only | [facility] | [facility] [place] | | | 2015 | | CARDIOLOGY [facility] | MD [address] | | | | | [address] | [address] | | | | | [place], [place] | [place] | | | | | [address] | [address] | | | | | [phone] | [phone] | | | | | | | | +--------+ + + + + Social [...] | 10/19/ | Office | Cardiology | Dar[place]era [place], | | | 2019 | Visit | | [address] | | | | | | [place] | | | | | | [address] | | | | | | | | +--------+---------+ + + + documented as of this encounter Procedures + +--------+ + + + | Procedure Name | Priori | Date/Time | Associated Diagnosis | Comments | | | ty | | | | + +--------+ + + + | B TYPE NATRIURETIC | Routin | 02/04/2016 | | Results for this | | PEPTIDE | e | 3:10 PM | | procedure are in the | | | | PDT | | results section. | + +--------+ + + + | BASIC METABOLIC | Routin | 02/04/2016 | | Results for this | | PANEL | e | 3:10 PM | | procedure are in the | | | | PDT | | results section. | + +--------+ + + + documented in this encounter Results B Type Natriuretic Peptide (02/04/2016 3:10 PM PDT) + +---------+ + + + | Component | Value | Ref Range | Performed | Pathologist | | | | | At | Signature | + +---------+ + + + | BNP | 171 (A) | 0 - 100 pg/mL | EXTERNAL | | | | | | LAB | | + +---------+ + + + + + | Specimen | + + | Blood specimen | | (specimen) | + + + +---------+ + + | Performing | Address | City/State/Zipcode | Phone Number | | Organization | | | | + +---------+ + + | EXTERNAL LAB | | | | + +---------+ + + Basic Metabolic Panel (02/04/2016 3:10 PM PDT) + + + + + + | Component | Value | Ref Range | Performed | Pathologist | | | | | At | Signature | + + + + + + | Glucose, | 100 | 70 - 100 mg/dL | EXTERNAL | | | Fasting | | | LAB | | + + + + + + | BUN | 23 | 6 - 23 mg/dL | EXTERNAL | | | | | | LAB | | + + + + + + | Creatinine | 1.28 (A) | 0.70 - 1.11 | EXTERNAL | | | | | mg/dL | LAB | | + + + + + + | BUN/Creatin | 18.0 | 6.0 - 28.6 | EXTERNAL | | | ine Ratio | | | LAB | | + + + + + + | Calcium | 10.1 | 8.4 - 10.2 | EXTERNAL | | | | | mg/dL | LAB | | + + + + + + | Na | 138 | 132 - 143 | EXTERNAL | | | | | mmol/L | LAB | | + + + + + + | K | 4.4 | 3.6 - 5.1 | EXTERNAL | | | | | mmol/L | LAB | | + + + + + + | Cl | 100 | 95 - 112 mmol/L | EXTERNAL | | | | | | LAB | | + + + + + + | CO2 | 25 | 19 - 31 mmol/L | EXTERNAL | | | | | | LAB | | + + + + + + | Anion Gap | 17.4 | 7 - 21 mmol/L | EXTERNAL | | | | | | LAB | | + + + + + + | Estimated | 54 (A) | 60 mg/dL | EXTERNAL | | | GFR | | | LAB | | + + + + + [...] + documented in this encounter Visit Diagnoses Not on filedocumented in this encounter"
--- OUTSIDE RECORDS SUMMARY | ~2019-10-16 | XMS | Encounter Summary ---
Demographics + + + | Address | [address] | | | [place] [address] | + + + | Home Phone | | + + + | Preferred Language | Unknown | + + + | Marital Status | | + + + | Worship Affiliation | 1077 | + + + | Race | Unknown | + + + | Ethnic Group | Unknown | + + + Author + + + | Author | [facility] | | | and [place] | + + + | Organization | [facility] | | | and [place] [...] Team Providers + +------+ + | Care Rigging Worker Name | Role | Phone | + [...] Medication Refill | | 2017 | | [facility] | E, DO [address] | | | | | MEDICAL CLIN[address] | [place] | | | | | [address] [facility], | [address] | | | | | [place] [address] | [phone] | | | | | [phone] | | | +--------+--------+ + + + [...] [place] | | | | | | [address] | | | | | | | | +--------+---------+ + + + documented as of this encounter Visit Diagnoses Not on filedocumented in this encounter"
--- OUTSIDE RECORDS SUMMARY | ~2019-10-16 | XMS | Encounter Summary ---
Demographics + + + | Address | [address] | | | [place] [address] | + + + | Home Phone | | + + + | Preferred Language | Unknown | + + + | Marital Status | | + + + | Holiness Affiliation | 1077 | + + + | Race | Unknown | + + + | Ethnic Group | Unknown | + + + Author + + + | Author | [facility] | | | and [place] | + + + | Organization | [facility] | | | and [place] [...] Team Providers + +------+ + | Care Public Administration Teacher Name | Role | Phone | + +------+ + PCP | Unavailable | + +------+ + Encounter Details +--------+ + + + + | Date | Type | Department | Care Team | Description | +--------+ + + + + | 01/14/ | Hospital | [facility] | Dariela Bauer, | Chest pain at rest; | | 2016 - | Encounter | [facility] | MD [address] | Essential | | | | CARE FLOOR [address] | [place] [address] | hypertension, | | 01/21/ | | [address] | | benign; | | 2015 | | [place] | | Hyperlipemia; Sinus | | | | [phone] | | bradycardia; | | | | [phone] | | Coronary artery | | | | | | disease involving | | | | | | habematolel coronary | | | | | | artery of habematolel | | | | | | heart with unstable | | | | | | angina pectoris | | | | | | (HCC); Coronary | | | | | | artery disease | | | | | | involving habematolel | | | | | | coronary artery of | | | | | | habematolel heart with | | | | | [...] Segundo Service: Cardiac, Thoracic, and Vascular Surgery [facility] Type: Advanced Registered Nurse Practitioner Filed: 01/24/16 1517 Date of Service: 01/22/16 0951 Status: Attested Service Station Helper: KAYLEIGH Segundo (Kiet Registered Nurse Practitioner) Cosigner: Dariela Bauer MD at 01/25/16 1036 Attestation signed by Dariela Bauer MD at 01/25/16 1036 I have examined Flaco Randolph, reviewed the notes, assessments, and/or procedures performed by KAYLEIGH Segundo, I concur with his documentation of Flaco Randolph. 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 01/14/2016 nnxbcwkwko-rzblzda-bnoaiyzi (FIORINAL) 50-325-40 MG capsule Take 1 capsule [...] to start cardiac rehabilitation in accordance with buckle sewer machine recommendations. Pt advised not to drive for [...] on file. Follow up: Dariela Bauer MD [facility] [address] Schedule an appointment as soon as possible for a visit in 2 weeks Post-op follow-up, For wound re-check, For suture removal Ilia Aguirre DO [address] [place] [address] Dr Tompkins [facility] [place] [address] Schedule an appointment as soon as possible for a visit in 3 weeks Post-op follow-up Huy Rodriguez MD [address] [place] [address] [place] [id number] In 1 month Post-op follow-up Medication List [...] to take - when to take this zpljsvgrks-waqdckm-bpzahwze 50-325-40 MG capsule Refills: 0 Commonly known [...] to Get Your Medications You need to molded goods spot picker these prescriptions. We sent some of them to a specific pharmacy. Go t o these places to get your medications. [id number] - [place], [place] - [address] - amiodarone 200 MG tablet - apixaban 5 MG tablet - furosemide 20 MG tablet - metoprolol 50 MG tablet [address] [place] [place] [address] You may get the following medications from [...] Author: TERRY Gooden Service: (none) Author Type: Operational Risk Consultant Filed: 01/22/16 1261 Date of Service: 01/22/161447 Status: Signed Service Station Helper: TERRY Gooden (Operational Risk Consultant) 01/22/16 1400 Discharge Planning Evaluation Admitting Diagnosis Chest pain Anticipated Disposition Facility Type Home DE ICER KIT ASSEMBLER met with Pt, Pt dghtr with Micaela VICTOR for discharge planning. Pt dghtr states P t will have caregiving provided by Pt family. HH Order has been faxed to [facility]. DE ICER KIT ASSEMBLER p/c to Anabella at [facility], will have RN/PT/HH aide next week, starting ThursdayJanuary 29. DE ICER KIT ASSEMBLER faxed latest clinicals. DCP: Home HUAN PERRY Temporary Receptionist [phone] cell onver sudhakar Transaction, Provider Unknown - 01/22/2016 12:49 PM PDT Nurse Progress Note by Luz Jaramillo RN at 01/22/161248 Author: Luz Jaramillo RN Service: (none) Author Type: Registered Nurse Filed: 01/22/169 Date of Service: 01/22/161248 Status: Signed Service Station Helper: Luz Jaramillo RN (Registered Nurse) Patient A&Ox4, [...] 0938 Date of Service: 01/22/16934 Status: Attested Service Station Helper: KAYLEIGH Segundo (Advanced Registered Nurse Practitioner) Cosigner: Dariela Bauer MD at 01/25/16 1126 Attestation signed by Dariela Bauer MD at 01/25/16 1126 I have examined Flaco Randolph, reviewed the notes, assessments, and/or procedures performed by KAYLEIGH Segundo, I concur with his documentation of Flaco Randolph. 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 Educ. pt. on use of channel rebuilder for lower body dress. Pt.'s daughter is [...] 01/22/1649 Date of Service: 01/22/16804 Status: Signed Service Station Helper: Shell Zarate PT (Physical Therapist) 01/22/16804 PT Last Visit PT Received On 01/22/16 Reason for Treatment Cardiac Requires PT Follow Up Yes Follow up PT Only? No Assistance Required 1 person;Independent Manager Managed Backup Services Needed No Precautions Cardiac Precautions Sternal Other [...] Barriers to Discharge Self-care Deficits Impacting Functional [place] PT Ready for Discharge Yes Recommendation Comments [...] 06 Date of Service: 01/22/16557 Status: Signed Service Station Helper: Huan Molina RN (Registered Nurse) Pt went [...] Note by Luz Jaramillo RN at 01/21/16 9176 Author: Luz Jaramillo RN Service: (none) Author Type: Registered Nurse Filed: 01/21/16 1633 Date of Service: 01/21/16 1630 Status: Signed Service Station Helper: Luz Jaramillo, RN (Registered Nurse) Arleth VICTOR [...] Segundo Service: Cardiac, Thoracic, and Vascular Surgery [facility] Type: Advanced Registered Nurse Practitioner Filed: 01/21/16 1626 Date of Service: 01/21/16 1125 Status: Attested Service Station Helper: KAYLEIGH Segundo (Advanced Registered Nurse Practitioner) Cosigner: Dariela Bauer MD at 01/25/161126 Attestation signed by Dariela Baeur MD at 01/25/16 112 I have examined Flaco Randolph, reviewed the notes, assessments, and/or procedures performed by KAYLEIGH Segundo, I concur with his documentation of Flaco Randolph. 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 No Assistance Required 1 person Manager Managed Backup Services Needed No Precautions Cardiac Precautions Sternal Other [...] 01/21/16910 Date of Service: 01/21/16910 Status: Signed Service Station Helper: Marj Martinez RN (Registered Nurse) Pt flipped [...] 01/21/16634 Date of Service: 01/21/16614 Status: Signed Service Station Helper: Cristina Saini RN (Registered Nurse) Patient flipped [...] 0849 Date of Service: 01/20/1645 Status: Signed Service Station Helper: Stormy Thurston PT (Physical Therapist) 01/20/16 0745 PT Last Visit PT Received On 01/20/16 Reason for Treatment Cardiac Requires PT Follow Up Yes Focus for Next Treatment Stair Training Assistance Required 1 person Manager Managed Backup Services Needed No Precautions Cardiac Precautions Sternal Other [...] Progress Notes by KAYLEIGH Woodward at 01/20/16 0684 Author: KAYLEIGH Woodward Service: Cardiac, Thoracic, and Vascular Surgery Author Melissa langston: Advanced Registered Nurse Practitioner Filed: 01/20/16 1058 Date of Service: 01/20/1655 Status: Attested Service Station Helper: KAYLEIGH Woodward (Nurse Practitioner) Cosigner: Dariela Bauer MD at 1951 Attestation signed by Dariela Bauer MD at 01/22/161951 I have examined Flaco Randolph, reviewed the notes, assessments, and/or procedures performed by Lashaun VICTOR, I concur with his documentation of Flaco Randolph [facility] Cardiothoracic Surgery Progress Note Date/Time:01/20/2016 6:55 AM Provider: KAYLEIGH Woodward Hospital Day: LOS: 5 days Surgery/Procedure: Procedure(s) (LRB): CABG - DONNY (N/A) Post-Op Day: 5 Days Post-Op Room: [address] [place] [address] PROBLEM LIST Principal Problem: 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 (HCC) Active [...] 01/20/1654 Date of Service: 01/20/1653 Status: Signed Service Station Helper: Cristina Saini RN (Registered Nurse) No change [...] Date of Service: 01/19/16 1600 Status: Signed Service Station Helper: Stormy Thurston PT (Physical Therapist) 01/19/16 1600 [...] Date of Service: 01/19/16 1025 Status: Signed Service Station Helper: Elisha Araujo RN (Registered Nurse) Pt converted to NSR onver sudhakar Transaction, Provider Unknown - 01/19/2016 10:24 AM PST Nurse Progress Note by Elisha Araujo RN at 01/19/16 1024 Author: Elisha Araujo RN Service: (none) Author Type: Registered Nurse Filed: 01/19/16 1025 Date of Service: 01/19/16 1024 Status: Signed Service Station Helper: Elisha Araujo RN (Registered Nurse) Charged to 120 joules, shock delivered onver sudhakar Transaction, Provider Unknown - 01/19/2016 10:23 AM PST Nurse Progress Note by Elisha Araujo RN at 01/19/16 1023 Author: Elisha Araujo RN Service: (none) Author Type: Registered Nurse Filed: 01/19/16 1023 Date of Service: 01/19/16 1023 Status: Signed Service Station Helper: Elisah Araujo RN (Registered Nurse) Pt still in afib. 25mg fentanyl given. 1 mg versed given onver sudhakar Transaction, Provider Unknown - 01/19/2016 10:21 AM PST Nurse Progress Note by Elisha Araujo RN at 01/19/16 1021 Author: Elisha Araujo RN Service: (none) Author Type: Registered Nurse Filed: 01/19/16 1022 Date of Service: 01/19/16 1021 Status: Signed Service Station Helper: Elisha Araujo RN (Registered Nurse) Pt still in afib. Charged to 100 joules. Shock delivered onver sudhakar Transaction, Provider Unknown - 01/19/2016 10:18 AM PST Nurse Progress Note by Elisha Araujo RN at 01/19/16 1018 Author: Elisha Araujo RN Service: (none) Author Type: Registered Nurse Filed: 01/19/16 1021 Date of Service: 01/19/16 1018 Status: Signed Service Station Helper: Elisha Araujo RN (Registered Nurse) Pt asleep. Charging to 75 joules, Shock delivered onver sudhakar Transaction, Provider Unknown - 01/19/2016 10:17 AM PST Nurse Progress Note by Elisha Araujo RN at 01/19/16 1017 Author: Elisha Araujo RN Service: (none) Author Type: Registered Nurse Filed: 01/19/16 1017 Date of Service: 01/19/16 1017 Status: Signed Service Station Helper: Elisha Araujo RN (Registered Nurse) 25mg Fentanyl given onver sudhakar Transaction, Provider Unknown - 01/19/2016 10:16 AM PST Nurse Progress Note by Elisha Araujo RN at 01/19/16 1016 Author: Elisha Araujo RN Service: (none) Author Type: Registered Nurse Filed: 01/19/16 1017 Date of Service: 01/19/16 1016 Status: Signed Service Station Helper: Elisha Araujo RN (Registered Nurse) Versed 1mg given onver sudhakar Transaction, Provider Unknown - 01/19/2016 9:55 AM PST Therapy Progress Note by MOHIT Johnson at 01/19/16 0955 Author: MOHIT Johnson Service: (none) Author Type: Occupational Therapist Filed: 01/19/16 0955 Date of Service: 01/19/16 0955 Status: Signed Service Station Helper: MOHIT Johnson (Occupational Therapist) 01/19/16 0953 OT Last Visit OT Received On 01/19/16 Reason for Treatment Cardiac Requires OT Follow Up Unavailable Other Comments Comments RN preparing Pt for precedure. Request OT to return later this day. will follow up as case load allows. Plan Requires OT Follow Up Unavailable Electronically signed by [facility], Provider at 06/30/2019 8:02 AM Stormy Raygoza, PT - 01/19/2016 8:18 AM PST Therapy Progress Note by Stormy Thurston PT at 01/19/16 0818 Author: Stormy Thurston PT Service: (none) Author Type: Physical Therapist Filed: 01/19/16 0902 Date of Service: 01/19/16 0818 Status: Signed Service Station Helper: Stormy Thurston PT (Physical Therapist) 01/19/16 0818 PT Last Visit PT Received On 01/19/16 Reason for Treatment Cardiac Requires PT Follow Up Yes Follow up PT Only? No Assistance Required 1 person Manager Managed Backup Services Needed No Precautions Cardiac Precautions Sternal Other [...] Barriers to Discharge Physical Deficits Impacting Functional [place];Self-care Deficit s Impacting Functional [place];Pain Pre/peak/post Position BP Pulse rate O2 sats [...] Date of Service: 01/19/16 0552 Status: Attested Service Station Helper: KAYLEIGH Woodward (Nurse Practitioner) Cosigner: Dariela Bauer MD at 1122 Attestation signed by Dariela Bauer MD at 01/25/16 1122 I have examined Flaco Randolph, reviewed the notes, assessments, and/or procedures performed by Lashaun VICTOR, I concur with his documentation of Flaco Randolph [facility] Cardiothoracic Surgery Progress Note Date/Time:01/19/2016 5:52 AM Provider: KAYLEIGH Woodward Hospital Day: LOS: 4 days Surgery/Procedure: Procedure(s) (LRB): CABG - DONNY (N/A) Post-Op Day: 4 Days Post-Op Room: [address] [place] [address] PROBLEM LIST Principal Problem: 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 5. Graham-Jeannette catheter could be ad vanced approximately 5 [...] Note by Shell Zarate PT at 01/18/16 9220 Author: Shell Zarate PT Service: (none) Author Type: Physical Therapist Filed: 01/18/16 4107 Date of Service: 01/18/16 1345 Status: Signed Service Station Helper: Shell Zarate PT (Physical Therapist) 01/18/16 1341 PT Last Visit PT Received On 01/18/16 Reason for Treatment Cardiac Requires PT Follow Up Yes Follow up PT Only? No Assistance Required 1 person Manager Managed Backup Services Needed No Precautions Cardiac Precautions Sternal Other Precautions fall risk Other Comments Comments patient agreed to PT at this time- vitals were good mvalsn-wpw-dwmhx- but once [employer]- his HR scott too much; up to mod assist- Cognition Overall Cognitive Status WFL Orientation Level Oriented Bed Mobility Supine to Sit Verbal instruction;Standby assist;x 1 person Transfers Sit to/from Stand Moderate assist (to arise OR lower);Verbal instruction;x 1 person Mobility Ambulation Assistance Minimal assist;Verbal instruction;Supervision;X1 Maximal Ambulation Distance (feet) 15ftx2 (stopped b/c HR increased to btw [phone] withRN) Total Ambulation Distance (feet) 30ft Distance [...] Barriers to Discharge Physical Deficits Impacting Functional [place];Self-care Deficit s Impacting Functional [place] Supine Sit Stand Walking B/P 141/68 146/72 142/70 HR 94 95 100 144-177 onversion Transa ction, Provider Unknown - 01/18/2016 11:32 AM PST Case Management by TERRY Forrester at 01/18/16 1132 Author: TERRY Forrester Service: (none) Author Type: Temporary Receptionist Filed: 01/18/16 1962 Date of Service: 01/18/161131 Status: Addendum Service Station Helper: TERRY Forrester (Temporary Receptionist) Related Notes: Original Note by TERRY Forrester (Temporary Receptionist) filed at 01/18/16 6397 COMFORT spoke with [facility] who reports only private pay caregiving agency in [facility] is [employer]. COMFORT spoke with [employer] who reports they come in a do an assessment, cost per hour de pending on assessment and meeting patient's needs. CM discussed private pay caregiving through [employer], [facility], Occupational t herapy equipment list, [facility] service [...] weeks. CM faxed f2f and facesheet to [facility] TERRY Forrester Arleth Samuel ARNP - 01/18/2016 9:21 AM PST Progress Notes by KAYLEIGH Segundo at 01/18/16920 Author: KAYLEIGH Segundo Service: Cardiac, Thoracic, and Vascular Surgery [facility] Type: Advanced Registered Nurse Practitioner Filed: 01/18/16 0956 Date of Service: 01/18/16920 Status: Attested Service Station Helper: KAYLEIGH Segundo (Advanced Registered Nurse Practitioner) Cosigner: Dariela Bauer MD at 01/18/16 1413 Attestation signed by Dariela Bauer MD at 01/18/16 141 I have examined Flaco Randolph, reviewed the notes, assessments, and/or procedures performed by KAYLEIGH Segundo, I concur with his documentation of Flaco Randolph. 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 (HCC) Active [...] Progress Note by LILIA Fraga/Filippo at 01/18/16 0828 Author: MOHIT Fraga Service: (none) Author Type: Occupational Therapist Filed: 01/18/16 1016 Date of Service: 01/18/16 0874 Status: Signed Service Station Helper: MOHIT Fraga (Occupational Therapist) 01/18/16 8251 Precautions Cardiac Precautions Sternal Home Environment Home Exterior Layout 1-3 steps;Ramp (2 steps) Bathroom Equipment Grab bars in shower/bath Home Equipment Walker 4 wheeled;Rehabilitation Specialist Additional Comments Refer to PT note for PLOF Prior Function Level of [place] Independent with functional mobility;Independent with ADLs;Independe nt [...] ;Maintaining sternal precautions LE Dressing Adaptive Equipment Rehabilitation Specialist;[place] long-handled;Sock aid Arm Goals Pt Will Perform [...] 01/17/162012 Date of Service: 01/17/162012 Status: Signed Service Station Helper: Brandon Guaman RN (Registered Nurse) Chart reviewed, all vitals appear stable. No further intervention required at this time. Brandon Guaman RN onver sudhakar Transaction, Provider Unknown - 01/17/2016 3:15 PM PST Case Management by TERRY Forrester at 01/17/16 2477 Author: TERRY Forrester Service: (none) Author Type: Temporary Receptionist Filed: 01/17/16 3106 Date of Service: 01/17/161514 Status: Addendum Service Station Helper: TERRY Forrester (Temporary Receptionist) Related Notes: Original Note by TERRY Forrester (Temporary Receptionist) filed at 01/17/16 2480 CM received consult from RN that family requesting nurse outreach case manager to discuss discharge planni ng. Previous CM [...] only lift portion is covered. CM explained hopm-p-lonwze and other less expensive w ays to get lift-chair. Patient already owns a walker. CM also discussed potential OT equi pment and will follow for PT/OT recommendations. Patient's income appears to be too high for state benefits. Patient is a [place]. CM spok e w/ Lexii OGDEN NE who reports patient is only 20% service [...] of this and will speak w/ Micaela TRUSS MAKER regarding discharge planning. TERRY Forrester onver sudhakar Transaction, Provider Unknown - 01/17/2016 2:23 PM PST Progress Notes by Allie Mcdonough RPH at 01/17/16 1423 Author: lAlie Mcdonough RPH Service: (none) Author Type: Pharmacist Filed: 01/17/161422 Date of Service: 01/17/161422 Status: Signed Service Station Helper: Allie Mcdonough RPH (Pharmacist) Clinical Pharmacy Note: Renal Monitoring Flaco Randolph 80 y.o. male Ht Readings from Last 1 Encounters: 01/15/16 1.854 m (6' 1") Wt Readings from Last 1 Encounters: 01/17/16 100.4 kg (221 lb 5.5 oz) CREATININE Date Value Ref Range Status 01/17/2016 0.95 0.70 - 1.30 mg/dL Final Comment: Testing performed at [facility];[address] [place] [address];[place] [address] CREATININE: 0.95 (01/17/16 0540) Estimated creatinine clearance [...] Note by Gama Urbano PT at 01/17/16 5310 Author: Gama Urbano PT Service: (none) Author Type: Physical Therapist Filed: 01/17/16 1908 Date of Service: 01/17/160 Status: Signed Service Station Helper: Gama Urbano PT (Physical Therapist) 01/17/16 1330 PT Last Visit PT Received On 01/17/16 (Pt. just ambulated approx. 150 ft. w/ NSG is being) Requires PT Follow Up Unavailable (transported to [facility] now via w/c) onver sudhakar Transaction, Provider Unknown - 01/17/2016 1:19 PM PST Progress Notes by Sagrario Quach RN at 01/17/16 1319 Author: Sagrario Quach RN Service: (none) Author Type: Registered Nurse Filed: 01/17/16 1321 Date of Service: 01/17/16 1319 Status: Signed Service Station Helper: Sagrario Quach RN (Registered Nurse) Report called to TIA Nolen, patient stable at time of transfer, taken via wheelchair by tanesha ZULETA notified onver sudhakar Transaction, Provider Unknown - 01/17/2016 12:40 PM PST Case Management by TERRY Julian at 01/17/16 1240 Author: TERRY Julian Service: (none) Author Type: Operational Risk Consultant Filed: 01/17/16 1242 Date of Service: 01/17/16 1240 Status: Signed Service Station Helper: TERRY Julian (Operational Risk Consultant) CM spoke with patient about referral/request for Home Health services. Patient reports he lives in [place], [place]. Services for HH will most likely come from: [place], [place] Phone: [phone] Fax: [phone] onver sudhakar Transaction, Provider Unknown - 01/17/2016 10:40 AM PST Therapy Progress Note by Gama Urbano PT at 01/17/16 1040 Author: Gama Urbano PT Service: (none) Author Type: Physical Therapist Filed: 01/17/16 6279 Date of Service: 01/17/16 1040 Status: Signed Service Station Helper: Gama Lehrschall, PT (Physical Therapist) 01/17/16 1040 [...] approx. 180 ft. w/ CGA using light TOWBOAT PILOT on w/c. Gait posture is slightly forward [...] Pattern Alternating;Forward flexed;Decreased olivia Assistive Device (w/c TOWBOAT PILOT) Modalities Other Therapy ongoing ed on transfer [...] Progress Notes by KAYLEIGH Woodward at 01/17/16 0624 Author: KAYLEIGH Woodward Service: Brick Burner Author Type: Advanced Registered Nu rse Practitioner Filed: 01/17/16 0850 Date of Service: 01/17/1677 Status: Attested Service Station Helper: KAYLEIGH Woodward (Nurse Practitioner) Cosigner: Dariela Bauer MD at 09/24 1412 Attestation signed by Dariela Bauer MD at 01/18/16 1412 I have examined Flaco Randolph, reviewed the notes, assessments, and/or procedures performed by Lashaun VICTOR, I concur with his documentation of Flaco Randolph [facility] Service: Brick Burner Cardiothoracic Surgery Consult and Follow Up Date/Time:01/17/2016 6:35 AM Provider: KAYLEIGH Woodward Hospital Day: LOS: 2 days Surgery/Procedure: Procedure(s) (LRB): CABG - DONNY (N/A) Post-Op Day: 2 Days Post-Op PROBLEM LIST Principal Problem: 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 * SUBJECTIVE: Patient Summary: Mr Randolph is an 80 y rold man with HTN, HPL, RA, history of TIA, who was transferred from [facility] due to epigastric pain due to an [...] could be advanced approximately 2 cm. 5. Graham-Jeannette catheter could be ad vanced approximately 5 [...] 10 2016 8:30PM Referring Provide r Line: [phone] ID: [id number] Echo Cardiac Adult Complete 01/10/2016 [...] (none) Author Type: Physical Therapist Filed: 01/16/16 6345 Date of Service: 01/16/16 1340 Status: Signed Service Station Helper: Kory Hameed PT (Physical Therapist) 01/16/16 1340 PT Last Visit PT Received On 01/16/16 Reason for Treatment Cardiac Requires PT Follow Up Yes Follow up PT Only? No Assistance Required 1 person Manager Managed Backup Services Needed No Precautions Cardiac Precautions Sternal Other Precautions Fall risk Other Comments Comments Pt seated in recliner and agreeable to PT upon observation. Pt's and daughter present. Obtained further history information and discussed discharge planning with family and pt. Pt transferring sidelying --> sit max A and sit --> stand with mod A and slight retr opulsion. Pt ambulated 35 ft with TOWBOAT PILOT on w/c min A, pt reporting when [...] foot;Wide base;Forward flexed Assistive Device Other (Comment) (TOWBOAT PILOT on w/c) Modalities Modalities Other therapy Other [...] 1138 Date of Service: 01/16/161137 Status: Signed Service Station Helper: Josselin Brown RD, CD (Registered Dietitian) 01/16/16 [...] Estimated Energy Needs Total Energy Estimated Needs 8264-0727 kcal/day Method for Estimating Needs 30-35 kcal/kg [...] 1217 Date of Service: 01/16/16901 Status: Signed Service Station Helper: Kory Hameed PT (Physical Therapist) 01/16/16901 PT Last Visit PT Received On 01/16/16 Reason for Treatment Cardiac Requires PT Follow Up Awaiting tx order Follow up PT Only? Yes (ongoing assessment) PT Eval/Reassessment Date 01/16/16 Assistance Required 1 person;2 person (line management) Manager Managed Backup Services Needed No Home Environment Type of Home Home one story Home Exterior Layout 1-3 steps;Ramp;Rail bilateral Home Interior Layout Lives on main level with bedroom/bathroom Bathroom Shower/Tub Shower unit with threshold Bathroom Equipment Grab bars in shower/bath Prior Function Level of [place] Independent with ADLs;Independent with IADLs Lives With [...] Assistance Required 1 person;2 person (line management) Manager Managed Backup Services Needed No Precautions Cardiac Precautions Sternal Other [...] pass stance foot Assistive Device Other (Comment) (TOWBOAT PILOT on w/c) Modalities Modalities Other therapy Other [...] 01/16/2016 6:44 AM PST Progress Notes by KAYLEIGH Woodward at 01/16/16 0644 Author: KAYLEIGH Woodward Service: Brick Burner Author Type: Advanced Registered Nu rse Practitioner Filed: 01/16/16 1101 Date of Service: 01/16/16 0644 Status: Attested Service Station Helper: KAYLEIGH Woodward (Nurse Practitioner) Cosigner: Dariela Bauer MD at 09/24 1413 Attestation signed by Dariela Bauer MD at 01/18/16 1413 I have examined Flaco Randolph, reviewed the notes, assessments, and/or procedures performed by Lashaun VICTOR, I concur with his documentation of Flaco Randolph [facility] Service: Brick Burner Cardiothoracic Surgery Consult and Follow Up Date/Time:01/16/2016 6:44 AM Provider: KAYLEIGH Woodward Hospital Day: LOS: 1 day Surgery/Procedure: Procedure(s) (LRB): CABG - DONNY (N/A) Post-Op Day: 1 Day Post-Op PROBLEM LIST Principal Problem: 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 * SUBJECTIVE: Patient Summary: Mr Randolph is an 80 y rold man with HTN, HPL, RA, history of TIA, who was transferred from [facility] due to epigastric pain due to an [...] could be advanced approximately 2 cm. 5. Graham-Jeannette catheter could be ad vanced approximately 5 [...] 10 2016 8:30PM Referring Provide r Line: [phone] ID: [id number] Echo Cardiac Adult Complete 01/10/2016 [...] 01/16/2016 6:44 AM Luis Armando Barron AR OIL INSPECTOR - 01/15/2016 11:00 PM PST Progress Notes by Luis Armando Mar RN at 01/15/16 5651 Author: Luis Armando Mar RN Service: (none) Author Type: Registered Nurse Filed: 01/16/16 0075 Date of Service: 01/15/16 230 Status: Addendum Service Station Helper: Luis Armando Mar RN (Registered Nurse) Related Notes: Original Note by Luis Armando Mar RN (Registered Nurse) filed at 01/16/16 4252 Patient complains of excruciating pain to left lower leg, removed RAMESH wrap noted swelling t o mid glaser pain improved however some burning sensation remained, Brick Burner at bedside yamila luating leg. Will continue to evaluate. Luis Armando Mar RN Luis Armando Fuller ARN P - 01/15/2016 9:01 PM PST Nurse Progress Note by Luis Armando Mar RN at 01/15/16 1475 Author: Luis Armando Mar RN Service: (none) Author Type: Registered Nurse Filed: 01/15/162102 Date of Service: 01/15/162100 Status: Signed Service Station Helper: Luis Armando Mar RN (Registered Nurse) Run [...] Date of Service: 01/15/16 160 Status: Signed Service Station Helper: Bandar Cali RRT (Registered Respiratory Therapist) Pt's blood gas improved, able to follow commands, and lift head. Pt ready to extubate. I de flated the cuff until the pest control pilot balloon was flat but was unable [...] the patient I aga in emptied the pest control pilot balloon until it was flat. Dariusz Escoto Chaplain - 01/15/2016 11:21 AM PST Progress Notes by Dariusz Petersen at 01/15/16 112 Author: Dariusz Petersen Service: (none) Author Type: Filed: 01/15/16 112 Date of Service: 01/15/161120 Status: Signed Service Station Helper: Dariusz Petersen () Gave family the off [...] Date of Service: 01/15/16 1022 Status: Signed Service Station Helper: Dariusz Petersen () Gave the family the on pump report at 9:10am onversion Smith saction, Provider Unknown - 01/15/2016 6:18 AM PSTFormatting of this note might be differen t from the original. Progress Notes by Colton Banegas RPH at 01/15/16617 Author: Colton Banegas RPH Service: (none) Author Type: Pharmacist Filed: 01/15/16617 Date of Service: 01/15/16617 Status: Signed Service Station Helper: Colton Banegas RPH (Pharmacist) Clinical Pharmacy Note: Renal Monitoring Flaco Randolph 80 y.o. male Ht Readings from Last 1 Encounters: 01/08/16 1.854 m (6' 1") Wt Readings from Last 1 Encounters: 01/15/16 98.431 kg (217 lb) CREATININE Date Value Ref Range Status 01/09/2016 0.96 0.70 - 1.30 mg/dL Final Comment: Testing performed at [facility], [address] [place] [address] Creatinine clearance cannot be calculated (Patient's most [...] | | | | | [place] | | | | | | [address] | | | | | | | [...] | | | Fingerstick | performed at [facility];[address] | | LAB | | | | [address];[place] | | | | | | [address] | | | | + + + [...] EXTERNAL | | | | performed at [facility], [address] | K/uL | LAB | | | | [address], | | | | | | [place] [address] | | | | + + + + + + | RED CELL | 3.05 (L)Comment: Testing | 4.20 - 5.70 | EXTERNAL | | | COUNT | performed at [facility], [address] | M/uL | LAB | | | | [address], | | | | | | [place] [address] | | | | + + + + + + | Hgb | 9.3 (L)Comment: Testing | 13.2 - 17.0 | EXTERNAL | | | | performed at [facility], [address] | g/dL | LAB | | | | [address], | | | | | | [place] [address] | | | | + + + + + + | Hematocrit, | 27.0 (L)Comment: Testing | 39.0 - 50.0 % | EXTERNAL | | | POC | performed at [facility], [address] | | LAB | | | | [address], | | | | | | [place] [address] | | | | + + + + + + | MCV | 88.8Comment: Testing | 80.0 - 100.0 fl | EXTERNAL | | | | performed at [facility], [address] | | LAB | | | | [address], | | | | | | [place] [address] | | | | + + + + + + | MCH | 30.6Comment: Testing | 27.0 - 34.0 pg | EXTERNAL | | | | performed at [facility], [address] | | LAB | | | | [address], | | | | | | [place] [address] | | | | + + + + + + | MCHC | 34.5Comment: Testing | 32.0 - 35.5 | EXTERNAL | | | | performed at [facility], [address] | g/dL | LAB | | | | [address], | | | | | | [place] [address] | | | | + + + + + + | RDW-CV | 43.3Comment: Testing | 37 - 53 fl | EXTERNAL | | | | performed at [facility], [address] | | LAB | | | | [address], | | | | | | [place] [address] | | | | + + + + + + | Platelet | 227Comment: Testing | 150 - 400 K/uL | EXTERNAL | | | Count | performed at [facility], [address] | | LAB | | | Plasma | [address], | | | | | | [place] [address] | | | | + + + + + + | MPV | 8.0Comment: Testing | fl | EXTERNAL | | | | performed at [facility], [address] | | LAB | | | | [address], | | | | | | [place] [address] | | | | + + + + + + | Differentia | AUTOMATEDComment: | | EXTERNAL | | | l Type | Testing performed at | | LAB | | | | [facility], [address] | | | | | | [place] | | | | | | [address] | | | | + + + + + + | % Segmented | 75.65Comment: Testing | % | EXTERNAL | | | | performed at [facility], [address] | | LAB | | | Neutrophils | [address], | | | | | | [place] [address] | | | | + + + + + + | % | 10.30Comment: Testing | % | EXTERNAL | | | Lymphocytes | performed at [facility], [address] | | LAB | | | | [address], | | | | | | [place] [address] | | | | + + + + + + | % Monocytes | 9.87Comment: Testing | % | EXTERNAL | | | | performed at [facility], [address] | | LAB | | | | [address], | | | | | | [place] [address] | | | | + + + + + + | % | 3.83Comment: Testing | % | EXTERNAL | | | Eosinophils | performed at [facility], [address] | | LAB | | | | [address], | | | | | | [place] [address] | | | | + + + + + + | % Basophils | 0.35Comment: Testing | % | EXTERNAL | | | | performed at [facility], [address] | | LAB | | | | [address], | | | | | | [place] [address] | | | | + + + + + + | Absolute | 6.46Comment: Testing | 1.90 - 7.40 | EXTERNAL | | | Segmented | performed at [facility], [address] | K/uL | LAB | | | Neutrophils | [address], | | | | | | [place] [address] | | | | + + + + + + | Absolute | 0.88 (L)Comment: Testing | 1.00 - 3.90 | EXTERNAL | | | Lymphocytes | performed at [facility], [address] | K/uL | LAB | | | | [address], | | | | | | [place] [address] | | | | + + + + + + | Absolute | 0.84 (H)Comment: Testing | 0.00 - 0.80 | EXTERNAL | | | Monocytes | performed at [facility], [address] | K/uL | LAB | | | | [address], | | | | | | [place] [address] | | | | + + + + + + | Absolute | 0.33Comment: Testing | 0.00 - 0.50 | EXTERNAL | | | Eosinophils | performed at [facility], [address] | K/uL | LAB | | | | [address], | | | | | | [place] [address] | | | | + + + + + + | Absolute | 0.03Comment: Testing | 0.00 - 0.10 | EXTERNAL | | | Basophils | performed at [facility], [address] | K/uL | LAB | | | | [address], | | | | | | [place] [address] | | | | + + + [...] EXTERNAL | | | | performed at [facility], [address] | | LAB | | | | [address], | | | | | | [place] [address] | | | | + + + [...] | | | | | [place] [address] | | | | + + + + + + | K | 3.8Comment: Testing | 3.5 - 4.9 | EXTERNAL | | | | performed at [facility], [address] | mmol/L | LAB | | | | [address], | | | | | | [place] [address] | | | | + + + + + + | Cl | 103Comment: Testing | 99 - 109 mmol/L | EXTERNAL | | | | performed at [facility], [address] | | LAB | | | | [address], | | | | | | [place] [address] | | | | + + + + + + | CO2 | 25Comment: Testing | 23 - 32 mmol/L | EXTERNAL | | | | performed at [facility], [address] | | LAB | | | | [address], | | | | | | [place] [address] | | | | + + + + + + | Anion Gap | 9Comment: Testing | 5 - 20 mmol/L | EXTERNAL | | | | performed at [facility], [address] | | LAB | | | | [address], | | | | | | [place] [address] | | | | + + + + + + | Glucose, | 110 (H)Comment: Testing | 65 - 99 mg/dL | EXTERNAL | | | Fasting | performed at [facility], [address] | | LAB | | | | [address], | | | | | | [place] [address] | | | | + + + + + + | BUN | 21Comment: Testing | 8 - 25 mg/dL | EXTERNAL | | | | performed at [facility], [address] | | LAB | | | | [address], | | | | | | [place] [address] | | | | + + + + + + | Creatinine | 1.09Comment: Testing | 0.70 - 1.30 | EXTERNAL | | | | performed at [facility], [address] | mg/dL | LAB | | | | [address], | | | | | | [place] [address] | | | | + + + + + + | BUN/Creatin | 19Comment: Testing | | EXTERNAL | | | ine Ratio | performed at [facility], [address] | | LAB | | | | [address], | | | | | | [place] [address] | | | | + + + + + + | Calcium | 8.2 (L)Comment: Testing | 8.5 - 10.5 | EXTERNAL | | | | performed at [facility], [address] | mg/dL | LAB | | | | [address], | | | | | | [place] [address] | | | | + + + [...] [place], | | | | | | [place] [address] | | | | + + + [...] | | | Fingerstick | performed at [facility] | | LAB | | | | [address];[place], [place] | | | | | | [address] | | | | + + + [...] | | | Fingerstick | performed at [facility];[address] | | LAB | | | | [address];[place] | | | | | | [address] | | | | + + + [...] EXTERNAL | | | | performed at [facility];[address] | mmol/L | LAB | | | | [address];[place], [place] | | | | | | [address] | | | | + + + [...] | | | Fingerstick | performed at [facility];[address] | | LAB | | | | [address];[place], [place] | | | | | | [address] | | | | + + + [...] EXTERNAL | | | | performed at [facility];[address] | mmol/L | LAB | | | | [address];[place], [place] | | | | | | [address] | | | | + + + [...] | | | Fingerstick | performed at [facility];[address] | | LAB | | | | [address];[place], [place] | | | | | | [address] | | | | + + + [...] EXTERNAL | | | | performed at [facility], [address] | K/uL | LAB | | | | [address], | | | | | | [place] [address] | | | | + + + + + + | RED CELL | 3.26 (L)Comment: Testing | 4.20 - 5.70 | EXTERNAL | | | COUNT | performed at [facility], [address] | M/uL | LAB | | | | [address], | | | | | | [place] [address] | | | | + + + + + + | Hgb | 10.0 (L)Comment: Testing | 13.2 - 17.0 | EXTERNAL | | | | performed at [facility], [address] | g/dL | LAB | | | | [address], | | | | | | [place] [address] | | | | + + + + + + | Hematocrit, | 29.1 (L)Comment: Testing | 39.0 - 50.0 % | EXTERNAL | | | POC | performed at [facility], [address] | | LAB | | | | [address], | | | | | | [place] [address] | | | | + + + + + + | MCV | 89.3Comment: Testing | 80.0 - 100.0 fl | EXTERNAL | | | | performed at [facility], [address] | | LAB | | | | [address], | | | | | | [place] [address] | | | | + + + + + + | MCH | 30.7Comment: Testing | 27.0 - 34.0 pg | EXTERNAL | | | | performed at [facility], [address] | | LAB | | | | [address], | | | | | | [place] [address] | | | | + + + + + + | MCHC | 34.4Comment: Testing | 32.0 - 35.5 | EXTERNAL | | | | performed at [facility], [address] | g/dL | LAB | | | | [address], | | | | | | [place] [address] | | | | + + + + + + | RDW-CV | 42.9Comment: Testing | 37 - 53 fl | EXTERNAL | | | | performed at [facility], [address] | | LAB | | | | [address], | | | | | | [place] [address] | | | | + + + + + + | Platelet | 231Comment: Testing | 150 - 400 K/uL | EXTERNAL | | | Count | performed at [facility], [address] | | LAB | | | Plasma | [address], | | | | | | [place] [address] | | | | + + + + + + | MPV | 8.4Comment: Testing | fl | EXTERNAL | | | | performed at [facility], [address] | | LAB | | | | [address], | | | | | | [place] [address] | | | | + + + + + + | Differentia | AUTOMATEDComment: | | EXTERNAL | | | l Type | Testing performed at | | LAB | | | | [facility], [address] | | | | | | [place] | | | | | | [address] | | | | + + + + + + | % Segmented | 76.97Comment: Testing | % | EXTERNAL | | | | performed at [facility], [address] | | LAB | | | Neutrophils | [address], | | | | | | [place] [address] | | | | + + + + + + | % | 8.91Comment: Testing | % | EXTERNAL | | | Lymphocytes | performed at [facility], [address] | | LAB | | | | [address], | | | | | | [place] [address] | | | | + + + + + + | % Monocytes | 10.61Comment: Testing | % | EXTERNAL | | | | performed at [facility], [address] | | LAB | | | | [address], | | | | | | [place] [address] | | | | + + + + + + | % | 3.28Comment: Testing | % | EXTERNAL | | | Eosinophils | performed at [facility], [address] | | LAB | | | | [address], | | | | | | [place] [address] | | | | + + + + + + | % Basophils | 0.23Comment: Testing | % | EXTERNAL | | | | performed at [facility], [address] | | LAB | | | | [address], | | | | | | [place] [address] | | | | + + + + + + | Absolute | 7.66 (H)Comment: Testing | 1.90 - 7.40 | EXTERNAL | | | Segmented | performed at [facility], [address] | K/uL | LAB | | | Neutrophils | [address], | | | | | | [place] [address] | | | | + + + + + + | Absolute | 0.89 (L)Comment: Testing | 1.00 - 3.90 | EXTERNAL | | | Lymphocytes | performed at [facility], [address] | K/uL | LAB | | | | [address], | | | | | | [place] [address] | | | | + + + + + + | Absolute | 1.06 (H)Comment: Testing | 0.00 - 0.80 | EXTERNAL | | | Monocytes | performed at [facility], [address] | K/uL | LAB | | | | [address], | | | | | | [place] [address] | | | | + + + + + + | Absolute | 0.33Comment: Testing | 0.00 - 0.50 | EXTERNAL | | | Eosinophils | performed at [facility], [address] | K/uL | LAB | | | | [address], | | | | | | [place] [address] | | | | + + + + + + | Absolute | 0.02Comment: Testing | 0.00 - 0.10 | EXTERNAL | | | Basophils | performed at [facility], [address] | K/uL | LAB | | | | [address], | | | | | | [place] [address] | | | | + + + [...] EXTERNAL | | | | performed at [facility], [address] | | LAB | | | | [address], | | | | | | [place] [address] | | | | + + + [...] | | | | | [place] [address] | | | | + + + + + + | K | 3.5Comment: Testing | 3.5 - 4.9 | EXTERNAL | | | | performed at [facility], [address] | mmol/L | LAB | | | | [address], | | | | | | [place] [address] | | | | + + + + + + | Cl | 101Comment: Testing | 99 - 109 mmol/L | EXTERNAL | | | | performed at [facility], [address] | | LAB | | | | [address], | | | | | | [place] [address] | | | | + + + + + + | CO2 | 26Comment: Testing | 23 - 32 mmol/L | EXTERNAL | | | | performed at [facility], [address] | | LAB | | | | [address], | | | | | | [place] [address] | | | | + + + + + + | Anion Gap | 9Comment: Testing | 5 - 20 mmol/L | EXTERNAL | | | | performed at [facility], [address] | | LAB | | | | [address], | | | | | | [place] [address] | | | | + + + + + + | Glucose, | 101 (H)Comment: Testing | 65 - 99 mg/dL | EXTERNAL | | | Fasting | performed at [facility], [address] | | LAB | | | | [address], | | | | | | [place] [address] | | | | + + + + + + | BUN | 23Comment: Testing | 8 - 25 mg/dL | EXTERNAL | | | | performed at [facility], [address] | | LAB | | | | [address], | | | | | | [place] [address] | | | | + + + + + + | Creatinine | 1.14Comment: Testing | 0.70 - 1.30 | EXTERNAL | | | | performed at [facility], [address] | mg/dL | LAB | | | | [address], | | | | | | [place], [place] [address] | | | | + + + + + + | BUN/Creatin | 20Comment: Testing | | EXTERNAL | | | ine Ratio | performed at [facility], [address] | | LAB | | | | [address], | | | | | | [place] [address] | | | | + + + + + + | Calcium | 8.3 (L)Comment: Testing | 8.5 - 10.5 | EXTERNAL | | | | performed at [facility], [address] | mg/dL | LAB | | | | [address], | | | | | | [place] [address] | | | | + + + [...] | | | | | | at [facility], [address] | | | | | | [address], | | | | | | [place] [address] | | | | + + + [...] | | | Fingerstick | performed at [facility];[address] | | LAB | | | | [address];[place], [place] | | | | | | [address] | | | | + + + [...] | | | Fingerstick | performed at [facility];[address] | | LAB | | | | [address];[place] | | | | | | [address] | | | | + + + [...] | | | Fingerstick | performed at [facility];[address] | | LAB | | | | [address];[place] | | | | | | [address] | | | | + + + [...] | | | Patient | performed at [facility];[address] | | LAB | | | | [address];[place] | | | | | | [address] | | | | + + + [...] EXTERNAL | | | | performed at [facility];[address] | mmol/L | LAB | | | | [address];[place] | | | | | | [address] | | | | + + + + + + | K | 3.5Comment: Testing | 3.5 - 4.9 | EXTERNAL | | | | performed at [facility];[address] | mmol/L | LAB | | | | [address];[place] | | | | | | [address] | | | | + + + + + + | Cl | 101Comment: Testing | 99 - 109 mmol/L | EXTERNAL | | | | performed at [facility];[address] | | LAB | | | | [address];[place] | | | | | | [address] | | | | + + + + + + | CO2 | 26Comment: Testing | 23 - 32 mmol/L | EXTERNAL | | | | performed at [facility];[address] | | LAB | | | | [address];[place] | | | | | | [address] | | | | + + + + + + | Anion Gap | 12Comment: Testing | 5 - 20 mmol/L | EXTERNAL | | | | performed at [facility];[address] | | LAB | | | | [address];[place] | | | | | | [address] | | | | + + + + + + | Glucose, | 135 (H)Comment: Testing | 65 - 99 mg/dL | EXTERNAL | | | Fasting | performed at [facility];[address] | | LAB | | | | [address];[place] | | | | | | [address] | | | | + + + + + + | BUN | 23Comment: Testing | 8 - 25 mg/dL | EXTERNAL | | | | performed at [facility];[address] | | LAB | | | | [address];[place] | | | | | | [address] | | | | + + + + + + | Creatinine | 1.2Comment: Testing | 0.70 - 1.30 | EXTERNAL | | | | performed at [facility];[address] | mg/dL | LAB | | | | [address];[place] | | | | | | [address] | | | | + + + + + + | BUN/Creatin | 19Comment: Testing | | EXTERNAL | | | ine Ratio | performed at [facility];[address] | | LAB | | | | [address];[place] | | | | | | [address] | | | | + + + + + + | Calcium | 7.8 (L)Comment: Testing | 8.5 - 10.5 | EXTERNAL | | | | performed at [facility];[address] | mg/dL | LAB | | | | [address];[place] | | | | | | [address] | | | | + + + [...] | | | | | | at [facility];[address] [place] [address] | | | | | | [facility];[place] [address] | | | | + + + [...] | EXTERNAL LAB | | performed at [facility];[address] [place] [id number] NAP1 BI | | | 027 NAP1 BI PRESUMPTIVE NEGATIVE | | | Detection of 027 NAP1 BI strains of C. difficile is presumptive and | | | for epidemiological purposes and not intended to guide or monitor | | | treatment for C. difficile infections. Testing performed at [facility] | | | [facility];[place] [address] | | + + + + +---------+ [...] | | | Fingerstick | performed at [facility];888 | | LAB | | | | [address];[place] | | | | | | [address] | | | | + + + [...] | | | Patient | performed at [facility];888 | | LAB | | | | [address];[place], [place] | | | | | | [address] | | | | + + + [...] EXTERNAL | | | | performed at [facility];[address] | K/uL | LAB | | | | [address];[place] | | | | | | [address] | | | | + + + + + + | RED CELL | 3.25 (L)Comment: Testing | 4.20 - 5.70 | EXTERNAL | | | COUNT | performed at [facility];888 | M/uL | LAB | | | | [address];[place] | | | | | | [address] | | | | + + + + + + | Hgb | 10.0 (L)Comment: Testing | 13.2 - 17.0 | EXTERNAL | | | | performed at [facility];888 | g/dL | LAB | | | | [address];[place] | | | | | | [address] | | | | + + + + + + | Hematocrit, | 28.6 (L)Comment: Testing | 39.0 - 50.0 % | EXTERNAL | | | POC | performed at [facility];888 | | LAB | | | | [address];[place] | | | | | | [address] | | | | + + + + + + | MCV | 88.0Comment: Testing | 80.0 - 100.0 fl | EXTERNAL | | | | performed at [facility];888 | | LAB | | | | [address];[place] | | | | | | [address] | | | | + + + + + + | MCH | 30.9Comment: Testing | 27.0 - 34.0 pg | EXTERNAL | | | | performed at [facility];888 | | LAB | | | | [address];[place] | | | | | | [address] | | | | + + + + + + | MCHC | 35.1Comment: Testing | 32.0 - 35.5 | EXTERNAL | | | | performed at [facility];888 | g/dL | LAB | | | | [address];[place] | | | | | | [address] | | | | + + + + + + | RDW-CV | 43.8Comment: Testing | 37 - 53 fl | EXTERNAL | | | | performed at [facility];888 | | LAB | | | | [address];[place] | | | | | | [address] | | | | + + + + + + | Platelet | 192Comment: Testing | 150 - 400 K/uL | EXTERNAL | | | Count | performed at [facility];888 | | LAB | | | Plasma | [address];[place] | | | | | | [address] | | | | + + + + + + | MPV | 7.9Comment: Testing | fl | EXTERNAL | | | | performed at [facility];888 | | LAB | | | | [address];[place] | | | | | | [address] | | | | + + + + + + | Differentia | AUTOMATEDComment: | | EXTERNAL | | | l Type | Testing performed at | | LAB | | | | [facility];[address];[place] [address] | | | | + + + + + + | % Segmented | 67.85Comment: Testing | % | EXTERNAL | | | | performed at [facility];888 | | LAB | | | Neutrophils | [address];[place] | | | | | | [address] | | | | + + + + + + | % | 13.89Comment: Testing | % | EXTERNAL | | | Lymphocytes | performed at [facility];[address] | | LAB | | | | [address];[place] | | | | | | [address] | | | | + + + + + + | % Monocytes | 12.22Comment: Testing | % | EXTERNAL | | | | performed at [facility];[address] | | LAB | | | | [address];[place] | | | | | | [address] | | | | + + + + + + | % | 5.63Comment: Testing | % | EXTERNAL | | | Eosinophils | performed at [facility];[address] | | LAB | | | | [address];[place] | | | | | | [address] | | | | + + + + + + | % Basophils | 0.41Comment: Testing | % | EXTERNAL | | | | performed at [facility];888 | | LAB | | | | [address];[place] | | | | | | [address] | | | | + + + + + + | Absolute | 5.65Comment: Testing | 1.90 - 7.40 | EXTERNAL | | | Segmented | performed at [facility];888 | K/uL | LAB | | | Neutrophils | [address];[place] | | | | | | [address] | | | | + + + + + + | Absolute | 1.16Comment: Testing | 1.00 - 3.90 | EXTERNAL | | | Lymphocytes | performed at [facility];888 | K/uL | LAB | | | | [address];[place] | | | | | | [address] | | | | + + + + + + | Absolute | 1.02 (H)Comment: Testing | 0.00 - 0.80 | EXTERNAL | | | Monocytes | performed at [facility];888 | K/uL | LAB | | | | [address];[place] | | | | | | [address] | | | | + + + + + + | Absolute | 0.47Comment: Testing | 0.00 - 0.50 | EXTERNAL | | | Eosinophils | performed at [facility];888 | K/uL | LAB | | | | [address];[place] | | | | | | [address] | | | | + + + + + + | Absolute | 0.03Comment: Testing | 0.00 - 0.10 | EXTERNAL | | | Basophils | performed at [facility];888 | K/uL | LAB | | | | [address];[place] | | | | | | [address] | | | | + + + [...] EXTERNAL | | | | performed at [facility];8 | | LAB | | | | [address] [facility];[place], [place] | | | | | | [address] | | | | + + + [...] EXTERNAL | | | | performed at [facility];888 | mmol/L | LAB | | | | [address];[place] | | | | | | [address] | | | | + + + + + + | K | 3.7Comment: Testing | 3.5 - 4.9 | EXTERNAL | | | | performed at [facility];888 | mmol/L | LAB | | | | [address];[place] | | | | | | [address] | | | | + + + + + + | Cl | 103Comment: Testing | 99 - 109 mmol/L | EXTERNAL | | | | performed at [facility];[address] | | LAB | | | | [address];[place] | | | | | | [address] | | | | + + + + + + | CO2 | 28Comment: Testing | 23 - 32 mmol/L | EXTERNAL | | | | performed at [facility];[address] | | LAB | | | | [address];[place] | | | | | | [address] | | | | + + + + + + | Anion Gap | 8Comment: Testing | 5 - 20 mmol/L | EXTERNAL | | | | performed at [facility];[address] | | LAB | | | | [address];[place] | | | | | | [address] | | | | + + + + + + | Glucose, | 105 (H)Comment: Testing | 65 - 99 mg/dL | EXTERNAL | | | Fasting | performed at [facility];[address] | | LAB | | | | [address];[place] | | | | | | [address] | | | | + + + + + + | BUN | 23Comment: Testing | 8 - 25 mg/dL | EXTERNAL | | | | performed at [facility];[address] | | LAB | | | | [address];[place] | | | | | | [address] | | | | + + + + + + | Creatinine | 1.1Comment: Testing | 0.70 - 1.30 | EXTERNAL | | | | performed at [facility];888 | mg/dL | LAB | | | | [address];[place] | | | | | | [address] | | | | + + + + + + | BUN/Creatin | 21Comment: Testing | | EXTERNAL | | | ine Ratio | performed at [facility];[address] | | LAB | | | | [address];[place] | | | | | | [address] | | | | + + + + + + | Calcium | 7.9 (L)Comment: Testing | 8.5 - 10.5 | EXTERNAL | | | | performed at [facility];888 | mg/dL | LAB | | | | [address];[place] | | | | | | [address] | | | | + + + [...] | | | | | | at [facility];[address];[place] [address] | | | | + + + [...] | | | Fingerstick | performed at [facility];888 | | LAB | | | | [address];[place] | | | | | | [address] | | | | + + + [...] | | | Patient | performed at [facility];[address] | | LAB | | | | [address];[place] | | | | | | [address] | | | | + + + [...] | | | Fingerstick | performed at [facility];888 | | LAB | | | | [address];[place] | | | | | | [address] | | | | + + + [...] | | | Patient | performed at [facility];888 | | LAB | | | | [address];[place], [place] | | | | | | [address] | | | | + + + [...] | | | Fingerstick | performed at [facility];888 | | LAB | | | | [address];[place] | | | | | | [address] | | | | + + + [...] | | | Fingerstick | performed at [facility];888 | | LAB | | | | [address];[place] | | | | | | [address] | | | | + + + [...] | | | | | [place] [address] | | | | + + + [...] | | | Patient | performed at [facility];888 | | LAB | | | | [address];[place], [place] | | | | | | [address] | | | | + + + [...] | | | Fingerstick | performed at [facility];888 | | LAB | | | | [address];[place] | | | | | | [address] | | | | + + + [...] | | | Patient | performed at [facility];888 | | LAB | | | | [address];[place] | | | | | | [address] | | | | + + + [...] EXTERNAL | | | | performed at [facility], [address] | K/uL | LAB | | | | [address], | | | | | | [place] [address] | | | | + + + + + + | RED CELL | 3.25 (L)Comment: Testing | 4.20 - 5.70 | EXTERNAL | | | COUNT | performed at [facility], [address] | M/uL | LAB | | | | [address], | | | | | | [place] [address] | | | | + + + + + + | Hgb | 10.1 (L)Comment: Testing | 13.2 - 17.0 | EXTERNAL | | | | performed at [facility], [address] | g/dL | LAB | | | | [address], | | | | | | [place] [address] | | | | + + + + + + | Hematocrit, | 29.4 (L)Comment: Testing | 39.0 - 50.0 % | EXTERNAL | | | POC | performed at [facility], [address] | | LAB | | | | [address], | | | | | | [place] [address] | | | | + + + + + + | MCV | 90.5Comment: Testing | 80.0 - 100.0 fl | EXTERNAL | | | | performed at [facility], [address] | | LAB | | | | [address], | | | | | | [place] [address] | | | | + + + + + + | MCH | 31.0Comment: Testing | 27.0 - 34.0 pg | EXTERNAL | | | | performed at [facility], [address] | | LAB | | | | [address], | | | | | | [place] [address] | | | | + + + + + + | MCHC | 34.3Comment: Testing | 32.0 - 35.5 | EXTERNAL | | | | performed at [facility], [address] | g/dL | LAB | | | | [address], | | | | | | [place] [address] | | | | + + + + + + | RDW-CV | 44.2Comment: Testing | 37 - 53 fl | EXTERNAL | | | | performed at [facility], [address] | | LAB | | | | [address], | | | | | | [place] [address] | | | | + + + + + + | Platelet | 168Comment: Testing | 150 - 400 K/uL | EXTERNAL | | | Count | performed at [facility], [address] | | LAB | | | Plasma | [address], | | | | | | [place] [address] | | | | + + + + + + | MPV | 9.0Comment: Testing | fl | EXTERNAL | | | | performed at [facility], [address] | | LAB | | | | [address], | | | | | | [place] [address] | | | | + + + + + + | Differentia | AUTOMATEDComment: | | EXTERNAL | | | l Type | Testing performed at | | LAB | | | | [facility], [address] | | | | | | [place] | | | | | | [address] | | | | + + + + + + | % Segmented | 76.92Comment: Testing | % | EXTERNAL | | | | performed at [facility], [address] | | LAB | | | Neutrophils | [address], | | | | | | [place] [address] | | | | + + + + + + | % | 7.48Comment: Testing | % | EXTERNAL | | | Lymphocytes | performed at [facility], [address] | | LAB | | | | [address], | | | | | | [place] [address] | | | | + + + + + + | % Monocytes | 14.01Comment: Testing | % | EXTERNAL | | | | performed at [facility], [address] | | LAB | | | | [address], | | | | | | [place] [address] | | | | + + + + + + | % | 1.31Comment: Testing | % | EXTERNAL | | | Eosinophils | performed at [facility], [address] | | LAB | | | | [address], | | | | | | [place] [address] | | | | + + + + + + | % Basophils | 0.28Comment: Testing | % | EXTERNAL | | | | performed at [facility], [address] | | LAB | | | | [address], | | | | | | [place] [address] | | | | + + + + + + | Absolute | 7.45 (H)Comment: Testing | 1.90 - 7.40 | EXTERNAL | | | Segmented | performed at [facility], [address] | K/uL | LAB | | | Neutrophils | [address], | | | | | | [place] [address] | | | | + + + + + + | Absolute | 0.73 (L)Comment: Testing | 1.00 - 3.90 | EXTERNAL | | | Lymphocytes | performed at [facility], [address] | K/uL | LAB | | | | [address], | | | | | | [place] [address] | | | | + + + + + + | Absolute | 1.36 (H)Comment: Testing | 0.00 - 0.80 | EXTERNAL | | | Monocytes | performed at [facility], [address] | K/uL | LAB | | | | [address], | | | | | | [place] [address] | | | | + + + + + + | Absolute | 0.13Comment: Testing | 0.00 - 0.50 | EXTERNAL | | | Eosinophils | performed at [facility], [address] | K/uL | LAB | | | | [address], | | | | | | [place] [address] | | | | + + + + + + | Absolute | 0.03Comment: Testing | 0.00 - 0.10 | EXTERNAL | | | Basophils | performed at [facility], [address] | K/uL | LAB | | | | [address], | | | | | | [place] [address] | | | | + + + [...] EXTERNAL | | | | performed at [facility], [address] | | LAB | | | | [address], | | | | | | [place] [address] | | | | + + + [...] | | | | | [place] [address] | | | | + + + + + + | K | 3.6Comment: Testing | 3.5 - 4.9 | EXTERNAL | | | | performed at [facility], [address] | mmol/L | LAB | | | | [address], | | | | | | [place] [address] | | | | + + + + + + | Cl | 103Comment: Testing | 99 - 109 mmol/L | EXTERNAL | | | | performed at [facility], [address] | | LAB | | | | [address], | | | | | | [place] [address] | | | | + + + + + + | CO2 | 22 (L)Comment: Testing | 23 - 32 mmol/L | EXTERNAL | | | | performed at [facility], [address] | | LAB | | | | [address], | | | | | | [place] [address] | | | | + + + + + + | Anion Gap | 10Comment: Testing | 5 - 20 mmol/L | EXTERNAL | | | | performed at [facility], [address] | | LAB | | | | [address], | | | | | | [place] [address] | | | | + + + + + + | Glucose, | 117 (H)Comment: Testing | 65 - 99 mg/dL | EXTERNAL | | | Fasting | performed at [facility], [address] | | LAB | | | | [address], | | | | | | [place] [address] | | | | + + + + + + | BUN | 26 (H)Comment: Testing | 8 - 25 mg/dL | EXTERNAL | | | | performed at [facility], [address] | | LAB | | | | [address], | | | | | | [place] [address] | | | | + + + + + + | Creatinine | 1.03Comment: Testing | 0.70 - 1.30 | EXTERNAL | | | | performed at [facility], [address] | mg/dL | LAB | | | | [address], | | | | | | [place] [address] | | | | + + + + + + | BUN/Creatin | 25Comment: Testing | | EXTERNAL | | | ine Ratio | performed at [facility], [address] | | LAB | | | | [address], | | | | | | [place] [address] | | | | + + + + + + | Calcium | 8.3 (L)Comment: Testing | 8.5 - 10.5 | EXTERNAL | | | | performed at [facility], [address] | mg/dL | LAB | | | | [address], | | | | | | [place] [address] | | | | + + + [...] W | | | | | | [address], | | | | | | [place] [address] | | | | + + + [...] | | | Fingerstick | performed at [facility];[address] | | LAB | | | | [address];[place] | | | | | | [address] | | | | + + + [...] | | | Patient | performed at [facility];[address] | | LAB | | | | [address];[place] | | | | | | [address] | | | | + + + [...] | | | Fingerstick | performed at [facility];[address] | | LAB | | | | [address];[place], [place] | | | | | | [address] | | | | + + + [...] K/uL | LAB | | | | [facility];[address] | | | | | | [address];[place] [address] | | | | + + + + + + | RED CELL | 3.35 (L)Comment: Testing | 4.20 - 5.70 | EXTERNAL | | | COUNT | performed at [facility];[address] | M/uL | LAB | | | | [address];[place] | | | | | | [address] | | | | + + + + + + | Hgb | 10.1 (L)Comment: Testing | 13.2 - 17.0 | EXTERNAL | | | | performed at [facility];888 | g/dL | LAB | | | | [address];[place] | | | | | | [address] | | | | + + + + + + | Hematocrit, | 30.1 (L)Comment: Testing | 39.0 - 50.0 % | EXTERNAL | | | POC | performed at [facility];[address] | | LAB | | | | [address];[place] | | | | | | [address] | | | | + + + + + + | MCV | 89.8Comment: Testing | 80.0 - 100.0 fl | EXTERNAL | | | | performed at [facility];[address] | | LAB | | | | [address];[place] | | | | | | [address] | | | | + + + + + + | MCH | 30.2Comment: Testing | 27.0 - 34.0 pg | EXTERNAL | | | | performed at [facility];[address] | | LAB | | | | [address];[place] | | | | | | [address] | | | | + + + + + + | MCHC | 33.7Comment: Testing | 32.0 - 35.5 | EXTERNAL | | | | performed at [facility];888 | g/dL | LAB | | | | [address];[place] | | | | | | [address] | | | | + + + + + + | RDW-CV | 43.8Comment: Testing | 37 - 53 fl | EXTERNAL | | | | performed at [facility];[address] | | LAB | | | | [address];[place] | | | | | | [address] | | | | + + + + + + | Platelet | 171Comment: Testing | 150 - 400 K/uL | EXTERNAL | | | Count | performed at [facility];[address] | | LAB | | | Plasma | [address];[place] | | | | | | [address] | | | | + + + + + + | MPV | 9.0Comment: Testing | fl | EXTERNAL | | | | performed at [facility];[address] | | LAB | | | | [address];[place] | | | | | | [address] | | | | + + + [...] | | | Patient | performed at [facility];[address] | | LAB | | | | [address];[place], [place] | | | | | | [address] | | | | + + + [...] | | | | | performed at [facility];[address] | | | | | | [address] [facility];[place], [place] | | | | | | [address] | | | | + + + [...] | | | Fingerstick | performed at [facility] | | LAB | | | | [address];[place], [place] | | | | | | [address] | | | | + + + [...] Conversion - 06/23/2019 4:26 PM PDT FLACO [id number] years MaleXR | | CHEST 2 VIEW [...] | | | Fingerstick | performed at [facility];[address] | | LAB | | | | [address];[place] | | | | | | [address] | | | | + + + [...] [place] | | | | | | [address] | | | | + + + + + + | RED CELL | 3.42 (L)Comment: Testing | 4.20 - 5.70 | EXTERNAL | | | COUNT | performed at [facility], [address] | M/uL | LAB | | | | [address], | | | | | | [place] [address] | | | | + + + + + + | Hgb | 10.3 (L)Comment: Testing | 13.2 - 17.0 | EXTERNAL | | | | performed at [facility], [address] | g/dL | LAB | | | | [address], | | | | | | [place] [address] | | | | + + + + + + | Hematocrit, | 30.8 (L)Comment: Testing | 39.0 - 50.0 % | EXTERNAL | | | POC | performed at [facility], [address] | | LAB | | | | [address], | | | | | | [place] [address] | | | | + + + + + + | MCV | 90.2Comment: Testing | 80.0 - 100.0 fl | EXTERNAL | | | | performed at [facility], [address] | | LAB | | | | [address], | | | | | | [place] [address] | | | | + + + + + + | MCH | 30.2Comment: Testing | 27.0 - 34.0 pg | EXTERNAL | | | | performed at [facility], [address] | | LAB | | | | [address], | | | | | | [place] [address] | | | | + + + + + + | MCHC | 33.5Comment: Testing | 32.0 - 35.5 | EXTERNAL | | | | performed at [facility], [address] | g/dL | LAB | | | | [address], | | | | | | [place] [address] | | | | + + + + + + | RDW-CV | 43.3Comment: Testing | 37 - 53 fl | EXTERNAL | | | | performed at [facility], [address] | | LAB | | | | [address], | | | | | | [place] [address] | | | | + + + + + + | Platelet | 144 (L)Comment: Testing | 150 - 400 K/uL | EXTERNAL | | | Count | performed at [facility], [address] | | LAB | | | Plasma | [address], | | | | | | [place] [address] | | | | + + + + + + | MPV | 9.3Comment: Testing | fl | EXTERNAL | | | | performed at [facility], [address] | | LAB | | | | [address], | | | | | | [place] [address] | | | | + + + + + + | Differentia | AUTOMATEDComment: | | EXTERNAL | | | l Type | Testing performed at | | LAB | | | | [facility], [address] | | | | | | [place] | | | | | | [address] | | | | + + + + + + | % Segmented | 83.84Comment: Testing | % | EXTERNAL | | | | performed at [facility], [address] | | LAB | | | Neutrophils | [address], | | | | | | [place] [address] | | | | + + + + + + | % | 7.34Comment: Testing | % | EXTERNAL | | | Lymphocytes | performed at [facility], [address] | | LAB | | | | [address], | | | | | | [place] [address] | | | | + + + + + + | % Monocytes | 7.72Comment: Testing | % | EXTERNAL | | | | performed at [facility], [address] | | LAB | | | | [address], | | | | | | [place] [address] | | | | + + + + + + | % | 0.79Comment: Testing | % | EXTERNAL | | | Eosinophils | performed at [facility], [address] | | LAB | | | | [address], | | | | | | [place] [address] | | | | + + + + + + | % Basophils | 0.31Comment: Testing | % | EXTERNAL | | | | performed at [facility], [address] | | LAB | | | | [address], | | | | | | [place] [address] | | | | + + + + + + | Absolute | 9.56 (H)Comment: Testing | 1.90 - 7.40 | EXTERNAL | | | Segmented | performed at [facility], [address] | K/uL | LAB | | | Neutrophils | [address], | | | | | | [place] [address] | | | | + + + + + + | Absolute | 0.84 (L)Comment: Testing | 1.00 - 3.90 | EXTERNAL | | | Lymphocytes | performed at [facility], [address] | K/uL | LAB | | | | [address], | | | | | | [place] [address] | | | | + + + + + + | Absolute | 0.88 (H)Comment: Testing | 0.00 - 0.80 | EXTERNAL | | | Monocytes | performed at [facility], [address] | K/uL | LAB | | | | [address], | | | | | | [place] [address] | | | | + + + + + + | Absolute | 0.09Comment: Testing | 0.00 - 0.50 | EXTERNAL | | | Eosinophils | performed at [facility], [address] | K/uL | LAB | | | [address], | | | | | | [place] [address] | | | | + + + + + + | Absolute | 0.04Comment: Testing | 0.00 - 0.10 | EXTERNAL | | | Basophils | performed at [facility], [address] | K/uL | LAB | | | | [address], | | | | | | [place] [address] | | | | + + + [...] EXTERNAL | | | | performed at [facility], [address] | | LAB | | | | [address], | | | | | | [place] [address] | | | | + + + [...] | | | | | [place] [address] | | | | + + + + + + | K | 3.8Comment: Testing | 3.5 - 4.9 | EXTERNAL | | | | performed at [facility], [address] | mmol/L | LAB | | | | [address], | | | | | | [place] [address] | | | | + + + + + + | Cl | 105Comment: Testing | 99 - 109 mmol/L | EXTERNAL | | | | performed at [facility], [address] | | LAB | | | | [address], | | | | | | [place] [address] | | | | + + + + + + | CO2 | 23Comment: Testing | 23 - 32 mmol/L | EXTERNAL | | | | performed at [facility], [address] | | LAB | | | | [address], | | | | | | [place] [address] | | | | + + + + + + | Anion Gap | 8Comment: Testing | 5 - 20 mmol/L | EXTERNAL | | | | performed at [facility], [address] | | LAB | | | | [address], | | | | | | [place] [address] | | | | + + + + + + | Glucose, | 120 (H)Comment: Testing | 65 - 99 mg/dL | EXTERNAL | | | Fasting | performed at [facility], [address] | | LAB | | | | [address], | | | | | | [place] [address] | | | | + + + + + + | BUN | 23Comment: Testing | 8 - 25 mg/dL | EXTERNAL | | | | performed at [facility], [address] | | LAB | | | | [address], | | | | | | [place] [address] | | | | + + + + + + | Creatinine | 1.00Comment: Testing | 0.70 - 1.30 | EXTERNAL | | | | performed at [facility], [address] | mg/dL | LAB | | | | [address], | | | | | | [place] [address] | | | | + + + + + + | BUN/Creatin | 23Comment: Testing | | EXTERNAL | | | ine Ratio | performed at [facility], [address] | | LAB | | | | [address], | | | | | | [place] [address] | | | | + + + + + + | Calcium | 8.4 (L)Comment: Testing | 8.5 - 10.5 | EXTERNAL | | | | performed at [facility], [address] | mg/dL | LAB | | | | [address], | | | | | | [place] [address] | | | | + + + [...] | | | | | | [place] [address] | | | | + + + [...] | | | Fingerstick | performed at [facility];[address] | | LAB | | | | [address];[place] | | | | | | [address] | | | | + + + [...] | | | Fingerstick | performed at [facility];[address] | | LAB | | | | [address];[place] | | | | | | [address] | | | | + + + [...] | | | Fingerstick | performed at [facility];[address] | | LAB | | | | [address];[place], [place] | | | | | | [address] | | | | + + + [...] | | | Fingerstick | performed at [facility];[address] | | LAB | | | | [address];[place] | | | | | | [address] | | | | + + + [...] | | | Fingerstick | performed at [facility];[address] | | LAB | | | | [address];[place], [place] | | | | | | [address] | | | | + + + [...] RAC | | | Testing performed at [facility];[address] | | | [facility];[place] [address] CULTURE | | | NO GROWTH 6 DAYS | | | Testing performed at [facility], [address] [facility], | | | [place] [address] | | + + + + +---------+ [...] Conversion - 06/23/2019 4:26 PM PDT FLACO [id number] yearsXR CHEST | | 1 VIEW01/17/2016 6:10 [...] EXTERNAL | | | | performed at [facility];[address] | [address] | LAB | | | | [address];[place] | | | | | | [address] | | | | + + + + + + | RED CELL | 3.31 (L)Comment: Testing | 4.20 - 5.70 | EXTERNAL | | | COUNT | performed at [facility];888 | M/uL | LAB | | | | [address];[place] | | | | | | [address] | | | | + + + + + + | Hgb | 10.2 (L)Comment: Testing | 13.2 - 17.0 | EXTERNAL | | | | performed at [facility];888 | g/dL | LAB | | | | [address];[place] | | | | | | [address] | | | | + + + + + + | Hematocrit, | 30.0 (L)Comment: Testing | 39.0 - 50.0 % | EXTERNAL | | | POC | performed at [facility];888 | | LAB | | | | [address];[place] | | | | | | [address] | | | | + + + + + + | MCV | 90.5Comment: Testing | 80.0 - 100.0 fl | EXTERNAL | | | | performed at [facility];888 | | LAB | | | | [address];[place] | | | | | | [address] | | | | + + + + + + | MCH | 30.9Comment: Testing | 27.0 - 34.0 pg | EXTERNAL | | | | performed at [facility];888 | | LAB | | | | [address];[place] | | | | | | [address] | | | | + + + + + + | MCHC | 34.1Comment: Testing | 32.0 - 35.5 | EXTERNAL | | | | performed at [facility];888 | g/dL | LAB | | | | [address];[place] | | | | | | [address] | | | | + + + + + + | RDW-CV | 44.6Comment: Testing | 37 - 53 fl | EXTERNAL | | | | performed at [facility];888 | | LAB | | | | [address];[place] | | | | | | [address] | | | | + + + + + + | Platelet | 120 (L)Comment: Testing | 150 - 400 K/uL | EXTERNAL | | | Count | performed at [facility];888 | | LAB | | | Plasma | [address];[place] | | | | | | [address] | | | | + + + + + + | MPV | 9.0Comment: Testing | fl | EXTERNAL | | | | performed at [facility];888 | | LAB | | | | [address];[place] | | | | | | [address] | | | | + + + + + + | Differentia | AUTOMATEDComment: | | EXTERNAL | | | l Type | Testing performed at | | LAB | | | | [facility];[address];[place] [address] | | | | + + + + + + | % Segmented | 81.18Comment: Testing | % | EXTERNAL | | | | performed at [facility];888 | | LAB | | | Neutrophils | [address];[place] | | | | | | [address] | | | | + + + + + + | % | 9.66Comment: Testing | % | EXTERNAL | | | Lymphocytes | performed at [facility];888 | | LAB | | | | [address];[place] | | | | | | [address] | | | | + + + + + + | % Monocytes | 8.53Comment: Testing | % | EXTERNAL | | | | performed at [facility];888 | | LAB | | | | [address];[place] | | | | | | [address] | | | | + + + + + + | % | 0.44Comment: Testing | % | EXTERNAL | | | Eosinophils | performed at [facility];888 | | LAB | | | | [address];[place] | | | | | | [address] | | | | + + + + + + | % Basophils | 0.19Comment: Testing | % | EXTERNAL | | | | performed at [facility];[address] | | LAB | | | | [address];[place] | | | | | | [address] | | | | + + + + + + | Absolute | 8.88 (H)Comment: Testing | 1.90 - 7.40 | EXTERNAL | | | Segmented | performed at [facility];888 | K/uL | LAB | | | Neutrophils | [address];[place] | | | | | | [address] | | | | + + + + + + | Absolute | 1.06Comment: Testing | 1.00 - 3.90 | EXTERNAL | | | Lymphocytes | performed at [facility];888 | K/uL | LAB | | | | [address];[place] | | | | | | [address] | | | | + + + + + + | Absolute | 0.93 (H)Comment: Testing | 0.00 - 0.80 | EXTERNAL | | | Monocytes | performed at [facility];888 | K/uL | LAB | | | | [address];[place] | | | | | | [address] | | | | + + + + + + | Absolute | 0.05Comment: Testing | 0.00 - 0.50 | EXTERNAL | | | Eosinophils | performed at [facility];888 | K/uL | LAB | | | | [address];[place] | | | | | | [address] | | | | + + + + + + | Absolute | 0.02Comment: Testing | 0.00 - 0.10 | EXTERNAL | | | Basophils | performed at [facility];888 | K/uL | LAB | | | | [address];[place], [place] | | | | | | [address] | | | | + + + [...] EXTERNAL | | | | performed at [facility] | | LAB | | | | [address];[place], [place] | | | | | | [address] | | | | + + + [...] EXTERNAL | | | | performed at [facility];888 | mmol/L | LAB | | | | [address];[place] | | | | | | [address] | | | | + + + + + + | K | 4.1Comment: Testing | 3.5 - 4.9 | EXTERNAL | | | | performed at [facility];888 | mmol/L | LAB | | | | [address];[place] | | | | | | [address] | | | | + + + + + + | Cl | 108Comment: Testing | 99 - 109 mmol/L | EXTERNAL | | | | performed at [facility];[address] | | LAB | | | | [address];[place] | | | | | | [address] | | | | + + + + + + | CO2 | 25Comment: Testing | 23 - 32 mmol/L | EXTERNAL | | | | performed at [facility];[address] | | LAB | | | | [address];[place] | | | | | | [address] | | | | + + + + + + | Anion Gap | 10Comment: Testing | 5 - 20 mmol/L | EXTERNAL | | | | performed at [facility];[address] | | LAB | | | | [address];[place] | | | | | | [address] | | | | + + + + + + | Glucose, | 111 (H)Comment: Testing | 65 - 99 mg/dL | EXTERNAL | | | Fasting | performed at [facility];[address] | | LAB | | | | [address];[place] | | | | | | [address] | | | | + + + + + + | BUN | 19Comment: Testing | 8 - 25 mg/dL | EXTERNAL | | | | performed at [facility];[address] | | LAB | | | | [address];[place] | | | | | | [address] | | | | + + + + + + | Creatinine | 0.95Comment: Testing | 0.70 - 1.30 | EXTERNAL | | | | performed at [facility];888 | mg/dL | LAB | | | | [address];[place] | | | | | | [address] | | | | + + + + + + | BUN/Creatin | 20Comment: Testing | | EXTERNAL | | | ine Ratio | performed at [facility];[address] | | LAB | | | | [address];[place] | | | | | | [address] | | | | + + + + + + | Calcium | 7.5 (L)Comment: Testing | 8.5 - 10.5 | EXTERNAL | | | | performed at [facility];888 | mg/dL | LAB | | | | [address];[place] | | | | | | [address] | | | | + + + [...] | | | | | | at [facility];[address];[place] [address] | | | | + + + [...] IJ | | | Testing performed at [facility];[address];[place] [address] CULTURE | | | NO GROWTH 6 DAYS | | | Testing performed at [facility], [address], [place], [place] | | | [address] | | + + + + +---------+ [...] EXTERNAL | | | | performed at [facility];888 | mmol/L | LAB | | | | [address];[place] | | | | | | [address] | | | | + + + [...] EXTERNAL | | | | performed at [facility];8 | | LAB | | | | [facility], [place] | | | | | | [address] | | | | + + + [...] | | | Fingerstick | performed at [facility];888 | | LAB | | | | [address];[place] | | | | | | [address] | | | | + + + [...] | | | Fingerstick | performed at [facility];[address] | | LAB | | | | [address];[place], [place] | | | | | | [address] | | | | + + + [...] | | | Fingerstick | performed at [facility];[address] | | LAB | | | | [address];[place], [place] | | | | | | [address] | | | | + + + [...] | | | Fingerstick | performed at [facility];888 | | LAB | | | | [address];[place], [place] | | | | | | [address] | | | | + + + [...] | | | Fingerstick | performed at [facility];888 | | LAB | | | | [address];[place] | | | | | | [address] | | | | + + + [...] | | | Fingerstick | performed at [facility];888 | | LAB | | | | [address];[place], [place] | | | | | | [address] | | | | + + + [...] | | | Fingerstick | performed at [facility];888 | | LAB | | | | [address];[place] | | | | | | [address] | | | | + + + [...] | | | Fingerstick | performed at [facility];[address] | | LAB | | | | [address];[place] | | | | | | [address] | | | | + + + [...] | | | Fingerstick | performed at [facility];888 | | LAB | | | | [address];[place] | | | | | | [address] | | | | + + + [...] | | | Fingerstick | performed at [facility];[address] | | LAB | | | | [address];[place], [place] | | | | | | [address] | | | | + + + [...] | | | Fingerstick | performed at [facility];[address] | | LAB | | | | [address];[place], [place] | | | | | | [address] | | | | + + + [...] | | | Fingerstick | performed at [facility] | | LAB | | | | [address];[place], [place] | | | | | | [address] | | | | + + + [...] | | | Fingerstick | performed at [facility];[address] | | LAB | | | | [address];[place] | | | | | | [address] | | | | + + + [...] | Procedure Note | + + | Otny, Rad Conversion - 06/23/2019 4:26 PM PDT FLACO [id number] yearsXR CHEST | | 1 VIEW01/16/2016 5:35 [...] | | | Fingerstick | performed at [facility];888 | | LAB | | | | [address] [facility];[place], [place] | | | | | | [address] | | | | + + + [...] K/uL | LAB | | | | [facility];[address];[place] [address] | | | | + + + + + + | RED CELL | 3.34 (L)Comment: Testing | 4.20 - 5.70 | EXTERNAL | | | COUNT | performed at [facility];888 | M/uL | LAB | | | | [address];[place] | | | | | | [address] | | | | + + + + + + | Hgb | 10.2 (L)Comment: Testing | 13.2 - 17.0 | EXTERNAL | | | | performed at [facility];888 | g/dL | LAB | | | | [address];[place] | | | | | | [address] | | | | + + + + + + | Hematocrit, | 30.1 (L)Comment: Testing | 39.0 - 50.0 % | EXTERNAL | | | POC | performed at [facility];[address] | | LAB | | | | [address];[place] | | | | | | [address] | | | | + + + + + + | MCV | 90.3Comment: Testing | 80.0 - 100.0 fl | EXTERNAL | | | | performed at [facility];[address] | | LAB | | | | [address];[place] | | | | | | [address] | | | | + + + + + + | MCH | 30.6Comment: Testing | 27.0 - 34.0 pg | EXTERNAL | | | | performed at [facility];[address] | | LAB | | | | [address];[place] | | | | | | [address] | | | | + + + + + + | MCHC | 33.9Comment: Testing | 32.0 - 35.5 | EXTERNAL | | | | performed at [facility];888 | g/dL | LAB | | | | [address];[place] | | | | | | [address] | | | | + + + + + + | RDW-CV | 44.6Comment: Testing | 37 - 53 fl | EXTERNAL | | | | performed at [facility];[address] | | LAB | | | | [address];[place] | | | | | | [address] | | | | + + + + + + | Platelet | 128 (L)Comment: Testing | 150 - 400 K/uL | EXTERNAL | | | Count | performed at [facility];888 | | LAB | | | Plasma | [address];[place] | | | | | | [address] | | | | + + + + + + | MPV | 8.6Comment: Testing | fl | EXTERNAL | | | | performed at [facility];[address] | | LAB | | | | [address];[place] | | | | | | [address] | | | | + + + + + + | Differentia | AUTOMATEDComment: | | EXTERNAL | | | l Type | Testing performed at | | LAB | | | | [facility];[address];[place] [address] | | | | + + + + + + | % Segmented | 83.66Comment: Testing | % | EXTERNAL | | | | performed at [facility];888 | | LAB | | | Neutrophils | [address];[place] | | | | | | [address] | | | | + + + + + + | % | 8.09Comment: Testing | % | EXTERNAL | | | Lymphocytes | performed at [facility];[address] | | LAB | | | | [address];[place] | | | | | | [address] | | | | + + + + + + | % Monocytes | 7.78Comment: Testing | % | EXTERNAL | | | | performed at [facility];[address] | | LAB | | | | [address];[place] | | | | | | [address] | | | | + + + + + + | % | 0.13Comment: Testing | % | EXTERNAL | | | Eosinophils | performed at [facility];[address] | | LAB | | | | [address];[place] | | | | | | [address] | | | | + + + + + + | % Basophils | 0.34Comment: Testing | % | EXTERNAL | | | | performed at [facility];[address] | | LAB | | | | [address];[place] | | | | | | [address] | | | | + + + + + + | Absolute | 9.81 (H)Comment: Testing | 1.90 - 7.40 | EXTERNAL | | | Segmented | performed at [facility];888 | K/uL | LAB | | | Neutrophils | [address];[place] | | | | | | [address] | | | | + + + + + + | Absolute | 0.95 (L)Comment: Testing | 1.00 - 3.90 | EXTERNAL | | | Lymphocytes | performed at [facility];888 | K/uL | LAB | | | | [address];[place] | | | | | | [address] | | | | + + + + + + | Absolute | 0.91 (H)Comment: Testing | 0.00 - 0.80 | EXTERNAL | | | Monocytes | performed at [facility];888 | K/uL | LAB | | | | [address];[place] | | | | | | [address] | | | | + + + + + + | Absolute | 0.02Comment: Testing | 0.00 - 0.50 | EXTERNAL | | | Eosinophils | performed at [facility];888 | K/uL | LAB | | | | [address];[place] | | | | | | [address] | | | | + + + + + + | Absolute | 0.04Comment: Testing | 0.00 - 0.10 | EXTERNAL | | | Basophils | performed at [facility];888 | K/uL | LAB | | | | [address];[place], [place] | | | | | | [address] | | | | + + + [...] EXTERNAL | | | | performed at [facility] | | LAB | | | | [address];[place] | | | | | | [address] | | | | + + + [...] EXTERNAL | | | | performed at [facility];888 | mmol/L | LAB | | | | [address];[place] | | | | | | [address] | | | | + + + + + + | K | 4.7Comment: Testing | 3.5 - 4.9 | EXTERNAL | | | | performed at [facility];888 | mmol/L | LAB | | | | [address];[place] | | | | | | [address] | | | | + + + + + + | Cl | 112 (H)Comment: Testing | 99 - 109 mmol/L | EXTERNAL | | | | performed at [facility];[address] | | LAB | | | | [address];[place] | | | | | | [address] | | | | + + + + + + | CO2 | 21 (L)Comment: Testing | 23 - 32 mmol/L | EXTERNAL | | | | performed at [facility];[address] | | LAB | | | | [address];[place] | | | | | | [address] | | | | + + + + + + | Anion Gap | 12Comment: Testing | 5 - 20 mmol/L | EXTERNAL | | | | performed at [facility];[address] | | LAB | | | | [address];[place] | | | | | | [address] | | | | + + + + + + | Glucose, | 109 (H)Comment: Testing | 65 - 99 mg/dL | EXTERNAL | | | Fasting | performed at [facility];[address] | | LAB | | | | [address];[place] | | | | | | [address] | | | | + + + + + + | BUN | 18Comment: Testing | 8 - 25 mg/dL | EXTERNAL | | | | performed at [facility];[address] | | LAB | | | | [address];[place] | | | | | | [address] | | | | + + + + + + | Creatinine | 0.93Comment: Testing | 0.70 - 1.30 | EXTERNAL | | | | performed at [facility];888 | mg/dL | LAB | | | | [address];[place] | | | | | | [address] | | | | + + + + + + | BUN/Creatin | 19Comment: Testing | | EXTERNAL | | | ine Ratio | performed at [facility];888 | | LAB | | | | [address];[place] | | | | | | [address] | | | | + + + + + + | Calcium | 7.7 (L)Comment: Testing | 8.5 - 10.5 | EXTERNAL | | | | performed at [facility];888 | mg/dL | LAB | | | | [address];[place] | | | | | | [address] | | | | + + + [...] | | | | | | at [facility];[address] | | | [address];[place] [address] | | | | + + + [...] | | | Fingerstick | performed at [facility];888 | | LAB | | | | [address];[place], [place] | | | | | | [address] | | | | + + + [...] EXTERNAL | | | | performed at [facility];888 | mmol/L | LAB | | | | [address];[place] | | | | | | [address] | | | | + + + [...] | | | Fingerstick | performed at [facility];[address] | | LAB | | | | [address];[place], [place] | | | | | | [address] | | | | + + + [...] | | | Fingerstick | performed at [facility];888 | | LAB | | | | [address];[place] | | | | | | [address] | | | | + + + [...] | | | Fingerstick | performed at [facility];[address] | | LAB | | | | [address];[place], [place] | | | | | | [address] | | | | + + + [...] | | | Fingerstick | performed at [facility];888 | | LAB | | | | [address];[place] | | | | | | [address] | | | | + + + [...] EXTERNAL | | | | performed at [facility];888 | mmol/L | LAB | | | | [address] [facility];[place], [place] | | | | | | [address] | | | | + + + [...] EXTERNAL | | | | performed at [facility];888 | | LAB | | | | [address];[place] | | | | | | [address] | | | | + + + [...] | | | Fingerstick | performed at [facility];[address] | | LAB | | | | [address];[place], [place] | | | | | | [address] | | | | + + + [...] | | | Fingerstick | performed at [facility];888 | | LAB | | | | [address];[place] | | | | | | [address] | | | | + + + [...] | | | Fingerstick | performed at [facility];[address] | | LAB | | | | [address];[place] | | | | | | [address] | | | | + + + [...] EXTERNAL | | | | performed at [facility];888 | mmol/L | LAB | | | | [address] [facility];[place], [place] | | | | | | [address] | | | | + + + [...] | | | Fingerstick | performed at [facility];[address] | | LAB | | | | [address];[place], [place] | | | | | | [address] | | | | + + + [...] | | | Fingerstick | performed at [facility];[address] | | LAB | | | | [address];[place] | | | | | | [address] | | | | + + + [...] | | | Fingerstick | performed at [facility];[address] | | LAB | | | | [address];[place], [place] | | | | | | [address] | | | | + + + [...] | | | Fingerstick | performed at [facility];[address] | | LAB | | | | [address];[place] | | | | | | [address] | | | | + + + [...] could be advanced approximately 2 cm. 5. Graham-Jeannette catheter could | | | be advanced [...] positioning. | | | Right IJ sheath. Graham-Jeannette catheter with tip in the main pulmonary | | | artery. No pneumothorax. | | + + + + + | Procedure Note | + + | Otny, Rad Conversion - 06/23/2019 4:26 PM PDT [...] | | proximal positioning. Right IJ sheath. Graham-Jeannette catheter with tip in the main pulmonary | | artery. No pneumothorax. IMPRESSION: 1. Recurrent mild cardiac enlargement similar to | | 01/08/16, not seen on 03/03/16.2. Pulmonary venous congestion with subtle central | | interstitial edema.3. Subtle left effusion.4. ET tube could be advanced approximately | | 2 cm.5. Graham-Jeannette catheter could be advanced approximately 5 cm.6. [...] be advanced approximately 2 cm. | |5. Graham-Jeannette catheter could be advanced approximately 5 cm. [...] | | | Patient | performed at [facility];[address] | | LAB | | | | [address];[place], [place] | | | | | | [address] | | | | + + + [...] | | | | | performed at [facility] | | | | | | [address];[place], [place] | | | | | | [address] | | | | + + + [...] EXTERNAL | | | | performed at [facility];[address] | | LAB | | | | [address];[place], [place] | | | | | | [address] | | | | + + + [...] K/uL | LAB | | | | [facility];[address];[place] [address] | | | | + + + + + + | RED CELL | 3.43 (L)Comment: Testing | 4.20 - 5.70 | EXTERNAL | | | COUNT | performed at [facility];888 | M/uL | LAB | | | | [address];[place] | | | | | | [address] | | | | + + + + + + | Hgb | 10.8 (L)Comment: Testing | 13.2 - 17.0 | EXTERNAL | | | | performed at [facility];888 | g/dL | LAB | | | | [address];[place] | | | | | | [address] | | | | + + + + + + | Hematocrit, | 30.5 (L)Comment: Testing | 39.0 - 50.0 % | EXTERNAL | | | POC | performed at [facility];[address] | | LAB | | | | [address];[place] | | | | | | [address] | | | | + + + + + + | MCV | 88.8Comment: Testing | 80.0 - 100.0 fl | EXTERNAL | | | | performed at [facility];[address] | | LAB | | | | [address];[place] | | | | | | [address] | | | | + + + + + + | MCH | 31.5Comment: Testing | 27.0 - 34.0 pg | EXTERNAL | | | | performed at [facility];[address] | | LAB | | | | [address];[place] | | | | | | [address] | | | | + + + + + + | MCHC | 35.4Comment: Testing | 32.0 - 35.5 | EXTERNAL | | | | performed at [facility];888 | g/dL | LAB | | | | [address];[place] | | | | | | [address] | | | | + + + + + + | RDW-CV | 42.9Comment: Testing | 37 - 53 fl | EXTERNAL | | | | performed at [facility];[address] | | LAB | | | | [address];[place] | | | | | | [address] | | | | + + + + + + | Platelet | 135 (L)Comment: Testing | 150 - 400 K/uL | EXTERNAL | | | Count | performed at [facility];[address] | | LAB | | | Plasma | [address];[place] | | | | | | [address] | | | | + + + + + + | MPV | 8.2Comment: Testing | fl | EXTERNAL | | | | performed at [facility];[address] | | LAB | | | | [address];[place] | | | | | | [address] | | | | + + + + + + | Differentia | AUTOMATEDComment: | | EXTERNAL | | | l Type | Testing performed at | | LAB | | | | [facility];[address];[place] [address] | | | | + + + + + + | % Segmented | 84.25Comment: Testing | % | EXTERNAL | | | | performed at [facility];[address] | | LAB | | | Neutrophils | [address];[place] | | | | | | [address] | | | | + + + + + + | % | 8.67Comment: Testing | % | EXTERNAL | | | Lymphocytes | performed at [facility];[address] | | LAB | | | | [address];[place] | | | | | | [address] | | | | + + + + + + | % Monocytes | 5.16Comment: Testing | % | EXTERNAL | | | | performed at [facility];[address] | | LAB | | | | [address];[place] | | | | | | [address] | | | | + + + + + + | % | 1.73Comment: Testing | % | EXTERNAL | | | Eosinophils | performed at [facility];[address] | | LAB | | | | [address];[place] | | | | | | [address] | | | | + + + + + + | % Basophils | 0.19Comment: Testing | % | EXTERNAL | | | | performed at [facility];[address] | | LAB | | | | [address];[place] | | | | | | [address] | | | | + + + + + + | Absolute | 16.54 (H)Comment: | 1.90 - 7.40 | EXTERNAL | | | Segmented | Testing performed at | K/uL | LAB | | | Neutrophils | [facility];[address];[place] [address] | | | | + + + + + + | Absolute | 1.70Comment: Testing | 1.00 - 3.90 | EXTERNAL | | | Lymphocytes | performed at [facility];[address] | K/uL | LAB | | | | [address];[place] | | | | | | [address] | | | | + + + + + + | Absolute | 1.01 (H)Comment: Testing | 0.00 - 0.80 | EXTERNAL | | | Monocytes | performed at [facility];[address] | K/uL | LAB | | | | [address];[place] | | | | | | [address] | | | | + + + + + + | Absolute | 0.34Comment: Testing | 0.00 - 0.50 | EXTERNAL | | | Eosinophils | performed at [facility];[address] | K/uL | LAB | | | | [address];[place] | | | | | | [address] | | | | + + + + + + | Absolute | 0.04Comment: Testing | 0.00 - 0.10 | EXTERNAL | | | Basophils | performed at [facility];[address] | [address] | LAB | | | | [address];[place], [place] | | | | | | [address] | | | | + + + [...] LAB | | | | performed at [facility] | | | | | | [address];[place], [place] | | | | | | [address] | | | | + + + [...] | | | (Calc) | performed at [facility];888 | mmol/L | LAB | | | | [address];[place], [place] | | | | | | [address] | | | | + + + + + + | pH, Bld | 7.343Comment: Testing | 7.300 - 7.450 | EXTERNAL | | | | performed at [facility];888 | | LAB | | | | [address];[place], [place] | | | | | | [address] | | | | + + + [...] EXTERNAL | | | | performed at [facility];888 | mmol/L | LAB | | | | [address];[place] | | | | | | [address] | | | | + + + + + + | K | 4.3Comment: SLT | 3.5 - 4.9 | EXTERNAL | | | | HEMOLYSISTesting | mmol/L | LAB | | | | performed at [facility];888 | | | | | | [address];[place] | | | | | | [address] | | | | + + + + + + | Cl | 109Comment: Testing | 99 - 109 mmol/L | EXTERNAL | | | | performed at [facility];[address] | | LAB | | | | [address];[place] | | | | | | [address] | | | | + + + + + + | CO2 | 23Comment: Testing | 23 - 32 mmol/L | EXTERNAL | | | | performed at [facility];888 | | LAB | | | | [address];[place] | | | | | | [address] | | | | + + + + + + | Anion Gap | 13Comment: Testing | 5 - 20 mmol/L | EXTERNAL | | | | performed at [facility];[address] | | LAB | | | | [address];[place] | | | | | | [address] | | | | + + + + + + | Glucose, | 156 (H)Comment: Testing | 65 - 99 mg/dL | EXTERNAL | | | Fasting | performed at [facility];888 | | LAB | | | | [address];[place] | | | | | | [address] | | | | + + + + + + | BUN | 19Comment: Testing | 8 - 25 mg/dL | EXTERNAL | | | | performed at [facility];[address] | | LAB | | | | [address];[place] | | | | | | [address] | | | | + + + + + + | Creatinine | 1.1Comment: Testing | 0.70 - 1.30 | EXTERNAL | | | | performed at [facility];888 | mg/dL | LAB | | | | [address];[place] | | | | | | [address] | | | | + + + + + + | BUN/Creatin | 17Comment: Testing | | EXTERNAL | | | ine Ratio | performed at [facility];[address] | | LAB | | | | [address];[place] | | | | | | [address] | | | | + + + + + + | Calcium | 7.4 (L)Comment: Testing | 8.5 - 10.5 | EXTERNAL | | | | performed at [facility];888 | mg/dL | LAB | | | | [address];[place] | | | | | | [address] | | | | + + + [...] | | | | | | at [facility];[address] [facility] | | | | | | [address];[place] [address] | | | | + + + [...] | | | Fingerstick | performed at [facility];888 | | LAB | | | | [address];[place] | | | | | | [address] | | | | + + + [...] | | LAB | | | | [facility];[address] [place] [address] | | | | | | Blvd;[place] [address] | | | | + + + + + + | PCO2 ART | 37Comment: Testing | 35 - 45 mmHg | EXTERNAL | | | | performed at [facility];[address] | | LAB | | | | [address];[place] | | | | | | [address] | | | | + + + + + + | PO2 ART | 167 (H)Comment: Testing | 80 - 105 mmHg | EXTERNAL | | | | performed at [facility];[address] | | LAB | | | | [address];[place] | | | | | | [address] | | | | + + + + + + | Lactate, | 3.5 (H)Comment: Testing | 0.36 - 1.25 | EXTERNAL | | | Arterial | performed at [facility];888 | mmol/L | LAB | | | | [address];[place] | | | | | | [address] | | | | + + + + + + | HCO3 ART | 20 (L)Comment: Testing | 22 - 26 mmol/L | EXTERNAL | | | | performed at [facility];[address] | | LAB | | | | [address];[place] | | | | | | [address] | | | | + + + + + + | POC | 21 (L)Comment: Testing | 23 - 27 mEq/L | EXTERNAL | | | APPEARANCE | performed at [facility];888 | | LAB | | | UA | [address];[place] | | | | | | [address] | | | | + + + + + + | Base | 6 (H)Comment: Testing | 0.0 - 2.0 | EXTERNAL | | | deficit | performed at [facility];888 | mmol/L | LAB | | | | [address];[place] | | | | | | [address] | | | | + + + + + + | O2 SAT ART | 99 (H)Comment: Testing | 95 - 98 % | EXTERNAL | | | | performed at [facility];[address] | | LAB | | | | [address];[place], [place] | | | | | | [address] | | | | + + + [...] | | LAB | | | | [facility];[address] | | [address];[place] [address] | | | | + + + + + + | PCO2 ART | 41Comment: Testing | 35 - 45 mmHg | EXTERNAL | | | | performed at [facility];[address] | | LAB | | | | [address];[place] | | | | | | [address] | | | | + + + + + + | PO2 ART | 171 (H)Comment: Testing | 80 - 105 mmHg | EXTERNAL | | | | performed at [facility];[address] | | LAB | | | | [address];[place] | | | | | | [address] | | | | + + + + + + | HCO3 ART | 22Comment: Testing | 22 - 26 mmol/L | EXTERNAL | | | | performed at [facility];[address] | | LAB | | | | [address];[place] | | | | | | [address] | | | | + + + + + + | POC | 23Comment: Testing | 23 - 27 mEq/L | EXTERNAL | | | APPEARANCE | performed at [facility];888 | | LAB | | | UA | [address];[place] | | | | | | [address] | | | | + + + + + + | Base | 4 (H)Comment: Testing | 0.0 - 2.0 | EXTERNAL | | | deficit | performed at [facility];888 | mmol/L | LAB | | | | [address];[place] | | | | | | [address] | | | | + + + + + + | O2 SAT ART | 99 (H)Comment: Testing | 95 - 98 % | EXTERNAL | | | | performed at [facility];[address] | | LAB | | | | [address];[place] | | | | | | [address] | | | | + + + + + + | Sodium, POC | 136Comment: Testing | 135 - 145 mEq/L | EXTERNAL | | | | performed at [facility];[address] | | LAB | | | | [address];[place] | | | | | | [address] | | | | + + + + + + | Potassium, | 4.5Comment: Testing | 3.5 - 5.0 mEq/L | EXTERNAL | | | POC | performed at [facility];[address] | | LAB | | | | [address];[place] | | | | | | [address] | | | | + + + + + + | Ionized | 1.34 (H)Comment: Testing | 1.12 - 1.32 | EXTERNAL | | | Calcium, | performed at [facility];888 | mmol/L | LAB | | | POC | [address];[place] | | | | | | [address] | | | | + + + + + + | Glucose, | 205 (H)Comment: Testing | 65 - 99 mg/dL | EXTERNAL | | | POC | performed at [facility];[address] | | LAB | | | | [address];[place] | | | | | | [address] | | | | + + + + + + | Hematocrit, | 23 (LL)Comment: Testing | 40.0 - 50.0 % | EXTERNAL | | | POC | performed at [facility];[address] | | LAB | | | | [address];[place] | | | | | | [address] | | | | + + + + + + | Hemoglobin, | 7.8 (LL)Comment: Testing | 13.7 - 16.7 | EXTERNAL | | | POC | performed at [facility];888 | g/dL | LAB | | | | [address];[place] | | | | | | [address] | | | | + + + [...] the descending aorta. MEASUREMENTS | | | Teaching Aide: Authenticated by: Ziyad Neal Date/Time: | | [...] MEASUREMENTS | | | | | | Teaching Aide: | | Authenticated by: Ziyad Osorio | [...] EXTERNAL | | | | performed at [facility];[address] | | LAB | | | | [facility];[place], [place] | | | | | | [address] | | | | + + + + + + | PCO2 ART | 35Comment: Testing | 35 - 45 mmHg | EXTERNAL | | | | performed at [facility];[address] | | LAB | | | | [address];[place] | | | | | | [address] | | | | + + + + + + | PO2 ART | 103Comment: Testing | 80 - 105 mmHg | EXTERNAL | | | | performed at [facility];[address] | | LAB | | | | [address];[place] | | | | | | [address] | | | | + + + + + + | HCO3 ART | 23Comment: Testing | 22 - 26 mmol/L | EXTERNAL | | | | performed at [facility];[address] | | LAB | | | | [address];[place] | | | | | | [address] | | | | + + + + + + | POC | 24Comment: Testing | 23 - 27 mEq/L | EXTERNAL | | | APPEARANCE | performed at [facility];888 | | LAB | | | UA | [address];[place] | | | | | | [address] | | | | + + + + + + | Base | 1Comment: Testing | 0.0 - 2.0 | EXTERNAL | | | deficit | performed at [facility];888 | mmol/L | LAB | | | | [address];[place] | | | | | | [address] | | | | + + + + + + | O2 SAT ART | 98Comment: Testing | 95 - 98 % | EXTERNAL | | | | performed at [facility];[address] | | LAB | | | | [address];[place] | | | | | | [address] | | | | + + + + + + | Sodium, POC | 135Comment: Testing | 135 - 145 mEq/L | EXTERNAL | | | | performed at [facility];[address] | | LAB | | | | [address];[place] | | | | | | [address] | | | | + + + + + + | Potassium, | 6.2 (H)Comment: Testing | 3.5 - 5.0 mEq/L | EXTERNAL | | | POC | performed at [facility];[address] | | LAB | | | | [address];[place] | | | | | | [address] | | | | + + + + + + | Ionized | 1.13Comment: Testing | 1.12 - 1.32 | EXTERNAL | | | Calcium, | performed at [facility];888 | mmol/L | LAB | | | POC | [address];[place] | | | | | | [address] | | | | + + + + + + | Glucose, | 198 (H)Comment: Testing | 65 - 99 mg/dL | EXTERNAL | | | POC | performed at [facility];[address] | | LAB | | | | [address];[place] | | | | | | [address] | | | | + + + + + + | Hematocrit, | 26 (L)Comment: Testing | 40.0 - 50.0 % | EXTERNAL | | | POC | performed at [facility];[address] | | LAB | | | | [address];[place] | | | | | | [address] | | | | + + + + + + | Hemoglobin, | 8.8 (L)Comment: Testing | 13.7 - 16.7 | EXTERNAL | | | POC | performed at [facility];888 | g/dL | LAB | | | | [address];[place] | | | | | | [address] | | | | + + + [...] EXTERNAL | | | | performed at [facility];888 | | LAB | | | | [address];[place] | | | | | | [address] | | | | + + + + + + | PCO2 ART | 38Comment: Testing | 35 - 45 mmHg | EXTERNAL | | | | performed at [facility];888 | | LAB | | | | [address];[place] | | | | | | [address] | | | | + + + + + + | PO2 ART | 215 (H)Comment: Testing | 80 - 105 mmHg | EXTERNAL | | | | performed at [facility];[address] | | LAB | | | | [address];[place] | | | | | | [address] | | | | + + + + + + | HCO3 ART | 25Comment: Testing | 22 - 26 mmol/L | EXTERNAL | | | | performed at [facility];[address] | | LAB | | | | [address];[place] | | | | | | [address] | | | | + + + + + + | POC | 26Comment: Testing | 23 - 27 mEq/L | EXTERNAL | | | APPEARANCE | performed at [facility];888 | | LAB | | | UA | [address];[place] | | | | | | [address] | | | | + + + + + + | Base | 0Comment: Testing | 0 - 3 mEq/L | EXTERNAL | | | Excess, | performed at [facility];888 | | LAB | | | Arterial | [address];[place] | | | | | | [address] | | | | + + + + + + | O2 SAT ART | 100 (H)Comment: Testing | 95 - 98 % | EXTERNAL | | | | performed at [facility];[address] | | LAB | | | | [address];[place] | | | | | | [address] | | | | + + + + + + | Sodium, POC | 135Comment: Testing | 135 - 145 mEq/L | EXTERNAL | | | | performed at [facility];[address] | | LAB | | | | [address];[place] | | | | | | [address] | | | | + + + + + + | Potassium, | 6.2 (H)Comment: Testing | 3.5 - 5.0 mEq/L | EXTERNAL | | | POC | performed at [facility];[address] | | LAB | | | | [address];[place] | | | | | | [address] | | | | + + + + + + | Ionized | 1.13Comment: Testing | 1.12 - 1.32 | EXTERNAL | | | Calcium, | performed at [facility];888 | mmol/L | LAB | | | POC | [address];[place] | | | | | | [address] | | | | + + + + + + | Glucose, | 176 (H)Comment: Testing | 65 - 99 mg/dL | EXTERNAL | | | POC | performed at [facility];[address] | | LAB | | | | [address];[place] | | | | | | [address] | | | | + + + + + + | Hematocrit, | 27 (L)Comment: Testing | 40.0 - 50.0 % | EXTERNAL | | | POC | performed at [facility];888 | | LAB | | | | [address];[place] | | | | | | [address] | | | | + + + + + + | Hemoglobin, | 9.2 (L)Comment: Testing | 13.7 - 16.7 | EXTERNAL | | | POC | performed at [facility];888 | g/dL | LAB | | | | [address];[place], [place] | | | | | | [address] | | | | + + + [...] EXTERNAL | | | | performed at [facility];888 | | LAB | | | | [address];[place] | | | | | | [address] | | | | + + + + + + | PCO2 ART | 41Comment: Testing | 35 - 45 mmHg | EXTERNAL | | | | performed at [facility];[address] | | LAB | | | | [address];[place] | | | | | | [address] | | | | + + + + + + | PO2 ART | 278 (H)Comment: Testing | 80 - 105 mmHg | EXTERNAL | | | | performed at [facility];[address] | | LAB | | | | [address];[place] | | | | | | [address] | | | | + + + + + + | HCO3 ART | 26Comment: Testing | 22 - 26 mmol/L | EXTERNAL | | | | performed at [facility];[address] | | LAB | | | | [address];[place] | | | | | | [address] | | | | + + + + + + | POC | 27Comment: Testing | 23 - 27 mEq/L | EXTERNAL | | | APPEARANCE | performed at [facility];888 | | LAB | | | UA | [address];[place] | | | | | | [address] | | | | + + + + + + | Base | 2Comment: Testing | 0 - 3 mEq/L | EXTERNAL | | | Excess, | performed at [facility];888 | | LAB | | | Arterial | [address];[place] | | | | | | [address] | | | | + + + + + + | O2 SAT ART | 100 (H)Comment: Testing | 95 - 98 % | EXTERNAL | | | | performed at [facility];[address] | | LAB | | | | [address];[place] | | | | | | [address] | | | | + + + + + + | Sodium, POC | 135Comment: Testing | 135 - 145 mEq/L | EXTERNAL | | | | performed at [facility];[address] | | LAB | | | | [address];[place] | | | | | | [address] | | | | + + + + + + | Potassium, | 5.9 (H)Comment: Testing | 3.5 - 5.0 mEq/L | EXTERNAL | | | POC | performed at [facility];888 | | LAB | | | | [address];[place] | | | | | | [address] | | | | + + + + + + | Ionized | 1.13Comment: Testing | 1.12 - 1.32 | EXTERNAL | | | Calcium, | performed at [facility];888 | mmol/L | LAB | | | POC | [address];[place] | | | | | | [address] | | | | + + + + + + | Glucose, | 143 (H)Comment: Testing | 65 - 99 mg/dL | EXTERNAL | | | POC | performed at [facility];[address] | | LAB | | | | [address];[place] | | | | | | [address] | | | | + + + + + + | Hematocrit, | 26 (L)Comment: Testing | 40.0 - 50.0 % | EXTERNAL | | | POC | performed at [facility];[address] | | LAB | | | | [address];[place] | | | | | | [address] | | | | + + + + + + | Hemoglobin, | 8.8 (L)Comment: Testing | 13.7 - 16.7 | EXTERNAL | | | POC | performed at [facility];888 | g/dL | LAB | | | | [address];[place] | | | | | | [address] | | | | + + + [...] EXTERNAL | | | | performed at [facility];888 | | LAB | | | | [address];[place] | | | | | | [address] | | | | + + + + + + | PCO2 ART | 48 (H)Comment: Testing | 35 - 45 mmHg | EXTERNAL | | | | performed at [facility];888 | | LAB | | | | [address];[place] | | | | | | [address] | | | | + + + + + + | PO2 ART | 52 (L)Comment: Testing | 80 - 105 mmHg | EXTERNAL | | | | performed at [facility];888 | | LAB | | | | [address];[place] | | | | | | [address] | | | | + + + + + + | HCO3 ART | 27 (H)Comment: Testing | 22 - 26 mmol/L | EXTERNAL | | | | performed at [facility];888 | | LAB | | | | [address];[place] | | | | | | [address] | | | | + + + + + + | POC | 28 (H)Comment: Testing | 23 - 27 mEq/L | EXTERNAL | | | APPEARANCE | performed at [facility];888 | | LAB | | | UA | [address];[place] | | | | | | [address] | | | | + + + + + + | Base | 2Comment: Testing | 0 - 3 mEq/L | EXTERNAL | | | Excess, | performed at [facility];888 | | LAB | | | Arterial | [address];[place] | | | | | | [address] | | | | + + + + + + | O2 SAT ART | 84 (L)Comment: Testing | 95 - 98 % | EXTERNAL | | | | performed at [facility];[address] | | LAB | | | | [address];[place] | | | | | | [address] | | | | + + + + + + | Sodium, POC | 135Comment: Testing | 135 - 145 mEq/L | EXTERNAL | | | | performed at [facility];[address] | | LAB | | | | [address];[place] | | | | | | [address] | | | | + + + + + + | Potassium, | 5.6 (H)Comment: Testing | 3.5 - 5.0 mEq/L | EXTERNAL | | | POC | performed at [facility];888 | | LAB | | | | [address];[place] | | | | | | [address] | | | | + + + + + + | Ionized | 1.09 (L)Comment: Testing | 1.12 - 1.32 | EXTERNAL | | | Calcium, | performed at [facility];888 | mmol/L | LAB | | | POC | [address];[place] | | | | | | [address] | | | | + + + + + + | Glucose, | 124 (H)Comment: Testing | 65 - 99 mg/dL | EXTERNAL | | | POC | performed at [facility];888 | | LAB | | | | [address];[place] | | | | | | [address] | | | | + + + + + + | Hematocrit, | 26 (L)Comment: Testing | 40.0 - 50.0 % | EXTERNAL | | | POC | performed at [facility];888 | | LAB | | | | [address];[place] | | | | | | [address] | | | | + + + + + + | Hemoglobin, | 8.8 (L)Comment: Testing | 13.7 - 16.7 | EXTERNAL | | | POC | performed at [facility];888 | g/dL | LAB | | | | [address];[place] | | | | | | [address] | | | | + + + [...] EXTERNAL | | | | performed at [facility];[address] | | LAB | | | | [address];[place] | | | | | | [address] | | | | + + + + + + | PCO2 ART | 49 (H)Comment: Testing | 35 - 45 mmHg | EXTERNAL | | | | performed at [facility];[address] | | LAB | | | | [address];[place] | | | | | | [address] | | | | + + + + + + | PO2 ART | 267 (H)Comment: Testing | 80 - 105 mmHg | EXTERNAL | | | | performed at [facility];888 | | LAB | | | | [address];[place] | | | | | | [address] | | | | + + + + + + | HCO3 ART | 29 (H)Comment: Testing | 22 - 26 mmol/L | EXTERNAL | | | | performed at [facility];[address] | | LAB | | | | [address];[place] | | | | | | [address] | | | | + + + + + + | POC | 30 (H)Comment: Testing | 23 - 27 mEq/L | EXTERNAL | | | APPEARANCE | performed at [facility];888 | | LAB | | | UA | [address];[place] | | | | | | [address] | | | | + + + + + + | Base | 3Comment: Testing | 0 - 3 mEq/L | EXTERNAL | | | Excess, | performed at [facility];888 | | LAB | | | Arterial | [address];[place] | | | | | | [address] | | | | + + + + + + | O2 SAT ART | 100 (H)Comment: Testing | 95 - 98 % | EXTERNAL | | | | performed at [facility];888 | | LAB | | | | [address];[place] | | | | | | [address] | | | | + + + + + + | Sodium, POC | 136Comment: Testing | 135 - 145 mEq/L | EXTERNAL | | | | performed at [facility];888 | | LAB | | | | [address];[place] | | | | | | [address] | | | | + + + + + + | Potassium, | 4.6Comment: Testing | 3.5 - 5.0 mEq/L | EXTERNAL | | | POC | performed at [facility];888 | | LAB | | | | [address];[place] | | | | | | [address] | | | | + + + + + + | Ionized | 1.01 (L)Comment: Testing | 1.12 - 1.32 | EXTERNAL | | | Calcium, | performed at [facility];888 | mmol/L | LAB | | | POC | [address];[place] | | | | | | [address] | | | | + + + + + + | Glucose, | 119 (H)Comment: Testing | 65 - 99 mg/dL | EXTERNAL | | | POC | performed at [facility];[address] | | LAB | | | | [address];[place] | | | | | | [address] | | | | + + + + + + | Hematocrit, | 25 (L)Comment: Testing | 40.0 - 50.0 % | EXTERNAL | | | POC | performed at [facility];[address] | | LAB | | | | [address];[place] | | | | | | [address] | | | | + + + + + + | Hemoglobin, | 8.5 (L)Comment: Testing | 13.7 - 16.7 | EXTERNAL | | | POC | performed at [facility];888 | g/dL | LAB | | | | [address];[place] | | | | | | [address] | | | | + + + [...] | | LAB | | | | [facility];[address] [place] [address] | | | | | | Blvd;[place] [address] | | | | + + + + + + | PCO2 ART | 50 (H)Comment: Testing | 35 - 45 mmHg | EXTERNAL | | | | performed at [facility];[address] | | LAB | | | | [address];[place] | | | | | | [address] | | | | + + + + + + | PO2 ART | 333 (H)Comment: Testing | 80 - 105 mmHg | EXTERNAL | | | | performed at [facility];[address] | | LAB | | | | [address];[place] | | | | | | [address] | | | | + + + + + + | HCO3 ART | 24Comment: Testing | 22 - 26 mmol/L | EXTERNAL | | | | performed at [facility];[address] | | LAB | | | | [address];[place] | | | | | | [address] | | | | + + + + + + | POC | 26Comment: Testing | 23 - 27 mEq/L | EXTERNAL | | | APPEARANCE | performed at [facility];[address] | | LAB | | | UA | [address];[place] | | | | | | [address] | | | | + + + + + + | Base | 2Comment: Testing | 0.0 - 2.0 | EXTERNAL | | | deficit | performed at [facility];888 | mmol/L | LAB | | | | [address];[place] | | | | | | [address] | | | | + + + + + + | O2 SAT ART | 100 (H)Comment: Testing | 95 - 98 % | EXTERNAL | | | | performed at [facility];[address] | | LAB | | | | [address];[place] | | | | | | [address] | | | | + + + + + + | Sodium, POC | 135Comment: Testing | 135 - 145 mEq/L | EXTERNAL | | | | performed at [facility];[address] | | LAB | | | | [address];[place] | | | | | | [address] | | | | + + + + + + | Potassium, | 4.4Comment: Testing | 3.5 - 5.0 mEq/L | EXTERNAL | | | POC | performed at [facility];[address] | | LAB | | | | [address];[place] | | | | | | [address] | | | | + + + + + + | Ionized | 1.18Comment: Testing | 1.12 - 1.32 | EXTERNAL | | | Calcium, | performed at [facility];888 | mmol/L | LAB | | | POC | [address];[place] | | | | | | [address] | | | | + + + + + + | Glucose, | 133 (H)Comment: Testing | 65 - 99 mg/dL | EXTERNAL | | | POC | performed at [facility];[address] | | LAB | | | | [address];[place] | | | | | | [address] | | | | + + + + + + | Hematocrit, | 33 (L)Comment: Testing | 40.0 - 50.0 % | EXTERNAL | | | POC | performed at [facility];[address] | | LAB | | | | [address];[place] | | | | | | [address] | | | | + + + + + + | Hemoglobin, | 11.2 (L)Comment: Testing | 13.7 - 16.7 | EXTERNAL | | | POC | performed at [facility];888 | g/dL | LAB | | | | [address];[place] | | | | | | [address] | | | | + + + [...] | | LAB | | | | [facility];[address];[place] [address] | | | | + + + + + + | PCO2 ART | 41Comment: Testing | 35 - 45 mmHg | EXTERNAL | | | | performed at [facility] [facility];[address] | | LAB | | | | [address];[place] | | | | | | [address] | | | | + + + + + + | PO2 ART | 149 (H)Comment: Testing | 80 - 105 mmHg | EXTERNAL | | | | performed at [facility] | | LAB | | | | [address];[place] | | | | | | [address] | | | | + + + + + + | Lactate, | 1.8 (H)Comment: Testing | 0.36 - 1.25 | EXTERNAL | | | Arterial | performed at [facility];888 | mmol/L | LAB | | | | [address];[place] | | | | | | [address] | | | | + + + + + + | HCO3 ART | 23Comment: Testing | 22 - 26 mmol/L | EXTERNAL | | | | performed at [facility];[address] | | LAB | | | | [address];[place] | | | | | | [address] | | | | + + + + + + | POC | 24Comment: Testing | 23 - 27 mEq/L | EXTERNAL | | | APPEARANCE | performed at [facility];[address] | | LAB | | | UA | [address];[place] | | | | | | [address] | | | | + + + + + + | Base | 3 (H)Comment: Testing | 0.0 - 2.0 | EXTERNAL | | | deficit | performed at [facility];888 | mmol/L | LAB | | | | [address];[place] | | | | | | [address] | | | | + + + + + + | O2 SAT ART | 99 (H)Comment: Testing | 95 - 98 % | EXTERNAL | | | | performed at [facility];[address] | | LAB | | | | [address];[place] | | | | | | [address] | | | | + + + [...] EXTERNAL | | | | performed at [facility];[address] | | LAB | | | | [address];[place] | | | | | | [address] | | | | + + + + + + | PCO2 ART | 43Comment: Testing | 35 - 45 mmHg | EXTERNAL | | | | performed at [facility];[address] | | LAB | | | | [address];[place] | | | | | | [address] | | | | + + + + + + | PO2 ART | 153 (H)Comment: Testing | 80 - 105 mmHg | EXTERNAL | | | | performed at [facility];[address] | | LAB | | | | [address];[place] | | | | | | [address] | | | | + + + + + + | HCO3 ART | 24Comment: Testing | 22 - 26 mmol/L | EXTERNAL | | | | performed at [facility] | | LAB | | | | [address];[place] | | | | | | [address] | | | | + + + + + + | POC | 25Comment: Testing | 23 - 27 mEq/L | EXTERNAL | | | APPEARANCE | performed at [facility];[address] | | LAB | | | UA | [address];[place] | | | | | | [address] | | | | + + + + + + | Base | 2Comment: Testing | 0.0 - 2.0 | EXTERNAL | | | deficit | performed at [facility] | mmol/L | LAB | | | | [address];[place] | | | | | | [address] | | | | + + + + + + | O2 SAT ART | 99 (H)Comment: Testing | 95 - 98 % | EXTERNAL | | | | performed at [facility] | | LAB | | | | [address];[place] | | | | | | [address] | | | | + + + + + + | Sodium, POC | 138Comment: Testing | 135 - 145 mEq/L | EXTERNAL | | | | performed at [facility];[address] | | LAB | | | | [address];[place] | | | | | | [address] | | | | + + + + + + | Potassium, | 4.2Comment: Testing | 3.5 - 5.0 mEq/L | EXTERNAL | | | POC | performed at [facility];[address] | | LAB | | | | [address];[place] | | | | | | [address] | | | | + + + + + + | Ionized | 1.23Comment: Testing | 1.12 - 1.32 | EXTERNAL | | | Calcium, | performed at [facility] | mmol/L | LAB | | | POC | [address];[place] | | | | | | [address] | | | | + + + + + + | Glucose, | 132 (H)Comment: Testing | 65 - 99 mg/dL | EXTERNAL | | | POC | performed at [facility] | | LAB | | | | [address];[place] | | | | | | [address] | | | | + + + + + + | Hematocrit, | 33 (L)Comment: Testing | 40.0 - 50.0 % | EXTERNAL | | | POC | performed at [facility];[address] | | LAB | | | | [address];[place] | | | | | | [address] | | | | + + + + + + | Hemoglobin, | 11.2 (L)Comment: Testing | 13.7 - 16.7 | EXTERNAL | | | POC | performed at [facility] | g/dL | LAB | | | | [address];[place] | | | | | | [address] | | | | + + + [...] + + | 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
--- OUTSIDE RECORDS SUMMARY | ~2019-10-16 | XMS | Encounter Summary ---
Demographics + + + | Address | [address] | | | [place] [address] | + + + | Home Phone | | + + + | Preferred Language | Unknown | + + + | Marital Status | | + + + | Yazidism Affiliation | 1077 | + + + | Race | Unknown | + + + | Ethnic Group | Unknown | + + + Author + + + | Author | Located [facility] | | | and [place] | + + + | Organization | Located Within [facility] | | | and [place] [...] | + + +---------+ + | Laury Demi | ECON | Unknown | | + + +---------+ + Care Team Providers + +------+ + | Care Senior Recruitment Consultant Name | Role | Phone | + +------+ + | Alejandro Monroy MD | PCP | | + +------+ + Encounter Details +--------+ + + + + | Date | Type | Department | Care Team | Description | +--------+ + + + + | 02/17/ | Orders Only | [facility] | Ilia Aguirre | | | 2016 | | CARDIOLOGY [place] | MD [address] | | | | | [address] | [address] | | | | | [place], [place] | [place] [address] | | | | | [address] | [phone] | | | | | [phone] | | | +--------+ + + + [...] | 10/19/ | Office | Cardiology | Mackenzie Nevarezalmita, | | | 2019 | Visit | | MD [address] | | | | | | [place] | | | | | | [address] | | | | | | | | +--------+---------+ + + + documented as of this encounter Procedures + +--------+ + + + | Procedure Name | Priori | Date/Time | Associated Diagnosis | Comments | | | ty | | | | + +--------+ + + + | SEDIMENTATION RATE, | Routin | 02/18/2016 | | Results for this | | AUTOMATED | e | 11:33 AM | | procedure are in the | | | | PDT | | results section. | + +--------+ + + + | B TYPE NATRIURETIC | Routin | 02/18/2016 | | Results for this | | PEPTIDE | e | 11:33 AM | | procedure are in the | | | | PDT | | results section. | + +--------+ + + + | BASIC METABOLIC | Routin | 02/18/2016 | | Results for this | | PANEL | e | 11:33 AM | | procedure are in the | | | | PDT | | results section. | + +--------+ + + + | C-REACTIVE PROTEIN | Routin | 02/18/2016 | | Results for this | | | e | 11:30 AM | | procedure are in the | | | | PDT | | results section. | + +--------+ + + + documented in this encounter Results Sedimentation rate, automated (02/18/2016 11:33 AM PDT) + +--------+ + + + | Component | Value | Ref Range | Performed | Pathologist | | | | | At | Signature | + +--------+ + + + | Sed Rate | 29 (A) | 0 - 15 | EXTERNAL | | | | | | LAB | | + +--------+ + + + + + | Specimen | + + | Blood specimen | | (specimen) | + + + +---------+ + + | Performing | Address | City/State/Zipcode | Phone Number | | Organization | | | | + +---------+ + + | EXTERNAL LAB | | | | + +---------+ + + B Type Natriuretic Peptide (02/18/2016 11:33 AM PDT) + +---------+ + + + | Component | Value | Ref Range | Performed | Pathologist | | | | | At | Signature | + +---------+ + + + | BNP | 174 (A) | 0 - 100 pg/mL | [...] + +---------+ + + Basic Metabolic Panel (02/18/2016 11:33 AM PDT) + + + + + + | Component | Value | Ref Range | Performed | Pathologist | | | | | At | Signature | + + + + + + | Glucose, | 89 | 70 - 100 mg/dL | EXTERNAL | | | Fasting | | | LAB | | + + + + + + | BUN | 18 | 6 - 23 mg/dL | EXTERNAL | | | | | | LAB | | + + + + + + | Creatinine | 1.34 (A) | 0.70 - 1.11 | EXTERNAL | | | | | mg/dL | LAB | | + + + + + + | BUN/Creatin | 13.4 | 6.0 - 28.6 | EXTERNAL | | | ine Ratio | | | LAB | | + + + + + + | Calcium | 9.7 | 8.4 - 10.2 | EXTERNAL | | | | | mg/dL | LAB | | + + + + + + | Na | 140 | 132 - 143 | EXTERNAL | | | | | mmol/L | LAB | | + + + + + + | K | 4.0 | 3.6 - 5.1 | EXTERNAL | | | | | mmol/L | LAB | | + + + + + + | Cl | 102 | 95 - 112 mmol/L | EXTERNAL | | | | | | LAB | | + + + + + + | CO2 | 25 | 19 - 31 mmol/L | EXTERNAL | | | | | | LAB | | + + + + + + | Anion Gap | 17.0 | 7 - 21 mmol/L | EXTERNAL | | | | | | LAB | | + + + + + + | Estimated | 51 (A) | 60 mg/dL | EXTERNAL | [...] | | | + +---------+ + + C-Reactive Protein (02/18/2016 11:30 AM PDT) + +-------+ + + + | Component | Value | Ref Range | Performed | Pathologist | | | | | At | Signature | + +-------+ + + + | CRP | 2.6 | 0 - 5 mg/dL | EXTERNAL | | | | | | LAB | | + +-------+ + + + + + | Specimen [...]
--- OUTSIDE RECORDS SUMMARY | ~2019-10-16 | XMS | Encounter Summary ---
Demographics + + + | Address | [address] | | | [place] [address] | + + + | Home Phone | | + + + | Preferred Language | Unknown | + + + | Marital Status | | + + + | Mormonism Affiliation | 1077 | + + + | Race | Unknown | + + + | Ethnic Group | Unknown | + + + Author + + + | Author | [facility] | | | and [place] | + + + | Organization | [facility] | | | [...] Team Providers + +------+ + | Care Adapted Physical Education Teacher Name | Role | Phone | + +------+ + | Alejandro Monroy MD | PCP | | + +------+ + Encounter Details +--------+ + + + + | Date | Type | Department | Care Team | Description | +--------+ + + + + | 02/03/ | Orders Only | [facility] | Huy [place] | | | 2015 | | CARDIOLOGY [place] | MD [address]hin[address] | | | | | [address] | [address] | | | | | [place], [place] | [place] | | | | | [address] | [address] | | | | | [phone] | [phone] | | | | | | | [...] [place] | | | | | | [address] | | | | | | | [...]
--- OUTSIDE RECORDS SUMMARY | ~2019-10-16 | XMS | Encounter Summary ---
Demographics + + + | Address | [address] | | | [place] [address] | + + + | Home Phone | | + + + | Preferred Language | Unknown | + + + | Marital Status | | + + + | Mosque Affiliation | 1077 | + + + | Race | Unknown | + + + | Ethnic Group | Unknown | + + + Author + + + | Author | [facility] [place] | | | and [place] | + + + | Organization | [facility] | | | and [place] [...] Team Providers + +------+ + | Care Carburetor Specialist Name | Role | Phone | + +------+ + PCP | Unavailable | + +------+ + Encounter Details +--------+ + + + + | Date | Type | Department | Care Team | Description | +--------+ + + + + | 07/05/ | Hospital | [facility] | | | | 2002 | Encounter | MED [facility] OP | | | | | | [address] | | | | | | [place] | | | | | | [address] | | | | | | [phone] | | | +--------+ + + + [...] [place] | | | | | | [address] | | | | | | | | +--------+---------+ + + + documented as of this encounter Visit Diagnoses Not on filedocumented in this encounter"
--- OUTSIDE RECORDS SUMMARY | ~2019-10-16 | XMS | Encounter Summary ---
Demographics + + + | Address | [address] | | | [place] [address] | + + + | Home Phone | | + + + | Preferred Language | Unknown | + + + | Marital Status | | + + + | Sabianist Affiliation | 1077 | + + + | Race | Unknown | + + + | Ethnic Group | Unknown | + + + Author + + + | Author | [facility] [place] | | | and [place] | + + + | Organization | [facility] | | | and [place] [...] Team Providers + +------+ + | Care Vegetable Farm Worker Name | Role | Phone | + +------+ + | Alejandro Monroy MD | PCP | | + +------+ + Encounter Details +--------+ + + + + | Date | Type | Department | Care Team | Description | +--------+ + + + + | 11/24/ | Orders Only | [facility] | Alejandro Monroy, | | | 2019 | | [address] | [address] | | | | | [place] [address] | [address] [place] | | | | | [facility] [place] | [address] | | | | | [address] | | | | | | [phone] | | | +--------+ + + + [...] | | | | | | [place], [place] | | | | | | [address] | | | | | | | | +--------+---------+ + + + documented as of this encounter Procedures + +--------+ + + + | Procedure Name | Priori | Date/Time | Associated Diagnosis | Comments | | | ty | | | | + +--------+ + + + | ECHO INTERPRETATION | Routin | 11/24/2018 | | Results for this | | OF OUTSIDE FILMS | e | 4:48 PM | | procedure are in the | | | | PST | | results section. | + +--------+ + + + documented in this encounter Results ECHO Interpretation of Outside Films (11/24/2018 4:48 PM PST) + + | Specimen | + + | | + + + + + | Impressions | Performed At | + + + | 1. The left ventricle is normal in size, wall thickness and systolic | | | function EF 55-60%. 2. The right ventricle is mildly enlarged with | | | normal systolic function. 3. No significant valvular pathology. 4. | | | There is no pericardial effusion. | | + + + + + + | Narrative | Performed At | + + + | Patient Name: FLACO RANDOLPH Date of : 1935 | | | Performing Physician: Devonte Nevarez | | | | | | INDICATIONS CHF CONCLUSIONS 1. The | | | left ventricle is normal in size, wall thickness and systolic function | | | EF 55-60%. 2. The right ventricle is mildly enlarged with normal | | | systolic function. 3. No significant valvular pathology. 4. There is | | | no pericardial effusion. FINDINGS -------- ECG rhythm: [...] between 60 - 65 %. Left Ventricle: The | | | left ventricle cavity size is normal. Left [...] normal. Pulmonic Valve: Mild pulmonic regurgitation. Pulmonic Valve: | | | No significant valvular pathology. Pericardium: There is [...] 3.42 cm Ao sinus: 3.[address] | | | junct: 3.34 cm IVC: 1.47 cm LA Major: 4.92 cm EDV(Teich): | | | 149.91 ml IVSd: 0.91 cm LVIDd: 5.54 cm LVPWd: 0.97 cm | | | LVOT Area: 3.54 cm2 LVOT Diam: 2.12 cm %FS: 30.32 % | | | EF(Teich): 57.09 % ESV(Teich): 64.31 ml LVIDs: 3.86 cm | | | SV(Teich): 85.59 ml RA Major: 5.23 cm RV Major: 6.94 cm RV | | | Minor: 4.19 cm RVIDd: 3.50 cm LVEF MOD A2C: 65.78 % SV | | | MOD A2C: 59.78 ml LVEF MOD A4C: 63.97 % SV MOD A4C: 65.33 | | | ml EF Biplane: 62.43 % LVEDV MOD BP: 98.82 ml LVESV MOD BP: | | | 37.12 ml LVEDV MOD A2C: 90.88 ml LVLd A2C: 7.35 cm LVEDV | | | MOD A4C: 102.12 ml LVLd A4C: 7.82 cm LVESV MOD A2C: 31.09 | | | ml LVLs A2C: 5.65 cm LVESV MOD A4C: 36.78 ml LVLs A4C: | | | 6.82 cm LAESV(A-L): 60.13 ml LAESV Index (A-L): 26.84 ml/m2 | | | LAAs A2C: 19.61 cm2 LAESV A-L A2C: 63.10 ml LALs A2C: 5.17 | | | cm LAAs A4C: 18.69 cm2 LAESV A-L A4C: 55.18 ml LALs A4C: | | | 5.37 cm RAAs: 19.27 cm2 RAESV A-L: 61.26 ml RAESV MOD: | | | 59.24 ml RALs: 5.15 cm TAPSE: 1.78 cm AV maxP.07 mmHg | | | AV meanP.87 mmHg AV Vmax: 1.23 m/s AV Vmean: 0.78 m/s | | | AV VTI: 22.53 cm CARLTON Vmax: 2.68 cm2 CARLTON (VTI): 3.27 cm2 | | | AVAI Vmax: 0.00 cm2/m2 AVAI (VTI): 0.00 cm2/m2 LVOT maxPG: | | | 3.48 mmHg LVOT meanP.06 mmHg LVSI Dopp: 32.97 ml/m2 LVSV | | | Dopp: 73.87 ml LVOT Vmax: 0.93 m/s LVOT Vmean: 0.67 m/s | | | LVOT VTI: 20.83 cm MV A Joaquín: 0.68 m/s MV Dec Ray: 1.32 | | | m/s2 MV DecT: 373.67 ms MV E Joaquín: 0.49 m/s MV E/A Ratio: | | | 0.72 MV PHT: 108.36 ms MVA By PHT: 2.03 cm2 Septal e': | | | 0.03 m/s Septal E/e': 14.24 Lateral e': 0.02 m/s Lateral | | | E/e': 20.11 Bioprocess Engineer: LILIAM Authenticated by: Devonte Nevarez | | | Report Date/Time: 11-25-2018 17:40:15 | | + + + + + | Procedure Note | + + | Roshan Jimenez Conversion - 06/30/2019 2:07 PM PDT Patient Name: Janis RANDOLPH | | : 1935 Performing Physician: Devonte | | Geri INDICATIONS------ | | -----CHF CONCLUSIONS 1. The left ventricle is normal in size, wall thickness | | and systolic function EF 55-60%.2. The right ventricle is mildly enlarged with normal | | systolic function.3. No significant valvular pathology.4. There is no pericardial | | effusion. FINDINGS--------ECG rhythm: Sinus rhythm.ECG rhythm: Resting bradycardia | | (HR<60bpm).Study: A 2-dimensional transthoracic echocardiogram with m-mode, spectral and | | color flow Doppler was perfomed.Study: This was a technically adequate study.Left | | Ventricle: Overall left ventricular systolic function is normal with, an EF between 60 - | | 65 %.Left Ventricle: The left ventricle cavity size is normal.Left Ventricle: Left | | ventricular wall thickness is normal.Left Ventricle: There is paradoxical/dysynergic | | septal motion consistent with bundle branch block.Left Ventricle: The diastolic filling | | pattern indicates impaired relaxation consistent with mild dysfunction (Grade I).Right | | Ventricle: The right ventricle is mildly enlarged.Right Ventricle: The right ventricular | | systolic function is normal.Left Atrium: The left atrium is normal in size.Right | | Atrium: The right atrium is mildly enlarged.Aortic Valve: The aortic valve appears to be | | trileaflet.Aortic Valve: There is mild aortic valve sclerosis without stenosis.Aortic | | Valve: There is no evidence of aortic regurgitation.Mitral Valve: The mitral valve is | | normal.Mitral Valve: There is trace mitral regurgitation.Tricuspid Valve: The tricuspid | | valve appears structurally normal.Tricuspid Valve: Pulmonary artery systolic pressure | | could not be assessed due to the absence of adequate TR jet.Pulmonic Valve: The pulmonic | | valve is normal.Pulmonic Valve: Mild pulmonic regurgitation.Pulmonic Valve: No | | significant valvular pathology.Pericardium: There is no pericardial | | effusion.Pericardium: No pleural effusion seen.IVC/Hepatic Veins: The IVC is normal size | | (1.5-2.5cm) and collapses >50% with sniff, consistent with central venous pressures of | | 5-10mmHg.Aorta: Aortic arch not well seen. MEASUREMENTS Ao asc: 3.76 cmAo | | Diam: 3.42 cmAo sinus: 3.[address] junct: 3.34 cmIVC: 1.47 cmLA Major: 4.92 | | cmEDV(Teich): 149.91 mlIVSd: 0.91 cmLVIDd: 5.54 cmLVPWd: 0.97 cmLVOT Area: | | 3.54 [id number] Diam: 2.12 cm%FS: 30.32 %EF(Teich): 57.09 %ESV(Teich): 64.31 | | mlLVIDs: 3.86 cmSV(Teich): 85.59 mlRA Major: 5.23 cmRV Major: 6.94 cmRV Minor: | | 4.19 cmRVIDd: 3.50 cmLVEF MOD A2C: 65.78 %SV MOD A2C: 59.78 mlLVEF MOD A4C: | | 63.97 %SV MOD A4C: 65.33 mlEF Biplane: 62.43 %LVEDV MOD BP: 98.82 mlLVESV MOD BP: | | 37.12 mlLVEDV MOD A2C: 90.88 mlLVLd A2C: 7.35 cmLVEDV MOD A4C: 102.12 mlLVLd | | A4C: 7.82 cmLVESV MOD A2C: 31.09 mlLVLs A2C: 5.65 cmLVESV MOD A4C: 36.78 mlLVLs | | A4C: 6.82 cmLAESV(A-L): 60.13 mlLAESV Index (A-L): 26.84 ml/m2LAAs A2C: 19.61 | | pl1MXBUM A-L A2C: 63.10 mlLALs A2C: 5.17 cmLAAs A4C: 18.69 nm5MSDYW A-L A4C: | | 55.18 mlLALs A4C: 5.37 cmRAAs: 19.27 ro2FZWMT A-L: 61.26 mlRAESV MOD: 59.24 | | mlRALs: 5.15 cmTAPSE: 1.78 cmAV maxP.07 mmHgAV meanP.87 mmHgAV Vmax: | | 1.23 m/Jacquelin Vmean: 0.78 m/Jacquelin VTI: 22.53 cmAVA Vmax: 2.68 cm2AVA (VTI): 3.27 | | [id number] Vmax: 0.00 cm2/m2AVAI (VTI): 0.00 cm2/m2LVOT maxP.48 mmHgLVOT meanPG: | | 2.06 mmHgLVSI Dopp: 32.97 ml/m2LVSV Dopp: 73.87 mlLVOT Vmax: 0.93 m/sLVOT Vmean: | | 0.67 m/sLVOT VTI: 20.83 cmMV A Joaquín: 0.68 m/sMV Dec Ray: 1.32 m/s2MV DecT: | | 373.67 msMV E Joaquín: 0.49 m/sMV E/A Ratio: 0.72MV PHT: 108.36 msMVA By PHT: 2.03 | | [id number] e': 0.03 m/sSeptal E/e': 14.24Lateral e': 0.02 m/sLateral E/e': 20.11 | | Bioprocess Engineer: JONATHANuthenticated by: Devonte Bedolla Date/Time: 11-25-2018 17:40:15 | | IMPRESSION: 1. The left ventricle is normal in size, wall thickness and systolic | | function EF 55-60%.2. The right ventricle is mildly enlarged with normal systolic | | function.3. No significant valvular pathology.4. There is no pericardial effusion. | |MEASUREMENTS | | | |Ao asc: 3.76 cm [...] A Joaquín: 0.68 m/s | |MV Dec Ray: 1.32 m/s2 | |MV DecT: 373.67 ms | |MV E Joaquín: 0.49 m/s | |MV E/A Ratio: 0.72 | |MV PHT: 108.36 ms | |MVA By PHT: 2.03 cm2 | |Septal e': 0.03 m/s | |Septal E/e': 14.24 | |Lateral e': 0.02 m/s | |Lateral E/e': 20.11 | | | |Bioprocess Engineer: LILIAM | |Authenticated by: Devonte Nevarez | |Report Date/Time: 11-25-2018 17:40:15 | | | |IMPRESSION: | |1. The left ventricle is normal in size, wall thickness and systolic function EF 55-60%. | |2. The right ventricle is mildly enlarged with normal systolic function. | |3. No significant valvular pathology. | |4. There is no pericardial effusion. | + + documented in this encounter Visit Diagnoses Not on filedocumented in this encounter"
--- OUTSIDE RECORDS SUMMARY | ~2019-10-16 | XMS | Encounter Summary ---
Demographics + + + | Address | [address] | | | [place] [address] | + + + | Home Phone | | + + + | Preferred Language | Unknown | + + + | Marital Status | | + + + | Quaker Affiliation | 1077 | + + + | Race | Unknown | + + + | Ethnic Group | Unknown | + + + Author + + + | Author | [facility] [place] | | | and [place] | + + + | Organization | [facility] | | | and [...] Team Providers + +------+ + | Care Program Officer Name | Role | Phone | + +------+ + PCP | Unavailable | + +------+ + Encounter Details +--------+ + + + + | Date | Type | Department | Care Team | Description | +--------+ + + + + | 06/02/ | Orders Only | [facility] | Provider, | | | 2019 | | SYSTEM GENERIC OP | MD [address] | | | | | CONVERSION [address] | [address] [place] | | | | | [address] [place], [place] | [place] [address] | | | | | [address] | | | | | | [phone] | | | +--------+ + + + [...] [place] | | | | | | [address] | | | | | | | | +--------+---------+ + + + documented as of this encounter Visit Diagnoses Not on filedocumented in this encounter"
--- OUTSIDE RECORDS SUMMARY | ~2019-10-16 | XMS | Encounter Summary ---
Demographics + + + | Address | [address] | | | [place] [address] | + + + | Home Phone | | + + + | Preferred Language | Unknown | + + + | Marital Status | | + + + | Moravian Affiliation | 1077 | + + + | Race | Unknown | + + + | Ethnic Group | Unknown | + + + Author + + + | Author | [facility] [place] | | | and [place] | + + + | Organization | [facility] | | | and [place] [...] Team Providers + +------+ + | Care Athletic Coach Name | Role | Phone | + +------+ + PCP | Unavailable | + +------+ + Encounter Details +--------+ + + + + | Date | Type | Department | Care Team | Description | +--------+ + + + + | 06/02/ | Orders Only | [facility] | Provider, | | | 2019 | | SYSTEM GENERIC OP | [address] | | | | | CONVERSION [address] | [address] [place] | | | | | [address] [place], [place] | [place] [address] | | | | | [address] | | | | | | [phone] | | | +--------+ + + + [...] [place] | | | | | | [address] | | | | | | | | +--------+---------+ + + + documented as of this encounter Visit Diagnoses Not on filedocumented in this encounter"
--- OUTSIDE RECORDS SUMMARY | ~2019-10-16 | XMS | Encounter Summary ---
Demographics + + + | Address | [address] | | | [place] [address] | + + + | Home Phone | | + + + | Preferred Language | Unknown | + + + | Marital Status | | + + + | Yarsani Affiliation | 1077 | + + + | Race | Unknown | + + + | Ethnic Group | Unknown | + + + Author + + + | Author | [facility] | | | and [place] | + + + | Organization | [facility] | | | and [place] [...] Team Providers + +------+ + | Care Go Go Dancer Name | Role | Phone | + +------+ + | Alejandro Monroy MD | PCP | | + +------+ + Encounter Details +--------+ + + + + | Date | Type | Department | Care Team | Description | +--------+ + + + + | 12/12/ | Orders Only | [facility] | Ilia Aguirre | | | 2016 | | CARDIOLOGY [place] | MD [address] | | | | | [address] | [address] | | | | | [address] | [place] [address] | | | | | [place], [place] | [phone] | | | | | [address] | | | | | | [phone] | | | +--------+ + + + [...] | 2019 | Visit | | [address] | | | | | | [place] | | | | | | [address] | | | | | | | | +--------+---------+ + + + documented as of this encounter Procedures + +--------+ + + + | Procedure Name | Priori | Date/Time | Associated Diagnosis | Comments | | | ty | | | | + +--------+ + + + | NM NUCLEAR STRESS | Routin | 12/12/2015 | | Results for this | | TEST (PHARMACOLOGIC | e | 1:36 PM | | procedure are in the | | - VASODILATOR) | | PST | | results section. | + +--------+ + + + documented in this encounter Results NM Nuclear Stress Test (Vasodilator) (12/12/2015 1:36 PM PST) + + | Specimen | + + | | + + + + + | Impressions | Performed At | + + + | 1. Abnormal study. Lateral ischemia corresponding to left | | | circumflex territory, TID suggest multivessel disease. LVEF 60 % 2. | | | Stress ECG: Negative for Lexiscan-induced ischemia. 3. | | | Occasional PVCs detected. 4. No Lexiscan induced chest pain. 5. | | | No previous test for comparison. | | + + + + + + | Narrative | Performed At | + + + | [facility] CARDIOLOGY Nuclear Lexiscan-Walk Stress Test | | | History: 80 Year old male being evaluated for coronary artery | | | disease. Rest Data: HR: 57 bpm BP: 119 /65 Baseline ECG: sinus | | | rhythm, RBBB. Stress Data: HR: 89 bpm BP: 154/89 The patient | | | walked on the treadmill for three minutes at 1.0 mph during the test. | | | Reaction to Lexiscan: shortness of breath Stress ECG: Negative for | | | Lexiscan-induced ischemia. Arrhythmias: Occasional PVCs | | | Myocardial Perfusion: Images are adequate for interpretation. No | | | significant RV or lung uptake A moderate size perfusion defect seen | | | on the stress images, not noticed on the resting images. SSS: 1 SRS: | | | 0 SDS: 1 TID: 1.22 Gated Images: Rest EDV: 108 mL Rest ESV: 45 mL | | | Rest EF: 58 % Stress EDV: 126 mL Stress ESV: 50 mL Stress EF: 60 % | | | No evidence of regional wall motion abnormality Procedure: 10.6 | | | mCi of 99m Tc Myoview was given intravenously for rest images. 30.3 | | | mCi of 99m Tc Myoview was given intravenously for stress images at | | | 0:35. Effective Dose Equivalent 14.1 mSv The patient received | | | 0.4mg Lexiscan intravenously. | | + + + + + | Procedure Note | + + | Tony, Rad Conversion - 06/30/2019 9:[address] [facility] CARD[facility]OLOGYN[facility] | | Lexiscan-Walk Stress Test History:80 Year old male being evaluated for coronary artery | | disease. Rest Data:HR: 57 bpm BP: 119 /65Baseline ECG: sinus rhythm, RBBB. Stress | | Data:HR: 89 bpm BP: 154/89The patient walked on the treadmill for three minutes at 1.0 | | mph during the test.Reaction to Lexiscan: shortness of breathStress ECG: Negative for | | Lexiscan-induced ischemia.Arrhythmias: Occasional PVCs Myocardial Perfusion:Images are | | adequate for interpretation.No significant RV or lung uptakeA moderate size perfusion | | defect seen on the stress images, not noticed on the resting images.SSS: 1 SRS: 0 SDS: 1 | | TID: 1.22 Gated Images:Rest EDV: 108 mL Rest ESV: 45 mL Rest EF: 58 %Stress EDV: 126 mL | | Stress ESV: 50 mL Stress EF: 60 %No evidence of regional wall motion abnormality | | Procedure:10.6 mCi of 99m Tc Myoview was given intravenously for rest images.30.3 mCi of | | 99m Tc Myoview was given intravenously for stress images at 0:35.Effective Dose | | Equivalent 14.1 mSvThe patient received 0.4mg Lexiscan intravenously. IMPRESSION: 1. | | Abnormal study. Lateral ischemia corresponding to left circumflex territory, TID | | suggest multivessel disease. LVEF 60 %2. Stress ECG: Negative for Lexiscan-induced | | ischemia.3. Occasional PVCs detected.4. No Lexiscan induced chest pain.5. No previous | | test for comparison. | |Myocardial Perfusion: | |Images are adequate for interpretation. | |No significant RV or lung uptake | |A moderate size perfusion defect seen on the stress images, not noticed on the resting imag es. | |SSS: 1 SRS: 0 SDS: 1 TID: 1.22 | | | |Gated Images: | |Rest EDV: 108 mL Rest ESV: 45 mL Rest EF: 58 % | |Stress EDV: 126 mL Stress ESV: 50 mL Stress EF: 60 % | |No evidence of regional wall motion abnormality | | | |Procedure: | |10.6 mCi of 99m Tc Myoview was given intravenously for rest images. | |30.3 mCi of 99m Tc Myoview was given intravenously for stress images at 0:35. | |Effective Dose Equivalent 14.1 mSv | |The patient received 0.4mg Lexiscan intravenously. | | | |IMPRESSION: | |1. Abnormal study. Lateral ischemia corresponding to left circumflex territory, TID sugge st multivessel disease. LVEF 60 % | |2. Stress ECG: Negative for Lexiscan-induced ischemia. | |3. Occasional PVCs detected. | |4. No Lexiscan induced chest pain. | |5. No previous test for comparison. | | | | | + + documented in this encounter Visit Diagnoses Not on filedocumented in this encounter"
--- OUTSIDE RECORDS SUMMARY | ~2019-10-16 | XMS | Clinical Summary ---
Demographics + + + | Address | [address] | | | [place] [address] | + + + | Home Phone | | + + + | Preferred Language | Unknown | + + + | Marital Status | | + + + | Confucianist Affiliation | 1077 | + + + | Race | Unknown | + + + | Ethnic Group | Unknown | + + + Author + + + | Author | [facility] | | | and [place] | + + + | Organization | [facility] | | | and [place] [...] Team Providers + +------+ + | Care Food Checkers And Cashiers Supervisor Name | Role | Phone | + +------+ + | Alejandro Monroy MD | PCP | | + +------+ + Allergies + [...] + + + + | Codeine | Hallucination | Medium | 01/08/20 | | | | | | 16 | | + + + + + + | Naproxen | Diarrhea, Nausea And | Low | 10/28/20 | | | | Vomiting | | 17 | | + + + + + + Medications + + + +---------+------+------+-------+ | Medication | Sig | Dispensed | Refills | Star | End | Statu | | | | | | t | Date | s | | | | | | Date | | | + + + +---------+------+------+-------+ | furosemide (LASIX) | TAKE TWO TABLETS BY | 30 | 4 | 11/2 | | Activ | | 20 mg tablet | MOUTH EVERY OTHER | tablet | | 8/20 | | e | | | DAY | | | 18 | | | + + + +---------+------+------+-------+ | MULTIPLE VITAMIN | Take by mouth | | 0 | | | Activ | | PO | daily. | | | | | e | + + + +---------+------+------+-------+ | aspirin 81 MG EC | Take 81 mg by mouth | | 0 | | | Activ | | tablet | daily with | | | | | e | | | breakfast. | | | | | | + + + +---------+------+------+-------+ | atorvaSTATin | Take 0.5 tablets by | | 0 | 05/0 | | Activ | | (LIPITOR) 40 mg | mouth nightly. | | | 8/20 | | e | | tablet | | | | 19 | | | + + + +---------+------+------+-------+ | | Take 1 capsule by | | 0 | | | Activ | | glucosamine-chondroi | mouth daily. | | | | | e | | tin 500-400 MG | | | | | | | | capsule | | | | | | | + + + +---------+------+------+-------+ | ibuprofen | Take 600 mg by mouth | | 0 | | | Activ | | (ADVIL,MOTRIN) 600 | every 6 (six) hours | | | | | e | | MG tablet | as needed for Pain. | | | | | | + + + +---------+------+------+-------+ | ketoconazole | Apply 2 % topically | | 0 | | | Activ | | (NIZORAL) 2% cream | daily. | | | | | e | + + + +---------+------+------+-------+ | metoprolol | Take 50 mg by mouth | | 0 | | | Activ | | tartrate (LOPRESSOR) | 2 (two) times daily. | | | | | e | | 50 mg tablet | | | | | | | + + + +---------+------+------+-------+ | nitroglycerin | Place 1 tablet under | | 0 | 06/2 | | Activ | | (NITROSTAT) 0.4 mg | the tongue every 5 | | | 0/20 | | e | | SL tablet | (five) minutes as | | | 18 | | | | | needed for Chest | | | | | | | | pain (use every 5-10 | | | | | | | | min as needed PRN). | | | | | | + + + +---------+------+------+-------+ | potassium chloride | Take 20 mEq by mouth | | 0 | | | Activ | | (KLOR-CON M20) 20 | every other day. | | | | | e | | mEq ER tablet | | | | | | | + + + +---------+------+------+-------+ | traMADol (ULTRAM) | Take 50 mg by mouth | | 0 | | | Activ | | 50 mg tablet | as needed for Pain. | | | | | e | + + + +---------+------+------+-------+ | furosemide (LASIX) | Take 20 mg by mouth | | 0 | | | Activ | | 40 mg tablet | every other day. | | | | | e | + + + +---------+------+------+-------+ | ciclopirox | | | 0 | 12/0 | | Activ | | (LOPROX) 1 % SHAM | | | | 1/20 | | e | | | | | | 18 | | | + + + +---------+------+------+-------+ | lisinopril | | | 0 | 07/0 | | Activ | | (PRINIVIL, ZESTRIL) | | | | 8/20 | | e | | 5 mg tablet | | | | 19 | | | + + + +---------+------+------+-------+ | metoprolol | | | 0 | 07/1 | | Activ | | succinate | | | | 4/20 | | e | | (TOPROL-XL) 50 mg 24 | | | | 19 | | | | hr tablet | | | | | | | + + + +---------+------+------+-------+ | ofloxacin | | | 0 | 02/2 | | Activ | | (OCUFLOX) 0.3% | | | | 0/20 | | e | | ophthalmic solution | | | | 19 | | | + + + +---------+------+------+-------+ | prednisoLONE (PRED | | | 0 | 02/2 | | Activ | | FORTE) 1% | | | | 0/20 | | e | | ophthalmic | | | | 19 | | | | suspension | | | | | | | + + + +---------+------+------+-------+ | SUDOGEST 30 MG | | | 0 | 09/2 | | Activ | | tablet | | | | 4/20 | | e | | | | | | 18 | | | + + + +---------+------+------+-------+ | terbinafine | | | 0 | 01/0 | | Activ | | (LAMISIL) 250 MG | | | | 4/20 | | e | | tablet | | | | 19 | | | + + + +---------+------+------+-------+ Active Problems + + + | Problem | Noted Date | + + + | Inguinal hernia | 01/01/2018 | + + + | 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 He | | remains in sinus rhythm after his cardioversion. Denies any new | | visual disturbances, dysarthria, dysphasia, lateralizing signs or | [...] + + + | Paroxysmal atrial fibrillation | 01/30/2016 | + + + + + | Overview: Last Assessment & Plan: Persistent atrial | | fibrillation/flutter, successfully cardioverted to sinus rhythm, | | he continues to be in sinus rhythm. Unaware of any palpitations. | | Denies any new visual disturbances, dysarthria, dysphasia, | | lateralizing signs or symptoms. | + + + + + | Coronary artery disease involving mentasta coronary artery | 01/10/2016 | + + + | Essential hypertension, benign | 01/08/2016 | + + + | Hyperlipidemia | 11/21/2015 | + + + + + | Overview: Last Assessment & Plan: Hyperlipidemia, continue | | current med at current dose (atorvastatin). | + + + + + | Primary osteoarthritis of right knee | 11/21/2015 | + + + + + | Overview: Last Assessment & Plan: DJD, primarily affecting | | the right knee, previous injury to right knee, arthroscopic | | procedure the right knee. | + + Encounters +--------+--------+ + + + | Date | Type | Specialty | Care Team | Description | +--------+--------+ + + + | 07/20/ | Refill | Primary Care | Dayana, | Medication Refill | | 2019 | | | JESUS Marti | | +--------+--------+ + + + from Last 3 Months [...] 84) | | + +------+ + + | Mother | | | | + +------+ + + Social History + +-------+ +--------+------+ [...] recent travel history available. | + + Last Filed Vital Signs + + + + + | Vital Sign | Reading | Time Taken | Comments | + + + + + | Blood Pressure | 122/62 | 03/16/2019 12:00 PM | | | | | PDT | | + + + + + | Pulse | 74 | 03/16/2019 12:00 PM | | | | | PDT | | + + + + + | Temperature | 36.3 C (97.3 F) | 02/06/2016 11:11 AM | | | | | PDT | | + + + + + | Respiratory Rate | 16 | 09/15/2016 2:10 PM | | | | | PST | | + + + + + | Oxygen Saturation | - | - | | + + + + + | Inhaled Oxygen | - | - | | | Concentration | | | | + + + + + | Weight | 96.2 kg (212 lb 1.6 | 03/16/2019 12:00 PM | | | | oz) | PDT | | + + + + + | Height | 185.4 cm (6' 1") | 03/16/2019 12:00 PM | | | | | PDT | | + + + + + | Body Mass Index | 27.98 | 03/16/2019 12:00 PM | | | | | PDT | | + + + + + Plan of Treatment +--------+---------+ + + + | Date | Type | Specialty | Care Team | Description | +--------+---------+ + + + | 10/19/ | Office | Cardiology | Devonte Nevarez, | | | 2019 | Visit | | MD Cici LEONG | | | | | | [place] | | | | | | [address] | | | | | | | | +--------+---------+ + + + + + + + + | Health [...] | | | | | Pneumococcal 65+ (1 | 8 | | | | of 2 - PCV13) | | | | + + + + + | Adult Annual | | | | | Wellness Visit | 8 | | | + + + + + | Vaccine: Influenza | | | | | (#1) | 9 | | | + + + + + Results Not on filefrom Last 3 Months Advance Directives + + + + + | Type | Date Recorded | Patient | Explanation | | | | Forepart Rounder | | + + + + + | Power of | | | | | Over [employer] Horizon Targeting Supervisor | | | | + + + + + | Advance | | | | | Directive | | | | + + + + +
--- OUTSIDE RECORDS SUMMARY | ~2019-10-16 | XMS | Encounter Summary ---
Demographics + + + | Address | [address] | | | [place] [address] | + + + | Home Phone | | + + + | Preferred Language | Unknown | + + + | Marital Status | | + + + | Sikh Affiliation | 1077 | + + + | Race | Unknown | + + + | Ethnic Group | Unknown | + + + Author + + + | Author | [facility] | | | and [place] | + + + | Organization | [facility] | | [...] Team Providers + +------+ + | Care Optical Worker Name | Role | Phone | [...] Medication Refill | | 2019 | | [facility] | [facility] [address] | | | | | [facility] [address] | [facility] | | | | | [address] [facility], | [place] [address] | | | | | [place] [address] | [phone] | | | | | [phone] | | | +--------+--------+ + + + [...] | | | | | [place], [place] | | | | | | [address] | | | | | | | | +--------+---------+ + + + documented as of this encounter Visit Diagnoses Not on filedocumented in this encounter"
--- OUTSIDE RECORDS SUMMARY | ~2019-10-16 | XMS | Clinical Summary ---
Demographics + + + | Address | [address] | | | [place] [address] | + + + | Home Phone | | + + + | Preferred Language | Unknown | + + + | Marital Status | | + + + | Alevism Affiliation | 1077 | + + + | Race | Unknown | + + + | Ethnic Group | Unknown | + + + Author + + + | Author | [facility] [place] | | | and [place] | + + + | Organization | [facility] | | | and [place] [...] Team Providers + +------+ + | Care Librarian Helper Name | Role | Phone | + [...] artery disease involving coronary bypass graft of chinik | 01/30/2016 | | heart with angina [...] + + | Coronary artery disease involving chinik coronary artery | 01/10/2016 | + + [...] | | | | | [place] | | | | | | [address] | | | | | | | [...] Patient | Explanation | | | | Electric Deicer Assembler | | + + + + + | Power of | | | | | Butadiene Converter Helper | | | | + + + + + | Advance | | | | | Directive | | | | + + + + +
--- OUTSIDE RECORDS SUMMARY | ~2019-10-16 | XMS | Clinical Summary ---
Demographics + + + | Address | [address] | | | [place] [address] | + + + | Home Phone | | + + + | Preferred Language | Unknown | + + + | Marital Status | | + + + | Mandaeism Affiliation | 1077 | + + + | Race | Unknown | + + + | Ethnic Group | Unknown | + + + Author + + + | Author | [facility] (Historical as of | | | 06-25-19) | + + + | Organization | [facility] (Historical as of | | | 06-25-19) | + + + | Address | [...] | | + + +---------+ + | Beba,Mina | ECON | Unknown | | + + +---------+ + Care Team Providers + +------+ + | Care Cluster Bore Operator Name | Role | Phone | + +------+ + | Alejandro Monroy MD | PP | | + +------+ + [...] | | | Activ | | SA (K-DUR,KLOR-CON) | every other day. | | | | | e | | 20 MEQ tablet | | | | | | | + + +--------+---------+------+------+-------+ | furosemide (LASIX) | Take 20 mg by mouth | | | | [...] | e | + + +--------+---------+------+------+-------+ | ibuprofen (MOTRIN) [...] | 25 | 12 | 06/2 | | Activ | | (NITROSTAT) 0.4 MG | the tongue every 5 | tablet | | 0/20 | | e | | SL tablet | (five) minutes as | | | 18 | | | | | needed for Chest | | | | | | | | pain (use every 5-10 | | | | | | | | min as needed PRN). | | | | | | + + +--------+---------+------+------+-------+ | atorvastatin | Take 0.5 tablets by | | | 05/0 | | Activ | | (LIPITOR) 40 MG | mouth nightly. 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 | + + Family History + + +------+ + | [...] | Blood Pressure | 122/62 | 03/16/2019 11:57 AM PDT | + + + + | Pulse | 74 | 03/16/2019 11:57 AM PDT | + + + + | Temperature | 36.3 C (97.3 F) | 02/06/2016 11:04 AM PDT | + + + + | Respiratory Rate | 16 | 09/15/2016 2:09 PM PST | + + + + | Oxygen Saturation | 95% | 03/16/2019 11:57 AM PDT | + + + + | Inhaled Oxygen | - | - | | Concentration | | | + + + + | Weight | 96.2 kg (212 lb 1.6 | 03/16/2019 11:57 AM PDT | | | oz) | | + + + + | Height | 185.4 cm (6' 1") | 03/16/2019 11:57 AM PDT | + + + + | Body Mass Index | 27.98 | 03/16/2019 11:57 AM PDT | + + + + Plan of Treatment +--------+---------+ + + + | Date | Type | Specialty | Care Team | Description | +--------+---------+ + + + | 10/19/ | Office | | Devonte Nevarez, | | | 2019 | Visit | | MD Cici Barnes | | | | | | [address], | | | | | | [place] [address] | | | | | | [phone] | | | | | | | [...] Results Not on filefrom Last 3 Months Insurance + +--------+ +------+-------+ + | Payer | Benefi | Subscriber | Type | Phone | Address | | | t Plan | ID | | | | | | / | | | | | | | Group | | | | | + +--------+ +------+-------+ + | MEDICARE | MEDICA | [id number] | | | [address] | | | RE | | | | [place] [address] | | | IP-OP | | | | | + +--------+ +------+-------+ + | [employer] | UNITED | [id number] | | | | | | | [...] Self | [birth year] | Home: | [address] | | | [place] | | 1935 | [phone] | [place] [address] | | | gayathri | | | [phone] | | + +--------+ +--------+ + +
--- OUTSIDE RECORDS SUMMARY | ~2019-10-16 | XMS | Clinical Summary ---
Demographics + + + | Address | [address] | | | [place] [address] | + + + | Home Phone | | + + + | Preferred Language | Unknown | + + + | Marital Status | | + + + | Judaism Affiliation | 1077 | + + + | Race | Unknown | + + + | Ethnic Group | Unknown | + + + Author + + + | Author | [facility] (Historical as of | | | 06-25-19) | + + + | Organization | [facility] (Historical as of | | | 06-25-19) [...] Team Providers + +------+ + | Care Plywood Factory Worker Name | Role | Phone | [...] artery disease involving coronary bypass graft of tribal | 01/30/2016 | | heart with angina [...] + + | Coronary artery disease involving tribal coronary artery | 01/10/2016 | + + [...] | | | | | | [place] [address] | | | | | | [phone] | | | | | | | [...] +------+-------+ + | MEDICARE | MEDICA | [id number] | | | [address] | | | RE | | | | [place] [address] | | | IP-OP | | | | | + +--------+ +------+-------+ + | [employer] | UNITED | [id number] | | | | | | | [...] Self | [birth year] | Home: | [address] | | | [place] | | 1935 | [phone] | [place] [address] | | | gay[place]ri | | | [phone] | | + +--------+ +--------+ + +
--- OUTSIDE RECORDS SUMMARY | ~2019-10-16 | XMS | Encounter Summary ---
Demographics + + + | Address | [address] | | | [place] [address] | + + + | Home Phone | | + + + | Preferred Language | Unknown | + + + | Marital Status | | + + + | Protestant Affiliation | 1077 | + + + | Race | Unknown | + + + | Ethnic Group | Unknown | + + + Author + + + | Author | [facility] | | | and [place] | + + + | Organization | [facility] | | | and [place] [...] Team Providers + +------+ + | Care Claim Manager Name | Role | Phone | + +------+ + PCP | Unavailable | + +------+ + Encounter Details +--------+ + + + + | Date | Type | Department | Care Team | Description | +--------+ + + + + | 01/07/ | Hospital | [facility] | Wes Brooks MD | Chest pain at rest; | | 2016 - | Encounter | [facility] | [address] | Essential | | | | CARE FLOOR [address] | [place] [address] | hypertension, | | 01/09/ | | [address] | [phone] | benign; | | 2015 | | [place], [place] | | Hyperlipemia; Sinus | | | | [phone] | | bradycardia; | | | | [phone] | | Coronary artery | | | | | | disease involving | | | | | | levelock coronary | | | | | | artery of levelock | | | | | | heart with unstable | | | | | | angina pectoris | | | | | | (HCC); Coronary | | | | | | artery disease | | | | | | involving levelock | | | | | | coronary artery of | | | | | | levelock heart with | | | | | [...] + + + | Blood Pressure | 148/70 | 01/10/2016 3:57 PM | | | | | PST | | + + + + + | Pulse | 72 | 01/10/2016 3:57 PM | | | | | PST | | + + + + + | Temperature | 36.4 C (97.5 F) | 01/10/2016 3:57 PM | | | | | PST | | + + + + + | Respiratory Rate | 18 | 01/10/2016 3:57 PM | | | | | PST | | + + + + + | Oxygen Saturation | - | - | | + + + + + | Inhaled Oxygen | - | - | | | Concentration | | | | + + + + + | Weight | 98.4 kg (216 lb 14.9 | 01/10/2016 3:57 PM | | | | oz) | PST | | + + + + + | Height | 185.4 cm (6' 1") | 01/10/2016 3:57 PM | | | | | PST | | + + + + + | Body Mass Index | 28.62 | 01/10/2016 3:57 PM | | | | | PST | | + + + + + documented in this encounter Discharge Summaries Michael Horn MD - 01/10/2016 5:43 PM PSTFormatting of this note might be different fr om the original. Discharge Summaries by Michael Horn MD at 01/10/16 0214 Author: Michael Horn MD Service: Hospitalist Author Type: Physician Filed: 01/11/16 0537 Date of Service: 01/10/16 174 Status: Signed Public Health Educator: Michael Horn MD (Physician) Related Notes: Original Note by Michael Horn MD (Physician) filed at 01/10/16 1753 [facility] Service: Hospitalist Discharge Summary Date of Admission: 01/08/2016 Date of Discharge: 01/10/16 Discharge Provider: Michael Horn MD Treatment Team: Consulting Physician: Joo Puga MD Surgeon: Dariela Bauer MD Admitting Provider: Wes Brooks MD Discharge Diagnoses: Principal Problem: Coronary artery disease involving levelock coronary artery Active Problems: Chest pain at rest Essential hypertension, benign Hyperlipemia Sinus bradycardia Resolved Problems: * No resolved hospital problems. * Final Diagnoses: Severe 3 vessel CAD Procedures: * No surgery found * Significant Diagnostic Studies: X-ray Chest 2 View Frontal & Lateral 01/10/2016 1. Mild hyperinflation, suggesting COPD. No acute findings. Electronically sig carlos by Scott Olson MD on 01/10/2016 10:[address] Chest Without Contrast 01/10/2016 1. No evidence of pulmonary infiltrates or pleural effusion. 2. Coronary arter y calcifications. 3. Gallstones. Electronically signed by Scott Olson MD on 016 10:38 AM Ultrasound Carotid Bilateral 01/10/2016 Mild atherosclerotic disease bilaterally without hemodynamically significant eduardo noses seen in either carotid arterial system. RADIA Read by Gama Enamorado MD on Jan 10 2016 2:37AM Ultrasound Lower Extremity Superficial Vein Bilateral 01/10/2016 1. Bilateral greater saphenous vein mapping as described above. F HISTORY OF PRESENTATION: Flaco Randolph is a 80 y.o. male who HOSPITAL COURSE: Mr. Randolph is an 80-year-old male with past medical history of rheumatoid arthritis, prior history of TIA, the patient followed by Dr. Aguirre underwent a cardiac stress test back in 2015 which showed lateral ischemia and the patient was then subsequently scheduled fo r elective heart catheterization, though the patient began developing epigastric discomfort with some radiation to the retrosternal area. As a result, he presented to the emergency dep artment on the january for further workup. Dr. Puga, cardiology, was consulted. The patient subsequently underwent heart catheterization on January 09, 2016. He was found to have severe 3 vessel coronary artery disease with severe mid and distal LAD, severe proximal fir st diagonal and severe mid circumflex and severe proximal PDA. As a result Dr. Bauer, card iothoracic surgery, was consulted. Further workup included vein mapping, transthoracic echoc ardiogram, and bilateral carotids. The patient was subsequently discharged home in stable co ndition after receiving education from the cardiothoracic team and he is planned to actually return back to the hospital on January 15, 2016, for cardiac bypass intervention. The patient is being discharged home on new medication called metoprolol 25 mg p.o. b.i.d. He is to continue his aspirin. DISCHARGE DIAGNOSIS Severe 3 vessel coronary artery disease. The patient is scheduled for cardiac bypass surger y on January 15, 2016, by Dr. Bauer. The patient is instructed to return back to the hospital if he develops any worsening chest pain, cardiac symptoms, or any other concerns. Past Medical History Diagnosis Date Hyperlipidemia HTN (hypertension) Rheumatoid arthritis (HCC) GERD (gastroesophageal reflux disease) Hx of migraine headaches Osteoporosis Sciatica Benign prostatic hypertrophy without urinary obstruction TIA (transient ischemic attack) Seborrheic dermatitis Hernia, inguinal bilateral Past Surgical History Procedure Laterality Date Hemorrhoid surgery x 2 Appendectomy Tonsillectomy Knee arthroscopy w/ acl reconstruction Abdominal surgery Eye surgery detached retina-bilateral Allergies Allergen Reactions Codeine Hallucinations Prescriptions prior to admission Medication Sig Dispense Refill Last Dose amLODIPine (NORVASC) 5 MG tablet Take 5 mg by mouth 2 (two) times daily. Taking aspirin 81 MG EC tablet Take 162 mg by mouth daily with breakfast. Taking atorvastatin (LIPITOR) 40 MG tablet Take 40 mg by mouth nightly. Taking Fxkazuwulu-Xdnuehr-Warlcntt (FIORINAL PO) Take by mouth. Taking vcjsphzowr-qlrtvmn-dwfcpzvq (FIORINAL) 50-325-40 MG capsule Take 1 capsule by mouth jurgen ry 4 (four) hours as needed for Pain. Taking diclofenac (VOLTAREN) 50 MG EC tablet Take 50 mg by mouth 3 (three) times daily. Taki ng glucosamine-chondroitin 500-400 MG CAPS Take 1 capsule by mouth daily. Taking isosorbide mononitrate (IMDUR) 30 MG 24 hr tablet Take 1 tablet by mouth daily. 30 tabl et 2 ketoconazole (NIZORAL) 2 % cream Apply 2 % topically daily. Taking lisinopril (ZESTRIL) 10 MG tablet Take 10 mg by mouth daily. Taking misoprostol (CYTOTEC) 200 MCG tablet Take 200 mcg by mouth 3 (three) times daily. Curly ing MULTIPLE VITAMIN PO Take by mouth daily. Taking nitroGLYCERIN (NITROSTAT) 0.[address] 0.4 mg under the tongue every 5 (five) minutes as needed for Chest pain. Taking potassium chloride SA (K-DUR,KLOR-CON) 20 MEQ tablet Take 20 mEq by mouth daily. Taki ng traMADol (ULTRAM) 50 MG tablet Take 50 mg by mouth every 6 (six) hours as needed for Pa in. Taking DISCHARGE EXAM Vital Signs: BP 148/70 mmHg | Pulse 72 | Temp(Src) 97.5 F (36.4 C) (Oral) | Resp 18 | Ht 1.854 m (6' 1") | Wt 98.4 kg (216 lb 14.9 oz) | BMI 28.63 kg/m2 | SpO2 95% Temp: [97.5 F (36.4 C)-98.6 F (37 C)] 97.5 F (36.4 C) (01/09 155) BP: (98-156)/(54-83) 148/70 mmHg (01/09 155) Heart Rate: [56-72] 72 (01/09 155) Resp: [16-18] 18 (01/09 1554) SpO2: [94 %-98 %] 95 % (01/09 1554) Weight: [98.4 kg (216 lb 14.9 oz)] 98.4 kg (216 lb 14.9 oz) (01/09 031) Physical Exam Constitutional: He appears well-developed and well-nourished. No distress. Cardiovascular: Normal rate. Skin: Skin is warm. He is not diaphoretic. Psychiatric: He has a normal mood and affect. His behavior is normal. Nursing note and vitals reviewed. DATA CBC: Lab Results Component Value Date WBC 6.49 01/09/2016 RBC 4.40 01/09/2016 HGB 13.6 01/09/2016 HCT 38.9* 01/09/2016 MCV 88.3 01/09/2016 MCH 30.8 01/09/2016 MCHC 34.9 01/09/2016 RDW 42.9 01/09/2016 PLT 170 01/09/2016 MPV 8.6 01/09/2016 DIFFTYPE AUTOMATED 01/09/2016 WBC: Lab Results Component Value Date WBC 6.49 01/09/2016 NEUTROABS 4.29 01/09/2016 LYMPHSABS 1.31 01/09/2016 LYMPHOPCT 20.26 01/09/2016 MONOPCT 9.63 01/09/2016 EOSABS 0.22 01/09/2016 EOSPCT 3.40 01/09/2016 BASOSABS 0.03 01/09/2016 BASOPCT 0.48 01/09/2016 Last 3 Troponin: Lab Results Component Value Date TROPONINI <0.020 01/08/2016 TROPONINI <0.020 01/08/2016 Disposition: Home Condition: Stable Code Status: Full Code No discharge procedures on file. Follow up: [facility] [address] [facility] [address] Call Belt Line Feeder - Isidro GPS: Josette 7:30-4:00. Call, as needed,with questions Dariela Bauer MD [address] [facility] [id number] Huy Yanez MD [address] [facility] [address] [place] [address] Medication List START taking these medications metoprolol 25 MG tablet QTY: 60 tablet Refills: 11 Commonly known as: LOPRESSOR Take 1 tablet by mouth 2 (two) times daily. CONTINUE taking these medications amLODIPine 5 MG tablet Refills: 0 Commonly known as: NORVASC aspirin 81 MG EC tablet Refills: 0 atorvastatin 40 MG tablet Refills: 0 Commonly known as: LIPITOR diclofenac 50 MG EC tablet Refills: 0 Commonly known as: VOLTAREN * FIORINAL PO Refills: 0 * qodxuonwus-iabymtf-wlylvixq 50-325-40 MG capsule Refills: 0 Commonly known as: FIORINAL glucosamine-chondroitin 500-400 MG Caps Refills: 0 isosorbide mononitrate 30 MG 24 hr tablet QTY: 30 tablet Refills: 2 Commonly known as: IMDUR Take 1 tablet by mouth daily. ketoconazole 2 % cream Refills: 0 Commonly known as: NIZORAL lisinopril 10 MG tablet Refills: 0 Commonly known as: ZESTRIL misoprostol 200 MCG tablet Refills: 0 Commonly known as: CYTOTEC MULTIPLE VITAMIN PO Refills: 0 nitroGLYCERIN 0.4 MG SL tablet Refills: 0 Commonly known as: NITROSTAT potassium chloride SA 20 MEQ tablet Refills: 0 Commonly known as: K-DUR,KLOR-CON traMADol 50 MG tablet Refills: 0 Commonly known as: ULTRAM * Notice: This list has 2 medication(s) that are the same as other medications prescribed for you. Read the directions carefully, and ask your doctor or other care provider to revie w them with you. 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 You may get the following medications from any pharmacy - metoprolol 25 MG tablet Discharge took 40 minutes, to include final examination, discussion of admission, and prep aration of prescriptions, instructions for on-going care, follow-up and documentation of dis charge summary. Michael Horn MD 01/10/2016 documented in this encounter Progress Notes Conversion Transaction, Provider Unknown - 01/10/2016 7:07 PM PSTFormatting of this note m ight be different from the original. Nurse Progress Note by Mann Herring RN at 01/10/161906 Author: Mann Herring RN Service: (none) Author Type: Registered Nurse Filed: 01/10/161907 Date of Service: 01/10/161906 Status: Signed Public Health Educator: Mann Herring RN (Registered Nurse) Patient discharged with family via private vehicle to home in stable condition. Will have C ABG on 01/15/2016 Michael Parker MD - 01/10/2016 8:40 AM PST Progress Notes by Michael Horn MD at 01/10/16839 Author: Michael Horn MD Service: Hospitalist Author Type: Physician Filed: 01/10/16 0849 Date of Service: 01/10/16839 Status: Signed Public Health Educator: Michael Horn MD (Physician) [facility] Service: Hospitalist Progress Note Hospital Day: LOS: 2 days Post-Op Day: * No surgery found * SUBJECTIVE Patient Summary: admission H and P Dr. Brooks:" Hypertension, hyperlipidemia, history of rheumatoid arthritis, history of TIA, who recently had abnormal stress test on December 12, 2015, which showed lateral ischemia and Dr. Aguirre pl anned to do elective cardiac catheterization. 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 Hence Dr. Aguirre was contacted, who recommended to transfer the patient, and he was given aspirin and started on heparin dr goemz. On arrival patient was completely asymptomatic. He denied any shortness of breath, no dizzi ness, no lightheadedness, no chest pain, no blood per rectum, orthopnea, no PND, no swelling in the legs, and 12-point review of systems was negative except as mentioned above." Events Overnight: Heart catheterization done yesterday indicating severe three-vessel coronary artery disease; Dr. Bauer consulted, CABG tentatively for this Thursday. Patient t o have transthoracic echocardiogram, ultrasound carotids, vein mapping, and further educatio n, tentative discharge tomorrow, then will return on Thursday for CABG. Presently patient is doing well, family at bedside denies any chest pain no shortness of b reath. Scheduled Medications amLODIPine 5 mg Oral BID aspirin 325 mg Oral Daily with breakfast atorvastatin 40 mg Oral Nightly glucosamine-chondroitin 1 capsule Oral Daily isosorbide mononitrate 60 mg Oral Daily lidocaine 10 mL Intradermal Once lidocaine buffered 1% 0.5 mL Intradermal Once metoprolol 25 mg Oral BID misoprostol 200 mcg Oral TID senna-docusate 2 tablet Oral Nightly Continuous Infusions PRN Medications acetaminophen OR acetaminophen, calcium carbonate, morphine OR morphine OR morp mayda, nitroGLYCERIN, ondansetron OR ondansetron, polyethylene glycol, traMADol, zolpidem OBJECTIVE Vital Signs: BP 156/74 mmHg | Pulse 66 | Temp(Src) 98.2 F (36.8 C) (Oral) | Resp 18 | Ht 1.854 m (6' 1") | Wt 98.4 kg (216 lb 14.9 oz) | BMI 28.63 kg/m2 | SpO2 95% Temp: [97.7 F (36.5 C)-98.3 F (36.8 C)] 98.2 F (36.8 C) (01/09 317) BP: (98-156)/(54-83) 156/74 mmHg (01/09 826) Heart Rate: [56-70] 66 (01/09 826) Resp: [16-20] 18 (01/09 826) SpO2: [94 %-98 %] 95 % (01/09 826) Weight: [98.4 kg (216 lb 14.9 oz)] 98.4 kg (216 lb 14.9 oz) (01/09 317) Physical Exam Constitutional: He is oriented to person, place, and time. He appears well-developed and we ll-nourished. No distress. Patient awake, alert, lying in bed HENT: Mouth/Throat: No oropharyngeal exudate. Eyes: No scleral icterus. Cardiovascular: Normal rate. No murmur heard. Pulmonary/Chest: Effort normal and breath sounds normal. No respiratory distress. He has no wheezes. Musculoskeletal: He exhibits no edema. Neurological: He is alert and oriented to person, place, and time. No cranial nerve deficit . Skin: Skin is warm and dry. He is not diaphoretic. Psychiatric: He has a normal mood and affect. His behavior is normal. Thought content stephani l. Nursing note and vitals reviewed. DATA CBC: Lab Results Component Value Date WBC 6.49 01/09/2016 RBC 4.40 01/09/2016 HGB 13.6 01/09/2016 HCT 38.9* 01/09/2016 MCV 88.3 01/09/2016 MCH 30.8 01/09/2016 MCHC 34.9 01/09/2016 RDW 42.9 01/09/2016 PLT 170 01/09/2016 MPV 8.6 01/09/2016 DIFFTYPE AUTOMATED 01/09/2016 WBC: Lab Results Component Value Date WBC 6.49 01/09/2016 NEUTROABS 4.29 01/09/2016 LYMPHSABS 1.31 01/09/2016 LYMPHOPCT 20.26 01/09/2016 MONOPCT 9.63 01/09/2016 EOSABS 0.22 01/09/2016 EOSPCT 3.40 01/09/2016 BASOSABS 0.03 01/09/2016 BASOPCT 0.48 01/09/2016 Last 3 Troponin: Lab Results Component Value Date TROPONINI <0.020 01/08/2016 TROPONINI <0.020 01/08/2016 CPK: Lab Results Component Value Date CKTOTAL 96 01/08/2016 CKMB: Lab Results Component Value Date CKMB 2.9 01/08/2016 PROBLEM LIST Principal Problem: Coronary artery disease involving levelock coronary artery Active Problems: Chest pain at rest Essential hypertension, benign Hyperlipemia Sinus bradycardia ASSESSMENT & PLAN 1. CAD - History of unstable angina abnormal cardiac stress test - PCI done yesterday, severe three-vessel coronary artery disease; severe mid and distal LA D, severe proximal first diagonal, severe mid circumflex, severe proximal PDA - Dr. Bauer Consulted; tentative bypass next week Thursday, questions were - Patient Jesús watching DVDs for tentative future procedure, transthoracic echocardio gram, bilateral carotids, noncontrast CT of chest - Aspirin - Metoprolol decreased to 25 mg bid due to bradycardia 2. Hypertension, stable on Norvasc and metoprolol 3. Sinus bradycardia - Has improved since the decrease to metoprolol 25 bid Disposition: Tentative discharge tomorrow morning Code Status: Full Code Michael Horn MD 01/10/2016 onversion Transact ion, Provider Unknown - 01/09/2016 7:38 PM PSTFormatting of this note might be different fr om the original. Progress Notes by Blanca Stanford RN at 01/09/161937 Author: Blanca Stanford RN Service: (none) Author Type: Registered Nurse Filed: 01/09/161938 Date of Service: 01/09/161937 Status: Signed Public Health Educator: Blanca Stanford RN (Registered Nurse) Patient will consult with Dr. Bauer again in the morning and then probably discharge to [facility] and come back on Thursday for surgery. 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 onver sudhakar Transaction, Provider Unknown - 01/09/2016 1:55 PM PST Case Management by Whitney Griffith RN at 01/09/16 1090 Author: Whitney Griffith RN Service: (none) Author Type: Registered Nurse Filed: 01/09/16 6443 Date of Service: 01/09/16 7113 Status: Signed Public Health Educator: Whitney Griffith RN (Registered Nurse) met with pt and Georgiana ([phone]) to discuss discharge planning. Pt lives with h is and is independent with ADL's. Denied use of DME, as FWW, front wheeled walker, grab bars, shower bench, WC and wheelchair ramp. Takes 81 mg Aspirin daily. He is not presently participating in outpatient medical services, no home oxygen or CPAP use. 01/09/16 8698 Discharge Planning Evaluation Admitting Diagnosis Chest pain Readmission No Living Arrangements Spouse/significant other Support Systems Spouse/significant other;Children Type of Residence Private residence House type House 2 story (Lives on the lower level.) Steps to enter (Has wheelchair ramp.) Independent with ADL's Yes Independent with Mobility Yes Home Care Services No Caregiver after Discharge Yes Caregiver Name Georgiana Randolph Relationship to Patient Spouse Mental Status Oriented Power of Termite Helper Yes Power of Termite Helper Name Laury Simms Power of Termite Helper Anticipated Discharge Plan Post Acute Care Needs None at this time Plan communicated to patient/family Yes Resources Financial concerns No Transportation issues No Patient/Family concerns No Prescription Plan Yes Name of Pharmacy [facility], [place] Previous home health equipment No Vascular access device No Ostomy/Drains/Appliances Yes Anticipated Disposition Facility Type Home Met with: Flaco and Georgiana ([phone]) and discussed discharge planning, Pt is a 80 y.o., male Patient's PCP is: HUY YANEZ Patient's insurance: Medicare/[employer]. Coverage concerns: None Medication coverage/concerns: [facility], [place]. Community resources utilized / needed: None. Assistance in transportation: Daughter Laury ([phone]) will drive home. Identification of any specific education / training: None. Barriers to Discharge / Alternative housing needed: None Anticipated DCP: Home with spouse. WHITNEY GRIFFITH onver sudhakar Transaction, Provider Unknown - 01/09/2016 12:48 PM PST Progress Notes by Blanca Stanford RN at 01/09/16 1248 Author: Blanca Stanford RN Service: (none) Author Type: Registered Nurse Filed: 01/09/16 1250 Date of Service: 01/09/16 1248 Status: Signed Public Health Educator: Blanca Stanford RN (Registered Nurse) Patients bilateral groin shaved. Right radial area. Shaved. Pulses Marked. Swabbed for MRSA patient results pending. onver sudhakar Transaction, Provider Unknown - 01/09/2016 11:27 AM PST Progress Notes by Callie Michelle at 01/09/161126 Author: Callie Michelle Service: (none) Author Type: [place] Filed: 01/09/161126 Date of Service: 01/09/161126 Status: Signed Public Health Educator: Callie Michelle [facility] Enrolled. Michael Parker MD - 01/09/2016 8:23 AM PST Progress Notes by Michael Horn MD at 01/09/16822 Author: Michael Horn MD Service: Hospitalist Author Type: Physician Filed: 01/09/16826 Date of Service: 01/09/16822 Status: Signed Public Health Educator: Michael Horn MD (Physician) [facility] Service: Hospitalist Progress Note Hospital Day: LOS: 1 day Post-Op Day: * No surgery found * SUBJECTIVE Patient Summary: admission H and P Dr. Brooks:" Hypertension, hyperlipidemia, history of rheumatoid arthritis, history of TIA, who recently had abnormal stress test on December 12, 2015, which showed lateral ischemia and Dr. Aguirre pl anned to do elective cardiac catheterization. 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 Hence Dr. Aguirre was contacted, who recommended to transfer the patient, and he was given aspirin and started on heparin dr gomez. On arrival patient was completely asymptomatic. He denied any shortness of breath, no dizzi ness, no lightheadedness, no chest pain, no blood per rectum, orthopnea, no PND, no swelling in the legs, and 12-point review of systems was negative except as mentioned above." Events Overnight: Patient admitted yesterday evening for further workup for coronary artery disease. Patient had experienced epigastric discomfort yesterday, subsequently no new episodes. Cardiac enzymes normal. Patient is scheduled for heart catheterization this evening. Scheduled Medications amLODIPine 5 mg Oral BID aspirin 325 mg Oral Daily with breakfast atorvastatin 40 mg Oral Nightly glucosamine-chondroitin 1 capsule Oral Daily isosorbide mononitrate 60 mg Oral Daily lidocaine buffered 1% 0.5 mL Intradermal Once metoprolol 25 mg Oral BID misoprostol 200 mcg Oral TID senna-docusate 2 tablet Oral Nightly Continuous Infusions PRN Medications acetaminophen OR acetaminophen, calcium carbonate, morphine OR morphine OR morp mayda, nitroGLYCERIN, ondansetron OR ondansetron, polyethylene glycol, traMADol, zolpidem OBJECTIVE Vital Signs: BP 149/67 mmHg | Pulse 71 | Temp(Src) 98.3 F (36.8 C) (Oral) | Resp 20 | Ht 1.854 m (6' 1") | Wt 97.6 kg (215 lb 2.7 oz) | BMI 28.39 kg/m2 | SpO2 97% Temp: [97.2 F (36.2 C)-98.3 F (36.8 C)] 98.3 F (36.8 C) (01/08 0341) BP: (126-157)/(60-73) 149/67 mmHg (01/08 0730) Heart Rate: [56-71] 71 (01/08 730) Resp: [17-20] 20 (01/08 730) SpO2: [95 %-98 %] 97 % (01/08 730) Height: [185.4 cm (6' 1")] 185.4 cm (6' 1") (01/07 1700) Weight: [97.6 kg (215 lb 2.7 oz)-101.152 kg (223 lb)] 97.6 kg (215 lb 2.7 oz) (01/08 341) BMI (Calculated): [29.5] 29.5 (01/07 1700) Physical Exam Constitutional: He is oriented to person, place, and time. He appears well-developed and we ll-nourished. No distress. Patient awake, alert, lying in bed HENT: Mouth/Throat: No oropharyngeal exudate. Eyes: No scleral icterus. Cardiovascular: Normal rate. No murmur heard. Pulmonary/Chest: Effort normal and breath sounds normal. No respiratory distress. He has no wheezes. Musculoskeletal: He exhibits no edema. Neurological: He is alert and oriented to person, place, and time. No cranial nerve deficit . Skin: Skin is warm and dry. He is not diaphoretic. Psychiatric: He has a normal mood and affect. His behavior is normal. Thought content stephani l. Nursing note and vitals reviewed. DATA CBC: Lab Results Component Value Date WBC 6.49 01/09/2016 RBC 4.40 01/09/2016 HGB 13.6 01/09/2016 HCT 38.9* 01/09/2016 MCV 88.3 01/09/2016 MCH 30.8 01/09/2016 MCHC 34.9 01/09/2016 RDW 42.9 01/09/2016 PLT 170 01/09/2016 MPV 8.6 01/09/2016 DIFFTYPE AUTOMATED 01/09/2016 WBC: Lab Results Component Value Date WBC 6.49 01/09/2016 NEUTROABS 4.29 01/09/2016 LYMPHSABS 1.31 01/09/2016 LYMPHOPCT 20.26 01/09/2016 MONOPCT 9.63 01/09/2016 EOSABS 0.22 01/09/2016 EOSPCT 3.40 01/09/2016 BASOSABS 0.03 01/09/2016 BASOPCT 0.48 01/09/2016 Last 3 Troponin: Lab Results Component Value Date TROPONINI <0.020 01/08/2016 TROPONINI <0.020 01/08/2016 CPK: Lab Results Component Value Date CKTOTAL 96 01/08/2016 CKMB: Lab Results Component Value Date CKMB 2.9 01/08/2016 PROBLEM LIST Principal Problem: Chest pain at rest Active Problems: Essential hypertension, benign Hyperlipemia Sinus bradycardia ASSESSMENT & PLAN 1. Chest pain - Concern for possible unstable angina with a history of an abnormal stress test - Cardiac enzymes normal - Patient scheduled for heart catheterization this evening - Aspirin - Metoprolol decreased to 25 mg bid due to bradycardia 2. Hypertension, stable on Norvasc and metoprolol 3. Sinus bradycardia - Has improved since the decrease to metoprolol 25 bid Disposition: Code Status: Full Code Michael Horn MD 01/09/2016 Temi Joe RPH - 01/08/2016 6:02 PM PST Progress Notes by Temi Wilson RPH at 01/08/161801 Author: Temi Wilson RPH Service: (none) Author Type: Pharmacist Filed: 01/08/161801 Date of Service: 01/08/161801 Status: Signed Public Health Educator: Temi Wilson RPH (Pharmacist) Clinical Pharmacy Note - Renal Dose Adjustment Flaco Randolph 80 y.o. male Ht Readings from Last 1 Encounters: 12/26/15 1.854 m (6' 1") Wt Readings from Last 1 Encounters: 01/08/16 101.152 kg (223 lb) No results found for: CREATININE Creatinine clearance cannot be calculated (No order found.) Pharmacy to renally adjust medications per Dr. Brooks Plan: No current Scr. Will follow up once labs are available. Pharmacy will continue to follow and adjust as appropriate. Pharmacist: Temi Wilson 01/08/2016 6:02 PM documente d in this encounter Plan of Treatment +--------+---------+ + + + | Date | Type | Specialty | Care Team | Description | +--------+---------+ + + + | 10/19/ | Office | Cardiology | Devonte Nevarez, | | | 2019 | Visit | | MD Cici [facility]ONG | | | | | | [place] | | | | | | [id number] | | | | | | | | +--------+---------+ + + + documented as of this encounter Procedures + +--------+ + + + | Procedure Name | Priori | Date/Time | Associated Diagnosis | Comments | | | ty | | | | + +--------+ + + + | VAS LOWER EXTREMITY | Routin | 01/10/2016 | | Results for this | | VEIN MAPPING | e | 12:25 PM | | procedure are in the | | BILATERAL | | PST | | results section. | + +--------+ + + + | XR CHEST 2 VIEWS | Routin | 01/10/2016 | | Results for this | | | e | 10:09 AM | | procedure are in the | | | | PST | | results section. | + +--------+ + + + | CT CHEST WO CONTRAST | Routin | 01/10/2016 | | Results for this | | | e | 9:55 AM | | procedure are in the | | | | PST | | results section. | + +--------+ + + + | ECHO COMPLETE | Routin | 01/10/2016 | | Results for this | | | e | 7:28 AM | | procedure are in the | | | | PST | | results section. | + +--------+ + + + | VAS CAROTID DUPLEX | Routin | 01/10/2016 | | Results for this | | BILATERAL | e | 1:32 AM | | procedure are in the | | | | PST | | results section. | + +--------+ + + + | CV CARDIAC PROCEDURE | Routin | 01/09/2016 | | Results for this | | | e | 5:46 PM | | procedure are in the | | | | PST | | results section. | + +--------+ + + + | ACTIVATED CLOTTING | Routin | 01/09/2016 | | Results for this | | TIME | e | 5:31 PM | | procedure are in the | | | | PST | | results section. | + +--------+ + + + | MRSA NAAT | Timed | 01/09/2016 | | Results for this | | | | 11:28 AM | | procedure are in the | | | | PST | | results section. | + +--------+ + + + | EXTERNAL LAB: CBC | Routin | 01/09/2016 | | Results for this | | | e | 4:29 AM | | procedure are in the | | | | PST | | results section. | + +--------+ + + + | LIPID PANEL | Routin | 01/09/2016 | | Results for this | | | e | 4:29 AM | | procedure are in the | | | | PST | | results section. | + +--------+ + + + | PTT | Routin | 01/09/2016 | | Results for this | | | e | 4:29 AM | | procedure are in the | | | | PST | | results section. | + +--------+ + + + | TSH | Routin | 01/09/2016 | | Results for this | | | e | 4:29 AM | | procedure are in the | | | | PST | | results section. | + +--------+ + + + | PHOSPHORUS | Routin | 01/09/2016 | | Results for this | | | e | 4:29 AM | | procedure are in the | | | | PST | | results section. | + +--------+ + + + | MAGNESIUM | Routin | 01/09/2016 | | Results for this | | | e | 4:29 AM | | procedure are in the | | | | PST | | results section. | + +--------+ + + + | HEMOGLOBIN A1C | Routin | 01/09/2016 | | Results for this | | | e | 4:29 AM | | procedure are in the | | | | PST | | results section. | + +--------+ + + + | BASIC METABOLIC | Routin | 01/09/2016 | | Results for this | | PANEL | e | 4:29 AM | | procedure are in the | | | | PST | | results section. | + +--------+ + + + | PTT | Routin | 01/08/2016 | | Results for this | | | e | 10:16 PM | | procedure are in the | | | | PST | | results section. | + +--------+ + + + | TROPONIN I | Routin | 01/08/2016 | | Results for this | | | e | 8:35 PM | | procedure are in the | | | | PST | | results section. | + +--------+ + + + | CK-MB | Routin | 01/08/2016 | | Results for this | | | e | 8:35 PM | | procedure are in the | | | | PST | | results section. | + +--------+ + + + | CK TOTAL | Routin | 01/08/2016 | | Results for this | | | e | 8:35 PM | | procedure are in the | | | | PST | | results section. | + +--------+ + + + | TROPONIN I | Routin | 01/08/2016 | | Results for this | | | e | 4:46 PM | | procedure are in the | | | | PST | | results section. | + +--------+ + + + | CK-MB | Routin | 01/08/2016 | | Results for this | | | e | 4:46 PM | | procedure are in the | | | | PST | | results section. | + +--------+ + + + | PTT | Routin | 01/08/2016 | | Results for this | | | e | 4:46 PM | | procedure are in the | | | | PST | | results section. | + +--------+ + + + | PROTIME INR | Routin | 01/08/2016 | | Results for this | | | e | 4:46 PM | | procedure are in the | | | | PST | | results section. | + +--------+ + + + | CK TOTAL | Routin | 01/08/2016 | | Results for this | | | e | 4:46 PM | | procedure are in the | | | | PST | | results section. | + +--------+ + + + | COMPREHENSIVE | Routin | 01/08/2016 | | Results for this | | METABOLIC PANEL | e | 4:46 PM | | procedure are in the | | | | PST | | results section. | + +--------+ + + + documented in this encounter Results VAS Lower Extremity Vein Mapping Bilat (01/10/2016 12:25 PM PST) + + | Specimen | + + | | + + + + + | Impressions | Performed At | + + + | 1. Bilateral greater saphenous vein mapping as described above. | | | | | + + + + + + | Narrative | Performed At | + + + | [facility] GREATER SAPHENOUS VEIN MAPPING BILATERAL 01/10/2016 | | | 12:25 PM HISTORY: 80 years. Male. Preoperative bilateral | | | lower extremity saphenous vein mapping prior to harvest for CABG. | | | TECHNIQUE: Bilateral lower extremity venous exam using grayscale, | | | color Doppler and pulsed wave spectral Doppler techniques. | | | COMPARISON: None. FINDINGS: RIGHT GREATER SAPHENOUS VEIN | | | Sapheno-femoral junction: Diameter (mm): 5.7 Depth (mm): 24.1 | | | Proximal thigh: Diameter (mm): 4.4 Depth (mm): 9.5 Mid | | | thigh: Diameter (mm): 4.3 Depth (mm): 8.1 Distal thigh: | | | Diameter (mm): 4.7 Depth (mm): 6.1 Knee: Diameter (mm): | | | 5.3 Depth (mm): 3.9 Proximal calf: Diameter (mm): 3.5 | | | Depth (mm): 4.1 Mid calf: Diameter (mm): 3.2 Depth (mm): | | | 4.9 Distal calf: Diameter (mm): 3.7 Depth (mm): 4.4 | | | LEFT GREATER SAPHENOUS VEIN Sapheno-femoral junction: Diameter | | | (mm): 7.3 Depth (mm): 25.1 Proximal thigh: Diameter (mm): | | | 3.9 Depth (mm): 10.0 Mid thigh: Diameter (mm): 3.7 Depth | | | (mm): 6.6 Distal thigh: Diameter (mm): 3.7 Depth (mm): 5.2 | | | Knee: Diameter (mm): 4.2 Depth (mm): 5.5 Proximal calf: | | | Diameter (mm): 4.1 Depth (mm): 4.3 Mid calf: Diameter (mm): | | | 3.6 Depth (mm): 5.6 Distal calf: Diameter (mm): 3.5 | | | Depth (mm): 5.5 Bilateral greater saphenous veins are | | | compressible throughout their course. | | + + + + + | Procedure Note | + + | Roshan Jimenez Conversion - 06/23/2019 4:26 PM PDT [facility] GREATER SAPHENOUS VEIN | | MAPPING BILATERAL01/10/2016 12:25 PM HISTORY:80 years. Male. Preoperative bilateral | | lower extremity saphenous vein mapping prior to harvest for CABG. TECHNIQUE:Bilateral | | lower extremity venous exam using grayscale, color Doppler and pulsed wave spectral | | Doppler techniques. COMPARISON:None. FINDINGS: RIGHT GREATER SAPHENOUS VEIN | | Sapheno-femoral junction: Diameter (mm): 5.7 Depth (mm): 24.1Proximal thigh: | | Diameter (mm): 4.4 Depth (mm): 9.5Mid thigh: Diameter (mm): 4.3 Depth (mm): | | 8.1Distal thigh: Diameter (mm): 4.7 Depth (mm): 6.1Knee: Diameter (mm): 5.3 | | Depth (mm): 3.9Proximal calf: Diameter (mm): 3.5 Depth (mm): 4.1Mid calf: Diameter | | (mm): 3.2 Depth (mm): 4.9Distal calf: Diameter (mm): 3.7 Depth (mm): 4.4 LEFT | | GREATER SAPHENOUS VEIN Sapheno-femoral junction: Diameter (mm): 7.3 Depth (mm): | | 25.1Proximal thigh: Diameter (mm): 3.9 Depth (mm): 10.0Mid thigh: Diameter (mm): | | 3.7 Depth (mm): 6.6Distal thigh: Diameter (mm): 3.7 Depth (mm): 5.2Knee: | | Diameter (mm): 4.2 Depth (mm): 5.5Proximal calf: Diameter (mm): 4.1 Depth (mm): | | 4.3Mid calf: Diameter (mm): 3.6 Depth (mm): 5.6Distal calf: Diameter (mm): 3.5 | | Depth (mm): 5.5 Bilateral greater saphenous veins are compressible throughout their | | course. IMPRESSION: 1. Bilateral greater saphenous vein mapping as described above. | | | |Proximal thigh: Diameter (mm): 4.4 Depth (mm): 9.5 | |Mid thigh: Diameter (mm): 4.3 Depth (mm): 8.1 | |Distal thigh: Diameter (mm): 4.7 Depth (mm): 6.1 | |Knee: Diameter (mm): 5.3 Depth (mm): 3.9 | |Proximal calf: Diameter (mm): 3.5 Depth (mm): 4.1 | |Mid calf: Diameter (mm): 3.2 Depth (mm): 4.9 | |Distal calf: Diameter (mm): 3.7 Depth (mm): 4.4 | | | |LEFT GREATER SAPHENOUS VEIN | | | |Sapheno-femoral junction: Diameter (mm): 7.3 Depth (mm): 25.1 | |Proximal thigh: Diameter (mm): 3.9 Depth (mm): 10.0 | |Mid thigh: Diameter (mm): 3.7 Depth (mm): 6.6 | |Distal thigh: Diameter (mm): 3.7 Depth (mm): 5.2 | |Knee: Diameter (mm): 4.2 Depth (mm): 5.5 | |Proximal calf: Diameter (mm): 4.1 Depth (mm): 4.3 | |Mid calf: Diameter (mm): 3.6 Depth (mm): 5.6 | |Distal calf: Diameter (mm): 3.5 Depth (mm): 5.5 | | | | | |Bilateral greater saphenous veins are compressible throughout their course. | | | | | |IMPRESSION: | |1. Bilateral greater saphenous vein mapping as described above. | | | | | + + XR Chest 2 Vws (01/10/2016 10:09 AM PST) + + | Specimen | + + | | + + + + + | Impressions | Performed At | + + + | 1. Mild hyperinflation, suggesting COPD. No acute findings. | | | | | + + + + + + | Narrative | Performed At | + + + | [facility] CHEST 2 VIEW FRONTAL AND LATERAL 01/10/2016 10:09 AM | | | HISTORY: Preop evaluation. Presumed chest pain. TECHNIQUE: | | | 2 views of the chest. FINDINGS: No comparison. There is mild | | | bilateral hyperinflation with some flattening of the diaphragm on the | | | lateral view suggesting COPD. Heart size appears normal. No acute | | | infiltrates or evidence of edema. No pneumothorax or pleural effusion. | | | There is moderate thoracic spondylosis noted. | | + + + + + | Procedure Note | + + | Tony, Rad Conversion - 06/23/2019 4:26 PM PDT [facility] CHEST 2 VIEW FRONTAL AND | | LATERAL01/10/2016 10:09 AM HISTORY:Preop evaluation. Presumed chest pain. TECHNIQUE:2 | | views of the chest. FINDINGS:No comparison. There is mild bilateral hyperinflation with | | some flattening of the diaphragm on the lateral view suggesting COPD. Heart size appears | | normal. No acute infiltrates or evidence of edema. No pneumothorax or pleural effusion. | | There is moderate thoracic spondylosis noted. IMPRESSION: 1. Mild hyperinflation, | | suggesting COPD. No acute findings. Electronically signed by Scott Olson MD on | | 01/10/2016 10:43 AM | |2 views of the chest. | | | |FINDINGS: | |No comparison. There is mild bilateral hyperinflation with some flattening of the diaphragm on the lateral view suggesting COPD. Heart size appears normal. No acute infiltrates or jackie dence of edema. No pneumothorax or | |pleural effusion. There is moderate | |thoracic spondylosis noted. | | | |IMPRESSION: | |1. Mild hyperinflation, suggesting COPD. No acute findings. | | | | | + + CT Chest wo Contrast (01/10/2016 9:55 AM PST) + + | Specimen | + + | | + + + + + | Impressions | Performed At | + + + | 1. No evidence of pulmonary infiltrates or pleural effusion. 2. | | | Coronary artery calcifications. 3. Gallstones. Electronically | | | signed by Scott Olson MD on 01/10/2016 10:38 AM | | + + + + + + | Narrative | Performed At | + + + | [facility] CT CHEST WO CONTRAST 01/10/2016 9:55 AM HISTORY: | | | Chest pain. TECHNIQUE: 5 mm axial sections were obtained through | | | the chest without IV contrast. Adjustment of the mA and/or kV | | | according to patient size for dose reduction was performed. | | | FINDINGS: No prior comparison. There is mild enlargement of the | | | left thyroid with a few calcifications, suggesting a possible nodule. | | | Would suggest an outpatient thyroid ultrasound for further evaluation. | | | No enlarged lymph nodes are identified within the mediastinum. | | | Coronary artery calcifications are noted. No evidence of a pericardial | | | effusion. Incidental note is made of calcified gallstones. There | | | are small low-density lesions noted in the upper poles of the kidneys, | | | probably cysts. No pleural effusions are seen. There is no | | | evidence of acute infiltrate or pulmonary edema. | | + + + + + | Procedure Note | + + | Tony, Rad Conversion - 06/23/2019 4:26 PM PDT [facility] CHEST WO | | CONTRAST01/10/2016 9:55 AM HISTORY:Chest pain. TECHNIQUE:5 mm axial sections were obtained | | through the chest without IV contrast. Adjustment of the mA and/or kV according to | | patient size for dose reduction was performed. FINDINGS:No prior comparison. There is | | mild enlargement of the left thyroid with a few calcifications, suggesting a possible | | nodule. Would suggest an outpatient thyroid ultrasound for further evaluation. No | | enlarged lymph nodes are identified within the mediastinum. Coronary artery | | calcifications are noted. No evidence of a pericardial effusion. Incidental note is made | | of calcified gallstones. There are small low-density lesions noted in the upper poles | | of the kidneys, probably cysts. No pleural effusions are seen. There is no evidence of | | acute infiltrate or pulmonary edema. IMPRESSION: 1. No evidence of pulmonary | | infiltrates or pleural effusion.2. Coronary artery calcifications.3. Gallstones. | | | |There is mild enlargement of the left thyroid with a few calcifications, suggesting a possi ble nodule. Would suggest an outpatient thyroid ultrasound for further evaluation. | | | |No enlarged lymph nodes are identified within the mediastinum. Coronary artery calcificatio ns are noted. No evidence of a pericardial effusion. | | | |Incidental note is made of calcified gallstones. There are small low-density lesions noted in the upper poles of the kidneys, probably cysts. | | | |No pleural effusions are seen. There is no evidence of acute infiltrate or pulmonary edema. | | | |IMPRESSION: | |1. No evidence of pulmonary infiltrates or pleural effusion. | |2. Coronary artery calcifications. | |3. Gallstones. | | | | | + + ECHO Complete (01/10/2016 7:28 AM PST) + + | Specimen | + + | | + + + + + | Impressions | Performed At | + + + | 1. Overall left ventricular systolic function is normal with, an EF | | | between 60 - 65 %. 2. The right ventricle is mildly enlarged | | | measuring between 3.4 - 3.7 cm. 3. The left atrium is moderately | | | dilated. 4. The right atrium is moderately enlarged. 5. Mild mitral | | | regurgitation is present. 6. There is no evidence of pulmonary | | | hypertension. | | + + + + + + | Narrative | Performed At | + + + | Patient Name: [facility] Date of : 1935 | | | Performing Physician: Joo Puga MD | | | | | | INDICATIONS Chest pain; CAD, echo prior to Cabg and | | | discharge. CONCLUSIONS 1. Overall left ventricular | | | systolic function is normal with, an EF between 60 - 65 %. 2. The | | | right ventricle is mildly enlarged measuring between 3.4 - 3.7 cm. 3. | | | The left atrium is moderately dilated. 4. The right atrium is | | | moderately enlarged. 5. Mild mitral regurgitation is present. 6. | | | There is no evidence of pulmonary hypertension. FINDINGS -------- | | | ECG rhythm: Sinus rhythm. Study: A 2-dimensional transthoracic | | | echocardiogram with m-mode, spectral and color flow Doppler was | | | perfomed. Study: This was a technically adequate study. Left | | | Ventricle: Overall left ventricular systolic function is normal with, | | | an EF between 60 - 65 %. Left Ventricle: Left Ventricle ejection | | | fraction by m-mode measures {EF(Teich)}. Left Ventricle: The left | | | ventricle cavity size is normal. Left Ventricle: Left ventricular | | | wall thickness is normal. Left Ventricle: The diastolic filling | | | pattern indicates impaired relaxation consistent with mild dysfunction | | | (Grade I), which is normal for the patient's age. Right Ventricle: | | | The right ventricle is mildly enlarged measuring between 3.4 - 3.7 cm. | | | Right Ventricle: The right ventricular systolic function is normal. | | | Left Atrium: The left atrium is moderately dilated Left Atrium: , | | | and the LA measures 5.1cm. Right Atrium: The right atrium is | | | moderately enlarged Right Atrium: , and the RA measures 6.8cm. | | | Aortic Valve: Aortic valve is trileaflet and is mildly thickened. | | | Aortic Valve: Trace amount of aortic regurgitation. Aortic Valve: | | | There is no evidence of aortic stenosis. Mitral Valve: The mitral | | | valve is normal. Mitral Valve: Mild mitral regurgitation is present. | | | Mitral Valve: Mild mitral annular calcification present. Tricuspid | | | Valve: The tricuspid valve appears structurally normal. Tricuspid | | | Valve: Trace tricuspid regurgitation present. Tricuspid Valve: There | | | is no evidence of pulmonary hypertension. Tricuspid Valve: The right | | | ventricular systolic pressure (pulmonary artery systolic pressure), as | | | measured by Doppler, is 26 mmHg. Pulmonic Valve: The pulmonic valve | | | is normal. Pulmonic Valve: Trace pulmonic regurgitation. | | | Pericardium: There is no pericardial effusion. Pericardium: No | | | pleural effusion seen. IVC/Hepatic Veins: The IVC is small (<1.5cm) | | | and collapses with sniff, consistent with central venous pressures of | | | 0-5mmHg. Mass: No mass visualized Thrombus: No clot visualized | | | Thrombus: No vegetation visualized. MEASUREMENTS | | | LA Diam: 5.12 cm LA Major: 6.42 cm EDV(Teich): 116.96 ml | | | IVSd: 0.89 cm LVIDd: 4.97 cm LVPWd: 0.93 cm LVOT Diam: | | | 2.13 cm %FS: 35.19 % EF(Teich): 64.30 % ESV(Teich): 41.74 | | | ml IVSs: 1.24 cm LVIDs: 3.22 cm LVPWs: 1.24 cm SV(Teich): | | | 75.22 ml MV Marla Diam: 3.77 cm RA Major: 6.78 cm RVIDd: | | | 3.63 cm LAESV(A-L): 92.17 ml LAESV Index (A-L): 41.33 ml/m2 | | | LAAs A2C: 28.43 cm2 LAESV A-L A2C: 100.97 ml LALs A2C: 6.79 | | | cm LAAs A4C: 25.47 cm2 LAESV A-L A4C: 82.57 ml LALs A4C: | | | 6.66 cm MR Flow: 22.86 ml/s MR Rad: 0.31 cm MR Als.Joaquín: | | | 0.37 m/s Ao Diam: 3.43 cm AV Cusp: 1.75 cm LA Diam: 4.78 | | | cm LA/Ao: 1.39 D-E Excursion: 1.95 cm E-F Kimble: 0.05 m/s | | | EPSS: 0.94 cm IVC diameter: 1.42 cm IVC collapse: 0.43 cm | | | IVC % collapse: 68.01 % AV maxP.59 mmHg AV meanPG: | | | 3.04 mmHg AV Vmax: 1.18 m/s AV Vmean: 0.81 m/s AV VTI: | | | 25.24 cm CARLTON Vmax: 3.53 cm2 CARLTON (VTI): 3.32 cm2 LVCI Dopp: | | | 2.41 l/minm2 LVCO Dopp: 5.37 l/min HR: 64.02 BPM LVOT maxPG: | | | 5.47 mmHg LVOT meanP.80 mmHg LVSI Dopp: 37.66 ml/m2 | | | LVSV Dopp: 83.99 ml LVOT Vmax: 1.16 m/s LVOT Vmean: 0.78 | | | m/s LVOT VTI: 23.50 cm MCO: 438.07 ms MR maxP.91 mmHg | | | MR meanP.35 mmHg MR Vmax: 3.80 m/s MR Vmean: 3.03 | | | m/s MR VTI: 127.18 cm MV A Joaquín: 0.79 m/s MV DecT: 362.22 | | | ms MV E Joaquín: 0.57 m/s MV E/A Ratio: 0.72 MV PHT: 108.26 ms | | | MVA By PHT: 2.03 cm2 MV A Dur: 110.90 ms MV maxP.95 | | | mmHg MV meanP.52 mmHg MV SV: 205.84 ml MV Vmax: 0.69 | | | m/s MV Vmean: 0.33 m/s MV VTI: 18.40 cm MVA (VTI): 4.56 | | | cm2 Septal e': 0.07 m/s Septal E/e': 7.67 Lateral e': 0.10 | | | m/s Lateral E/e': 5.66 MR ERO: 0.08 cm2 MR RV: 6.26 ml | | | MR RF: 3.04 % MR Vmax: 2.85 m/s MR VTI: 78.18 cm P Vein A: | | | 0.30 m/s P Vein A Dur: 94.26 ms P Vein D: 0.29 m/s P Vein | | | S/D Ratio: 2.19 P Vein S: 0.63 m/s HR: 63.15 BPM PV | | | maxP.53 mmHg PV meanP.15 mmHg PV Vmax: 1.27 m/s PV | | | Vmean: 0.83 m/s PV VTI: 21.95 cm TR maxP.34 mmHg TR | | | Vmax: 2.31 m/s TV A Joaquín: 0.29 m/s TV Dec Kimble: 2.76 m/s2 | | | TV Dec Time: 167.27 ms TV E Joaquín: 0.46 m/s TV E/A Ratio: | | | 1.55 Dietary Server: ZHANNA Authenticated by: Joo Puga MD | | | Report Date/Time: 01-10-2016 19:22:58 | | + + + + + | Procedure Note | + + | Roshan Jimenez Conversion - 06/23/2019 4:26 PM PDT Patient Name: Karishma RANDOLPH of | | : 1935 Performing Physician: Joo Puga | | INDICATIONS C | | hest pain; CAD, echo prior to Cabg and discharge. CONCLUSIONS 1. Overall left | | ventricular systolic function is normal with, an EF between 60 - 65 %.2. The right | | ventricle is mildly enlarged measuring between 3.4 - 3.7 cm.3. The left atrium is | | moderately dilated.4. The right atrium is moderately enlarged.5. Mild mitral | | regurgitation is present.6. There is no evidence of pulmonary hypertension. | | FINDINGS--------ECG rhythm: Sinus rhythm.Study: A 2-dimensional transthoracic | | echocardiogram with m-mode, spectral and color flow Doppler was perfomed.Study: This was | | a technically adequate study.Left Ventricle: Overall left ventricular systolic function | | is normal with, an EF between 60 - 65 %.Left Ventricle: Left Ventricle ejection | | fraction by m-mode measures {EF(Teich)}.Left Ventricle: The left ventricle cavity size | | is normal.Left Ventricle: Left ventricular wall thickness is normal.Left Ventricle: The | | diastolic filling pattern indicates impaired relaxation consistent with mild dysfunction | | (Grade I), which is normal for the patient's age.Right Ventricle: The right ventricle | | is mildly enlarged measuring between 3.4 - 3.7 cm.Right Ventricle: The right ventricular | | systolic function is normal.Left Atrium: The left atrium is moderately dilatedLeft | | Atrium: , and the LA measures 5.1cm.Right Atrium: The right atrium is moderately | | enlargedRight Atrium: , and the RA measures 6.8cm.Aortic Valve: Aortic valve is | | trileaflet and is mildly thickened.Aortic Valve: Trace amount of aortic | | regurgitation.Aortic Valve: There is no evidence of aortic stenosis.Mitral Valve: The | | mitral valve is normal.Mitral Valve: Mild mitral regurgitation is present.Mitral Valve: | | Mild mitral annular calcification present.Tricuspid Valve: The tricuspid valve appears | | structurally normal.Tricuspid Valve: Trace tricuspid regurgitation present.Tricuspid | | Valve: There is no evidence of pulmonary hypertension.Tricuspid Valve: The right | | ventricular systolic pressure (pulmonary artery systolic pressure), as measured by | | Doppler, is 26 mmHg.Pulmonic Valve: The pulmonic valve is normal.Pulmonic Valve: Trace | | pulmonic regurgitation.Pericardium: There is no pericardial effusion.Pericardium: No | | pleural effusion seen.IVC/Hepatic Veins: The IVC is small (<1.5cm) and collapses with | | sniff, consistent with central venous pressures of 0-5mmHg.Mass: No mass | | visualizedThrombus: No clot visualizedThrombus: No vegetation visualized. | | MEASUREMENTS LA Diam: 5.12 cmLA Major: 6.42 cmEDV(Teich): 116.96 | | mlIVSd: 0.89 cmLVIDd: 4.97 cmLVPWd: 0.93 cmLVOT Diam: 2.13 cm%FS: 35.19 | | %EF(Teich): 64.30 %ESV(Teich): 41.74 mlIVSs: 1.24 cmLVIDs: 3.22 cmLVPWs: 1.24 | | cmSV(Teich): 75.22 mlMV Marla Diam: 3.77 cmRA Major: 6.78 cmRVIDd: 3.63 | | cmLAESV(A-L): 92.17 mlLAESV Index (A-L): 41.33 ml/m2LAAs A2C: 28.43 [id number] A-L | | A2C: 100.97 mlLALs A2C: 6.79 cmLAAs A4C: 25.47 [id number] A-L A4C: 82.57 mlLALs | | A4C: 6.66 cmMR Flow: 22.86 ml/sMR Rad: 0.31 cmMR Als.Joaquín: 0.37 m/Maikel Diam: | | 3.43 cmAV Cusp: 1.75 cmLA Diam: 4.78 cmLA/Ao: 1.39D-E Excursion: 1.95 cmE-F | | Kimble: 0.05 m/sEPSS: 0.94 cmIVC diameter: 1.42 cmIVC collapse: 0.43 cmIVC % | | collapse: 68.01 %AV maxP.59 mmHgAV meanP.04 mmHgAV Vmax: 1.18 m/Jacquelin | | Vmean: 0.81 m/Jacquelin VTI: 25.24 cmAVA Vmax: 3.53 cm2AVA (VTI): 3.32 [id number] Dopp: | | 2.41 l/cxrr3HWLK Dopp: 5.37 l/minHR: 64.02 BPMLVOT maxP.47 mmHgLVOT meanPG: | | 2.80 mmHgLVSI Dopp: 37.66 ml/m2LVSV Dopp: 83.99 mlLVOT Vmax: 1.16 m/sLVOT Vmean: | | 0.78 m/sLVOT VTI: 23.50 cmMCO: 438.07 msMR maxP.91 mmHgMR meanP.35 | | mmHgMR Vmax: 3.80 m/sMR Vmean: 3.03 m/sMR VTI: 127.18 cmMV A Joaquín: 0.79 m/sMV | | DecT: 362.22 msMV E Joaquín: 0.57 m/sMV E/A Ratio: 0.72MV PHT: 108.26 msMVA By PHT: | | 2.03 cm2MV A Dur: 110.90 msMV maxP.95 mmHgMV meanP.52 mmHgMV SV: | | 205.84 mlMV Vmax: 0.69 m/sMV Vmean: 0.33 m/sMV VTI: 18.40 cmMVA (VTI): 4.56 | | [id number] e': 0.07 m/sSeptal E/e': 7.67Lateral e': 0.10 m/sLateral E/e': 5.66MR | | ERO: 0.08 cm2MR RV: 6.26 mlMR RF: 3.04 %MR Vmax: 2.85 m/sMR VTI: 78.18 cmP | | Vein A: 0.30 m/sP Vein A Dur: 94.26 msP Vein D: 0.29 m/sP Vein S/D Ratio: 2.19P | | Vein S: 0.63 m/sHR: 63.15 BPMPV maxP.53 mmHgPV meanP.15 mmHgPV Vmax: | | 1.27 m/sPV Vmean: 0.83 m/sPV VTI: 21.95 cmTR maxP.34 mmHgTR Vmax: 2.31 | | m/sTV A Joaquín: 0.29 m/sTV Dec Kimble: 2.76 m/s2TV Dec Time: 167.27 msTV E Joaquín: 0.46 | | m/sTV E/A Ratio: 1.55 Dietary Server: Alysiahenticated by: Joo BORGESharmeet | | Date/Time: 01-10-2016 19:22:58 IMPRESSION: 1. Overall left ventricular systolic function | | is normal with, an EF between 60 - 65 %.2. The right ventricle is mildly enlarged | | measuring between 3.4 - 3.7 cm.3. The left atrium is moderately dilated.4. The right | | atrium is moderately enlarged.5. Mild mitral regurgitation is present.6. There is no | | evidence of pulmonary hypertension. | |LVIDd: 4.97 cm | |LVPWd: 0.93 cm | |LVOT Diam: 2.13 cm | |%FS: 35.19 % | |EF(Teich): 64.30 % | |ESV(Teich): 41.74 ml | |IVSs: 1.24 cm | |LVIDs: 3.22 cm | |LVPWs: 1.24 cm | |SV(Teich): 75.22 ml | |MV Marla Diam: 3.77 cm | |RA Major: 6.78 cm | |RVIDd: 3.63 cm | |LAESV(A-L): 92.17 ml | |LAESV Index (A-L): 41.33 ml/m2 | |LAAs A2C: 28.43 cm2 | |LAESV A-L A2C: 100.97 ml | |LALs A2C: 6.79 cm | |LAAs A4C: 25.47 cm2 | |LAESV A-L A4C: 82.57 ml | |LALs A4C: 6.66 cm | |MR Flow: 22.86 ml/s | |MR Rad: 0.31 cm | |MR Als.Joaquín: 0.37 m/s | |Ao Diam: 3.43 cm | |AV Cusp: 1.75 cm | |LA Diam: 4.78 cm | |LA/Ao: 1.39 | |D-E Excursion: 1.95 cm | |E-F Kimble: 0.05 m/s | |EPSS: 0.94 cm | |IVC diameter: 1.42 cm | |IVC collapse: 0.43 cm | |IVC % collapse: 68.01 % | |AV maxP.59 mmHg | |AV meanP.04 mmHg | |AV Vmax: 1.18 m/s | |AV Vmean: 0.81 m/s | |AV VTI: 25.24 cm | |CARLTON Vmax: 3.53 cm2 | |CARLTON (VTI): 3.32 cm2 | |LVCI Dopp: 2.41 l/minm2 | |LVCO Dopp: 5.37 l/min | |HR: 64.02 BPM | |LVOT maxP.47 mmHg | |LVOT meanP.80 mmHg | |LVSI Dopp: 37.66 ml/m2 | |LVSV Dopp: 83.99 ml | |LVOT Vmax: 1.16 m/s | |LVOT Vmean: 0.78 m/s | |LVOT VTI: 23.50 cm | |MCO: 438.07 ms | |MR maxP.91 mmHg | |MR meanP.35 mmHg | |MR Vmax: 3.80 m/s | |MR Vmean: 3.03 m/s | |MR VTI: 127.18 cm | |MV A Joaquín: 0.79 m/s | |MV DecT: 362.22 ms | |MV E Joaquín: 0.57 m/s | |MV E/A Ratio: 0.72 | |MV PHT: 108.26 ms | |MVA By PHT: 2.03 cm2 | |MV A Dur: 110.90 ms | |MV maxP.95 mmHg | |MV meanP.52 mmHg | |MV SV: 205.84 ml | |MV Vmax: 0.69 m/s | |MV Vmean: 0.33 m/s | |MV VTI: 18.40 cm | |MVA (VTI): 4.56 cm2 | |Septal e': 0.07 m/s | |Septal E/e': 7.67 | |Lateral e': 0.10 m/s | |Lateral E/e': 5.66 | |MR ERO: 0.08 cm2 | |MR RV: 6.26 ml | |MR RF: 3.04 % | |MR Vmax: 2.85 m/s | |MR VTI: 78.18 cm | |P Vein A: 0.30 m/s | |P Vein A Dur: 94.26 ms | |P Vein D: 0.29 m/s | |P Vein S/D Ratio: 2.19 | |P Vein S: 0.63 m/s | |HR: 63.15 BPM | |PV maxP.53 mmHg | |PV meanP.15 mmHg | |PV Vmax: 1.27 m/s | |PV Vmean: 0.83 m/s | |PV VTI: 21.95 cm | |TR maxP.34 mmHg | |TR Vmax: 2.31 m/s | |TV A Joaquín: 0.29 m/s | |TV Dec Kimble: 2.76 m/s2 | |TV Dec Time: 167.27 ms | |TV E Joaquín: 0.46 m/s | |TV E/A Ratio: 1.55 | | | |Dietary Server: ZHANNA | |Authenticated by: Joo Puga MD | |Report Date/Time: 01-10-2016 19:22:58 | | | |IMPRESSION: | |1. Overall left ventricular systolic function is normal with, an EF between 60 - 65 %. | |2. The right ventricle is mildly enlarged measuring between 3.4 - 3.7 cm. | |3. The left atrium is moderately dilated. | |4. The right atrium is moderately enlarged. | |5. Mild mitral regurgitation is present. | |6. There is no evidence of pulmonary hypertension. | + + VAS Carotid Duplex Bilateral (01/10/2016 1:32 AM PST) + + | Specimen | + + | | + + + + + | Impressions | Performed At | + + + | Mild atherosclerotic disease bilaterally without hemodynamically | | | significant stenoses seen in either carotid arterial system. | | | Validated velocity measurements with angiographic measurements and | | | velocity criteria are extrapolated from diameter data as defined by | | | the Society of Radiologists in Ultrasound Consensus Conference | | | Radiology 2003; 229;340-346. RADIA Electronically signed by | | | Gama Enamorado MD on Jan 10 2016 8:30PM Referring Provider Line: | | | [phone] ID: [id number] | | + + + + + + | Narrative | Performed At | + + + | EXAM: CAROTID DOPPLER ULTRASOUND EXAM DATE: 01/10/2016 01:33 AM. | | | CLINICAL HISTORY: Unstable angina. Preoperative heart surgery. | | | COMPARISON: None. TECHNIQUE: Real-time sonographic vascular | | | imaging was performed by the outside upholsterer through the carotid arterial | | | system with a linear transducer utilizing color-flow, Doppler flow and | | | spectral analysis. Multiple self pay representative static images were saved | | | for review. FINDINGS: Right: CCA Proximal: PSV 87 cm/sec, | | | EDV 18 cm/sec. CCA Distal: PSV 82 cm/sec, EDV 21 cm/sec. ICA | | | Proximal: PSV 65 cm/sec, EDV 15 cm/sec. ICA Mid: PSV 71 cm/sec, EDV | | | 19 cm/sec. ICA Distal: PSV 54 cm/sec, EDV 20 cm/sec. ECA Proximal: | | | PSV 111 cm/sec, EDV 11 cm/sec. Vertebral Mid: PSV 77 cm/sec, EDV 22 | | | cm/sec. ICA/CCA Ratio: 0.8. ICA Plaque: Trace echogenic plaque | | | at bulb/proximal ICA. CCA Plaque: Intimal thickening. Vertebral | | | Artery Flow: Antegrade. Left: CCA Proximal: PSV 116 cm/sec, EDV | | | 23 cm/sec. CCA Distal: PSV 82 cm/sec, EDV 14 cm/sec. ICA Proximal: | | | PSV 97 cm/sec/ EDV 14 cm/sec. ICA Mid: PSV 67 cm/sec, EDV 18 cm/sec. | | | ICA Distal: PSV 71 cm/sec, EDV 18 cm/sec. ECA Proximal: PSV 119 | | | cm/sec, EDV 14 cm/sec. Vertebral Mid: PSV 54 cm/sec, EDV 18 cm/sec. | | | ICA/CCA Ratio: 1.2. ICA Plaque: Mild hypoechoic intimal | | | thickening at proximal segment with echogenic plaque at proximal | | | ICA/bulb. CCA Plaque: Intimal thickening. Vertebral Artery Flow: | | | Antegrade. Other: Mild atherosclerotic disease bilaterally. | | + + + + + | Procedure Note | + + | Tony, Rad Conversion - 06/23/2019 4:26 PM PDT EXAM:CAROTID DOPPLER ULTRASOUND EXAM | | DATE: 01/10/2016 01:33 AM. CLINICAL HISTORY: Unstable angina. Preoperative heart surgery. | | COMPARISON: None. TECHNIQUE: Real-time sonographic vascular imaging was performed by the | | outside upholsterer through the carotid arterial system with a linear transducer utilizing | | color-flow, Doppler flow and spectral analysis. Multiple self pay representative static images | | were saved for review. FINDINGS: Right:CCA Proximal: PSV 87 cm/sec, EDV 18 cm/sec.CCA | | Distal: PSV 82 cm/sec, EDV 21 cm/sec.ICA Proximal: PSV 65 cm/sec, EDV 15 cm/sec.ICA Mid: | | PSV 71 cm/sec, EDV 19 cm/sec.ICA Distal: PSV 54 cm/sec, EDV 20 cm/sec.ECA Proximal: PSV | | 111 cm/sec, EDV 11 cm/sec.Vertebral Mid: PSV 77 cm/sec, EDV 22 cm/sec. ICA/CCA Ratio: | | 0.8. ICA Plaque: Trace echogenic plaque at bulb/proximal ICA.CCA Plaque: Intimal | | thickening.Vertebral Artery Flow: Antegrade. Left:CCA Proximal: PSV 116 cm/sec, EDV 23 | | cm/sec.CCA Distal: PSV 82 cm/sec, EDV 14 cm/sec.ICA Proximal: PSV 97 cm/sec/ EDV 14 | | cm/sec.ICA Mid: PSV 67 cm/sec, EDV 18 cm/sec.ICA Distal: PSV 71 cm/sec, EDV 18 | | cm/sec.ECA Proximal: PSV 119 cm/sec, EDV 14 cm/sec.Vertebral Mid: PSV 54 cm/sec, EDV 18 | | cm/sec. ICA/CCA Ratio: 1.2. ICA Plaque: Mild hypoechoic intimal thickening at proximal | | segment with echogenic plaque at proximal ICA/bulb.CCA Plaque: Intimal | | thickening.Vertebral Artery Flow: Antegrade. Other: Mild atherosclerotic disease | | bilaterally. IMPRESSION: Mild atherosclerotic disease bilaterally without | | hemodynamically significant stenoses seen in either carotid arterial system. Validated | | velocity measurements with angiographic measurements and velocity criteria are | | extrapolated from diameter data as defined by the Society of Radiologists in Ultrasound | | Consensus Conference Radiology 2003; 229;340-346. RADIA Electronically signed by Gama | | MD Fei on Jan 10 2016 8:30PM Referring Provider Line: [phone] ID: [id number] | | | |ICA/CCA Ratio: 0.8. | | | |ICA Plaque: Trace echogenic plaque at bulb/proximal ICA. | |CCA Plaque: Intimal thickening. | |Vertebral Artery Flow: Antegrade. | | | |Left: | |CCA Proximal: PSV 116 cm/sec, EDV 23 cm/sec. | |CCA Distal: PSV 82 cm/sec, EDV 14 cm/sec. | |ICA Proximal: PSV 97 cm/sec/ EDV 14 cm/sec. | |ICA Mid: PSV 67 cm/sec, EDV 18 cm/sec. | |ICA Distal: PSV 71 cm/sec, EDV 18 cm/sec. | |ECA Proximal: PSV 119 cm/sec, EDV 14 cm/sec. | |Vertebral Mid: PSV 54 cm/sec, EDV 18 cm/sec. | | | |ICA/CCA Ratio: 1.2. | | | |ICA Plaque: Mild hypoechoic intimal thickening at proximal segment with echogenic plaque at proximal ICA/bulb. | |CCA Plaque: Intimal thickening. | |Vertebral Artery Flow: Antegrade. | | | |Other: Mild atherosclerotic disease bilaterally. | | | |IMPRESSION: | |Mild atherosclerotic disease bilaterally without hemodynamically significant stenoses seen in either carotid arterial system. | | | |Validated velocity measurements with angiographic measurements and velocity criteria are ex trapolated from diameter data as defined by the Society of Radiologists in Ultrasound Consen flor Conference Radiology 2003; 229;340-346. | | | |RADIA | | | | Electronically signed by Gama Enamorado MD on Jan 10 2016 8:30PM Referring Provider Ning chauhan: [phone] ID: [id number] | + + CV CARDIAC PROCEDURE (01/09/2016 5:46 PM PST) + + | Specimen | + + | | + + + + + | Narrative | Performed At | + + + | | | | | | | DATE OF PROCEDURE January 09, 2016 PROCEDURES PERFORMED 1. | | | Conscious sedation. 2. Right radial artery access. 3. Left heart | | | catheterization. 4. Selective left and right coronary artery | | | angiogram. INDICATIONS Accelerating angina, unstable angina and | | | recent abnormal nuclear stress test. This is an 80-year-old male | | | with a history of hypertension, hyperlipidemia, rheumatoid arthritis, | | | and a history of TIA who had been experiencing recent onset typical | | | exertional angina and was evaluated by my partner, Dr. Ilia Aguirre, | | | as an outpatient with a nuclear stress test that showed moderate | | | ischemia in the left circumflex artery territory. The patient was | | | offered coronary angiogram; however, he wanted to think about it. | | | Unfortunately, he developed an episode of chest pain and was admitted | | | to the hospital for unstable angina. Cardiac catheterization with | | | possibility of percutaneous intervention was recommended. The | | | procedure, risks, benefits and alternatives were discussed with the | | | patient who agreed to proceed. TECHNIQUE The patient was brought | | | to the cardiac catheterization laboratory in fasting nonsedated | | | state. After informed consent was obtained, the patient was prepped | | | and draped in the usual sterile fashion. Lidocaine 2% was used for | | | local anesthesia of the skin overlying the right radial artery. The | | | right radial artery was accessed using angiocatheter. A 6-Burmese | | | sheath was placed into the right radial artery without difficulty. | | | The patient was given 5000 units of heparin intravenously. He was | | | given 200 mcg of nitroglycerin to prevent renal artery spasm. The | | | patient had received multiple doses throughout the procedure. A | | | 5-Burmese FL-3.5 catheter was advanced; however, did not lead to good | | | engagement of the left main coronary artery. Subsequently, a 5-Burmese | | | FL-3.5 catheter was used for selective engagement of the left | | | coronary system and angiographic views were obtained. A 5-Burmese FR-4 | | | catheter was advanced over the guidewire into the left ventricle and | | | left ventricular pressures and pullback pressures were done. The | | | 5-Burmese FR-4 catheter was used for selective engagement of the right | | | coronary system and angiographic views were obtained. Subsequently, | | | the results of the angiogram were communicated with the patient with | | | 3-vessel coronary artery disease and I discussed with him the option | | | for coronary artery bypass surgery. The patient wanted to proceed | | | with cardiothoracic surgery evaluation. All catheters and guidewires | | | were removed. A TR band was applied. The radial sheath was removed. | | | The patient tolerated the procedure well without complications. | | | TOTAL CONTRAST 40 mL. RESULTS HEMODYNAMICS 1. Left ventricular | | | systolic pressure 98. 2. Left ventricular end diastolic pressure 10. | | | 3. On pullback, aortic pressure 88/50. 4. There was no significant | | | gradient across the aortic valve on pullback. CORONARY ANATOMY 1. | | | The left main coronary artery bifurcates and gives rise to the left | | | anterior descending artery and left circumflex artery. The left main | | | coronary artery is free of disease. 2. Left anterior descending | | | artery is a large type 4 vessel that gives rise to a medium-sized | | | first diagonal and small second diagonal, and gives rise to the usual | | | septal perforators. The proximal left anterior descending before the | | | takeoff of the first diagonal branch had a focal moderate lesion in | | | the range of 40%. The first diagonal branch itself, which is a | | | medium-sized vessel, had a 95% ostial lesion. The mid left anterior | | | descending artery had a long tubular lesion in the range of 80%. The | | | very distal left anterior descending artery after it wraps around the | | | apex had a focal lesion of 80%. 3. Left circumflex artery is a | | | nondominant vessel. The first marginal branch appears to be totally | | | occluded. There is no lateralization seen, probably small. The second | | | marginal branch is a very tiny vessel. The main marginal branch is | | | actually the third marginal branch. The mid left circumflex artery | | | has a long tubular stenosis in the range of 30% to 40%. The mid left | | | circumflex artery just before the takeoff of the third marginal | | | branch has a high-grade lesion in the range of 90% that extended and | | | involved the proximal third marginal branch. The distal left | | | circumflex after the takeoff of the third marginal branch is a very | | | small vessel which is subtotally occluded. 4. Right coronary artery | | | is a large dominant vessel that gives rise to the posterior | | | descending and posterolateral arteries distally. The proximal right | | | coronary artery had a 30% lesion. The mid right coronary artery had a | | | long tubular lesion of moderate severity in the range of 50% to 60%. | | | The right posterior descending artery had 80% proximal lesion. The | | | right posterior descending artery is of medium size. IMPRESSION | | | Severe 3-vessel coronary artery disease with severe disease of the mid | | | left anterior descending artery, mid left circumflex artery and | | | third marginal branch and right posterolateral artery. PLAN | | | Cardiothoracic surgery consulted for coronary artery bypass surgery | | | with potential graft WEST to LAD, sequential to first diagonal, | | | saphenous vein graft to third marginal branch, saphenous vein graft | | | to right posterior descending artery and distal right coronary | | | artery. Read by JOO PUGA MD 01/09/2016 10:14 P | | | | | + + + + + | Procedure Note | + + | Roshan Jimenez Conversion - 06/29/2019 3:04 PM PDT | | | | DATE OF PROCEDURE | | January 09, 2016 | | | | PROCEDURES PERFORMED | | 1. Conscious sedation. | | 2. Right radial artery access. | | 3. Left heart catheterization. | | 4. Selective left and right coronary artery angiogram. | | | | INDICATIONS | | Accelerating angina, unstable angina and recent abnormal nuclear stress | | test. | | | | This is an 80-year-old male with a history of hypertension, | | hyperlipidemia, rheumatoid arthritis, and a history of TIA who had been | | experiencing recent onset typical exertional angina and was evaluated by | | my partner, Dr. Ilia Aguirre, as an outpatient with a nuclear stress test | | that showed moderate ischemia in the left circumflex artery territory. The | | patient was offered coronary angiogram; however, he wanted to think about | | it. Unfortunately, he developed an episode of chest pain and was admitted | | to the hospital for unstable angina. Cardiac catheterization with | | possibility of percutaneous intervention was recommended. The procedure, | | risks, benefits and alternatives were discussed with the patient who | | agreed to proceed. | | | | TECHNIQUE | | The patient was brought to the cardiac catheterization laboratory in | | fasting nonsedated state. After informed consent was obtained, the patient | | was prepped and draped in the usual sterile fashion. Lidocaine 2% was used | | for local anesthesia of the skin overlying the right radial artery. The | | right radial artery was accessed using angiocatheter. A 6-Burmese sheath | | was placed into the right radial artery without difficulty. The patient | | was given 5000 units of heparin intravenously. He was given 200 mcg of | | nitroglycerin to prevent renal artery spasm. The patient had received | | multiple doses throughout the procedure. A 5-Burmese FL-3.5 catheter was | | advanced; however, did not lead to good engagement of the left main | | coronary artery. Subsequently, a 5-Burmese FL-3.5 catheter was used for | | selective engagement of the left coronary system and angiographic views | | were obtained. A 5-Burmese FR-4 catheter was advanced over the guidewire | | into the left ventricle and left ventricular pressures and pullback | | pressures were done. The 5-Burmese FR-4 catheter was used for selective | | engagement of the right coronary system and angiographic views were | | obtained. Subsequently, the results of the angiogram were communicated | | with the patient with 3-vessel coronary artery disease and I discussed | | with him the option for coronary artery bypass surgery. The patient wanted | | to proceed with cardiothoracic surgery evaluation. All catheters and | | guidewires were removed. A TR band was applied. The radial sheath was | | removed. The patient tolerated the procedure well without complications. | | | | TOTAL CONTRAST | | 40 mL. | | | | RESULTS | | HEMODYNAMICS | | 1. Left ventricular systolic pressure 98. | | 2. Left ventricular end diastolic pressure 10. | | 3. On pullback, aortic pressure 88/50. | | 4. There was no significant gradient across the aortic valve on pullback. | | | | CORONARY ANATOMY | | 1. The left main coronary artery bifurcates and gives rise to the left | | anterior descending artery and left circumflex artery. The left main | | coronary artery is free of disease. | | 2. Left anterior descending artery is a large type 4 vessel that gives | | rise to a medium-sized first diagonal and small second diagonal, and | | gives rise to the usual septal perforators. The proximal left anterior | | descending before the takeoff of the first diagonal branch had a focal | | moderate lesion in the range of 40%. The first diagonal branch itself, | | which is a medium-sized vessel, had a 95% ostial lesion. The mid left | | anterior descending artery had a long tubular lesion in the range of | | 80%. The very distal left anterior descending artery after it wraps | | around the apex had a focal lesion of 80%. | | 3. Left circumflex artery is a nondominant vessel. The first marginal | | branch appears to be totally occluded. There is no lateralization seen, | | probably small. The second marginal branch is a very tiny vessel. The | | main marginal branch is actually the third marginal branch. The mid | | left circumflex artery has a long tubular stenosis in the range of 30% | | to 40%. The mid left circumflex artery just before the takeoff of the | | third marginal branch has a high-grade lesion in the range of 90% that | | extended and involved the proximal third marginal branch. The distal | | left circumflex after the takeoff of the third marginal branch is a | | very small vessel which is subtotally occluded. | | 4. Right coronary artery is a large dominant vessel that gives rise to the | | posterior descending and posterolateral arteries distally. The proximal | | right coronary artery had a 30% lesion. The mid right coronary artery | | had a long tubular lesion of moderate severity in the range of 50% to | | 60%. The right posterior descending artery had 80% proximal lesion. The | | right posterior descending artery is of medium size. | | | | IMPRESSION | | Severe 3-vessel coronary artery disease with severe disease of the mid | | left anterior descending artery, mid left circumflex artery and third | | marginal branch and right posterolateral artery. | | | | PLAN | | Cardiothoracic surgery consulted for coronary artery bypass surgery with | | potential graft WEST to LAD, sequential to first diagonal, saphenous vein | | graft to third marginal branch, saphenous vein graft to right posterior | | descending artery and distal right coronary artery. | | | | | | Read by JOO PUGA MD 01/09/2016 10:14 P | | | | | + + Activated clotting time (01/09/2016 5:31 PM PST) + + + + + + | Component | Value | Ref Range | Performed | Pathologist | | | | | At | Signature | + + + + + + | Activated | 177 (H)Comment: Testing | 74 - 137 | EXTERNAL | | | Clotting | performed at [facility];888 | seconds | LAB | | | time, POC | Vee Zelaya;M[place]I [place] | | | | | | [id number] | | | | + + + + + + + + | Specimen | + + | | + + + +---------+ + + | Performing | Address | City/State/Zipcode | Phone Number | | Organization | | | | + +---------+ + + | EXTERNAL LAB | | | | + +---------+ + + MRSA NAAT (01/09/2016 11:28 AM PST) + + | Specimen | + + | | + + + + + | Narrative | Performed At | + + + | [facility](NOSE) | EXTERNAL LAB | | Testing performed at [facility];[address] [place] [address];[place] [address] MRSA PCR | | | NEGATIVE Testing performed at | | | [facility];[address] [place] [address];[place] [address] | | + + + + +---------+ + + | Performing | Address | City/State/Zipcode | Phone Number | | Organization | | | | + +---------+ + + | EXTERNAL LAB | | | | + +---------+ + + PTT (01/09/2016 4:29 AM PST) + + + + + + | Component | Value | Ref Range | Performed | Pathologist | | | | | At | Signature | + + + + + + | aPTT, | 26Comment: Testing | 23 - 32 seconds | EXTERNAL | | | Patient | performed at [facility];[address] | | LAB | | | | [address];[place] | | | | | | [address] [...] | + +---------+ + + External Lab: KEVON (01/09/2016 4:29 AM PST) + + + + + + | Component | Value | Ref Range | Performed | Pathologist | | | | | At | Signature | + + + + + + | WBC | 6.49Comment: Testing | 3.80 - 11.00 | EXTERNAL | | | | performed at [facility], [address] | K/uL | LAB | | | | [address], | | | | | | [place] [address] | | | | + + + + + + | RED CELL | 4.40Comment: Testing | 4.20 - 5.70 | EXTERNAL | | | COUNT | performed at [facility], [address] | M/uL | LAB | | | | [address], | | | | | | [place] [address] | | | | + + + + + + | Hgb | 13.6Comment: Testing | 13.2 - 17.0 | EXTERNAL | | | | performed at [facility], [address] | g/dL | LAB | | | | [address], | | | | | | [place] [address] | | | | + + + + + + | Hematocrit, | 38.9 (L)Comment: Testing | 39.0 - 50.0 % | EXTERNAL | | | POC | performed at [facility], [address] | | LAB | | | | [address], | | | | | | [place] [address] | | | | + + + + + + | MCV | 88.3Comment: Testing | 80.0 - 100.0 fl | EXTERNAL | | | | performed at [facility], [address] | | LAB | | | | [address], | | | | | | [place] [address] | | | | + + + + + + | MCH | 30.8Comment: Testing | 27.0 - 34.0 pg | EXTERNAL | | | | performed at [facility], [address] | | LAB | | | | [address], | | | | | | [place] [address] | | | | + + + + + + | MCHC | 34.9Comment: Testing | 32.0 - 35.5 | EXTERNAL | | | | performed at [facility], [address] | g/dL | LAB | | | | [address], | | | | | | [place] [address] | | | | + + + + + + | RDW-CV | 42.9Comment: Testing | 37 - 53 fl | EXTERNAL | | | | performed at [facility], [address] | | LAB | | | | [address], | | | | | | [place] [address] | | | | + + + + + + | Platelet | 170Comment: Testing | 150 - 400 K/uL | EXTERNAL | | | Count | performed at [facility], [address] | | LAB | | | Plasma | [address], | | | | | | [place] [address] | | | | + + + + + + | MPV | 8.6Comment: Testing | fl | EXTERNAL | | | | performed at [facility], [address] | | LAB | | | | [address], | | | | | | [place] [address] | | | | + + + + + + | Differentia | AUTOMATEDComment: | | EXTERNAL | | | l Type | Testing performed at | | LAB | | | | [facility], [address] | | | | | | [place] | | | | | | [address] | | | | + + + + + + | % Segmented | 66.23Comment: Testing | % | EXTERNAL | | | | performed at [facility], [address] | | LAB | | | Neutrophils | [address], | | | | | | [place] [address] | | | | + + + + + + | % | 20.26Comment: Testing | % | EXTERNAL | | | Lymphocytes | performed at [facility], [address] | | LAB | | | | [address], | | | | | | [place] [address] | | | | + + + + + + | % Monocytes | 9.63Comment: Testing | % | EXTERNAL | | | | performed at [facility], [address] | | LAB | | | | [address], | | | | | | [place] [address] | | | | + + + + + + | % | 3.40Comment: Testing | % | EXTERNAL | | | Eosinophils | performed at [facility], [address] | | LAB | | | | [address], | | | | | | [place] [address] | | | | + + + + + + | % Basophils | 0.48Comment: Testing | % | EXTERNAL | | | | performed at [facility], [address] | | LAB | | | | [address], | | | | | | [place] [address] | | | | + + + + + + | Absolute | 4.29Comment: Testing | 1.90 - 7.40 | EXTERNAL | | | Segmented | performed at [facility], [address] | K/uL | LAB | | | Neutrophils | [address], | | | | | | [place] [address] | | | | + + + + + + | Absolute | 1.31Comment: Testing | 1.00 - 3.90 | EXTERNAL | | | Lymphocytes | performed at [facility], [address] | K/uL | LAB | | | | [address], | | | | | | [place] [address] | | | | + + + + + + | Absolute | 0.63Comment: Testing | 0.00 - 0.80 | EXTERNAL | | | Monocytes | performed at [facility], [address] | K/uL | LAB | | | | [address], | | | | | | [place] [address] | | | | + + + + + + | Absolute | 0.22Comment: Testing | 0.00 - 0.50 | EXTERNAL | | | Eosinophils | performed at [facility], [address] | K/uL | LAB | | | | [address], | | | | | | [place] [address] | | | | + + + + + + | Absolute | 0.03Comment: Testing | 0.00 - 0.10 | EXTERNAL | | | Basophils | performed at [facility], [address] | K/uL | LAB | | | | [address], | | | | | | [place] [address] | | | | + + + + + + + + | Specimen | + + | Blood specimen | | (specimen) | + + + +---------+ + + | Performing | Address | City/State/Zipcode | Phone Number | | Organization | | | | + +---------+ + + | EXTERNAL LAB | | | | + +---------+ + + TSH (01/09/2016 4:29 AM PST) + + + + + + | Component | Value | Ref Range | Performed | Pathologist | | | | | At | Signature | + + + + + + | TSH | 1.61Comment: Testing | 0.45 - 5.10 | EXTERNAL | | | | performed at [facility], [address] | uIU/mL | LAB | | | | [address], | | | | | | [place] [address] | | | | + + + + + + + + | Specimen | + + | Blood specimen | | (specimen) | + + + +---------+ + + | Performing | Address | City/State/Zipcode | Phone Number | | Organization | | | | + +---------+ + + | EXTERNAL LAB | | | | + +---------+ + + Phosphorus (01/09/2016 4:29 AM PST) + + + + + + | Component | Value | Ref Range | Performed | Pathologist | | | | | At | Signature | + + + + + + | PHOSPHORUS | 2.4Comment: Testing | 2.3 - 4.8 mg/dL | EXTERNAL | | | | performed at [facility], [address] | | LAB | | | | [address], | | | | | | [place] [address] | | | | + + + + + + + + | Specimen | + + | Blood specimen | | (specimen) | + + + +---------+ + + | Performing | Address | City/State/Zipcode | Phone Number | | Organization | | | | + +---------+ + + | EXTERNAL LAB | | | | + +---------+ + + Magnesium (01/09/2016 4:29 AM PST) + + + + + + | Component | Value | Ref Range | Performed | Pathologist | | | | | At | Signature | + + + + + + | Magnesium | 1.9Comment: Testing | 1.7 - 2.4 mg/dL | EXTERNAL | | | | performed at [facility], [address] | | LAB | | | | [address], | | | | | | [place] [address] | | | | + + + + + + + + | Specimen | + + | Blood specimen | | (specimen) | + + + +---------+ + + | Performing | Address | City/State/Zipcode | Phone Number | | Organization | | | | + +---------+ + + | EXTERNAL LAB | | | | + +---------+ + + Hemoglobin A1C (01/09/2016 4:29 AM PST) + + + + + + | Component | Value | Ref Range | Performed | Pathologist | | | | | At | Signature | + + + + + + | Hemoglobin | 5.4Comment: The [place] | 4.0 - 6.0 % | EXTERNAL | | | A1c | Diabetes Association | | LAB | | | | considers a hemoglobin | | | | | | A1c result of <7.0% to | | | | | | be the goal of diabetic | | | | | | therapy. When results | | | | | | are consistently >8.0%, | | | | | | the ADA suggests | | | | | | reevaluation of the | | | | | | treatment regimen. The | | | | | | testing method used is | | | | | | certified traceable to | | | | | | the Diabetes Control and | | | | | | Complications Trial | | | | | | reference method.Testing | | | | | | performed at [facility], [address] | | | | | [address] [facility], | | | | | | [place] [address] | | | | + + + + + + | Glycohemogl | 108Comment: The ADA | mg/dL | EXTERNAL | | | obin | considers an eAG result | | LAB | | | (GHb),Total | of LT 154 mg/dL to be | | | | | | the goal of diabetic | | | | | | therapy. Estimated | | | | | | Average Glucose | | | | | | calculated from | | | | | | hemoglobin A1c by use of | | | | | | the ADA recommended | | | | | | formula.Testing | | | | | | performed at [facility], [address] | | | | | | [facility], | | | | | | [place] [address] | | | | + + + + + + + + | Specimen | + + | Blood specimen | | (specimen) | + + + +---------+ + + | Performing | Address | City/State/Zipcode | Phone Number | | Organization | | | | + +---------+ + + | EXTERNAL LAB | | | | + +---------+ + + Lipid Panel (01/09/2016 4:29 AM PST) + + + + + + | Component | Value | Ref Range | Performed | Pathologist | | | | | At | Signature | + + + + + + | Cholesterol | 87Comment: Testing | mg/dL | EXTERNAL | | | | performed at [facility], [address] | | LAB | | | | [address], | | | | | | [place] [address] | | | | + + + + + + | Triglycerid | 143Comment: Testing | mg/dL | EXTERNAL | | | es | performed at [facility], [address] | | LAB | | | | [address], | | | | | | [place] [address] | | | | + + + + + + | HDL | 27 (L)Comment: Testing | mg/dL | EXTERNAL | | | | performed at [facility], [address] | | LAB | | | | [address], | | | | | | [place] [address] | | | | + + + + + + | LDL | 31Comment: Testing | mg/dL | EXTERNAL | | | Cholesterol | performed at [facility], [address] | | LAB | | | , | [address], | | | | | Calculated, | [place] [address] | | | | | External | | | | | + + [...] + +---------+ + + Basic Metabolic Panel (01/09/2016 4:29 AM PST) + + + + + + | Component | Value | Ref Range | Performed | Pathologist | | | | | At | Signature | + + + + + + | Na | 136Comment: Testing | 135 - 143 | EXTERNAL | | | | performed at [facility], [address] | mmol/L | LAB | | | | [address], | | | | | | [place] [address] | | | | + + + + + + | K | 4.0Comment: Testing | 3.5 - 4.9 | EXTERNAL | | | | performed at [facility], [address] | mmol/L | LAB | | | | [address], | | | | | | [place] [address] | | | | + + + + + + | Cl | 105Comment: Testing | 99 - 109 mmol/L | EXTERNAL | | | | performed at [facility], [address] | | LAB | | | | [address], | | | | | | [place] [address] | | | | + + + + + + | CO2 | 24Comment: Testing | 23 - 32 mmol/L | EXTERNAL | | | | performed at [facility], [address] | | LAB | | | | [address], | | | | | | [place] [address] | | | | + + + + + + | Anion Gap | 11Comment: Testing | 5 - 20 mmol/L | EXTERNAL | | | | performed at [facility], [address] | | LAB | | | | [address], | | | | | | [place] [address] | | | | + + + + + + | Glucose, | 92Comment: Testing | 65 - 99 mg/dL | EXTERNAL | | | Fasting | performed at [facility], [address] | | LAB | | | | [address], | | | | | | [place] [address] | | | | + + + + + + | BUN | 16Comment: Testing | 8 - 25 mg/dL | EXTERNAL | | | | performed at [facility], [address] | | LAB | | | | [address], | | | | | | [place] [address] | | | | + + + + + + | Creatinine | 0.96Comment: Testing | 0.70 - 1.30 | EXTERNAL | | | | performed at [facility], [address] | mg/dL | LAB | | | | [address], | | | | | | [place] [address] | | | | + + + + + + | BUN/Creatin | 17Comment: Testing | | EXTERNAL | | | ine Ratio | performed at [facility], [address] | | LAB | | | | [address], | | | | | | [place] [address] | | | | + + + + + + | Calcium | 9.4Comment: Testing | 8.5 - 10.5 | EXTERNAL | | | | performed at [facility], [address] | mg/dL | LAB | | | | [address], | | | | | | [place] [address] | | | | + + + [...] | | | | | | at [facility], [address] | | | | | | [address] [facility], | | | | | | [place] [address] | | | | + + + + + + + + | Specimen | + + | Blood specimen | | (specimen) | + + + +---------+ + + | Performing | Address | City/State/Zipcode | Phone Number | | Organization | | | | + +---------+ + + | EXTERNAL LAB | | | | + +---------+ + + PTT (01/08/2016 10:16 PM PST) + + + + + + | Component | Value | Ref Range | Performed | Pathologist | | | | | At | Signature | + + + + + + | aPTT, | 26Comment: Testing | 23 - 32 seconds | EXTERNAL | | | Patient | performed at [facility];[address] | | LAB | | | | [address];[place], [place] | | | | | | [address] | | | | + + + + + + + + | Specimen | + + | Blood specimen | | (specimen) | + + + +---------+ + + | Performing | Address | City/State/Zipcode | Phone Number | | Organization | | | | + +---------+ + + | EXTERNAL LAB | | | | + +---------+ + + CK-MB (01/08/2016 8:35 PM PST) + + + + + -+ | Component | Value | Ref Range | Performed | Pathologist | | | | | At | Signature | + + + + + -+ | CK-MB | 2.9Comment: Testing | 0.5 - 3.6 ng/mL | EXTERNAL | | | | performed at [facility];[address] | | LAB | | | | [address];[place] | | | | | | [address] | | | | + + + + + -+ | CK-MB Index | 3.0Comment: CK INDEX | | EXTERNAL | | | | INTERPRETATION: | | LAB | | | | MMB ng/mL | | | | | | | | | | | |CK INDEX INTERPRETATION: | | | | | | MMB ng/mL | | | | | | | | | | + + + + + -+ + + | Specimen | + + | | + + + +---------+ + + | Performing | Address | City/State/Zipcode | Phone Number | | Organization | | | | + +---------+ + + | EXTERNAL LAB | | | | + +---------+ + + Troponin I (01/08/2016 8:35 PM PST) + + + + + + | Component | Value | Ref Range | Performed | Pathologist | | | | | At | Signature | + + + + + + | Troponin I, | <0.020Comment: 0.00 to | 0.00 - 0.10 | EXTERNAL | | | Qual | 0.10 CONSISTENT WITH | ng/mL | LAB | | | | NORMAL POPULATION0.11 | | | | | | to 0.60 CONSISTENT | | | | | | WITH INCREASED RISK FOR | | | | | | ADVERSE OUTCOMES> 0.60 | | | | | | CONSISTENT | | | | | | WITH WHO CRITERIA FOR | | | | | | ACUTE LA Testing | | | | | | performed at [facility];[address] | | | | | | [address];[place], [place] | | | | | | [address] | | | | + + + + + + + + | Specimen | + + | Blood specimen | | (specimen) | + + + +---------+ + + | Performing | Address | City/State/Zipcode | Phone Number | | Organization | | | | + +---------+ + + | EXTERNAL LAB | | | | + +---------+ + + CK Total (01/08/2016 8:35 PM PST) + + + + + + | Component | Value | Ref Range | Performed | Pathologist | | | | | At | Signature | + + + + + + | CK, Total | 96Comment: Testing | 55 - 400 U/L | EXTERNAL | | | | performed at [facility];[address] | | LAB | | | | [address];[place] | | | | | | [address] | | | | + + + + + + + + | Specimen | + + | Blood specimen | | (specimen) | + + + +---------+ + + | Performing | Address | City/State/Zipcode | Phone Number | | Organization | | | | + +---------+ + + | EXTERNAL LAB | | | | + +---------+ + + CK-MB (01/08/2016 4:46 PM PST) + + + + + -+ | Component | Value | Ref Range | Performed | Pathologist | | | | | At | Signature | + + + + + -+ | CK-MB | 3.4Comment: Testing | 0.5 - 3.6 ng/mL | EXTERNAL | | | | performed at [facility];[address] | | LAB | | | | [address];[place], [place] | | | | | | [address] | | | | + + + + + -+ | CK-MB Index | 3.1Comment: CK INDEX | | EXTERNAL | | | | INTERPRETATION: | | LAB | | | | MMB ng/mL | | | | | | | | | | | |CK INDEX INTERPRETATION: | | | | | | MMB ng/mL | | | | | | | | | | + + + + + -+ + + | Specimen | + + | | + + + +---------+ + + | Performing | Address | City/State/Zipcode | Phone Number | | Organization | | | | + +---------+ + + | EXTERNAL LAB | | | | + +---------+ + + Troponin I (01/08/2016 4:46 PM PST) + + + + + + | Component | Value | Ref Range | Performed | Pathologist | | | | | At | Signature | + + + + + + | Troponin I, | <0.020Comment: 0.00 to | 0.00 - 0.10 | EXTERNAL | | | Qual | 0.10 CONSISTENT WITH | ng/mL | LAB | | | | NORMAL POPULATION0.11 | | | | | | to 0.60 CONSISTENT | | | | | | WITH INCREASED RISK FOR | | | | | | ADVERSE OUTCOMES> 0.60 | | | | | | CONSISTENT | | | | | | WITH WHO CRITERIA FOR | | | | | | ACUTE LA Testing | | | | | | performed at [facility];[address] | | | | | | [address];[place], [place] | | | | | | [address] | | | | + + + + + + + + | Specimen | + + | Blood specimen | | (specimen) | + + + +---------+ + + | Performing | Address | City/State/Zipcode | Phone Number | | Organization | | | | + +---------+ + + | EXTERNAL LAB | | | | + +---------+ + + PTT (01/08/2016 4:46 PM PST) + + + + + + | Component | Value | Ref Range | Performed | Pathologist | | | | | At | Signature | + + + + + + | aPTT, | 35 (H)Comment: Testing | 23 - 32 seconds | EXTERNAL | | | Patient | performed at [facility];[address] | | LAB | | | | [address];[place], [place] | | | | | | [address] | | | | + + + + + + + + | Specimen | + + | Blood specimen | | (specimen) | + + + +---------+ + + | Performing | Address | City/State/Zipcode | Phone Number | | Organization | | | | + +---------+ + + | EXTERNAL LAB | | | | + +---------+ + + Protime INR (01/08/2016 4:46 PM PST) + + + + + + | Component | Value | Ref Range | Performed | Pathologist | | | | | At | Signature | + + + + + + | INR | 1.1Comment: REFERENCE | | EXTERNAL | | | [...] | | | | | performed at [facility] | | | | | | [address];[place], [place] | | | | | | [address] | | | | + + + + + + + + | Specimen | + + | Blood specimen | | (specimen) | + + + +---------+ + + | Performing | Address | City/State/Zipcode | Phone Number | | Organization | | | | + +---------+ + + | EXTERNAL LAB | | | | + +---------+ + + CK Total (01/08/2016 4:46 PM PST) + + + + + + | Component | Value | Ref Range | Performed | Pathologist | | | | | At | Signature | + + + + + + | CK, Total | 108Comment: Testing | 55 - 400 U/L | EXTERNAL | | | | performed at [facility];[address] | | LAB | | | | [address];[place] | | | | | | [address] | | | | + + + + + + + + | Specimen | + + | Blood specimen | | (specimen) | + + + +---------+ + + | Performing | Address | City/State/Zipcode | Phone Number | | Organization | | | | + +---------+ + + | EXTERNAL LAB | | | | + +---------+ + + Comprehensive Metabolic Panel (01/08/2016 4:46 PM PST) + + + + + [...] | | | | | [place] [address] | | | | + + + + + + | K | 3.9Comment: Testing | 3.5 - 4.9 | EXTERNAL | | | | performed at [facility], [address] | mmol/L | LAB | | | | [address], | | | | | | [place] [address] | | | | + + + + + + | Cl | 105Comment: Testing | 99 - 109 mmol/L | EXTERNAL | | | | performed at [facility], [address] | | LAB | | | | [address], | | | | | | [place] [address] | | | | + + + + + + | CO2 | 27Comment: Testing | 23 - 32 mmol/L | EXTERNAL | | | | performed at [facility], [address] | | LAB | | | | [address], | | | | | | [place] [address] | | | | + + + + + + | Anion Gap | 8Comment: Testing | 5 - 20 mmol/L | EXTERNAL | | | | performed at [facility], [address] | | LAB | | | | [address], | | | | | | [place] [address] | | | | + + + + + + | Glucose, | 103 (H)Comment: Testing | 65 - 99 mg/dL | EXTERNAL | | | Fasting | performed at [facility], [address] | | LAB | | | | [address], | | | | | | [place] [address] | | | | + + + + + + | BUN | 16Comment: Testing | 8 - 25 mg/dL | EXTERNAL | | | | performed at [facility], [address] | | LAB | | | | [address], | | | | | | [place] [address] | | | | + + + + + + | Creatinine | 0.91Comment: Testing | 0.70 - 1.30 | EXTERNAL | | | | performed at [facility], [address] | mg/dL | LAB | | | | [address], | | | | | | [place] [address] | | | | + + + + + + | BUN/Creatin | 18Comment: Testing | | EXTERNAL | | | ine Ratio | performed at [facility], [address] | | LAB | | | | [address], | | | | | | [place] [address] | | | | + + + + + + | Calcium | 9.6Comment: Testing | 8.5 - 10.5 | EXTERNAL | | | | performed at [facility], [address] | mg/dL | LAB | | | | [address], | | | | | | [place] [address] | | | | + + + + + + | Protein, | 7.5Comment: Testing | 6.3 - 8.2 g/dL | EXTERNAL | | | Total | performed at [facility], [address] | | LAB | | | | [address], | | | | | | [place] [address] | | | | + + + + + + | Albumin | 4.3Comment: Testing | 3.3 - 4.8 g/dL | EXTERNAL | | | | performed at [facility], [address] | | LAB | | | | [address], | | | | | | [place] [address] | | | | + + + + + + | Globulin | 3.2Comment: Testing | 1.3 - 4.9 g/dL | EXTERNAL | | | | performed at [facility], [address] | | LAB | | | | [address], | | | | | | [place] [address] | | | | + + + + + + | A/G Ratio | 1.3Comment: Testing | 1.0 - 2.4 | EXTERNAL | | | | performed at [facility], [address] | | LAB | | | | [address], | | | | | | [place] [address] | | | | + + + + + + | Bilirubin | 0.7Comment: Testing | 0.1 - 1.5 mg/dL | EXTERNAL | | | Total | performed at [facility], [address] | | LAB | | | [address], | | | | | | [place] [address] | | | | + + + + + + | ALP, | 63Comment: Testing | 35 - 115 U/L | EXTERNAL | | | External | performed at [facility], [address] | | LAB | | | [address], | | | | | | [place] [address] | | | | + + + + + + | AST | 22Comment: Testing | 10 - 45 U/L | EXTERNAL | | | | performed at [facility], [address] | | LAB | | | | [address], | | | | | | [place] [address] | | | | + + + + + + | ALT | 25Comment: Testing | 10 - 65 U/L | EXTERNAL | | | | performed at [facility], [address] | | LAB | | | | [address], | | | | | | [place] [address] | | | | + + + [...] | | | | | | at [facility], [address] | | | | | | [address], | | | | | | [place] [address] | | | | + + + [...] + + | 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
--- OUTSIDE RECORDS SUMMARY | ~2019-10-16 | XMS | Encounter Summary ---
Demographics + + + | Address | [address] | | | [place] [address] | + + + | Home Phone | | + + + | Preferred Language | Unknown | + + + | Marital Status | | + + + | Sabianism Affiliation | 1077 | + + + | Race | Unknown | + + + | Ethnic Group | Unknown | + + + Author + + + | Author | [facility] | | | and [place] | + + + | Organization | [facility] | | | and [place] [...] Team Providers + +------+ + | Care Fine Arts Instructor Name | Role | Phone | + +------+ + PCP | Unavailable | + +------+ + Encounter Details +--------+ + + + + | Date | Type | Department | Care Team | Description | +--------+ + + + + | 01/07/ | Hospital | [facility] | Conversion | Chest pain, | | 2016 | Encounter | CONVERSION DEP [address] | Transaction, | unspecified chest | | | | [address] | Provider Unknown | pain type | | | | [place] | | | | | | [phone] | (Fax) | | | | | [phone] | | | +--------+ + + + [...] | | | | | | [place] | | | | | | [address] | | | | | | | | +--------+---------+ + + + documented as of this encounter Procedures + +--------+ + + + | Procedure Name | Priori | Date/Time | Associated Diagnosis | Comments | | | ty | | | | + +--------+ + + + | XR CHEST 1 VIEW | Routin | 01/08/2016 | | Results for this | | | e | 1:40 PM | | procedure are in the | | | | PST | | results section. | + +--------+ + + + documented in this encounter Results XR Chest 1 Vw (01/08/2016 1:40 PM PST) + + | Specimen | + + | | + + + + + | Narrative | Performed At | + + + | This is a non-reportable procedure without a radiologist report and | | | is used for image storage only | | + + + + + | Procedure Note | + + | Roshan Jimenez Angelic - 06/23/2019 4:26 PM PDT This is a non-reportable procedure | | without a radiologist report and isused for image storage only | + + documented in this encounter Visit Diagnoses + + | Diagnosis | + + | Chest pain, unspecified chest pain type | + + documented in this encounter"
--- OUTSIDE RECORDS SUMMARY | ~2019-10-16 | XMS | Encounter Summary ---
Demographics + + + | Address | [address] | | | [place] [address] | + + + | Home Phone | | + + + | Preferred Language | Unknown | + + + | Marital Status | | + + + | Church Affiliation | 1077 | + + + | Race | Unknown | + + + | Ethnic Group | Unknown | + + + Author + + + | Author | [facility] | | | and [place] | + + + | Organization | [facility] | | | and [place] [...] Team Providers + +------+ + | Care Industrial Recruiter Name | Role | Phone | + +------+ + PCP | Unavailable | + +------+ + Encounter Details +--------+ + + + + | Date | Type | Department | Care Team | Description | +--------+ + + + + | 01/07/ | Hospital | [facility] | Conversion | Chest pain, | | 2016 | Encounter | CONVERSION DEP [address] | Transaction, | unspecified chest | | | | [address] | Provider Unknown | pain type | | | | [place] | | | | | | [address] | (Fax) | | | | | [phone] | | | +--------+ + + + [...] | | | | [place] | | | | | | [address] | | | | | | | [...]
--- OUTSIDE RECORDS SUMMARY | ~2019-10-16 | XMS | Encounter Summary ---
Demographics + + + | Address | [address] | | | [place] [address] | + + + | Home Phone | | + + + | Preferred Language | Unknown | + + + | Marital Status | | + + + | Mosque Affiliation | 1077 | + + + | Race | Unknown | + + + | Ethnic Group | Unknown | + + + Author + + + | Author | [facility] | | | and [place] | + + + | Organization | [facility] | | | [...] Team Providers + +------+ + | Care Business Affairs Manager Name | Role | Phone | + +------+ + | Alejandro Monroy MD | PCP | | + +------+ + Encounter Details +--------+ + + + + | Date | Type | Department | Care Team | Description | +--------+ + + + + | 02/17/ | Orders Only | [facility] | Ilia Aguirre | | | 2016 | | CARDIOLOGY [place] | MD [address] | | | | | [address] | [address] | | | | | [place], [place] | [place] [address] | | | | | [address] | [phone] | | | | | [phone] | | | +--------+ + + + [...] [place] | | | | | | [address] | | | | | | | [...]
--- OUTSIDE RECORDS SUMMARY | ~2019-10-16 | XMS | Encounter Summary ---
Demographics + + + | Address | [address] | | | [place] [address] | + + + | Home Phone | | + + + | Preferred Language | Unknown | + + + | Marital Status | | + + + | Taoist Affiliation | 1077 | + + + | Race | Unknown | + + + | Ethnic Group | Unknown | + + + Author + + + | Author | [facility] | | | and [place] | + + + | Organization | [facility] | | | and [place] [...] Team Providers + +------+ + | Care Professor Of Biology Name | Role | Phone | + [...] Medication Refill | | 2019 | | [facility] | [facility] | | | | | [facility] [address] | [facility] | | | | | [address] [facility], | [facility] [place] [address] | | | | | [place] [address] | [phone] | | | | | [phone] | | | +--------+--------+ + + + [...] | | | | | [place], [place] | | | | | | [id number] | | | | | | | | +--------+---------+ + + + documented as of this encounter Visit Diagnoses Not on filedocumented in this encounter"
--- OUTSIDE RECORDS SUMMARY | ~2019-10-16 | XMS | Encounter Summary ---
Demographics + + + | Address | [address] | | | [place] [address] | + + + | Home Phone | | + + + | Preferred Language | Unknown | + + + | Marital Status | | + + + | Advent Affiliation | 1077 | + + + | Race | Unknown | + + + | Ethnic Group | Unknown | + + + Author + + + | Author | [facility] | | | and [place] | + + + | Organization | [facility] | | | and [...] Team Providers + +------+ + | Care Knitting Machine Operator Name | Role | Phone | + +------+ + | Alejandro Monroy MD | PCP | | + +------+ + Encounter Details +--------+ + + + + | Date | Type | Department | Care Team | Description | +--------+ + + + + | 12/12/ | Orders Only | [facility] | Ilia Aguirre | | | 2016 | | CARDIOLOGY [place] | MD [address] | | | | | [facility] [address] | [address] | | | | | [address] | [place] [address] | | | | | [place], [place] | [phone] | | | | | [address] | | | | | | [phone] | | | +--------+ + + + [...] [place] | | | | | | [address] | | | | | | | [...] Performed At | + + + | [facility] CARDIOLOGY Nuclear Lexiscan-Walk Stress Test | | [...] Tony, Rad Conversion - 06/30/2019 9:08 PM [facility] CARDIOLOGYN[facility]ober[facility] | | Lexiscan-Walk Stress Test History:80 [...]
--- OUTSIDE RECORDS SUMMARY | ~2019-10-16 | XMS | Encounter Summary ---
Demographics + + + | Address | [address] | | | [place] [address] | + + + | Home Phone | | + + + | Preferred Language | Unknown | + + + | Marital Status | | + + + | Uatsdin Affiliation | 1077 | + + + | Race | Unknown | + + + | Ethnic Group | Unknown | + + + Author + + + | Author | [facility] | | | and [place] | + + + | Organization | [facility] [...] Team Providers + +------+ + | Care Pediatric Speech Therapist Name | Role | Phone | + +------+ + PCP | Unavailable | + +------+ + Encounter Details +--------+ + + + + | Date | Type | Department | Care Team | Description | +--------+ + + + + | 01/07/ | Hospital | [facility] | Wes Brooks MD | Chest pain at rest; | | 2016 - | Encounter | [facility] | [address] [facility] | Essential | | | | CARE FLOOR [address] | [place] [address] | hypertension, | | 01/09/ | | [address] | [phone] | benign; | | 2015 | | [place], [place] | | Hyperlipemia; Sinus | | | | [address] | | bradycardia; | | | | [phone] | | Coronary artery | | | | | | disease involving | | | | | | hopland coronary | | | | | | artery of hop[place] | | | | | | heart with unstable | | | | | | angina pectoris | | | | | | (HCC); Coronary | | | | | | artery disease | | | | | | involving hop[place] | | | | | | coronary artery of | | | | | | hop[place] heart with | | | | | [...] Summaries by Michael Horn MD at 01/10/16 6248 Author: Michael Horn MD Service: Hospitalist Author Type: Physician Filed: 01/11/16 0537 Date of Service: 01/10/16 174 Status: Signed Relief Salesperson: Michael Horn MD (Physician) Related Notes: Original Note by Michael Horn MD (Physician) filed at 01/10/16 1756 [facility] Service: Hospitalist Discharge Summary Date of Admission: 01/08/2016 Date of Discharge: 01/10/16 Discharge Provider: Michael Horn MD Treatment Team: Consulting Physician: Joo Puga MD Surgeon: Dariela Bauer MD Admitting Provider: Wes Brooks MD Discharge Diagnoses: Principal Problem: Coronary artery disease involving hop[place] coronary artery Active Problems: Chest pain at [...] Take 40 mg by mouth nightly. Taking Lwxedxrxwm-Tqeiycz-Yjhavbyb (FIORINAL PO) Take by mouth. Taking xcslczwmxw-xtwhfyj-hdfemyis (FIORINAL) 50-325-40 MG capsule Take 1 capsule [...] PATIENT SERVICES [address] [facility] [address] Call Housing Grant Analyst - Isidro GPS: Josette 7:30-4:00. Call, as needed,with questions Dariela Bauer MD [address] [facility] [address] Huy Yanez MD [address] [facility] [address] [place] [address] Medication List START taking these medications metoprolol [...] VOLTAREN * FIORINAL PO Refills: 0 * hlbbgkedpt-hwxrfny-erkdkfcs 50-325-40 MG capsule Refills: 0 Commonly known [...] are the prescriptions that you need to pick up man. You may get the following medications from [...] 01/10/161907 Date of Service: 01/10/161906 Status: Signed Relief Salesperson: Mann Herring RN (Registered Nurse) Patient discharged with family via private vehicle to home in stable condition. Will have C ABG on 01/15/2016 Michael Parker MD - 01/10/2016 8:40 AM PST Progress Notes by Michael Horn MD at 01/10/16839 Author: Michael Horn MD Service: Hospitalist Author Type: Physician Filed: 01/10/16 0849 Date of Service: 01/10/16839 Status: Signed Relief Salesperson: Michael Horn MD (Physician) [facility] Service: Hospitalist Progress Note Hospital Day: [...] have irregular rhythm, hence he went to [facility] where EKG showed sinu s bradycardia [...] LIST Principal Problem: Coronary artery disease involving hop[place] coronary artery Active Problems: Chest pain at [...] 01/09/161938 Date of Service: 01/09/161937 Status: Signed Relief Salesperson: Blanca Stanford RN (Registered Nurse) Patient will consult with Dr. Bauer again in the morning and then probably discharge to hospital for behavioral medicine and come back on Thursday for surgery. 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 onver sudhakar Transaction, Provider Unknown - 01/09/2016 1:55 PM PST Case Management by Whitney Griffith RN at 01/09/16 5756 Author: Whitney Griffith RN Service: (none) Author Type: Registered Nurse Filed: 01/09/16 2495 Date of Service: 01/09/16 5977 Status: Signed Relief Salesperson: Whitney Griffith RN (Registered Nurse) met with pt and Georgiana ([phone]) to discuss discharge planning. Pt lives with h is and is independent with ADL's. Denied use of DME, as FWW, front wheeled walker, grab bars, shower bench, WC and wheelchair ramp. Takes 81 mg Aspirin daily. He is not presently participating in outpatient medical services, no home oxygen or CPAP use. 01/09/16 2186 Discharge Planning Evaluation Admitting Diagnosis Chest pain [...] Patient Spouse Mental Status Oriented Power of Finish Carpenter Yes Power of Finish Carpenter Name Laury Simms Power of Finish Carpenter Anticipated Discharge Plan Post Acute Care Needs None at this time Plan communicated to patient/family Yes Resources Financial concerns No Transportation issues No Patient/Family concerns No Prescription Plan Yes Name of Pharmacy [facility] [place] Previous home health equipment No Vascular access device No Ostomy/Drains/Appliances Yes Anticipated Disposition Facility Type Home Met with: Flaco and Georgiana ([phone]) and discussed discharge planning, Pt is a 80 y.o., male Patient's PCP is: HUY YANEZ Patient's insurance: Medicare/[employer]. Coverage concerns: None Medication coverage/concerns: [facility], [place]. Community resources utilized / needed: None. Assistance in transportation: Daughter Laury ([phone]) will drive home. Identification of any specific [...] Date of Service: 01/09/16 1248 Status: Signed Relief Salesperson: Blanca Stanford RN (Registered Nurse) Patients bilateral groin shaved. Right radial area. Shaved. Pulses Marked. Swabbed for MRSA patient results pending. onver sudhakar Transaction, Provider Unknown - 01/09/2016 11:27 AM PST Progress Notes by Callie Michelle at 01/09/161126 Author: Callie Michelle Service: (none) Author Type: Jones Filed: 01/09/161126 Date of Service: 01/09/161126 Status: Signed Relief Salesperson: Callie Michelle [facility] Enrolled. Michael Parker MD - 01/09/2016 8:23 AM PST Progress Notes by Michael Horn MD at 01/09/16822 Author: Michael Horn MD Service: Hospitalist Author Type: Physician Filed: 01/09/16826 Date of Service: 01/09/16822 Status: Signed Relief Salesperson: Michael Horn MD (Physician) [facility] Service: Hospitalist Progress Note Hospital Day: [...] 01/08/161801 Date of Service: 01/08/161801 Status: Signed Relief Salesperson: Temi Wilson RPH (Pharmacist) Clinical Pharmacy Note [...] LEVINE | | | | | | [address] | | | | | | | [...] LA/Ao: 1.39 D-E Excursion: 1.95 cm E-F Cache: 0.05 m/s | | | EPSS: 0.94 [...] TV A Joaquín: 0.29 m/s TV Dec Cache: 2.76 m/s2 | | | TV Dec Time: 167.27 ms TV E Joqauín: 0.46 m/s TV E/A Ratio: | | | 1.55 Liquid Sugar Fortifier: ZHANNA Authenticated by: Joo Puga MD | [...] mlLAESV Index (A-L): 41.33 ml/m2LAAs A2C: 28.43 kc2IPFOV A-L | | A2C: 100.97 mlLALs A2C: 6.79 cmLAAs A4C: 25.47 wv5OMAGM A-L A4C: 82.57 mlLALs | | A4C: 6.66 cmMR Flow: 22.86 ml/sMR Rad: 0.31 cmMR Als.Joaquín: 0.37 m/Maikel Diam: | | 3.43 cmAV Cusp: 1.75 cmLA Diam: 4.78 cmLA/Ao: 1.39D-E Excursion: 1.95 cmE-F | | Cache: 0.05 m/sEPSS: 0.94 cmIVC diameter: 1.42 cmIVC collapse: 0.43 cmIVC % | | collapse: 68.01 %AV maxP.59 mmHgAV meanP.04 mmHgAV Vmax: 1.18 m/Jacquelin | | Vmean: 0.81 m/Jacquelin VTI: 25.24 cmAVA Vmax: 3.53 cm2AVA (VTI): 3.32 rf6BSLA Dopp: | | 2.41 l/lihh5ABGO Dopp: 5.37 l/minHR: 64.02 BPMLVOT maxP.47 mmHgLVOT [...] VTI: 18.40 cmMVA (VTI): 4.56 | | mw2Ycybjr e': 0.07 m/sSeptal E/e': 7.67Lateral e': 0.10 [...] | m/sTV A Joaquín: 0.29 m/sTV Dec Cache: 2.76 m/s2TV Dec Time: 167.27 msTV E Joaquín: 0.46 | | m/sTV E/A Ratio: 1.55 Liquid Sugar Fortifier: Alysiahenticated by: Joo BORGESharmeet | | Date/Time: [...] | |D-E Excursion: 1.95 cm | |E-F Cache: 0.05 m/s | |EPSS: 0.94 cm | [...] A Joaquín: 0.29 m/s | |TV Dec Cache: 2.76 m/s2 | |TV Dec Time: 167.27 ms | |TV E Joaquín: 0.46 m/s | |TV E/A Ratio: 1.55 | | | |Liquid Sugar Fortifier: ZHANNA | |Authenticated by: Joo Puga MD [...] 8:30PM Referring Provider Line: | | | [phone] ID: [id number] | | + + + + + + | Narrative | Performed At | + + + | EXAM: CAROTID DOPPLER ULTRASOUND EXAM DATE: 01/10/2016 01:33 AM. | | | CLINICAL HISTORY: Unstable angina. Preoperative heart surgery. | | | COMPARISON: None. TECHNIQUE: Real-time sonographic vascular | | | imaging was performed by the commissary agent through the carotid arterial | | | system with a linear transducer utilizing color-flow, Doppler flow and | | | spectral analysis. Multiple publications sales representative static images were saved | | [...] imaging was performed by the | | commissary agent through the carotid arterial system with a linear transducer utilizing | | color-flow, Doppler flow and spectral analysis. Multiple publications sales representative static images | | were saved [...] Jan 10 2016 8:30PM Referring Provider Line: [phone] ID: [id number] | | | |ICA/CCA Ratio: [...] 10 2016 8:30PM Referring Provider Ning chauhan: [phone] ID: [id number] | + + CV CARDIAC [...] radial artery was accessed using angiocatheter. A 6-Malawian | | | sheath was placed into the right radial artery without difficulty. | | | The patient was given 5000 units of heparin intravenously. He was | | | given 200 mcg of nitroglycerin to prevent renal artery spasm. The | | | patient had received multiple doses throughout the procedure. A | | | 5-Malawian FL-3.5 catheter was advanced; however, did not lead to good | | | engagement of the left main coronary artery. Subsequently, a 5-Malawian | | | FL-3.5 catheter was used for selective engagement of the left | | | coronary system and angiographic views were obtained. A 5-Malawian FR-4 | | | catheter was advanced over the guidewire into the left ventricle and | | | left ventricular pressures and pullback pressures were done. The | | | 5-Malawian FR-4 catheter was used for selective engagement [...] radial artery was accessed using angiocatheter. A 6-Malawian sheath | | was placed into the right radial artery without difficulty. The patient | | was given 5000 units of heparin intravenously. He was given 200 mcg of | | nitroglycerin to prevent renal artery spasm. The patient had received | | multiple doses throughout the procedure. A 5-Malawian FL-3.5 catheter was | | advanced; however, did not lead to good engagement of the left main | | coronary artery. Subsequently, a 5-Malawian FL-3.5 catheter was used for | | selective engagement of the left coronary system and angiographic views | | were obtained. A 5-Malawian FR-4 catheter was advanced over the guidewire | | into the left ventricle and left ventricular pressures and pullback | | pressures were done. The 5-Malawian FR-4 catheter was used for selective | [...] | | | Clotting | performed at [facility];888 | seconds | LAB | | | time, POC | [address];[place] | | | | | | [address] | | | | + + + [...] EXTERNAL LAB | | Testing performed at [facility];[address] [place] [address];[place] [address] MRSA PCR | | | NEGATIVE Testing performed at | | | [facility];[address] [place] [address];[place] [address] | | + + + + +---------+ [...] | | | Patient | performed at [facility];[address] | | LAB | | | [address];[place] | | | | | | [address] | | | | + + + [...] | | | | | [place] [address] | | | | + + + + + + | RED CELL | 4.40Comment: Testing | 4.20 - 5.70 | EXTERNAL | | | COUNT | performed at [facility], [address] | M/uL | LAB | | | | [address], | | | | | | [place] [address] | | | | + + + + + + | Hgb | 13.6Comment: Testing | 13.2 - 17.0 | EXTERNAL | | | | performed at [facility], [address] | g/dL | LAB | | | | [address], | | | | | | [place] [address] | | | | + + + + + + | Hematocrit, | 38.9 (L)Comment: Testing | 39.0 - 50.0 % | EXTERNAL | | | POC | performed at [facility], [address] | | LAB | | | | [address], | | | | | | [place] [address] | | | | + + + + + + | MCV | 88.3Comment: Testing | 80.0 - 100.0 fl | EXTERNAL | | | | performed at [facility], [address] | | LAB | | | | [address], | | | | | | [place] [address] | | | | + + + + + + | MCH | 30.8Comment: Testing | 27.0 - 34.0 pg | EXTERNAL | | | | performed at [facility], [address] | | LAB | | | | [address], | | | | | | [place] [address] | | | | + + + + + + | MCHC | 34.9Comment: Testing | 32.0 - 35.5 | EXTERNAL | | | | performed at [facility], [address] | g/dL | LAB | | | | [address], | | | | | | [place] [address] | | | | + + + + + + | RDW-CV | 42.9Comment: Testing | 37 - 53 fl | EXTERNAL | | | | performed at [facility], [address] | | LAB | | | | [address], | | | | | | [place] [address] | | | | + + + + + + | Platelet | 170Comment: Testing | 150 - 400 K/uL | EXTERNAL | | | Count | performed at [facility], [address] | | LAB | | | Plasma | [address], | | | | | | [place] [address] | | | | + + + + + + | MPV | 8.6Comment: Testing | fl | EXTERNAL | | | | performed at [facility], [address] | | LAB | | | | [address], | | | | | | [place] [address] | | | | + + + + + + | Differentia | AUTOMATEDComment: | | EXTERNAL | | | l Type | Testing performed at | | LAB | | | | [facility], [address] | | | | | | [place] | | | | | | [address] | | | | + + + + + + | % Segmented | 66.23Comment: Testing | % | EXTERNAL | | | | performed at [facility], [address] | | LAB | | | Neutrophils | [address], | | | | | | [place] [address] | | | | + + + + + + | % | 20.26Comment: Testing | % | EXTERNAL | | | Lymphocytes | performed at [facility], [address] | | LAB | | | | [address], | | | | | | [place] [address] | | | | + + + + + + | % Monocytes | 9.63Comment: Testing | % | EXTERNAL | | | | performed at [facility], [address] | | LAB | | | | [address], | | | | | | [place] [address] | | | | + + + + + + | % | 3.40Comment: Testing | % | EXTERNAL | | | Eosinophils | performed at [facility], [address] | | LAB | | | | [address], | | | | | | [place] [address] | | | | + + + + + + | % Basophils | 0.48Comment: Testing | % | EXTERNAL | | | | performed at [facility], [address] | | LAB | | | | [address], | | | | | | [place] [address] | | | | + + + + + + | Absolute | 4.29Comment: Testing | 1.90 - 7.40 | EXTERNAL | | | Segmented | performed at [facility], [address] | K/uL | LAB | | | Neutrophils | [address], | | | | | | [place] [address] | | | | + + + + + + | Absolute | 1.31Comment: Testing | 1.00 - 3.90 | EXTERNAL | | | Lymphocytes | performed at [facility], [address] | K/uL | LAB | | | | [address], | | | | | | [place] [address] | | | | + + + + + + | Absolute | 0.63Comment: Testing | 0.00 - 0.80 | EXTERNAL | | | Monocytes | performed at [facility], [address] | K/uL | LAB | | | | [address], | | | | | | [place] [address] | | | | + + + + + + | Absolute | 0.22Comment: Testing | 0.00 - 0.50 | EXTERNAL | | | Eosinophils | performed at [facility], [address] | K/uL | LAB | | | | [address], | | | | | | [place] [address] | | | | + + + + + + | Absolute | 0.03Comment: Testing | 0.00 - 0.10 | EXTERNAL | | | Basophils | performed at [facility], [address] | K/uL | LAB | | | | [address], | | | | | | [place] [address] | | | | + + + [...] | | | | | [place] [address] | | | | + + + [...] EXTERNAL | | | | performed at [facility], [address] | | LAB | | | | [address], | | | | | | [place] [address] | | | | + + + [...] EXTERNAL | | | | performed at [facility], [address] | | LAB | | | | [address], | | | | | | [place] [address] | | | | + + + [...] + + | Hemoglobin | 5.4Comment: The Russian | 4.0 - 6.0 % | EXTERNAL [...] | | | | | performed at [facility], [address] | | | | | [address] [facility], | | | | | | [place] [address] | | | | + + + [...] | | | | | performed at [facility], [address] | | | | | | [facility], | | | | | | [place] [address] | | | | + + + [...] EXTERNAL | | | | performed at [facility], [address] | | LAB | | | | [address], | | | | | | [place] [address] | | | | + + + + + + | Triglycerid | 143Comment: Testing | mg/dL | EXTERNAL | | | es | performed at [facility], [address] | | LAB | | | | [address], | | | | | | [place] [address] | | | | + + + + + + | HDL | 27 (L)Comment: Testing | mg/dL | EXTERNAL | | | | performed at [facility], [address] | | LAB | | | [address], | | | | | | [place] [address] | | | | + + + + + + | LDL | 31Comment: Testing | mg/dL | EXTERNAL | | | Cholesterol | performed at [facility], [address] | | LAB | | | , | [address], | | | | | Calculated, | [place] [address] | | | | | External | [...] | | | | | [place] [address] | | | | + + + + + + | K | 4.0Comment: Testing | 3.5 - 4.9 | EXTERNAL | | | | performed at [facility], [address] | mmol/L | LAB | | | | [address], | | | | | | [place] [address] | | | | + + + + + + | Cl | 105Comment: Testing | 99 - 109 mmol/L | EXTERNAL | | | | performed at [facility], [address] | | LAB | | | | [address], | | | | | | [place] [address] | | | | + + + + + + | CO2 | 24Comment: Testing | 23 - 32 mmol/L | EXTERNAL | | | | performed at [facility], [address] | | LAB | | | | [address], | | | | | | [place] [address] | | | | + + + + + + | Anion Gap | 11Comment: Testing | 5 - 20 mmol/L | EXTERNAL | | | | performed at [facility], [address] | | LAB | | | | [address], | | | | | | [place] [address] | | | | + + + + + + | Glucose, | 92Comment: Testing | 65 - 99 mg/dL | EXTERNAL | | | Fasting | performed at [facility], [address] | | LAB | | | | [address], | | | | | | [place] [address] | | | | + + + + + + | BUN | 16Comment: Testing | 8 - 25 mg/dL | EXTERNAL | | | | performed at [facility], [address] | | LAB | | | | [address], | | | | | | [place] [address] | | | | + + + + + + | Creatinine | 0.96Comment: Testing | 0.70 - 1.30 | EXTERNAL | | | | performed at [facility], [address] | mg/dL | LAB | | | | [address], | | | | | | [place] [address] | | | | + + + + + + | BUN/Creatin | 17Comment: Testing | | EXTERNAL | | | ine Ratio | performed at [facility], [address] | | LAB | | | | [address], | | | | | | [place] [address] | | | | + + + + + + | Calcium | 9.4Comment: Testing | 8.5 - 10.5 | EXTERNAL | | | | performed at [facility], [address] | mg/dL | LAB | | | | [address], | | | | | | [place] [address] | | | | + + + [...] | | | | | | at [facility], [address] | | | | | | [address] [facility], | | | | | | [place] [address] | | | | + + + [...] | | | Patient | performed at [facility];[address] | | LAB | | | [address];[place], [place] | | | | | | [address] | | | | + + + [...] EXTERNAL | | | | performed at [facility];[address] | | LAB | | | | [address];[place] | | | | | | [address] | | | | + + + [...] | | | | | | ACUTE [place] Testing | | | | | | performed at [facility];[address] | | | | | | [address];[place], [place] | | | | | | [address] | | | | + + + [...] EXTERNAL | | | | performed at [facility];[address] | | LAB | | | | [address];[place] | | | | | | [address] | | | | + + + [...] EXTERNAL | | | | performed at [facility];[address] | | LAB | | | | [address];[place], [place] | | | | | | [address] | | | | + + + [...] | | | | | | ACUTE [place] Testing | | | | | | performed at [facility];[address] | | | | | | [address];[place], [place] | | | | | | [address] | | | | + + + [...] | | | Patient | performed at [facility];[address] | | LAB | | | [address];[place], [place] | | | | | | [address] | | | | + + + [...] | | | | | performed at [facility] | | | | | | [address];[place], [place] | | | | | | [address] | | | | + + + [...] EXTERNAL | | | | performed at [facility];[address] | | LAB | | | | [address];[place] | | | | | | [address] | | | | + + + [...] | | | | | [place] [address] | | | | + + + + + + | K | 3.9Comment: Testing | 3.5 - 4.9 | EXTERNAL | | | | performed at [facility], [address] | mmol/L | LAB | | | | [address], | | | | | | [place] [address] | | | | + + + + + + | Cl | 105Comment: Testing | 99 - 109 mmol/L | EXTERNAL | | | | performed at [facility], [address] | | LAB | | | | [address], | | | | | | [place] [address] | | | | + + + + + + | CO2 | 27Comment: Testing | 23 - 32 mmol/L | EXTERNAL | | | | performed at [facility], [address] | | LAB | | | | [address], | | | | | | [place] [address] | | | | + + + + + + | Anion Gap | 8Comment: Testing | 5 - 20 mmol/L | EXTERNAL | | | | performed at [facility], [address] | | LAB | | | | [address], | | | | | | [place] [address] | | | | + + + + + + | Glucose, | 103 (H)Comment: Testing | 65 - 99 mg/dL | EXTERNAL | | | Fasting | performed at [facility], [address] | | LAB | | | | [address], | | | | | | [place] [address] | | | | + + + + + + | BUN | 16Comment: Testing | 8 - 25 mg/dL | EXTERNAL | | | | performed at [facility], [address] | | LAB | | | | [address], | | | | | | [place] [address] | | | | + + + + + + | Creatinine | 0.91Comment: Testing | 0.70 - 1.30 | EXTERNAL | | | | performed at [facility], [address] | mg/dL | LAB | | | | [address], | | | | | | [place] [address] | | | | + + + + + + | BUN/Creatin | 18Comment: Testing | | EXTERNAL | | | ine Ratio | performed at [facility], [address] | | LAB | | | | [address], | | | | | | [place] [address] | | | | + + + + + + | Calcium | 9.6Comment: Testing | 8.5 - 10.5 | EXTERNAL | | | | performed at [facility], [address] | mg/dL | LAB | | | | [address], | | | | | | [place] [address] | | | | + + + + + + | Protein, | 7.5Comment: Testing | 6.3 - 8.2 g/dL | EXTERNAL | | | Total | performed at [facility], [address] | | LAB | | | | [address], | | | | | | [place] [address] | | | | + + + + + + | Albumin | 4.3Comment: Testing | 3.3 - 4.8 g/dL | EXTERNAL | | | | performed at [facility], [address] | | LAB | | | | [address], | | | | | | [place] [address] | | | | + + + + + + | Globulin | 3.2Comment: Testing | 1.3 - 4.9 g/dL | EXTERNAL | | | | performed at [facility], [address] | | LAB | | | | [address], | | | | | | [place] [address] | | | | + + + + + + | A/G Ratio | 1.3Comment: Testing | 1.0 - 2.4 | EXTERNAL | | | | performed at [facility], [address] | | LAB | | | | [address], | | | | | | [place] [address] | | | | + + + + + + | Bilirubin | 0.7Comment: Testing | 0.1 - 1.5 mg/dL | EXTERNAL | | | Total | performed at [facility], [address] | | LAB | | | | [address], | | | | | | [place] [address] | | | | + + + + + + | ALP, | 63Comment: Testing | 35 - 115 U/L | EXTERNAL | | | External | performed at [facility], [address] | | LAB | | | | [address], | | | | | | [place] [address] | | | | + + + + + + | AST | 22Comment: Testing | 10 - 45 U/L | EXTERNAL | | | | performed at [facility], [address] | | LAB | | | | [address], | | | | | | [place] [address] | | | | + + + + + + | ALT | 25Comment: Testing | 10 - 65 U/L | EXTERNAL | | | | performed at [facility], [address] | | LAB | | | | [address], | | | | | | [place] [address] | | | | + + + [...] | | | | | | at [facility], [address] | | | | | | [address], | | | | | | [place] [address] | | | | + + + [...] + + | 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
--- OUTSIDE RECORDS SUMMARY | ~2019-10-16 | XMS | Encounter Summary ---
Demographics + + + | Address | [address] | | | [place] [address] | + + + | Home Phone | | + + + | Preferred Language | Unknown | + + + | Marital Status | | + + + | Faith Affiliation | 1077 | + + + | Race | Unknown | + + + | Ethnic Group | Unknown | + + + Author + + + | Author | [facility] | | | and [place] | + + + | Organization | [facility] | | | and [place] | [...] Team Providers + +------+ + | Care Prestressed Concrete Laborer Name | Role | Phone | + [...] WAY [address] | | | | | [facility] [place] | [address] | | | | | [address] | | | | | | [phone] | | | +--------+ + + + [...] | | | | | ANITA [place], [place] | | | | | | [address] | | | | | | | [...] MV A Joaquín: 0.68 m/s MV Dec Daniels: 1.32 | | | m/s2 MV DecT: 373.67 ms MV E Joaquín: 0.49 m/s MV E/A Ratio: | | | 0.72 MV PHT: 108.36 ms MVA By PHT: 2.03 cm2 Septal e': | | | 0.03 m/s Septal E/e': 14.24 Lateral e': 0.02 m/s Lateral | | | E/e': 20.11 Blankmaker: LILIAM Authenticated by: Devonte Nevarez | | [...] cmLVPWd: 0.97 cmLVOT Area: | | 3.54 [id number] Diam: 2.12 cm%FS: 30.32 %EF(Teich): 57.09 %ESV(Teich): [...] (A-L): 26.84 ml/m2LAAs A2C: 19.61 | | iq7XCFSI A-L A2C: 63.10 mlLALs A2C: 5.17 cmLAAs A4C: 18.69 [id number] A-L A4C: | | 55.18 mlLALs A4C: 5.37 cmRAAs: 19.27 [id number] A-L: 61.26 mlRAESV MOD: 59.24 | | mlRALs: 5.15 cmTAPSE: 1.78 cmAV maxP.07 mmHgAV meanP.87 mmHgAV Vmax: | | 1.23 m/Jacquelin Vmean: 0.78 m/Jacquelin VTI: 22.53 cmAVA Vmax: 2.68 cm2AVA (VTI): 3.27 | | el2EQWI Vmax: 0.00 cm2/m2AVAI (VTI): 0.00 cm2/m2LVOT maxP.48 mmHgLVOT meanPG: | | 2.06 mmHgLVSI Dopp: 32.97 ml/m2LVSV Dopp: 73.87 mlLVOT Vmax: 0.93 m/sLVOT Vmean: | | 0.67 m/sLVOT VTI: 20.83 cmMV A Joaquín: 0.68 m/sMV Dec Daniels: 1.32 m/s2MV DecT: | | 373.67 msMV E Joaquín: 0.49 m/sMV E/A Ratio: 0.72MV PHT: 108.36 msMVA By PHT: 2.03 | | vp3Naywnu e': 0.03 m/sSeptal E/e': 14.24Lateral e': 0.02 m/sLateral E/e': 20.11 | | Blankmaker: JONATHANuthenticated by: Devonte Bedolla Date/Time: 11-25-2018 17:40:15 [...] A Joaquín: 0.68 m/s | |MV Dec Daniels: 1.32 m/s2 | |MV DecT: 373.67 ms | |MV E Joaquín: 0.49 m/s | |MV E/A Ratio: 0.72 | |MV PHT: 108.36 ms | |MVA By PHT: 2.03 cm2 | |Septal e': 0.03 m/s | |Septal E/e': 14.24 | |Lateral e': 0.02 m/s | |Lateral E/e': 20.11 | | | |Blankmaker: LILIAM | |Authenticated by: Devonte Nevarez | [...]
--- OUTSIDE RECORDS SUMMARY | ~2019-10-16 | XMS | Encounter Summary ---
Demographics + + + | Address | [address] | | | [place] [address] | + + + | Home Phone | | + + + | Preferred Language | Unknown | + + + | Marital Status | | + + + | Synagogue Affiliation | 1077 | + + + | Race | Unknown | + + + | Ethnic Group | Unknown | + + + Author + + + | Author | [facility] | | | and [place] | + + + | Organization | [facility] | | | and [place] [...] Team Providers + +------+ + | Care Cray Fishing Hand Name | Role | Phone | + +------+ + PCP | Unavailable | + +------+ + Encounter Details +--------+ + + + + | Date | Type | Department | Care Team | Description | +--------+ + + + + | 07/05/ | Hospital | [facility] | | | | 2002 | Encounter | [facility] | | | | | | [address] | | | | | | [place] | | | | | | [address] | | | | | | [phone] | | | +--------+ + + + [...] [place] | | | | | | [address] | | | | | | | | +--------+---------+ + + + documented as of this encounter Visit Diagnoses Not on filedocumented in this encounter"
[~2019-10-16 10:13] MED LIST changes: +FUROSEMIDE40 MG PO; +METOPROLOL SUCC50 MG PO
--- NOTE | 2019-10-16 17:37 | EKG ---
[facility] [address] [facility] [place] [address] Signed Sinus rhythm with occasional premature ventricular complexes Left axis deviation Right bundle branch block Abnormal ECG When compared with ECG of 30-JAN-2019 13:07, premature ventricular complexes are now present Left anterior fascicular block is no longer present Confirmed by SONIYA PEREZ MD ([id number]) on 10/16/2019 5:36:50 PM Electronically Signed By: SONIYA PEREZ MD 10/16/19 1737 PATIENT NAME: MARTIR GUTIERREZ Electrocardiogram DATE OF : 31 PHYSICIAN: SONIYA PEREZ MD REPORT #: [id number] REPORT IS CONFIDENTIAL AND NOT TO BE RELEASED WITHOUT AUTHORIZATION
== END 2019-10-16 14:40 | disposition home or self-care (01) ==
LOC: ED 10:13
DX: R00.2 Palpitations (principal); I10 Essential (primary) hypertension; I25.10 Atherosclerotic heart disease of native coronary artery without angina pectoris; Z86.73 Personal history of transient ischemic attack (TIA), and cerebral infarction without residual deficits; Z87.891 Personal history of nicotine dependence; Z88.5 Allergy status to narcotic agent; Z88.8 Allergy status to other drugs, medicaments and biological substances; Z79.899 Other long term (current) drug therapy; Z79.82 Long term (current) use of aspirin
CPT/HCPCS: 71045; 80053; 83880; 84443; 84484; 85025; 93005; 93010; 96360; 99285-25; J7040

== ENCOUNTER 2021-08-22 19:37 | Emergency (ER) | payer OTHER, MEDICARE ==
[~2021-08-22] VITALS: Ht 182.9 cm; Wt 93.0 kg
[~2021-08-22 19:37] MED LIST changes: +B-121000 MC2 PO; +CORICIDIN HBP PO; +FLOVENT DISKUS50 MCG INH; +HYDROCORT 2.5%-30 GM; +ULTRAM50 MG
== END 2021-08-22 23:15 | disposition home or self-care (01) ==
LOC: ED 19:37
DX: S00.11XA Contusion of right eyelid and periocular area, initial encounter (principal); S20.219A Contusion of unspecified front wall of thorax, initial encounter; S60.811A Abrasion of right wrist, initial encounter; I10 Essential (primary) hypertension; I25.10 Atherosclerotic heart disease of native coronary artery without angina pectoris; W01.0XXA Fall on same level from slipping, tripping and stumbling without subsequent striking against object, initial encounter; Z86.73 Personal history of transient ischemic attack (TIA), and cerebral infarction without residual deficits; Z87.891 Personal history of nicotine dependence; Z88.5 Allergy status to narcotic agent; Z88.8 Allergy status to other drugs, medicaments and biological substances; Z79.899 Other long term (current) drug therapy; Z79.82 Long term (current) use of aspirin
CPT/HCPCS: 70450; 71046; 99284-25

== ENCOUNTER 2022-08-06 10:20 | Day surgery (SDC) | payer MEDICARE ==
[~2022-08-06] VITALS: Ht 182.9 cm; Wt 90.9 kg
[~2022-08-06 10:20] MED LIST changes: +CICLOPIROX120 ML TOP; +IBU600 MG PO; +NYSTATIN15 G1
--- NOTE | 2022-08-06 13:14 | NUR ---
08/06/22 1314 Sussy Mora 1226 PT ARRIVED IN PACU SLEEPY WITH NO C/O'S. 1245 SITTING UP IN BED SIPPING ON WATER. DC INSTRUCTIONS GIVEN. 1250 GETTING DRESSED WITH STAND BY ASSIST. 1300 LEFT VIA W/C. INSTRUCTIONS GIVEN TO DAUGHTER AT TRUCK.
--- NOTE | 2022-08-22 15:14 | PATH ---
[facility] [address] [place], [place] [address] Signed THIS IS AN ADDENDUM REPORT SPECIMEN(S): A BONE MARROW - CORE SPECIMEN(S): B BONE MARROW - ASPIRATION SPECIMEN(S): C FLOW CYTOMETRY, BM EDTA ASP CLINICAL HISTORY: Myelodysplasia syndrome. 86-year-old male with pancytopenia. D46.9 (myelodysplastic syndrome, unspecified) DIAGNOSIS SUMMARY: Peripheral blood - Mild normocytic anemia. - No circulating blasts are identified. Bone marrow biopsy and aspiration: - Mildly hypercellular marrow, 30%, with less than 1% blasts. - Trilineage hematopoiesis with no significant dyspoiesis. - 15% kappa restricted plasma cells, consistent with a plasma cell neoplasm. - Congo Red stain is negative for amyloid. - Mildly increased marrow iron stores by Prussian Blue stain. - See Diagnostic Comment. DIAGNOSTIC COMMENT: Approximately 15% kappa restricted plasma cells are identified (by CD138 IHC stain), consistent with a plasma cell neoplasm. Clinical correlation with radiographic, laboratory, and clinical findings is required to subclassify the plasma cell neoplasm. Pending studies at the time of this report include a FISH panel for myeloma and chromosome analysis. JLP:C2NR HISTORICAL SUMMARY: 86-year-old male with no prior hematology history in [facility] presents with unexplained pancytopenia. There is a clinical concern of possible myelodysplasia. PERIPHERAL BLOOD: HEMOGRAM (08/06/2022): WBC 4.9 K/ul, RBC 3.55 M/ul, HGB 11.5 g/dl, HCT 33.5%, MCV 94.3 fl, MCH 32.4 pg, MCHC 34.3 g/dl, RDW 14.7%, PLT 215 K/ul, MPV 7.2 fl. Absolute neutrophil count is 3,600/ul. AUTOMATED DIFFERENTIAL COUNT: Neutrophils 72.9%, lymphocytes 16.5%, monocytes 8.0%, eosinophils 2.3%, basophils 0.3%. PATIENT NAME: MARTIR GUTIERREZ JR PATHOLOGY DATE OF : 31 REPORT #: [id number] PHYSICIAN: MCKENZIE NICOLE PCP: VIDHYA VERDIN MD REPORT IS CONFIDENTIAL AND NOT TO BE RELEASED WITHOUT AUTHORIZATION [facility] [address] [place], [place] [address] Signed The red blood cells are normocytic and normochromic with minimal anisopoikilocytosis. The neutrophils are unremarkable. Lymphocytes are composed of small mature appearing forms. Platelets appear normal in number and morphology with no platelet clumping or RBC microangiopathic effect identified. No blasts are identified. BONE MARROW: ASPIRATE SMEARS/TOUCH IMPRINT: The aspirate smears are hemodilute and is sub-optimal for evaluation. Erythroid precursors appear increased but show adequate maturation with essentially normal morphology. The myeloid precursors show full maturation with unremarkable morphology. There is no increase in blasts. Megakaryocytes are not identified. BONE MARROW DIFFERENTIAL COUNT (300 cells): Blasts less than 1%, promyelocytes 1%, myelocytes 3%, metamyelocytes/bands/segs 23%, erythroid precursors 61%, lymphocytes 2%, monocytes 5%, eosinophils 2%, plasma cells 3%. M:E ratio: Inverted at 0.48:1 BONE MARROW CORE BIOPSY/ASPIRATE CLOT/CELL BLOCK: The aspirate clot section and the core biopsy are adequate for evaluation. The core biopsy demonstrates unremarkable trabecular bone. The cellularity is increased for age, estimated at 30%. The erythroid precursors are within normal limits with essentially unremarkable maturation. The myeloid precursors are unremarkable with no significant dyspoiesis. Blasts are not increased. Megakaryocytes appear normal in number and in morphology. No granulomas, atypical lymphoid aggregates or foreign malignant cells are detected. SPECIAL STAINS (with adequate controls): - iron (aspirate smear): Insufficient marrow spicules are present for evaluation of marrow iron stores. - iron (cell block): Marrow iron stores appear mildly increased by Prussian Blue stain. No ring sideroblasts are identified. - Congo Red for amyloid (block A1): Negative for amyloid. IMMUNOHISTOCHEMISTRY STAINS (performed on block A1 with adequate controls). - CD138: 15% - APOLONIA kappa and lambda: [place] light chain restriction. - PAX5: 1%, no atypical aggregates. - CD3: 3%, no atypical aggregates FLOW CYTOMETRY: Bone marrow, flow cytometry: - 1.1% kappa restricted plasma cells consistent with a plasma cell neoplasm. PATIENT NAME: MARTIR GUTIERREZ JR PATHOLOGY DATE OF : 31 REPORT #: [id number] PHYSICIAN: MCKENZIE PATHOLOGY PCP: VIDHYA VERDIN MD REPORT IS CONFIDENTIAL AND NOT TO BE RELEASED WITHOUT AUTHORIZATION [facility] [address] [facility] [place], [place] [address] Signed - See comment. COMMENT: 1.1% of all analyzed cells are plasma cells with cytoplasmic kappa light chain restriction. These plasma cells are positive for CD138, CD20, and CD56. There is no significant expression of CD19 or CD117. These findings are supportive of a plasma cell neoplasm. No lymphoid clonality is detected. Blasts are not increased. The myeloid and monocyte baxter are unremarkable with no aberrant expression. FLOW CYTOMETRY ANALYSIS: FLOW DIFFERENTIAL (% Total CD45 vs. SSC gating): Myeloid 86%; Lymphoid 7%; Monocyte 4%; Dim CD45/Blast: 0.4%. Cell Count: 1.3 x 10*3/uL. POPULATION ANALYSIS: BLASTS: Analysis of the dim CD45 gate demonstrates 0.4% myeloblasts by CD34/CD117. LYMPHOID CELLS: The lymphocyte gate comprises 7% of total events and includes 82% T-cells with a CD4:CD8 ratio of 2.6:1 and normal aviles T-cell antigen expression. 2% of lymphocytes are polyclonal B-cells with a kappa:lambda ratio of 2.5:1. The remainders are NK-cells. MYELOID CELLS: The myeloid population comprises 86% of the total events. No aberrant or immature immunophenotypic expression is detected. MONOCYTES: The monocyte population comprises 4% of the total events. Monocytes are not increased. No aberrant immunophenotypic expression is detected. PLASMA CELLS: An increased number of CD19 negative plasma cells are observed in the screening gate of CD45 neg-dim/CD38. For this reason, select additional antibodies are run to further characterize the plasma cells. 1.1% ckappa-restricted plasma cells are detected (n=288) expressing CD45 DIM-NEG, CD38 BR, CD138 DIM, CD20 DIM (minor subset), CD56 MOD and cKAPPA MOD while negative for CD19 and CD117. Initial Antibodies Used: KAPPA, LAMBDA, CD20, CD10, CD19, CD23, CD38, CD16, CD56, CD8, CD5, CD2, CD4, CD7, CD3, CD14, CD33, CD13, HLADR, CD34, CD117, CD15, CD45. Additional Antibodies (necessary for further plasma cell analysis): ckappa, clambda, CD138. Total Antibodies Used: 26. JNB FINAL DIAGNOSIS PERFORMED BY: Yong Prieto MD, Aug 07 2022 2:37PM CYTOGENETICS: PATIENT NAME: MARTIR GUTIERREZ JR PATHOLOGY DATE OF : 31 REPORT #: [id number] PHYSICIAN: MCKENZIE PATHOLOGY PCP: VIDHYA VERDIN MD REPORT IS CONFIDENTIAL AND NOT TO BE RELEASED WITHOUT AUTHORIZATION [facility] [address] [place], [place] [address] Signed Chromosome analysis is pending, and the result will be reported in an addendum. FISH ANALYSIS: A FISH panel for myeloma is pending, and the result will be reported in an addendum. GROSS DESCRIPTION: Two specimens are received in two containers, labeled "PG." A. The specimen, labeled "PG, core," is received in formalin and consists of one core of brown-gibson bone (2.0 cm in length x 0.2 cm diameter). The specimen is submitted entirely in cassette (A1) following decalcification in Immunocal. B. The specimen, labeled "PG, clot," is received in formalin and consists of a portion of red-brown clot (2.3 x 1.5 x 0.4 cm in aggregate). The specimen is submitted entirely in cassette (B1). AC (under the direct supervision of a pathologist) The Gross Description was prepared using a voice recognition system. The report was reviewed for accuracy; however, sound-alike word errors, addition and/or deletions may occur. If there is any question about this report, please contact Client Services. ADDITIONAL NOTES: This test was developed and its performance characteristics determined by [facility]. It has not been cleared or approved by the US Food and Drug Administration. The FDA does not require this test to go through premarket FDA review. This test is used for clinical purposes. It should not be regarded as investigational or for research. This laboratory is certified under the Clinical Laboratory Improvement Amendments (CLIA) as qualified to perform high complexity clinical laboratory testing. Immunohistochemical and/or in situ hybridization studies were performed on this case with the appropriate positive controls that react as expected. This test was developed and its performance characteristics determined by [facility]. It has not been cleared or approved by the U.S. Food and Drug Administration. The FDA has determined that such clearance or approval is not necessary. This test is used for clinical purposes. It should not be regarded as investigational or for research. [facility] is certified under the Clinical Laboratory Improvement Amendments of 1988 (CLIA) as qualified to perform high complexity clinical PATIENT NAME: MARTIR GUTIERREZ PATHOLOGY DATE OF : 31 REPORT #: [id number] PHYSICIAN: MCKENZIE NICOLE PCP: VIDHYA VERDIN MD REPORT IS CONFIDENTIAL AND NOT TO BE RELEASED WITHOUT AUTHORIZATION [address] [address] Signed laboratory testing. This assay has not been validated for specimens that have been decalcified. In this case, certain antibodies were performed by both immunohistochemistry and flow cytometry analysis because flow cytometry analysis did not fully explain all the light microscopic findings. Immunohistochemistry aided in the analysis. Both methods are deemed medically necessary in this case. PERFORMING LABORATORY: The technical component was performed by [facility], [address] [place] [address] (CLIA#: [id number]). Professional interpretation was performed by [facility] [address] [address] (CLIA#: [id number]). A portion of the technical component was performed by [facility], [address] [place] [address] (CLIA# [id number]). A portion of the technical component was performed by [facility], [address] [place] [id number] (CLIA#: [id number]). Professional interpretation was performed by [facility] - [address] [address] (CLIA#: [id number]). IMAGES: A: [id number] A: [id number] SPECIMEN SOURCE: A. FISH Analysis, MM FISH, BM EDTA CLINICAL HISTORY: Myelodysplasia syndrome. 86-year-old male with pancytopenia. D46.9 (myelodysplastic syndrome, unspecified) FISH (fluorescence in situ hybridization) RESULT: Detected INTERPRETATION: 1q gain: Not detected 1p deletion: Not detected Chromosome 5, 9, or 15 gain: Detected 13q deletion: Not detected, Abnormal-see below 17p (p53) deletion: Not detected CCND1/IGH rearrangement t(11;14): Not detected, Abnormal-see below Fluorescence in situ hybridization (FISH) analysis was performed using a multiple myeloma specific set of probes. Plasma cell enrichment was performed. PATIENT NAME: MARTIR GUTIERREZ JR PATHOLOGY DATE OF : 31 REPORT #: [id number] PHYSICIAN: MCKENZIE PATHOLOGY PCP: VIDHYA VERDIN MD REPORT IS CONFIDENTIAL AND NOT TO BE RELEASED WITHOUT AUTHORIZATION [facility] [address] [facility] [place], [place] [address] Signed This study revealed a gain of chromosome 5 (3-5A, 45%, normal < 6%), gain of chromosome 9 (3-5G, 51%, normal <6%), gain of 11q (3R2G, 18%, normal <4.6%), gain of chromosome 13q34 (2R3G, 20%, normal<6%), and gain of chromosome 15 (3-5R, 57%, normal < 6.0%). The other analysis fell within normal limits for this sample type. This finding represents an ABNORMAL result. There is no evidence for IGH/CCND1 fusion, no evidence for deletion of 13q or 17p or aneuploidy of chromosomes 1q (CKS1B) in this specimen. Hyperdiploid cell clones are recurrent findings in patients with Multiple Myeloma which constitute a unique genetic subtype of MM associated with improved outcome with distinct clinical features. The most commonly gained chromosomes are 3, 5, 7, 9, 11, 15 and 19. Chromosomal hyperdiploidy is the defining genetic signature in 40-50% of myeloma (MM) patients. Please correlate with clinical and pathologic findings for full assessment. This analysis is not quantitative. Results obtained using CD138+ plasma cells are NOT patient access representative of the percentage of abnormal plasma cells in the aspirate. This analysis is limited to abnormalities detectable by the specific probes included in the study. FISH results should be interpreted within the context of a full cytogenetic analysis and hematologic evaluation. ISCN: Probe Set Detail: Chromosome 1: nuc apolonia 1p32.3(DOTK9Jx2),1q21.3(HJF0Tw8)[100] Chromosome 5: nuc apolonia 5p12(ZEY7y56)[45/100] Chromosome 9: nuc apolonia 9p13.1p13.2(RWH6n17)[51/100] Chromosome 15: nuc apolonia 15q11.2(KCB97l67)[57/100] Chromosome 13: nuc apolonia 13q14(C87S783t7),13q34(NLQR2f1)[20/100] Chromosome 17: nuc apolonia 17p13.1(TP53x2),17p11.2(HKS25r1)[100] CCND1/IGH t(11;14): nuc apolonia 11q13(NSXM1r5),14q32(IGHx2)[18/100] References: Chapito GuajardoJ, Eduardo Mcwilliams, et al; International Myeloma Working Group. IMWG consensus on risk stratification in multiple myeloma. Leukemia. 2014;28(2):269-77. Benjamin R, Flaquita PL, Weston J, Isael J, Guzman N, Bladimir AK, Jayden G, Gina B, Stefan M, Eduardo S, Elian A, Jennifer B, Melania WM, Mandy P, Nicolasa F, Carla-Raymundo S, Chuck BG, Izabel R, Deana O, Angela T, Jc L, Heidi H; International Myeloma Working Group. International Myeloma Working Group molecular PATIENT NAME: MARTIR GUTIERREZ PATHOLOGY DATE OF : 31 REPORT #: [id number] PHYSICIAN: MCKENZIE PATHOLOGY PCP: VIDHYA VERDIN MD REPORT IS CONFIDENTIAL AND NOT TO BE RELEASED WITHOUT AUTHORIZATION [facility] [address] [place] [address] Signed classification of multiple myeloma: spotlight review. Leukemia. 2009 Oct;23(12):2210-21. doi: 10.1038/maco.2009.174. Epub 2008Aug 09. PMID: [id number]; PMCID: [id number]. FISH Analysis Summary: Nuclei Scored: 100 Scoring Method: Manual; CPT Code 47146 Number of Probe units: 5 Multiplex Cells analyzed: Interphase Probe sets: 13q-/-13, 1p32.3/1q21, 5p12/9p13/15q11, TP53 (17p13.1)/ CEP 17 (17p11), IGH (14q32)/CCND1 (11q13.3) ADDITIONAL NOTES: This test was developed and its performance characteristics determined by [facility] It has not been cleared or approved by the US Food and Drug Administration. The [employer] DNA probe vendor for this study was [employer]. PERFORMING LABORATORY: The technical preparation and professional interpretation were performed by [facility], [address] [place] [address] (CLIA#: [id number]). IMAGES: A: 3R2G [id number] A: 2R3G [id number] A: 3R3G3A [id number] FINAL DIAGNOSIS PERFORMED BY: Orquidea Calderón MD, Pathologist Aug 19 2022 12:08PM REASON FOR ADDENDUM: To add results of additional testing. To report results of additional testing. Bone marrow, chromosome analysis: Karyotype: 46,XY[20] Interpretation: NORMAL MALE KARYOTYPE Cytogenetic analysis shows a normal male karyotype in all cells analyzed. Comments: Standard cytogenetic analysis may not detect subtle submicroscopic rearrangements and may not include metaphases from abnormal cell populations with low mitotic rates or present in low levels. Test Detail: Metaphases Counted: 20 PATIENT NAME: MARTIR GUTIERREZ JR PATHOLOGY DATE OF : 31 REPORT #: [id number] PHYSICIAN: MCKENZIE NICOLE PCP: VIDHYA VERDIN MD REPORT IS CONFIDENTIAL AND NOT TO BE RELEASED WITHOUT AUTHORIZATION [facility] [address] [place], [place] [address] Signed Metaphases Analyzed: 20 Metaphases Karyotyped: 2 Culture Type: 120IL4, 48EB Banding Technique: GTG Banding Resolution: 400 CPT Codes: 21896, 06931*, 16891, 17270 *Professional interpretation service generally billed directly to carriers by [facility]. Two cultures were performed; stimulated and non-stimulated. The Accessioning Component and Technical Component Processing of this test was completed at [facility], [address] [place] [address] / [address] / [phone] / CLIA #[id number] / Elephant Tamer(s): Jimbo Patton M.D. The Technical Component Analysis of this test was completed at [facility], [address] [place] [address], [address], [place], [place] / [address] / [phone] / CLIA #[id number] / Elephant Tamer(s): Khushi Rivers M.D. The Professional Component of this test was completed at [facility], [address] [place] [address] / [phone] / [phone] / SEVERO# [id number] / Elephant Tamer(s): Ziyad Arteaga, Ph.D. (Accession/CaseNo: [id number]) The performance characteristics of this test have been determined by the performing laboratory. This test has not been approved by the FDA. The FDA has determined such clearance or approval is not necessary. This laboratory is CLIA certified to perform high complexity clinical testing. Images that may be included within this report are patient access representative of the patient but not all testing in its entirety and should not be used to render a result. The CPT codes provided with our test descriptions are based on AMA guidelines and are for informational purposes only. Correct CPT coding is the sole responsibility of the billing constitution party. Please direct any questions regarding coding to the payer being billed. Diagnostician: Orquidea Calderón MD Pathologist Diagnostician: Yong Prieto MD Pathologist Electronically Signed 08/22/2022 PATIENT NAME: MARTIR GUTIERREZ Filippo PATHOLOGY DATE OF : 31 REPORT #: [id number] PHYSICIAN: MCKENZIE PATHOLOGY PCP: VIDHYA VERDIN MD REPORT IS CONFIDENTIAL AND NOT TO BE RELEASED WITHOUT AUTHORIZATION [address] [address] Signed Copies: ~ PATIENT NAME: MARTIR GUTIERREZ PATHOLOGY DATE OF : 31 REPORT #: [id number] PHYSICIAN: MCKENZIE NICOLE PCP: VIDHYA VERDIN MD REPORT IS CONFIDENTIAL AND NOT TO BE RELEASED WITHOUT AUTHORIZATION
== END 2022-08-06 13:00 | disposition home or self-care (01) ==
LOC: DS 10:20 → OPS 10:20 → DS 12:00 → OPS 13:00
PROVIDERS: ATTEND Specialist
PROC: 07JT3ZZ Inspection of Bone Marrow, Percutaneous Approach (ICD-10-PCS; principal; 2022-08-06 12:00)
DX: D46.9 Myelodysplastic syndrome, unspecified (principal); I10 Essential (primary) hypertension; E78.00 Pure hypercholesterolemia, unspecified
CPT/HCPCS: 01112; 36415; 82248; 82607; 82728; 82746; 83540; 83550; 85025; 88184; 88185; 88305; 88311; 88313; 88341; 88342; 88360; 88364; 88365; 88377; J7121